=== PATIENT | male | born 1950 ===

== ENCOUNTER 2017-01-05 13:22 | Emergency (ER) | payer MEDICARE ==
[2017-01-05 13:46] VITALS: TEMP 98.6
[2017-01-05] MEDS ORDERED: Naproxen 550 mg Tab PO STA (13:47)
[2017-01-05] MEDS ORDERED: Naproxen 550 mg Tab PO ONE (13:53)
--- NOTE | 2017-01-05 14:06 | C.PDOC ---
History Of Present Illness 66 y/o male presents to ED with non-radiating lower back pain over the past 2-3 days. Patient states he was has a history of sciatica and feels that this is similar. Patient denies injury, fall, nausea, vomiting, numbness, weakness or any other complaints at this time. Time Seen by Provider: 01/05/17 13:48 Chief Complaint (Nursing): Back Pain History Per: Patient History/Exam Limitations: no limitations Onset/Duration Of Symptoms: Hrs Current Symptoms Are (Timing): Still Present Quality Of Discomfort: "Pain" Previous Symptoms: Chronic Pain Associated Symptoms: denies: Incontinence, New Weakness, New Numbness Exacerbating Factor(s): Movement Recent travel outside of the [place]: No Past Medical History Reviewed: Historical Data, Nursing Documentation, Vital Signs Vital Signs: Last Vital Signs Temp 98.6 F 01/05/17 13:45 Pulse 55 L 01/05/17 14:53 Resp 18 01/05/17 14:53 BP 109/63 01/05/17 14:53 Pulse Ox 100 01/05/17 14:53 - Medical History PMH: No Chronic Diseases Surgical History: No Surg Hx Family History: States: No Known Family Hx - Social History Hx Alcohol Use: No Hx Substance Use: No - Immunization History Hx Tetanus Toxoid Vaccination: Yes Hx Influenza Vaccination: Yes Hx Pneumococcal Vaccination: Yes Review Of Systems Except As Marked, All Systems Reviewed And Found Negative. Constitutional: Negative for: Fever, Chills Gastrointestinal: Negative for: Nausea, Vomiting Musculoskeletal: Positive for: Back Pain Skin: Negative for: Rash Neurological: Negative for: Weakness, Numbness Physical Exam - Physical Exam Appears: Non-toxic, No Acute Distress Skin: Normal Color, Warm, Dry, No Rash Head: Atraumatic, Normacephalic Eye(s): bilateral: Normal Inspection, PERRL, EOMI Oral Mucosa: Moist Neck: Normal ROM, No Midline Cervical Tenderness, No Paracervical Tenderness, Supple Chest: Symmetrical, No Tenderness Cardiovascular: Rhythm Regular, No Friction Rub, No Murmur Respiratory: Normal Breath Sounds, No Rales, No Rhonchi, No Wheezing Gastrointestinal/Abdominal: Soft, No Tenderness, No Guarding, No Rebound Back: No CVA Tenderness, No Vertebral Tenderness, No Paraspinal Tenderness Extremity: Normal ROM, No Tenderness, No Swelling Neurological/Psych: Oriented x3, Normal Speech, Normal Motor, Normal Sensation Gait: Steady ED Course And Treatment O2 Sat by Pulse Oximetry: 98 (RA) Pulse Ox Interpretation: Normal Medical Decision Making Medical Decision Making: On re-exam, the patient reports improvement of symptoms. Abdomen remain soft, non-tender and tolerating PO well. Ambulatory in the ED steady gait and without focal deficitis. Disposition - Disposition Referrals: Archie Oneill MD [Non-Staff] - Disposition: HOME/ ROUTINE Disposition Time: 14:45 Condition: GOOD Additional Instructions: Follow up with the medical doctor within 1-2 days without fail, Return if worsened. 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 - Scribe Statement The provider has reviewed the documentation as recorded by the Atifibshira [place] All medical record entries made by the Selwyn were at my direction and personally dictated by me. I have reviewed the chart and agree that the record accurately reflects my personal performance of the history, physical exam, medical decision making, and the department course for this patient. I have also personally directed, reviewed, and agree with the discharge instructions and disposition.
[2017-01-05 14:53] VITALS: BP 109/63; PULSE 55; RESP 18
[2017-01-05 23:22] VITALS: O2SAT 98
== END 2017-01-05 14:57 | disposition home or self-care (01) ==
LOC: C.ER 13:22
DX: S39.012A Strain of muscle, fascia and tendon of lower back, initial encounter (principal); X58.XXXA Exposure to other specified factors, initial encounter

== ENCOUNTER 2018-04-09 11:38 | Emergency (ER) | payer MEDICARE ==
[2018-04-09 12:02] VITALS: TEMP 98.6
[2018-04-09 13:38] LABS: BASO # 0.1 K/uL (0.0-0.2); BASO % 0.8 % (0.0-2.0); EOS % 0.2 % (0.0-4.0); HEMOGLOBIN 13.6 g/dL (12.0-18.0); LYMPH # 1.1 K/uL (1.0-4.3); LYMPH % 10.8 % (20.0-40.0); MEAN CELL VOLUME 95.5 fL (80.0-94.0); MEAN CORPUSCULAR HEMOGLOBIN 32.7 pg (27.0-31.0); MEAN CORPUSCULAR HGB CONC 34.2 g/dL (33.0-37.0); MEAN PLATELET VOLUME 8.9 fL (7.2-11.7); MONO # 1.3 K/uL (0.0-0.8); NEUT # 7.6 K/uL (1.8-7.0); NEUT % 75.2 % (50.0-75.0); RBC 4.15 Mil/uL (4.40-5.90); RED CELL DISTRIBUTION WIDTH 13.6 % (11.5-14.5); WHITE BLOOD COUNT 10.1 K/uL (4.8-10.8)
[2018-04-09 13:50] LABS: ALB/GLOB RATIO 1.3 (1.0-2.1); ALBUMIN 4.1 g/dL (3.5-5.0); ALT/SGPT 32 U/L (21-72); AST/SGOT 33 U/L (17-59); BLOOD UREA NITROGEN 19 mg/dL (9-20); CALCIUM 8.9 mg/dl (8.6-10.4); GFR NON-AFRICAN AMERICAN > 60
[2018-04-09 15:03] LABS: URINE BILIRUBIN NEGATIVE (NEGATIVE); URINE BLOOD NEGATIVE (NEGATIVE); URINE CLARITY Clear (Clear); URINE COLOR Amber (YELLOW); URINE GLUCOSE (UA) NORMAL (Normal); URINE LEUKOCYTE ESTERASE NEG Leu/uL (Negative); URINE PROTEIN 2+ mg/dL (NEGATIVE)
--- NOTE | 2018-04-09 15:27 | C.PDOC ---
History Of Present Illness 68 y/o male with no PMHx presents via ambulance, accompanied by his for evaluation of frequent falls and decreased mental capacity. As per , patient fell in the summer and again yesterday. He has been forgetting how to read and write, and has been dressing himself incorrectly. Patient has also been losing his balance at home. reports he is increasingly antagonistic and yells at her frequently. Yesterday found patient on the floor, sitting in his own urine. Patient himself admits to feeling off balance. He denies any headache, chest pain, SOB, abdominal pain, nausea, vomiting, sweats, or other associated symptoms. - HPI Time Seen by Provider: 04/09/18 14:23 Chief Complaint (Nursing): Dizziness/Lightheaded History Per: Patient History/Exam Limitations: no limitations Onset/Duration Of Symptoms: Intermittent Episodes Injury Occurred (Timing): Days Ago: (1) Additional History Per: Family Past Medical History Reviewed: Historical Data, Nursing Documentation, Vital Signs Vital Signs: Last Vital Signs Temp 98.6 F 04/09/18 11:58 Pulse 78 04/09/18 11:58 Resp 20 04/09/18 11:58 BP 128/73 04/09/18 11:58 Pulse Ox 96 04/09/18 11:58 - Medical History PMH: No Chronic Diseases Family History: States: Unknown Family Hx - Social History Hx Alcohol Use: No Hx Substance Use: No - Immunization History Hx Tetanus Toxoid Vaccination: Yes Hx Influenza Vaccination: Yes Hx Pneumococcal Vaccination: Yes Review Of Systems Except As Marked, All Systems Reviewed And Found Negative. Constitutional: Negative for: Fever, Sweats Eyes: Negative for: Vision Change Cardiovascular: Negative for: Chest Pain, Palpitations Respiratory: Negative for: Shortness of Breath Gastrointestinal: Negative for: Nausea, Vomiting, Diarrhea Neurological: Positive for: Confusion (increased inability to read/write and dress self), Dizziness, Other (Frequent falls). Negative for: Weakness, Numbness, Headache Physical Exam - Physical Exam Appears: Non-toxic, No Acute Distress Skin: Normal Color, Warm, Dry Head: Atraumatic, Normacephalic, No Swelling, No Laceration Eye(s): bilateral: Normal Inspection, PERRL, EOMI Nose: Normal, No Discharge Oral Mucosa: Moist Lips: Normal Appearing Throat: Normal, No Erythema Neck: Normal ROM, No Midline Cervical Tenderness, No Paracervical Tenderness, Supple Chest: Symmetrical Cardiovascular: Rhythm Regular, No Murmur Respiratory: Normal Breath Sounds, No Rales, No Rhonchi, No Wheezing Gastrointestinal/Abdominal: Soft, No Tenderness, No Distention Back: Normal Inspection, No Vertebral Tenderness Extremity: Bilateral: Atraumatic, Normal Color And Temperature, Normal ROM Pulses: Left Dorsalis Pedis: Normal, Right Dorsalis Pedis: Normal Neurological/Psych: Oriented x3, Normal Speech, Normal Cranial Nerves, Other (Patient answering all questions, correctly naming items; Neurologically intact) Gait: With Assistance (Patient is able to ambulate across the ED with assistance) Other Neurological Findings: No Facial Palsy ED Course And Treatment - Laboratory Results Result Diagrams: 04/09/18 13:33 04/09/18 13:33 O2 Sat by Pulse Oximetry: 96 (RA) Pulse Ox Interpretation: Normal - CT Scan/US CT Head Other Rad Studies (CT/US): Read By Radiologist, Radiology Report Reviewed CT/US Interpretation: Accession No. : [id number]. Patient Name / ID : MARISELA GRANT / [id number]. Exam Date : 04/09/2018 15:17:35 ( Approved ). Study Comment : Sex / Age : M / 68Y. Creator : Jade Caceres. Dictator : Patricio Camp MD. House Detective : Item Processor : Patricio Camp MD. Approver2 : Report Date : 04/09/2018 15:27:45. My Comment : . Date of service: 04/09/2018. PROCEDURE: CT HEAD WITHOUT CONTRAST. HISTORY: Off balance, frequent falls. COMPARISON: None available. TECHNIQUE: Axial computed tomography images were obtained through the head/brain without intravenous contrast. Radiation dose: Total exam DLP = 1218.16 mGy-cm. This CT exam was performed using one or more of the following dose reduction techniques: Automated exposure control, adjustment of the mA and/or kV according to patient size, and/or use of iterative reconstruction technique. FINDINGS: HEMORRHAGE: No acute parenchymal subarachnoid nor extra-axial hemorrhage. BRAIN: Mild diffuse and confluent chronic white matter ischemic changes seen extending peripherally into the deep and subcortical white matter both cerebral hemispheres. There are chronic appearing bilateral small basal nuclei infarcts also present. Note that the possibility of a small hyperacute infarct cannot be excluded on this exam. There is disproportionate enlargement of the 3rd and lateral ventricles with relatively normal-appearing 4th ventricle, compared sulci which can be seen in central volume loss. However the possibility of normal pressure hydrocephalus NPH) should be excluded if the clinical triad of dementia, ataxia and incontinence is present. Fourth ventricle exhibits relatively normal size; rule out chronic compensated obstructive type hydrocephalus. Clinical correlation recommended. Mild vascular calcification left vertebral artery. No obvious parenchymal nor extra-axial mass or collection seen on this noncontrast exam. VENTRICLES: Dilatation of the 3rd and lateral ventricles as detailed above. CALVARIUM: Calvarium intact. PARANASAL SINUSES: Unremarkable as visualized. No significant inflammatory changes. MASTOID AIR CELLS: Unremarkable as visualized. No inflammatory changes. OTHER FINDINGS: None. IMPRESSION: Mild chronic white matter ischemic changes with scattered chronic bilateral basal nuclei infarcts. Moderate dilatation of the 3rd and lateral ventricles with relatively normal- appearing 4th ventricle. Findings could be in part related to central volume loss however the possibility of chronic compensated obstructive hydrocephalus not excluded. Consider NPH only if the clinical triad of dementia, ataxia and incontinence present. Medical Decision Making Medical Decision Making: Initial Plan: --CMP --Troponin I --CBC --UA --EKG --CT Head Discussed CT results with Dr. Barnett neuro bond runner. She recommended patient start on Aricept and f/u with NS in case he needs a shunt. Disposition Discussed With : Kamille Barnett Counseled Patient/Family Regarding: Studies Performed, Diagnosis, Need For Followup, Rx Given - Disposition Referrals: Chase Maldonado MD [Staff Provider] - Kamille Barnett MD [Staff Provider] - Mejia Amaro MD [Staff Provider] - Disposition: HOME/ ROUTINE Disposition Time: 16:09 Condition: GUARDED Prescriptions: Donepezil HCl [Aricept] 10 mg PO DAILY #30 tablet Instructions: Hydrocephalus (DC), Dementia (DC) Forms: [facility] (Tajik), General Discharge Instructions - POA Present On Arrival: None - Clinical Impression Clinical Impression: Normal pressure hydrocephalus - Scribe Statement The provider has reviewed the documentation as recorded by the Atifibshira Ruelas Provider Attestation: All medical record entries made by the Atifibe were at my direction and personally dictated by me. I have reviewed the chart and agree that the record accurately reflects my personal performance of the history, physical exam, medical decision making, and the department course for this patient. I have also personally directed, reviewed, and agree with the discharge instructions and disposition.
--- NOTE | 2018-04-09 15:56 | CT ---
Date of service: 04/09/2018 PROCEDURE: CT HEAD WITHOUT CONTRAST. HISTORY: Off balance, frequent falls COMPARISON: None available. TECHNIQUE: Axial computed tomography images were obtained through the head/brain without intravenous contrast. Radiation dose: Total exam DLP = 1218.16 mGy-cm. This CT exam was performed using one or more of the following dose reduction techniques: Automated exposure control, adjustment of the mA and/or kV according to patient size, and/or use of iterative reconstruction technique. FINDINGS: HEMORRHAGE: No acute parenchymal subarachnoid nor extra-axial hemorrhage. BRAIN: Mild diffuse and confluent chronic white matter ischemic changes seen extending peripherally into the deep and subcortical white matter both cerebral hemispheres. There are chronic appearing bilateral small basal nuclei infarcts also present. Note that the possibility of a small hyperacute infarct cannot be excluded on this exam. There is disproportionate enlargement of the 3rd and lateral ventricles with relatively normal-appearing 4th ventricle, compared sulci which can be seen in central volume loss. However the possibility of normal pressure hydrocephalus NPH) should be excluded if the clinical triad of dementia, ataxia and incontinence is present. Fourth ventricle exhibits relatively normal size; rule out chronic compensated obstructive type hydrocephalus. Clinical correlation recommended. Mild vascular calcification left vertebral artery. No obvious parenchymal nor extra-axial mass or collection seen on this noncontrast exam. VENTRICLES: Dilatation of the 3rd and lateral ventricles as detailed above. CALVARIUM: Calvarium intact. PARANASAL SINUSES: Unremarkable as visualized. No significant inflammatory changes. MASTOID AIR CELLS: Unremarkable as visualized. No inflammatory changes. OTHER FINDINGS: None. IMPRESSION: Mild chronic white matter ischemic changes with scattered chronic bilateral basal nuclei infarcts. Moderate dilatation of the 3rd and lateral ventricles with relatively normal-appearing 4th ventricle. Findings could be in part related to central volume loss however the possibility of chronic compensated obstructive hydrocephalus not excluded. Consider NPH only if the clinical triad of dementia, ataxia and incontinence present.
[2018-04-09 16:25] VITALS: BP 134/79; PULSE 79; RESP 16; O2SAT 98
--- NOTE | 2018-04-10 21:47 | CARD ---
APPROVED REPORT Date of service: 04/09/2018 EKG Measurement Heart [id number] <Conclusion> Sinus rhythm with premature supraventricular complexes Left axis deviation Abnormal ECG
== END 2018-04-09 16:25 | disposition home or self-care (01) ==
LOC: C.ER 11:38
DX: G91.2 (Idiopathic) normal pressure hydrocephalus (principal)

== ENCOUNTER 2018-08-10 22:25 | Inpatient (IN) | payer MEDICARE ==
[2018-08-10 22:31] VITALS: BMI 16.0
[2018-08-10] MEDS ORDERED: Iodixanol 320 MG/ML 100 ML BOTTLE IV ONE (22:47)
[2018-08-10 22:51] LABS: BASO # 0.1 K/uL (0.0-0.2); BASO % 1.3 % (0.0-2.0); EOS # 0.1 K/uL (0.0-0.7); EOS % 1.6 % (0.0-4.0); HEMOGLOBIN 14.4 g/dL (12.0-18.0); LYMPH # 2.4 K/uL (1.0-4.3); LYMPH % 28.1 % (20.0-40.0); MEAN CELL VOLUME 93.4 fL (80.0-94.0); MEAN CORPUSCULAR HEMOGLOBIN 32.3 pg (27.0-31.0); MEAN CORPUSCULAR HGB CONC 34.5 g/dL (33.0-37.0); MEAN PLATELET VOLUME 8.2 fL (7.2-11.7); MONO # 0.9 K/uL (0.0-0.8); MONO % 10.3 % (0.0-10.0); NEUT # 4.9 K/uL (1.8-7.0); NEUT % 58.7 % (50.0-75.0); RBC 4.45 Mil/uL (4.40-5.90); RED CELL DISTRIBUTION WIDTH 14.2 % (11.5-14.5); WHITE BLOOD COUNT 8.4 K/uL (4.8-10.8)
[2018-08-10 23:34] LABS: ALB/GLOB RATIO 1.6 (1.0-2.1); ALBUMIN 4.4 g/dL (3.5-5.0); ALT/SGPT 27 U/L (21-72); AST/SGOT 80 U/L (17-59); BLOOD UREA NITROGEN 26 mg/dL (9-20); CALCIUM 10.1 mg/dl (8.6-10.4); GFR NON-AFRICAN AMERICAN 55; HDL CHOLESTEROL 47 mg/dL (30-70); LDL CHOLESTEROL 150 mg/dL (0-129); PROTHROMBIN TIME 11.2 SECONDS (9.7-12.2)
[2018-08-10] MEDS ORDERED: Atropine Sulfate 1 mg/ml Vial (1 ml) IVP ONE (23:44)
[2018-08-10] MEDS ORDERED: diaZEpam 10 mg/2 ml Inj ONE (23:59)
--- NOTE | 2018-08-10 23:59 | C.PDOC ---
History Of Present Illness 68 year old male with PMHx of dementia is brought from home by EMS for evaluation of sudden onset dizziness. Patient lived upstairs from his girlfriend also c.o nausea and vomiting now. Time Seen by Provider: 08/10/18 22:26 Chief Complaint (Nursing): Weakness/Neurological Deficit History Per: Patient, EMS History/Exam Limitations: no limitations Onset/Duration Of Symptoms: Hrs Current Symptoms Are (Timing): Still Present Number Of Syncopal Episodes: 1 Associated Symptoms Preceding Syncopal Episode: Vertigo Seizure Or Post-ictal Symptoms: None Possible Causative Factor(s): Vertigo Fall Associated With With Symptoms: No Severity: None Recent travel outside of the [place]: No Additional History Per: Patient, EMS Past Medical History Reviewed: Historical Data, Nursing Documentation, Vital Signs Vital Signs: Last Vital Signs Temp 98.4 F 08/10/18 22:36 Pulse 43 L 08/10/18 23:40 Resp 9 L 08/10/18 23:40 BP 150/75 08/10/18 23:40 Pulse Ox 100 08/10/18 23:40 - Medical History PMH: Alzheimer's Disease, Dementia Surgical History: No Surg Hx Family History: States: Unknown Family Hx - Social History Hx Alcohol Use: No Hx Substance Use: No - Immunization History Hx Tetanus Toxoid Vaccination: Yes Hx Influenza Vaccination: Yes Hx Pneumococcal Vaccination: Yes Review Of Systems Constitutional: Negative for: Fever, Chills Eyes: Negative for: Vision Change Cardiovascular: Negative for: Chest Pain, Palpitations Respiratory: Negative for: Shortness of Breath Gastrointestinal: Positive for: Nausea, Vomiting. Negative for: Abdominal Pain Neurological: Positive for: Dizziness. Negative for: Weakness, Numbness, Headache Physical Exam - Physical Exam Appears: Non-toxic, No Acute Distress Skin: Normal Color, Warm, Dry Head: Atraumatic, Normacephalic, Other (questionable mid left facial droop, new as per GF at bedside) Eye(s): bilateral: PERRL, EOMI, Other (sticking nystagmus) Oral Mucosa: Moist Neck: Normal ROM, Supple Chest: Symmetrical Cardiovascular: Rhythm Regular Respiratory: Normal Breath Sounds, No Rales, No Rhonchi, No Wheezing Gastrointestinal/Abdominal: Soft, No Tenderness, No Guarding, No Rebound Extremity: Bilateral: Atraumatic, Normal Color And Temperature, Normal ROM Neurological/Psych: Oriented x3, Normal Speech, Normal Cognition, Normal Motor, Normal Sensation Gait: Steady ED Course And Treatment - Laboratory Results Result Diagrams: 08/10/18 22:46 08/10/18 22:46 Lab Results: PT 11.2 SECONDS (9.7-12.2) 08/10/18 22:46 INR 1.0 08/10/18 22:46 APTT 26 SECONDS (21-34) 08/10/18 22:46 Troponin I < 0.0120 ng/mL (0.00-0.120) 08/10/18 22:46 Total Bilirubin 0.3 mg/dL (0.2-1.3) 08/10/18 22:46 AST 80 U/L (17-59) H D 08/10/18 22:46 ALT 27 U/L (21-72) 08/10/18 22:46 Alkaline Phosphatase 86 U/L (38-126) 08/10/18 22:46 Total Protein 7.1 g/dL (6.3-8.3) 08/10/18 22:46 Albumin 4.4 g/dL (3.5-5.0) 08/10/18 22:46 Globulin 2.7 gm/dL (2.2-3.9) 08/10/18 22:46 Albumin/Globulin Ratio 1.6 (1.0-2.1) 08/10/18 22:46 O2 Sat by Pulse Oximetry: 100 (ON RA) Pulse Ox Interpretation: Normal - CT Scan/US CT head Other Rad Studies (CT/US): Read By Radiologist, Radiology Report Reviewed CT/US Interpretation: EXAM: CT Head without Intravenous Contrast. CLINICAL HISTORY: Code stroke. TECHNIQUE: Axial computed tomography images of the head/brain without intravenous contrast. 0.00 mGy-cm. CONTRAST: Without. COMPARISON: None provided. FINDINGS: BRAIN. No acute intraparenchymal hemorrhage. No mass lesion. No abnormal enhancement. No CT evidence for acute territorial infarct. No midline shift or extra-axial collections. There is moderate age-appropriate diffuse cerebral/cerebellar atrophy noted. There are bilateral periventricular and subcortical white matter hypolucencies compatible with mild chronic microvascular disease. VENTRICLES: There is some compensatory ventricular dilatation present. ORBITS: The orbits are unremarkable. SINUSES AND MASTOIDS: The paranasal sinuses and mastoid air cells are clear. BONES: No fracture. IMPRESSION: 1. No acute intracranial abnormality. 2. Moderate age-appropriate diffuse cerebral/cerebellar atrophy. 3. Mild chronic microvascular disease. 4. Mild compensatory ventricular dilatation present. . Electronically signed on Aug 10, 2018 11:07:59 PM EDT by: Chase Bui M.D., GUALBERTO Certified By ABR & CBCCT. Fellowship Trained MRI and CT Specialist CTA head Other Rad Studies (CT/US): Read By Radiologist, Radiology Report Reviewed CT/US Interpretation: EXAM: CTA Head and Neck with Intravenous Contrast. CLINICAL HISTORY: Code stroke. TECHNIQUE: Axial CTA images of the head and neck performed with intravenous contrast. MIP reconstructed images were created and reviewed. 0.00 mGy-cm. CONTRAST: With; 100MLS VISI 320 was injected intravenously without incident. COMPARISON: None provided. FINDINGS: VASCULATURE: NECK: COMMON CAROTID ARTERIES. No significant canal stenosis. No dissection or occlusion. EXTERNAL CAROTID ARTERIES. Patent. NECK: INTERNAL CAROTID ARTERIES. Short segments of high-grade stenosis are identified within the origin of the right internal carotid artery. some atheromatous plaque deposition is seen within the origin of the left internal carotid artery. No stenosis by NASCET criteria seen in the left ICA. No dissection or occlusion seen involving either vessel. VERTEBRAL ARTERIES. No significant canal stenosis. No dissection. A long segment of total occlusion; possibly subsequent to thrombosis, is seen within the left vertebral artery beginning just beyond its level of origin extending cephalad to the level of the upper foramen magnum. Arterial flow within the left vertebral artery is then reconstituted via collaterals and appears normal to the vertebral basilar junction. The right vertebral artery appears normal throughout its course. HEAD: ANTERIOR CEREBRAL ARTERIES. No significant stenosis. No occlusion. No aneurysm. MIDDLE CEREBRAL ARTERIES. No significant stenosis. No occlusion. No aneurysm. POSTERIOR CEREBRAL ARTERIES. No significant stenosis. No occlusion. No aneurysm. BASILAR ARTERY. No significant stenosis. No occlusion. No aneurysm. OTHER: SOFT TISSUES. No acute finding. BONES. No acute osseous abnormality. There is evidence of advanced degenerative disc disease at C4-5, C5-6, C6-7. 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 IMPRESSION: 1. Short segments of high-grade stenosis involving the origin of the right ICA. 2. Questionable thrombotic arterial occlusion of nearly the entire course of the left vertebral artery. Reconstitution of left vertebral arterial flow noted just proximal to the vertebral basilar junction. 3. Atheromatous plaque deposition seen within the origin of the left ICA. 4. Evidence of advanced degenerative disc disease at C4-5, C5-6, C6-7. 5. 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 . Electronically signed on Aug 11, 2018 12:04:02 AM EDT by: Chase Bui M.D., GUALBERTO Certified By ABR & CBCCT. Fellowship Trained MRI and CT Specialist. NIHSS Stroke Scale 2 - Date/Time Evaluation Performed Date Performed: 08/11/18 Medical Decision Making Medical Decision Making: PLan: * Labs * CT head * CTA head * CXR * Aspirin 325 mg PO * Ativan 1 mg IVP * Atropine 1 mg IVP * Valium 5 mg IVP * Zofran 4 mg IVP Code stroke called 22:25 Disposition - Disposition Forms: [facility] (Macedonian) - Scribe Statement The provider has reviewed the documentation as recorded by the Scribe Roni Chandra All medical record entries made by the Scribe were at my direction and personally dictated by me. I have reviewed the chart and agree that the record accurately reflects my personal performance of the history, physical exam, medical decision making, and the department course for this patient. I have also personally directed, reviewed, and agree with the discharge instructions and disposition.
[2018-08-11] MEDS ORDERED: diaZEpam 10 mg/2 ml Inj IVP ONE (00:01)
--- NOTE | 2018-08-11 00:09 | C.PDOC ---
History Of Present Illness 68 year old male with PMHx of dementia is brought from home by EMS for evaluation of sudden onset dizziness. Patient lives upstairs from his girlfriend, patient is also c/o nausea and vomiting now. <Gorge Rdz - Last Filed: 08/11/18 00:28> History Per: Patient, EMS, Family History/Exam Limitations: None Onset/Duration Of Symptoms: Hrs Onset Of Symptoms: Cannot Confirm Onset Current Symptoms Are (Timing): Still Present Usual Baseline: Alert Oriented Exacerbating Factor(s): Unknown Use Of Anticoag/Antiplatelets: No Speech Is: Normal Severity: None Recent travel outside of the [place]: No Additional History Per: Patient <Gorge Rdz - Last Filed: 08/11/18 00:28> <Marcel Lopez - Last Filed: 08/11/18 01:46> Time Seen by Provider: 08/10/18 22:26 Chief Complaint (Nursing): Weakness/Neurological Deficit Past Medical History Reviewed: Historical Data, Nursing Documentation, Vital Signs Vital Signs: Last Vital Signs Temp 98.4 F 08/10/18 22:36 Pulse 43 L 08/10/18 23:40 Resp 9 L 08/10/18 23:40 BP 150/75 08/10/18 23:40 Pulse Ox 100 08/11/18 00:06 - Medical History PMH: Alzheimer's Disease, Dementia Surgical History: No Surg Hx Family History: States: Unknown Family Hx - Social History Hx Alcohol Use: No Hx Substance Use: No - Immunization History Hx Tetanus Toxoid Vaccination: Yes Hx Influenza Vaccination: Yes Hx Pneumococcal Vaccination: Yes <Gorge Rdz - Last Filed: 08/11/18 00:28> Vital Signs: Last Vital Signs Temp 98.4 F 08/10/18 22:36 Pulse 72 08/11/18 00:51 Resp 13 08/11/18 00:51 BP 148/82 08/11/18 00:51 Pulse Ox 98 08/11/18 00:51 <Marcel Lopez - Last Filed: 08/11/18 01:46> Review Of Systems Constitutional: Negative for: Fever, Chills Cardiovascular: Negative for: Chest Pain, Palpitations Respiratory: Negative for: Cough, Shortness of Breath Gastrointestinal: Positive for: Nausea, Vomiting Skin: Negative for: Rash Neurological: Positive for: Dizziness. Negative for: Weakness, Numbness, Headache <Gorge Rdz - Last Filed: 08/11/18 00:28> Physical Exam - Physical Exam Appears: Non-toxic, No Acute Distress Skin: Normal Color, Warm, Dry Head: Atraumatic, Normacephalic, Other (questionable mid left facial droop, new as per GF at bedside) Eye(s): bilateral: PERRL, EOMI, Other (sticking nystagmus) Oral Mucosa: Moist Neck: Normal ROM, No Midline Cervical Tenderness, Supple Chest: Symmetrical Cardiovascular: Rhythm Regular Respiratory: Normal Breath Sounds, No Rales, No Rhonchi, No Wheezing Gastrointestinal/Abdominal: Soft, No Tenderness, No Guarding, No Rebound Extremity: Bilateral: Atraumatic, Normal Color And Temperature, Normal ROM Neurological/Psych: Oriented x3, Normal Speech Gait: Unable To Assess <KendellGorge - Last Filed: 08/11/18 00:28> ED Course And Treatment - Laboratory Results Result Diagrams: 08/10/18 22:46 08/10/18 22:46 Lab Results: PT 11.2 SECONDS (9.7-12.2) 08/10/18 22:46 INR 1.0 08/10/18 22:46 APTT 26 SECONDS (21-34) 08/10/18 22:46 Troponin I < 0.0120 ng/mL (0.00-0.120) 08/10/18 22:46 Total Bilirubin 0.3 mg/dL (0.2-1.3) 08/10/18 22:46 AST 80 U/L (17-59) H D 08/10/18 22:46 ALT 27 U/L (21-72) 08/10/18 22:46 Alkaline Phosphatase 86 U/L (38-126) 08/10/18 22:46 Total Protein 7.1 g/dL (6.3-8.3) 08/10/18 22:46 Albumin 4.4 g/dL (3.5-5.0) 08/10/18 22:46 Globulin 2.7 gm/dL (2.2-3.9) 08/10/18 22:46 Albumin/Globulin Ratio 1.6 (1.0-2.1) 04/12/19 22:46 Lab Interpretation: Normal ECG: Interpreted By Tn ECG Rhythm: Sinus Bradycardia ECG Interpretation: Abnormal Rate From EC O2 Sat by Pulse Oximetry: 100 (ON RA) Pulse Ox Interpretation: Normal - Radiology CXR: Interpreted by Tn CXR Interpretation: Yes: No Acute Disease - CT Scan/US CT head Other Rad Studies (CT/US): Read By Radiologist, Radiology Report Reviewed CT/US Interpretation: EXAM: CT Head without Intravenous Contrast. CLINICAL HISTORY: Code stroke. TECHNIQUE: Axial computed tomography images of the head/brain without intravenous contrast. 0.00 mGy-cm. CONTRAST: Without. COMPARISON: None provided. FINDINGS: BRAIN. No acute intraparenchymal hemorrhage. No mass lesion. No abnormal enhancement. No CT evidence for acute territorial infarct. No midline shift or extra-axial collections. There is moderate age-appropriate diffuse cerebral/cerebellar atrophy noted. There are b ilateral periventricular and subcortical white matter hypolucencies compatible with mild chronic microvascular disease. VENTRICLES: There is some compensatory ventricular dilatation present. ORBITS: The orbits are unremarkable. SINUSES AND MASTOIDS: The paranasal sinuses and mastoid air cells are clear. BONES: No fracture. IMPRESSION: 1. No acute intracranial abnormality. 2. Moderate age-appropriate diffuse cerebral/cerebellar atrophy. 3. Mild chronic microvascular disease. 4. Mild compensatory ventricular dilatation present. . Electronically signed on Aug 10, 2018 11:07:59 PM EDT by: Chase Bui M.D., GUALBERTO Certified By ABR & CBCCT. Fellowship Trained MRI and CT Specialist. CTA head Other Rad Studies (CT/US): Read By Radiologist, Radiology Report Reviewed CT/US Interpretation: EXAM: CTA Head and Neck with Intravenous Contrast. CLINICAL HISTORY: Code stroke. TECHNIQUE: Axial CTA images of the head and ne ck performed with intravenous contrast. MIP reconstructed images were created and reviewed. 0.00 mGy-cm. CONTRAST: With; 100MLS VISI 320 was injected intravenously without incident. COMPARISON: None provided. FINDINGS: VASCULATURE: NECK: COMMON CAROTID ARTERIES. No significant canal stenosis. No dissection or occlusion. EXTERNAL CAROTID ARTERIES. Patent. NECK: INTERNAL CAROTID ARTERIES. Short segments of high-grade stenosis are identified within the origin of the right internal carotid artery. some atheromatous plaque deposition is seen within the origin of the left internal carotid artery. No stenosis by NASCET criteria seen in the left ICA. No dissection or occlusion seen involving either vessel. VERTEBRAL ARTERIES. No significant canal stenosis. No dissection. A long segment of total occlusion; possibly subsequent to thrombosis, is seen within the left vertebral artery beginning just beyond its level of origin extending cephalad to the level of the upper foramen magnum. Arterial flow within the left vertebral artery is then reconstituted via collaterals and appears normal to the vertebral basilar junction. The right vertebral artery appears normal throughout its course. HEAD: ANTERIOR CEREBRAL ARTERIES. No significant stenosis. No occlusion. No aneurysm. MIDDLE CEREBRAL ARTERIES. No significant stenosis. No occlusion. No aneurysm. POSTERIOR CEREBRAL ARTERIES. No significant stenosis. No occlusion. No aneurysm. BASILAR ARTERY. No significant stenosis. No occlusion. No aneurysm. OTHER: SOFT TISSUES. No acute finding. BONES. No acute osseous abnormality. There is evidence of advanced degenerative disc disease at C4-5, C5-6, C6-7. 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 IMPRESSION: 1. Short segments of high-grade stenosis involving the origin of the right ICA. 2. Questionable thrombotic arterial occlusion of nearly the entire course of the left vertebral artery. Reconstitution of left vertebral arterial flow noted just proximal to the vertebral basilar junction. 3. Atheromatous plaque dep osition seen within the origin of the left ICA. 4. Evidence of advanced degenerative disc disease at C4-5, C5-6, C6-7. 5. 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 . Electronically signed on Aug 11, 2018 12:04:02 AM EDT by: Chase Bui M.D., GUALBERTO Certified By ABR & CBCCT. Fellowship Trained MRI and CT Specialist Reevaluation Time: 00:14 Reassessment Condition: Improved - Physician Consult Information Outcome Of Conversation: 0015: dw Dr. Barnett- Neuro Direct Selling Counselor- abnormal CTA results reviewed. though subacute findings, pending d/w interventional Neuro. Pending ICU consult for ? symptomatic bradycardia. 0030: signed over to overnight <Gorge Rdz - Last Filed: 08/11/18 00:28> - Laboratory Results Result Diagrams: 08/10/18 22:46 08/10/18 22:46 Lab Results: PT 11.2 SECONDS (9.7-12.2) 08/10/18 22:46 INR 1.0 08/10/18 22:46 APTT 26 SECONDS (21-34) 08/10/18 22:46 Troponin I < 0.0120 ng/mL (0.00-0.120) 08/10/18 22:46 Total Bilirubin 0.3 mg/dL (0.2-1.3) 08/10/18 22:46 AST 80 U/L (17-59) H D 08/10/18 22:46 ALT 27 U/L (21-72) 08/10/18 22:46 Alkaline Phosphatase 86 U/L (38-126) 08/10/18 22:46 Total Protein 7.1 g/dL (6.3-8.3) 08/10/18 22:46 Albumin 4.4 g/dL (3.5-5.0) 08/10/18 22:46 Globulin 2.7 gm/dL (2.2-3.9) 08/10/18 22:46 Albumin/Globulin Ratio 1.6 (1.0-2.1) 08/10/18 22:46 <Marcel Lopez - Last Filed: 08/11/18 01:46> NIHSS Stroke Scale - Date/Time Evaluation Performed Date Performed: 08/11/18 Time Performed: 22:25 - How Severe is the Stoke Level of Consciousness: 0=Alert LOC to Questions: 0=Both comments correct LOC to commands: 0=Obeys both correctly Best Gaze: 0=Normal Visual: 0=No visual loss Facial: 0=Normal Motor Arm - Left: 0=No drift Motor Arm - Right: 0=No drift Motor Leg - Left: 0=No drift Motor Leg - Right: 0=No drift Limb Ataxia: 0=Absent Sensory: 0=Normal Best Language: 0=No aphasia Dysarthia: 0=Normal articulation Extinction & Inattention (Neglect): 0=Normal, no object Score: 0 <Gorge Rdz - Last Filed: 08/11/18 00:28> rTPA Inclusion/Exclusion - Refusal of Treatment Patient Refused Treatment: No - Inclusion Criteria for Altepase All of the below criteria for inclusion were reviewed: No - Exclusion Criteria for Altepase Current Intracranial Hemorrhage: No Subarachnoid hemorrhage: No Active Internal Bleeding: No Presence of intracranial conditions that may increase bleed: Not Applicable Bleeding Diathesis Including but not limited to: None Current Severe Uncontrolled Hypertension: No - Warning to TPA With Conditions Following Conditions Weighed Against Anticipated Benefit: No <KendellHernandoKunal - Last Filed: 08/11/18 00:28> - Refusal of Treatment Patient Refused Treatment: No - Inclusion Criteria for Altepase All of the below criteria for inclusion were reviewed: No Patient is 18 years or Older: Yes Clinical DX Ischemic Stroke Cause Neurological Deficit: No Time of Onset Established Less Than 270 Mins Before TX Begin: Yes - Exclusion Criteria for Altepase Current Intracranial Hemorrhage: No Subarachnoid hemorrhage: No Active Internal Bleeding: No Presence of intracranial conditions that may increase bleed: Not Applicable Bleeding Diathesis Including but not limited to: None Current Severe Uncontrolled Hypertension: No - Warning to TPA With Conditions Following Conditions Weighed Against Anticipated Benefit: No <JohnMarcel - Last Filed: 08/11/18 01:46> Critical Care Time - Critical Care Note Total Time (in mins): 30 Documented critical care: time excludes all time spent performing seperately billable procedures. <JohnFanny Last Filed: 08/11/18 01:46> Medical Decision Making Medical Decision Making: Peter: Labs CT head CTA head CXR Aspirin 325 mg PO Ativan 1 mg IVP Atropine 1 mg IVP Valium 5 mg IVP Zofran 4 mg IVP Code stroke called 22:25 sudden onset of vertigo w sticking horizontal nystagmus Sinus bradycardia 43, responded well to Atropine IV x [address] <Gorge Rdz E - Last Filed: 08/11/18 00:28> Disposition - Disposition Disposition Time: 00:30 <Gorge Rdz E - Last Filed: 08/11/18 00:28> Discussed With DrDiego: Chase Maldonado Comment: accepted the pt onhis service and took over the care at 1:42AM Doctor Will See Patient In The: ED <JohnMarcel Last Filed: 08/11/18 01:46> - Disposition Disposition: HOSPITALIZED Condition: GUARDED Forms: [facility] (Cameroonian) - Clinical Impression Clinical Impression: Vertebro-basilar artery syndrome, Bradycardia - Scribe Statement The provider has reviewed the documentation as recorded by the Scribe Roni Chandra All medical record entries made by the Scribe were at my direction and personally dictated by me. I have reviewed the chart and agree that the record accurately reflects my personal performance of the history, physical exam, medical decision making, and the department course for this patient. I have also personally directed, reviewed, and agree with the discharge instructions and disposition. <Gorge Rdz - Last Filed: 08/11/18 00:28> Physician Patient Turnover Patient Signed Over To: Marcel Lopez Handoff Comments: pending call- back from Dr. Barnett. then Adm to ICU (OK with Dr. Payan) under Dr. Maldonado (needs to be called) <Gorge Rdz - Last Filed: 08/11/18 00:28> Decision To Admit <Gorge Rdz - Last Filed: 08/11/18 00:28> - Pt Status Changed To: Hospital Disposition Of: Inpatient - Admit Certification Admit to Inpatient:: After my assessment, the patient will require hospitalization for at least two midnights. This is because of the severity of symptoms shown, intensity of services needed, and/or the medical risk in this patient being treated as an outpatient. - InPatient: Physician Admission Certification:: After my assessment, the patient will require hospitalization for at least two midnights. This is because of the severity of symptoms shown, intensity of services needed, and/or the medical risk in this patient being treated as an outpatient. - . Bed Request Type: ICU Admitting Physician: Chase Maldonado <Marcel Lopez - Last Filed: 08/11/18 01:46> - . Patient Diagnosis: Vertebro-basilar artery syndrome, Bradycardia
[2018-08-11 06:24] LABS: BASO # 0.1 K/uL (0.0-0.2); BASO % 0.7 % (0.0-2.0); EOS % 0.3 % (0.0-4.0); HEMOGLOBIN 16.5 g/dL (12.0-18.0); LYMPH # 1.6 K/uL (1.0-4.3); LYMPH % 15.4 % (20.0-40.0); MEAN CELL VOLUME 94.3 fL (80.0-94.0); MEAN CORPUSCULAR HGB CONC 33.9 g/dL (33.0-37.0); MEAN PLATELET VOLUME 8.1 fL (7.2-11.7); MONO # 0.8 K/uL (0.0-0.8); MONO % 7.9 % (0.0-10.0); NEUT # 7.7 K/uL (1.8-7.0); NEUT % 75.7 % (50.0-75.0); RBC 5.16 Mil/uL (4.40-5.90); RED CELL DISTRIBUTION WIDTH 13.9 % (11.5-14.5); WHITE BLOOD COUNT 10.1 K/uL (4.8-10.8)
[2018-08-11 06:38] LABS: ALB/GLOB RATIO 1.6 (1.0-2.1); ALBUMIN 4.8 g/dL (3.5-5.0); ALT/SGPT 28 U/L (21-72); AST/SGOT 94 U/L (17-59); BLOOD UREA NITROGEN 23 mg/dL (9-20); CALCIUM 10.1 mg/dl (8.6-10.4); GFR NON-AFRICAN AMERICAN > 60
--- NOTE | 2018-08-11 08:37 | RAD ---
Chest x-ray single frontal view History: Code stroke. Comparison: 08/25/2016 Findings: Biapical pleural thickening with upper lobe granulomatous changes. Diffuse increased interstitial lung markings. Mild linear atelectasis at the right lung base. Bilateral hilar prominence. Tortuous aorta. Top normal heart size. Degenerative changes in the spine and shoulders. Impression: Biapical pleural thickening with upper lobe granulomatous changes. Diffuse increased interstitial lung markings. Mild linear atelectasis at the right lung base. Bilateral hilar prominence. Tortuous aorta.
--- NOTE | 2018-08-11 10:34 | CT ---
Date of service: 08/10/2018 PROCEDURE: CT HEAD WITHOUT CONTRAST. HISTORY: Code Stroke COMPARISON: 04/09/2018 TECHNIQUE: Axial computed tomography images were obtained through the head/brain without intravenous contrast. Radiation dose: Total exam DLP = 1244.11 mGy-cm. This CT exam was performed using one or more of the following dose reduction techniques: Automated exposure control, adjustment of the mA and/or kV according to patient size, and/or use of iterative reconstruction technique. FINDINGS: HEMORRHAGE: No intracranial hemorrhage. BRAIN: No mass effect or edema. Scattered focal lucencies in the subcortical and periventricular white matter suggestive for chronic microvascular ischemic change. Diffuse generalized parenchymal atrophy. Punctate left basal ganglia lacunar infarct. VENTRICLES: Prominent likely related to diffuse generalized parenchymal atrophy. CALVARIUM: Unremarkable. PARANASAL SINUSES: Unremarkable as visualized. No significant inflammatory changes. MASTOID AIR CELLS: Unremarkable as visualized. No inflammatory changes. OTHER FINDINGS: Diffuse intracranial atherosclerotic calcifications. IMPRESSION: No acute intracranial abnormality. Chronic microvascular ischemic change. Diffuse generalized parenchymal atrophy. If symptoms persists, consider correlation with MRI. A preliminary report was generated at 11:07 p.m. on 08/10/[address] Chase Bui from [facility].
[2018-08-11] MEDS: Enoxaparin 40 mg Syringe SC SCH (11:15)
[2018-08-11] MEDS: Thiamine 100 mg/ml Inj IV SCH ×2 (11:16→17:31)
[2018-08-11] MEDS ORDERED: Gadodiamide 287 MG/ML VIAL (15ML) IV ONE (13:00)
[2018-08-11 13:16] LABS: BARBITURATES, UR NEGATIVE (NEGATIVE); OPIATES, UR NEGATIVE (NEGATIVE); PHENCYCLIDINE, UR NEGATIVE (NEGATIVE)
[2018-08-11 13:39] LABS: BENZODIAZEPINES, UR POSITIVE (NEGATIVE)
--- NOTE | 2018-08-11 13:39 | CP.PCM.PN ---
Subjective - Date & Time of Evaluation Date of Evaluation: 08/11/18 Time of Evaluation: 13:34 - Subjective Subjective: PAtient awake alert in NAD. PAtient not on any pressors. awake, alert, moving all extremitites. long time legal partner at bedside (living with him for 35 yrs) notes patient has been confused, leaves gas/stove on, forgets to close outside door, and at times walks out of house and forgets how to get home). PAtient admits to "forgetting" at times. Patient admitted and brought to ICU at around 3:40AM Objective - Vital Signs/Intake and Output Vital Signs (last 24 hours): Temp Pulse Resp BP Pulse Ox 97.5 F L 54 L 10 L 134/71 100 08/11/18 12:00 08/11/18 11:30 08/11/18 11:30 08/11/18 11:27 08/11/18 11:30 Intake and Output: 08/11/18 08/11/18 06:59 18:59 Intake Total 0 0 Output Total 300 100 Balance -300 -100 - Medications Medications: Current Medications Albuterol/Ipratropium (Duoneb 3 Mg/0.5 Mg (3 Ml) Ud) 3 ml INH RQ6 [facility] Aspirin (Aspirin Chewable) 81 mg PO DAILY [facility] Last Admin: 08/11/18 11:10 Dose: Not Given Donepezil HCl (Aricept) 5 mg PO HS [facility] Enoxaparin Sodium (Lovenox) 40 mg SC DAILY [facility] Last Admin: 08/11/18 11:15 Dose: 40 mg Folic Acid (Folic Acid) 1 mg PO DAILY [facility] Multivitamins/Vitamin C (Multi-Delyn Liquid) 5 ml PO DAILY [facility] Pantoprazole Sodium (Protonix Inj) 40 mg IVP DAILY [facility] Last Admin: 08/11/18 11:15 Dose: 40 mg Rosuvastatin Calcium (Crestor) 10 mg PO HS [facility] Thiamine HCl (Vitamin B1 Inj) 200 mg IV Q8H [facility] Stop: 08/13/18 02:31 Last Admin: 08/11/18 11:16 Dose: 200 mg - Labs Labs: 08/11/18 06:16 08/11/18 06:14 PT 11.2 SECONDS (9.7-12.2) 08/10/18 22:46 INR 1.0 08/10/18 22:46 APTT 26 SECONDS (21-34) 08/10/18 22:46 - Constitutional Appears: Well, Non-toxic, No Acute Distress - Head Exam Head Exam: ATRAUMATIC, NORMAL INSPECTION, NORMOCEPHALIC - Eye Exam Eye Exam: EOMI Pupil Exam: NORMAL ACCOMODATION, PERRL - ENT Exam ENT Exam: Mucous Membranes Moist - Respiratory Exam Respiratory Exam: Clear to Ausculation Bilateral, NORMAL BREATHING PATTERN - Cardiovascular Exam Cardiovascular Exam: REGULAR RHYTHM, +S1, +S2 - GI/Abdominal Exam GI & Abdominal Exam: Soft, Normal Bowel Sounds - Rectal Exam Rectal Exam: NORMAL INSPECTION - Back Exam Back Exam: NORMAL INSPECTION - Neurological Exam Neurological Exam: Alert, Awake, CN II-XII Intact, Oriented x3 - Psychiatric Exam Psychiatric exam: Normal Affect, Normal Mood - Skin Skin Exam: Normal Color, Warm Assessment and Plan - Assessment and Plan (Free Text) Assessment: as per nursing patient admitted to ICU at around 3:40AM Patient has h/o smoking 1/2 pack per day (/partner does not know any other medications and will bring in the list) -?CVA: not visible on CT-obtain MRI brain and neurolgoy eval -PAtient remains hemodyanmically stable -chronic issues include -COPD: patient advsied to stop smoking, duonebs -at risk of CAD: bedside swallow eval passed, start oral asa + statin -continue dvt/pud pppx Patient remains neurologically stable, remain hemodynamically stable.
[2018-08-11] MEDS: Albuterol-Ipratrop 3 mg / 0.5 (3 ml) UD INH SCH ×2 (14:20→19:51)
--- NOTE | 2018-08-11 14:39 | CT ---
Date of service: 08/10/2018 PROCEDURE: CT Angiography of the neck and brain with contrast HISTORY: CODE STROKE COMPARISON: None. TECHNIQUE: Contiguous axial images of the neck and brain were obtained from the level of the vertex of the skull to the superior mediastinum in the arteriographic phase of enhancement. Coronal and sagittal reformats or also generated. IV contrast dose: 100 cc Visipaque 320 Radiation dose: Total exam DLP = 631.88 mGy-cm. This CT exam was performed using one or more of the following dose reduction techniques: Automated exposure control, adjustment of the mA and/or kV according to patient size, and/or use of iterative reconstruction technique. FINDINGS: The aortic arch widely patent with only minimal calcified atherosclerotic plaque. The origins of the great vessels are widely patent. The common carotid arteries and carotid bifurcations are patent throughout without evidence of dissection occlusion or significant stenosis. Mild partially calcified atherosclerotic plaque seen at the proximal left internal carotid artery. Changes result narrowing estimated at approximately 50 %. The internal carotid arteries including the petrous cavernous and supraclinoid segments are also patent left-sided which is larger in caliber/more dominant than the right-side. There is occlusion of the left vertebral artery. Right vertebral artery is patent throughout. Note however that the distal vertebral artery (intradural segment reconstituted-opacified which is likely due to some retrograde filling. The major branches of the [id number] are also patent. The distal branches of the anterior middle and posterior cerebral arteries appear patent and relatively symmetric.. No evidence of large aneurysm nor vascular malformation. OTHER FINDINGS: Multilevel degenerative spondylosis of the cervical spine. Mild chronic pleural thickening and parenchymal scarring both lung apices IMPRESSION: There is an approximately 50 % stenosis of proximal left internal carotid artery. The left vertebral artery is occluded however there is some reconstitution - opacification distally the intradural distal intradural portion of the left vertebral artery likely due to some retrograde filling
--- NOTE | 2018-08-11 15:56 | MRI ---
Date of service: 08/11/2018 PROCEDURE: MRI BRAIN WITH AND WITHOUT CONTRAST HISTORY: AMS COMPARISON: Comparison made with CT scan and CTA of the brain dated 08/10/2018. TECHNIQUE: Multiplanar, multisequence MR images of the brain were obtained with and without intravenous contrast enhancement.. 12 cc of Omniscan contrast material injected this exam. FINDINGS: HEMORRHAGE: No acute parenchymal, subarachnoid or extra-axial hemorrhage. No evidence of hemosiderin deposition is identified on gradient echo weighted sequence. DWI: No evidence of an acute or early subacute infarction seen on diffusion imaging. BRAIN PARENCHYMA: Mild chronic periventricular white matter ischemic changes with multiple smaller lacunar type infarcts scattered about deep and subcortical white matter both cerebral hemispheres. Moderate to fairly significant central volume loss evidenced by disproportionate enlargement of the ventricles as compared sulci. ENHANCEMENT: No enhancing parenchymal nor extra-axial masses or collections. No evidence of unusual meningeal enhancement. VENTRICLES: Unremarkable. No hydrocephalus. CRANIUM: Note that there is slight mottling of the marrow within the clivus however no discrete enhancing lesions seen. ORBITS: Orbits and contents grossly unremarkable. PARANASAL SINUSES/MASTOIDS: Clear VASCULAR SYSTEM: Visualized major vascular flow voids at skull base patent. OTHER FINDINGS: None . IMPRESSION: Limited motion degraded. No evidence of acute intracranial hemorrhage or infarct. No enhancing lesions. Mild chronic periventricular white matter ischemic changes with multiple smaller lacunar type infarcts scattered about deep and subcortical white matter both cerebral hemispheres. Moderate to fairly significant central volume loss evidenced by disproportionate enlargement of the ventricles as compared sulci. The marrow within the clivus is somewhat mottled though no discrete enhancing lesions.
--- NOTE | 2018-08-11 21:12 | CP.PCM.CON ---
History of Present Illness - History of Present Illness History of Present Illness: Neurology consult dictated. IN brief, Mr. Esquivel is a 68 yr old male who was admitted to the hospital and ICU last night with dizziness and who now has Normal MRI with cta head showing 50% stenosis. Dizziness may be vasovagal in nature. PLan; 1. No further neuro recommendation. 2. Aricept DR. corona Neurology Past Patient History - Infectious Disease Hx of Infectious Diseases: None - Past Medical History & Family History Past Medical History?: Yes - Past Social History Smoking Status: Heavy Smoker > 10 Cigarettes Daily - NEUROLOGICAL Hx Alzheimer's Disease: Yes Hx Dementia: Yes - MUSCULOSKELETAL/RHEUMATOLOGICAL Hx Falls: No - PSYCHIATRIC Hx Substance Use: No - SURGICAL HISTORY Hx Surgeries: Yes Other/Comment: Vein stripping - ANESTHESIA Hx Anesthesia: Yes Hx Anesthesia Reactions: No Meds Allergies/Adverse Reactions: Allergies Allergy/AdvReac Type Severity Reaction Status Date / Time No Known Allergies Allergy Verified 04/09/18 12:02 - Medications Medications: Current Medications Albuterol/Ipratropium (Duoneb 3 Mg/0.5 Mg (3 Ml) Ud) 3 ml INH RQ6 [facility] Last Admin: 08/11/18 19:51 Dose: Not Given Aspirin (Aspirin Chewable) 81 mg PO DAILY [facility] Last Admin: 08/11/18 11:10 Dose: Not Given Donepezil HCl (Aricept) 5 mg PO HS [facility] Enoxaparin Sodium (Lovenox) 40 mg SC DAILY [facility] Last Admin: 08/11/18 11:15 Dose: 40 mg Folic Acid (Folic Acid) 1 mg PO DAILY [facility] Last Admin: 08/11/18 13:51 Dose: 1 mg Multivitamins/Vitamin C (Multi-Delyn Liquid) 5 ml PO DAILY [facility] Pantoprazole Sodium (Protonix Inj) 40 mg IVP DAILY [facility] Last Admin: 08/11/18 11:15 Dose: 40 mg Rosuvastatin Calcium (Crestor) 10 mg PO HS [facility] Thiamine HCl (Vitamin B1 Inj) 200 mg IV Q8H [facility] Stop: 08/13/18 02:31 Last Admin: 08/11/18 17:31 Dose: 200 mg Results - Vital Signs Recent Vital Signs: Last Vital Signs Temp 98.9 F 08/11/18 20:00 Pulse 48 L 08/11/18 21:00 Resp 22 08/11/18 21:00 BP 108/56 L 08/11/18 21:00 Pulse Ox 98 08/11/18 20:00 - Labs Result Diagrams: 08/11/18 06:16 08/11/18 06:14 Labs: Laboratory Results - last 24 hr 08/10/18 08/10/18 08/10/18 22:46 22:46 22:46 WBC 8.4 RBC 4.45 Hgb 14.4 Hct 41.6 MCV 93.4 D MCH 32.3 H MCHC 34.5 RDW 14.2 Plt Count 242 MPV 8.2 Neut % (Auto) 58.7 Lymph % (Auto) 28.1 Tate % (Auto) 10.3 H Eos % (Auto) 1.6 Baso % (Auto) 1.3 Neut # (Auto) 4.9 Lymph # (Auto) 2.4 Tate # (Auto) 0.9 H Eos # (Auto) 0.1 Baso # (Auto) 0.1 PT 11.2 INR 1.0 APTT 26 Sodium 139 Potassium 3.8 Chloride 100 Carbon Dioxide 30 Anion Gap 12 BUN 26 H Creatinine 1.3 Est GFR ( Amer) > 60 Est GFR (Non-Af Amer) 55 POC Glucose (mg/dL) Random Glucose 124 H Hemoglobin A1c Calcium 10.1 Phosphorus Magnesium Total Bilirubin 0.3 AST 80 H D ALT 27 Alkaline Phosphatase 86 Troponin I < 0.0120 Total Protein 7.1 Albumin 4.4 Globulin 2.7 Albumin/Globulin Ratio 1.6 Triglycerides 142 Cholesterol 216 H LDL Cholesterol Direct 150 H HDL Cholesterol 47 Urine Opiates Screen Urine Methadone Screen Ur Barbiturates Screen Ur Phencyclidine Scrn Ur Amphetamines Screen U Benzodiazepines Scrn U Oth Cocaine Metabols U Cannabinoids Screen Grp A Beta Strep Ag Blood Type Antibody Screen 08/10/18 08/11/18 08/11/18 22:46 00:54 06:14 WBC RBC Hgb Hct MCV MCH MCHC RDW Plt Count MPV Neut % (Auto) Lymph % (Auto) Tate % (Auto) Eos % (Auto) Baso % (Auto) Neut # (Auto) Lymph # (Auto) Tate # (Auto) Eos # (Auto) Baso # (Auto) PT INR APTT Sodium 137 Potassium 4.3 Chloride 101 Carbon Dioxide 28 Anion Gap 13 BUN 23 H Creatinine 1.0 Est GFR ( Amer) > 60 Est GFR (Non-Af Amer) > 60 POC Glucose (mg/dL) Random Glucose 107 Hemoglobin A1c 5.6 Calcium 10.1 Phosphorus 3.6 Magnesium 2.4 H Total Bilirubin 0.6 AST 94 H ALT 28 Alkaline Phosphatase 102 Troponin I Total Protein 7.9 Albumin 4.8 Globulin 3.1 Albumin/Globulin Ratio 1.6 Triglycerides Cholesterol LDL Cholesterol Direct HDL Cholesterol Urine Opiates Screen Urine Methadone Screen Ur Barbiturates Screen Ur Phencyclidine Scrn Ur Amphetamines Screen U Benzodiazepines Scrn U Oth Cocaine Metabols U Cannabinoids Screen Grp A Beta Strep Ag Blood Type A POSITIVE Antibody Screen Negative 08/11/18 08/11/18 08/11/18 06:16 09:03 11:13 WBC 10.1 RBC 5.16 Hgb 16.5 D Hct 48.6 MCV 94.3 H MCH 32.0 H MCHC 33.9 RDW 13.9 Plt Count 239 MPV 8.1 Neut % (Auto) 75.7 H Lymph % (Auto) 15.4 L Tate % (Auto) 7.9 Eos % (Auto) 0.3 Baso % (Auto) 0.7 Neut # (Auto) 7.7 H Lymph # (Auto) 1.6 Tate # (Auto) 0.8 Eos # (Auto) 0.0 Baso # (Auto) 0.1 PT INR APTT Sodium Potassium Chloride Carbon Dioxide Anion Gap BUN Creatinine Est GFR ( Amer) Est GFR (Non-Af Amer) POC Glucose (mg/dL) 111 H 104 Random Glucose Hemoglobin A1c Calcium Phosphorus Magnesium Total Bilirubin AST ALT Alkaline Phosphatase Troponin I Total Protein Albumin Globulin Albumin/Globulin Ratio Triglycerides Cholesterol LDL Cholesterol Direct HDL Cholesterol Urine Opiates Screen Urine Methadone Screen Ur Barbiturates Screen Ur Phencyclidine Scrn Ur Amphetamines Screen U Benzodiazepines Scrn U Oth Cocaine Metabols U Cannabinoids Screen Grp A Beta Strep Ag Blood Type Antibody Screen 08/11/18 08/11/18 08/11/18 12:11 14:19 16:14 WBC RBC Hgb Hct MCV MCH MCHC RDW Plt Count MPV Neut % (Auto) Lymph % (Auto) Tate % (Auto) Eos % (Auto) Baso % (Auto) Neut # (Auto) Lymph # (Auto) Tate # (Auto) Eos # (Auto) Baso # (Auto) PT INR APTT Sodium Potassium Chloride Carbon Dioxide Anion Gap BUN Creatinine Est GFR ( Amer) Est GFR (Non-Af Amer) POC Glucose (mg/dL) 118 H Random Glucose Hemoglobin A1c Calcium Phosphorus Magnesium Total Bilirubin AST ALT Alkaline Phosphatase Troponin I Total Protein Albumin Globulin Albumin/Globulin Ratio Triglycerides Cholesterol LDL Cholesterol Direct HDL Cholesterol Urine Opiates Screen Negative Urine Methadone Screen Negative Ur Barbiturates Screen Negative Ur Phencyclidine Scrn Negative Ur Amphetamines Screen Negative U Benzodiazepines Scrn Positive U Oth Cocaine Metabols Negative U Cannabinoids Screen Negative Grp A Beta Strep Ag Negative Blood Type Antibody Screen
--- NOTE | 2018-08-11 23:39 | CON ---
DATE: 08/11/2018 Neurology consult called by Dr. Gorge Rdz. HISTORY OF PRESENT ILLNESS: Mr. Chase Esquivel is a 68-year-old male with past medical history of dementia, who suddenly became dizzy last night at around midnight. He also complained of nausea and vomiting. On exam in the ER, the patient had unusual nystagmus. He was admitted to the ICU. Of note, he had an MRI of the brain done which was normal, did not show any stroke. CT of the head and neck done which showed the following and was reported by Dr. Carranza. The patient has 50% stenosis at proximal left ICA, left vertebral artery is occluded, was discussed by Dr. Beltran who felt that the ICA was open and that there was no endovascular input needed at this time. REVIEW OF SYSTEMS: The patient complained of dizziness, but the review of systems is not accurate because of dementia. PAST MEDICAL HISTORY: As above. PAST SURGICAL HISTORY: Not known. FAMILY AND SOCIAL HISTORY: . SOCIAL HISTORY: No tobacco, alcohol or EtOH. ALLERGIES: NO KNOWN DRUG ALLERGIES. PHYSICAL EXAMINATION: GENERAL: On exam, the patient was alert and oriented x1. HEENT: Pupils are equal, round, and reactive to light. NEUROLOGIC: Cranial nerves II to XII were normal. EOMI. He did have some dizziness on bringing his head up. No facial asymmetry. with no aphasia. Motor 5/5. Sensory was inaccurate. Gait was normal. Reflexes are +1 in upper and lower limbs bilaterally. LABORATORY DATA: Are as follows: The CBC was normal except for left shift at 75.7 neutrophils. Chemistry showed that he had a BUN of 23, glucose was 118. AST was 18, ALT was 27, cholesterol 216, LDL 150. Group A beta strep antigen was negative. IMPRESSION: This is a 68-year-old male with dementia and dizziness and some minor stenosis. He apparently has a significant history of dementia. MRI is normal. CT of the head does not show any intervention as indicated. At this point, we will not recommend anything else except for starting Aricept, increasing Aricept to 10 mg. He is already on Aricept and perhaps starting Namenda. Thank you for this interesting consult. Kamille Barnett MD [facility] # [id number]
--- NOTE | 2018-08-11 23:55 | CP.PCM.HP ---
History of Present Illness - History of Present Illness History of Present Illness: Patient is a 68 years old who was brought to the ED at [facility] (formerly [facility]) early this AM because of vomiting and increasing confusion. He is also found to be bradycardic, was given Atropine IV with increasing HR, and was sent to CCU for monitoring. A CT scan of the head reveals multiple small lacunar infarcts in both hemispheres. A CTA of the head reveals an occlusion of the left vertebral artery with reconstruction of the distal left vertebral artery at the kim. It also reveals a severe stenosis of the right internal carotid artery at its origin. Patient is known to have a diffuse atherosclerosis, an emphysema and a senile dementia. He smokes 1/2 ppd of cigarettes. Present on Admission - Present on Admission Any Indicators Present on Admission: No Review of Systems - Review of Systems Systems not reviewed;Unavailable: Dementia - Gastrointestinal Gastrointestinal: Vomiting - Psychiatric Psychiatric: Confusion, Memory Loss Past Patient History - Infectious Disease Hx of Infectious Diseases: None - Tetanus Immunizations Tetanus Immunization: Unknown - Past Medical History & Family History Past Medical History?: Yes - Past Social History Smoking Status: Heavy Smoker > 10 Cigarettes Daily Alcohol: None Drugs: Denies Home Situation {Lives}: With Family Domestic Violence: Negative - PULMONARY Hx Emphysema: Yes - NEUROLOGICAL Hx Alzheimer's Disease: Yes Hx Dementia: Yes Hx Dizziness: Yes - MUSCULOSKELETAL/RHEUMATOLOGICAL Hx Falls: No Hx Unsteady Gait: Yes - PSYCHIATRIC Hx Substance Use: No - SURGICAL HISTORY Hx Surgeries: Yes (insertion of an IVC filter many years ago.) Other/Comment: Vein stripping - ANESTHESIA Hx Anesthesia: Yes Hx Anesthesia Reactions: No Meds Allergies/Adverse Reactions: Allergies Allergy/AdvReac Type Severity Reaction Status Date / Time No Known Allergies Allergy Verified 04/09/18 12:02 Physical Exam - Constitutional Appears: No Acute Distress, Confused, Cachectic, Chronically Ill - Head Exam Head Exam: NORMAL INSPECTION - Eye Exam Eye Exam: Normal appearance Pupil Exam: NORMAL ACCOMODATION - ENT Exam ENT Exam: Normal Exam - Neck Exam Neck exam: Positive for: Normal Inspection - Respiratory Exam Respiratory Exam: Clear to Auscultation Bilateral, NORMAL BREATHING PATTERN - Cardiovascular Exam Cardiovascular Exam: REGULAR RHYTHM - GI/Abdominal Exam GI & Abdominal Exam: Normal Bowel Sounds, Soft - Rectal Exam Rectal Exam: Deferred - Exam Exam: NORMAL INSPECTION - Extremities Exam Extremities exam: Positive for: normal inspection - Back Exam Back exam: NORMAL INSPECTION - Neurological Exam Neurological exam: Abnormal Gait, Alert - Psychiatric Exam Psychiatric exam: Anxious Additional comments: Confused, - Skin Skin Exam: Dry, Normal Color, Warm Results - Vital Signs Recent Vital Signs: Last Vital Signs Temp 98.9 F 08/11/18 20:00 Pulse 48 L 08/11/18 21:00 Resp 22 08/11/18 21:00 BP 108/56 L 08/11/18 21:00 Pulse Ox 98 08/11/18 20:00 - Labs Result Diagrams: 08/11/18 06:16 08/11/18 06:14 Labs: Laboratory Results - last 24 hr 08/11/18 08/11/18 08/11/18 00:54 06:14 06:16 WBC 10.1 RBC 5.16 Hgb 16.5 D Hct 48.6 MCV 94.3 H MCH 32.0 H MCHC 33.9 RDW 13.9 Plt Count 239 MPV 8.1 Neut % (Auto) 75.7 H Lymph % (Auto) 15.4 L [place] % (Auto) 7.9 Eos % (Auto) 0.3 Baso % (Auto) 0.7 Neut # (Auto) 7.7 H Lymph # (Auto) 1.6 [place] # (Auto) 0.8 Eos # (Auto) 0.0 Baso # (Auto) 0.1 Sodium 137 Potassium 4.3 Chloride 101 Carbon Dioxide 28 Anion Gap 13 BUN 23 H Creatinine 1.0 Est GFR ( Amer) > 60 Est GFR (Non-Af Amer) > 60 POC Glucose (mg/dL) Random Glucose 107 Calcium 10.1 Phosphorus 3.6 Magnesium 2.4 H Total Bilirubin 0.6 AST 94 H ALT 28 Alkaline Phosphatase 102 Total Protein 7.9 Albumin 4.8 Globulin 3.1 Albumin/Globulin Ratio 1.6 Urine Opiates Screen Urine Methadone Screen Ur Barbiturates Screen Ur Phencyclidine Scrn Ur Amphetamines Screen U Benzodiazepines Scrn U Oth Cocaine Metabols U Cannabinoids Screen Grp A Beta Strep Ag Blood Type A POSITIVE Antibody Screen Negative 08/11/18 08/11/18 08/11/18 09:03 11:13 12:11 WBC RBC Hgb Hct MCV MCH MCHC RDW Plt Count MPV Neut % (Auto) Lymph % (Auto) [place] % (Auto) Eos % (Auto) Baso % (Auto) Neut # (Auto) Lymph # (Auto) [place] # (Auto) Eos # (Auto) Baso # (Auto) Sodium Potassium Chloride Carbon Dioxide Anion Gap BUN Creatinine Est GFR ( Amer) Est GFR (Non-Af Amer) POC Glucose (mg/dL) 111 H 104 Random Glucose Calcium Phosphorus Magnesium Total Bilirubin AST ALT Alkaline Phosphatase Total Protein Albumin Globulin Albumin/Globulin Ratio Urine Opiates Screen Negative Urine Methadone Screen Negative Ur Barbiturates Screen Negative Ur Phencyclidine Scrn Negative Ur Amphetamines Screen Negative U Benzodiazepines Scrn Positive U Oth Cocaine Metabols Negative U Cannabinoids Screen Negative Grp A Beta Strep Ag Blood Type Antibody Screen 08/11/18 08/11/18 08/11/18 14:19 16:14 21:14 WBC RBC Hgb Hct MCV MCH MCHC RDW Plt Count MPV Neut % (Auto) Lymph % (Auto) [place] % (Auto) Eos % (Auto) Baso % (Auto) Neut # (Auto) Lymph # (Auto) [place] # (Auto) Eos # (Auto) Baso # (Auto) Sodium Potassium Chloride Carbon Dioxide Anion Gap BUN Creatinine Est GFR ( Amer) Est GFR (Non-Af Amer) POC Glucose (mg/dL) 118 H 110 Random Glucose Calcium Phosphorus Magnesium Total Bilirubin AST ALT Alkaline Phosphatase Total Protein Albumin Globulin Albumin/Globulin Ratio Urine Opiates Screen Urine Methadone Screen Ur Barbiturates Screen Ur Phencyclidine Scrn Ur Amphetamines Screen U Benzodiazepines Scrn U Oth Cocaine Metabols U Cannabinoids Screen Grp A Beta Strep Ag Negative Blood Type Antibody Screen Assessment & Plan (1) Bradycardia Assessment and Plan: To check thyroid profile. Status: Chronic (2) Vertebro-basilar artery syndrome Assessment and Plan: Patient complaining of dizziness. Head CTA reveals occlusion of the left vertebral artery and severe occlusion of the proximal right internal carotid artery. To get a neurological and vascular evaluation. Status: Acute (3) Severe dementia Assessment and Plan: To have a psychiatric evaluation and a a social psychologist evaluation for a NH placement. Status: Acute Decision To Admit - Pt Status Changed To: Hospital Disposition Of: Inpatient - Admit Certification Admit to Inpatient:: After my assessment, the patient will require hospitalization for at least two midnights. This is because of the severity of symptoms shown, intensity of services needed, and/or the medical risk in this patient being treated as an outpatient. - InPatient: Physician Admission Certification:: After my assessments, the patient requires hospitalization for at least 2 midnights. - . Bed Request Type: Telemetry Admitting Physician: Chase Maldonado
[2018-08-12] MEDS: Albuterol-Ipratrop 3 mg / 0.5 (3 ml) UD INH SCH ×4 (02:13→19:50)
[2018-08-12] MEDS: Thiamine 100 mg/ml Inj IV SCH ×3 (02:30→17:32)
[2018-08-12 06:43] LABS: FREE T4 1.24 ng/dL (0.78-2.19)
--- NOTE | 2018-08-12 08:58 | CP.PCM.CON ---
<Carola Londono - Last Filed: 08/12/18 08:52> History of Present Illness - History of Present Illness History of Present Illness: Vascular Surgery: [place] Patient is a 68 M with PMH dementia, HTN, HLD, and possible epilepsy who presented to [facility] for dizziness. Patient states he has often been dizzy for the past few months but denies association with standing from a seated position. He otherwise denies BERMUDEZ, CP, SOB abdominal pain, n/v, f/c, stool changes dysuria and weakness/numbness in extremities. 12 point ROS otherwise negative PMH: dementia, HTN, HLD, and possible epilepsy PSH pt unable to recall all: NKDA meds: donepizil, ibuprofen, tramadol Social: denies Review of Systems - Review of Systems All systems: reviewed and no additional remarkable complaints except (as per HPI) Past Patient History - Infectious Disease Hx of Infectious Diseases: None - Tetanus Immunizations Tetanus Immunization: Unknown - Past Medical History & Family History Past Medical History?: Yes - Past Social History Smoking Status: Heavy Smoker > 10 Cigarettes Daily Alcohol: None Drugs: Denies Home Situation {Lives}: With Family Domestic Violence: Negative - PULMONARY Hx Emphysema: Yes - NEUROLOGICAL Hx Alzheimer's Disease: Yes Hx Dementia: Yes Hx Dizziness: Yes - MUSCULOSKELETAL/RHEUMATOLOGICAL Hx Falls: No Hx Unsteady Gait: Yes - PSYCHIATRIC Hx Substance Use: No - SURGICAL HISTORY Hx Surgeries: Yes (insertion of an IVC filter many years ago.) Other/Comment: Vein stripping - ANESTHESIA Hx Anesthesia: Yes Hx Anesthesia Reactions: No Meds Allergies/Adverse Reactions: Allergies Allergy/AdvReac Type Severity Reaction Status Date / Time No Known Allergies Allergy Verified 04/09/18 12:02 - Medications Medications: Current Medications Albuterol/Ipratropium (Duoneb 3 Mg/0.5 Mg (3 Ml) Ud) 3 ml INH RQ6 [facility] Last Admin: 08/12/18 08:14 Dose: 3 ml Aspirin (Aspirin Chewable) 81 mg PO DAILY [facility] Last Admin: 08/11/18 11:10 Dose: Not Given Donepezil HCl (Aricept) 5 mg PO HS [facility] Last Admin: 08/11/18 22:02 Dose: 5 mg Enoxaparin Sodium (Lovenox) 40 mg SC DAILY [facility] Last Admin: 08/11/18 11:15 Dose: 40 mg Folic Acid (Folic Acid) 1 mg PO DAILY [facility] Last Admin: 08/11/18 13:51 Dose: 1 mg Multivitamins/Vitamin C (Multi-Delyn Liquid) 5 ml PO DAILY [facility] Pantoprazole Sodium (Protonix Inj) 40 mg IVP DAILY [facility] Last Admin: 08/11/18 11:15 Dose: 40 mg Rosuvastatin Calcium (Crestor) 10 mg PO HS [facility] Last Admin: 08/11/18 22:00 Dose: 10 mg Thiamine HCl (Vitamin B1 Inj) 200 mg IV Q8H [facility] Stop: 08/13/18 02:31 Last Admin: 08/12/18 02:30 Dose: 200 mg Physical Exam - Constitutional Appears: Well, Non-toxic, No Acute Distress - Head Exam Head Exam: ATRAUMATIC, NORMOCEPHALIC - Eye Exam Eye Exam: EOMI - ENT Exam ENT Exam: Mucous Membranes Moist - Neck Exam Additional comments: no carotid bruit heard bilaterally - Respiratory Exam Respiratory Exam: NORMAL BREATHING PATTERN - Cardiovascular Exam Cardiovascular Exam: REGULAR RHYTHM - GI/Abdominal Exam GI & Abdominal Exam: Soft. absent: Distended, Guarding, Tenderness - Extremities Exam Extremities exam: Negative for: calf tenderness, pedal edema - Neurological Exam Neurological exam: Alert Additional comments: pt oriented to self and place but not time - Psychiatric Exam Psychiatric exam: Normal Affect, Normal Mood - Skin Skin Exam: Dry, Intact, Normal Color, Warm Results - Vital Signs Recent Vital Signs: Last Vital Signs Temp 98.4 F 08/12/18 08:00 Pulse 55 L 08/12/18 08:00 Resp 14 08/12/18 08:00 BP 118/58 L 08/12/18 07:15 Pulse Ox 100 08/12/18 08:00 - Labs Result Diagrams: 08/11/18 06:16 08/11/18 06:14 Labs: Laboratory Results - last 24 hr 08/11/18 08/11/18 08/11/18 09:03 11:13 12:11 POC Glucose (mg/dL) 111 H 104 Free T4 TSH 3rd Generation Urine Opiates Screen Negative Urine Methadone Screen Negative Ur Barbiturates Screen Negative Ur Phencyclidine Scrn Negative Ur Amphetamines Screen Negative U Benzodiazepines Scrn Positive U Oth Cocaine Metabols Negative U Cannabinoids Screen Negative Grp A Beta Strep Ag 08/11/18 08/11/18 08/11/18 14:19 16:14 21:14 POC Glucose (mg/dL) 118 H 110 Free T4 TSH 3rd Generation Urine Opiates Screen Urine Methadone Screen Ur Barbiturates Screen Ur Phencyclidine Scrn Ur Amphetamines Screen U Benzodiazepines Scrn U Oth Cocaine Metabols U Cannabinoids Screen Grp A Beta Strep Ag Negative 08/12/18 06:09 POC Glucose (mg/dL) Free T4 1.24 TSH 3rd Generation 1.68 Urine Opiates Screen Urine Methadone Screen Ur Barbiturates Screen Ur Phencyclidine Scrn Ur Amphetamines Screen U Benzodiazepines Scrn U Oth Cocaine Metabols U Cannabinoids Screen Grp A Beta Strep Ag Assessment & Plan - Assessment and Plan (Free Text) Plan: - can order US for evaluation of flow - d/t dementia and mental sttus will not be able to determine if symptoms 2/2 carotid stenosis or dementia - d/t 50% stenosis patient is not a surgical candidate - further medical management as per primary and ICU - please reconsult as needed - discussed with Dr. Kelton Londono, PGY 1 - Date & Time Date: 08/12/18 Time: 08:00 <Robbi Melara Jr. - Last Filed: 08/12/18 11:34> History of Present Illness - History of Present Illness History of Present Illness: see progress note by me has critical ALAN stenosis advise right carotid endarterectomy if confirmed Meds - Medications Medications: Current Medications Albuterol/Ipratropium (Duoneb 3 Mg/0.5 Mg (3 Ml) Ud) 3 ml INH RQ6 [facility] Last Admin: 08/12/18 08:14 Dose: 3 ml Aspirin (Aspirin Chewable) 81 mg PO DAILY [facility] Last Admin: 08/12/18 09:22 Dose: 81 mg Donepezil HCl (Aricept) 5 mg PO HS [facility] Last Admin: 08/11/18 22:02 Dose: 5 mg Enoxaparin Sodium (Lovenox) 40 mg SC DAILY [facility] Last Admin: 08/12/18 09:22 Dose: 40 mg Folic Acid (Folic Acid) 1 mg PO DAILY [facility] Last Admin: 08/12/18 09:22 Dose: 1 mg Multivitamins/Vitamin C (Multi-Delyn Liquid) 5 ml PO DAILY [facility] Last Admin: 08/12/18 09:24 Dose: 5 ml Pantoprazole Sodium (Protonix Inj) 40 mg IVP DAILY [facility] Last Admin: 08/12/18 09:23 Dose: 40 mg Rosuvastatin Calcium (Crestor) 10 mg PO HS [facility] Last Admin: 08/11/18 22:00 Dose: 10 mg Thiamine HCl (Vitamin B1 Inj) 200 mg IV Q8H [facility] Stop: 08/13/18 02:31 Last Admin: 08/12/18 09:38 Dose: 200 mg Results - Vital Signs Recent Vital Signs: Last Vital Signs Temp 98.4 F 08/12/18 08:00 Pulse 60 08/12/18 10:00 Resp 16 08/12/18 10:00 BP 116/71 08/12/18 09:15 Pulse Ox 100 08/12/18 08:00 - Labs Result Diagrams: 08/11/18 06:16 08/11/18 06:14 Labs: Laboratory Results - last 24 hr 08/11/18 08/11/18 08/11/18 11:13 12:11 14:19 POC Glucose (mg/dL) 104 Free T4 TSH 3rd Generation Urine Opiates Screen Negative Urine Methadone Screen Negative Ur Barbiturates Screen Negative Ur Phencyclidine Scrn Negative Ur Amphetamines Screen Negative U Benzodiazepines Scrn Positive U Oth Cocaine Metabols Negative U Cannabinoids Screen Negative Grp A Beta Strep Ag Negative 08/11/18 08/11/18 08/12/18 16:14 21:14 06:09 POC Glucose (mg/dL) 118 H 110 Free T4 1.24 TSH 3rd Generation 1.68 Urine Opiates Screen Urine Methadone Screen Ur Barbiturates Screen Ur Phencyclidine Scrn Ur Amphetamines Screen U Benzodiazepines Scrn U Oth Cocaine Metabols U Cannabinoids Screen Grp A Beta Strep Ag 08/12/18 08/12/18 07:33 11:19 POC Glucose (mg/dL) 82 135 H Free T4 TSH 3rd Generation Urine Opiates Screen Urine Methadone Screen Ur Barbiturates Screen Ur Phencyclidine Scrn Ur Amphetamines Screen U Benzodiazepines Scrn U Oth Cocaine Metabols U Cannabinoids Screen Grp A Beta Strep Ag
[2018-08-12] MEDS: Enoxaparin 40 mg Syringe SC SCH (09:22)
[2018-08-12] MEDS: Multiple Vitamins Oral Solution PO SCH (09:24)
--- NOTE | 2018-08-12 11:30 | CP.PCM.PN ---
Subjective - Date & Time of Evaluation Date of Evaluation: 08/12/18 Time of Evaluation: 11:25 - Subjective Subjective: studies reviewed and patient examined reviewed with Dr Barnett neurology and Dr Price psych. On CTA has critical ALAN stenosis If cardiac condition satisfactory recommend right carotid endarterectomy Objective - Vital Signs/Intake and Output Vital Signs (last 24 hours): Temp Pulse Resp BP Pulse Ox 98.4 F 60 16 116/71 100 08/12/18 08:00 08/12/18 10:00 08/12/18 10:00 08/12/18 09:15 08/12/18 08:00 Intake and Output: 08/12/18 08/12/18 06:59 18:59 Intake Total 320 300 Output Total 900 250 Balance -580 50 - Medications Medications: Current Medications Albuterol/Ipratropium (Duoneb 3 Mg/0.5 Mg (3 Ml) Ud) 3 ml INH RQ6 [facility] Last Admin: 08/12/18 08:14 Dose: 3 ml Aspirin (Aspirin Chewable) 81 mg PO DAILY [facility] Last Admin: 08/12/18 09:22 Dose: 81 mg Donepezil HCl (Aricept) 5 mg PO HS [facility] Last Admin: 08/11/18 22:02 Dose: 5 mg Enoxaparin Sodium (Lovenox) 40 mg SC DAILY [facility] Last Admin: 08/12/18 09:22 Dose: 40 mg Folic Acid (Folic Acid) 1 mg PO DAILY [facility] Last Admin: 08/12/18 09:22 Dose: 1 mg Multivitamins/Vitamin C (Multi-Delyn Liquid) 5 ml PO DAILY [facility] Last Admin: 08/12/18 09:24 Dose: 5 ml Pantoprazole Sodium (Protonix Inj) 40 mg IVP DAILY [facility] Last Admin: 08/12/18 09:23 Dose: 40 mg Rosuvastatin Calcium (Crestor) 10 mg PO HS [facility] Last Admin: 08/11/18 22:00 Dose: 10 mg Thiamine HCl (Vitamin B1 Inj) 200 mg IV Q8H [facility] Stop: 08/13/18 02:31 Last Admin: 08/12/18 09:38 Dose: 200 mg - Labs Labs: 08/11/18 06:16 08/11/18 06:14 PT 11.2 SECONDS (9.7-12.2) 08/10/18 22:46 INR 1.0 08/10/18 22:46 APTT 26 SECONDS (21-34) 08/10/18 22:46
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
[2018-08-12 13:38] LABS: FOLATE 13.1 ng/mL
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
[2018-08-13] MEDS: Albuterol-Ipratrop 3 mg / 0.5 (3 ml) UD INH SCH ×4 (02:45→19:56)
[2018-08-13] MEDS: Thiamine 100 mg/ml Inj IV SCH (02:51)
[2018-08-13] MEDS: Multiple Vitamins Oral Solution PO SCH (09:37)
[2018-08-13] MEDS: Enoxaparin 40 mg Syringe SC SCH (09:37)
--- NOTE | 2018-08-13 14:12 | CARD ---
APPROVED REPORT Date of service: 08/13/2018 EXAM: Two-dimensional and M-mode echocardiogram with Doppler and color Doppler. Other Information Quality : GoodRhythm : INDICATION CVA/TIA Dizziness and Vertigo Dyspnea bradycardia, smoker, carotid stenosis 2D DIMENSIONS IVSd0.9 (0.7-1.1cm)LVDd4.2 (3.9-5.9cm) PWd0.9 (0.7-1.1cm)LA Bdktts61 (18-58mL) LVDs3.0 (2.5-4.0cm)FS (%) 27.9 % LVEF (%)68.0 (>50%)LVEF (Terrell's)65 % IVC0.00 cm M-Mode DIMENSIONS RVDd2.55 (2.1-3.2cm)Left Atrium (MM)2.75 (2.5-4.0cm) IVSd0.79 (0.7-1.1cm)Aortic Root2.68 (2.2-3.7cm) LVDd4.37 (4.0-5.6cm)Aortic Cusp Exc.2.08 (1.5-2.0cm) PWd0.97 (0.7-1.1cm)FS (%) 46 % LVDs2.37 (2.0-3.8cm)TAPSE16.92 cm LVEF (%)70 (>50%) Mitral Valve MV E Pintwcnw11.8cm/sMV A Oezsbauw01.7cm/sE/A ratio0.7 TDI Lateral E' Peak V10.29cm/sMedial E' Peak V9.13cm/sE/Lateral E'6.9 E/Medial E'7.8 Tricuspid Valve TR Peak Xmepuhcw072ms/sTR Peak Gr.[id number] LEFT VENTRICLE The left ventricle is normal size. There is normal left ventricular wall thickness. The Ejection Fraction is 55-60%. There is normal LV segmental wall motion. Transmitral Doppler flow pattern is Grade I-abnormal relaxation pattern. RIGHT VENTRICLE The right ventricle is normal size. The right ventricular systolic function is normal. ATRIA The left atrium size is normal. The right atrium size is normal. The interatrial septum is intact with no evidence for an atrial septal defect. AORTIC VALVE The aortic valve is mildly sclerotic. The aortic valve is trileaflet. There is trace aortic regurgitation. MITRAL VALVE The mitral valve is normal in structure. Mitral regurgitation is trace. TRICUSPID VALVE The tricuspid valve is normal in structure. There is mild tricuspid regurgitation. Right ventricular systolic pressure is estimated at 22 mmHg. There is no pulmonary hypertension. PULMONIC VALVE The pulmonary valve is normal in structure. GREAT VESSELS The aortic root is normal in size. The IVC is normal in size and collapses >50% with inspiration. PERICARDIAL EFFUSION There is no pericardial effusion. <Conclusion> The left ventricle is normal size. The Ejection Fraction is 55-60%. Transmitral Doppler flow pattern is Grade I-abnormal relaxation pattern. There is mild tricuspid regurgitation. Right ventricular systolic pressure is estimated at 22 mmHg. There is no pulmonary hypertension. The aortic root is normal in size. The IVC is normal in size and collapses >50% with inspiration. There is no pericardial effusion.
--- NOTE | 2018-08-13 17:56 | PN ---
DATE: 08/13/2018 SUBJECTIVE: The patient was seen. The patient went for Carotid Doppler study today, awaiting results. The patient is very forgetful. Today, he was seen with his significant other trying to eat. The patient is not exhibiting behavioral problems, but continues to have very poor memory. REVIEW OF SYSTEMS: GENERAL: The patient is alert, verbal, forgetful, sitting in his room, eating, pleasant in approach. SKIN: No diaphoresis. HEENT: No headache. No dizziness. RESPIRATORY: No dyspnea. CARDIOVASCULAR: No chest pain. GASTROINTESTINAL: No nausea, no vomiting. Appetite is good. EXTREMITIES: Musculoskeletal feels weak. NEUROLOGIC: Alert, but very forgetful. Oriented to place and person. He is not disoriented. PHYSICAL EXAMINATION: VITAL SIGNS: Temperature is 98.1, heart rate 71, blood pressure seems to be low at 95/61, respirations 17, oxygen saturation is 98%. MENTAL STATUS EXAMINATION: An elderly male, who looks stated age, seen with his significant other, oriented x2. Mood is calm. Affect is reactive. Speech is daze. Thought process, forgetful. Thought content, no overt psychosis. No suicidal or homicidal ideation. Attention and memory seem to be limited. Insight and judgment, limited. Impulse control is fair at this time. LABORATORY DATA: On review of labs, the patient's TSH third generation 1.68, free T4 is 1.24, magnesium is 2.2, B12 is 713, and folate is 13.1. IMPRESSION: Senile-onset dementia, vascular type with mood changes as well as history of bradycardia and vertebrobasilar artery syndrome. PLAN: The patient is seen, medications reviewed. In view of his blood pressure, which is low, we will hold off any change of his psych meds for now. May continue Aricept 5 mg at bedtime. The patent has been seen by Dr. Melara. The patient may need surgery after the results of his carotid Doppler. Joe Song MD
--- NOTE | 2018-08-13 23:21 | CP.PCM.PN ---
Subjective - Date & Time of Evaluation Date of Evaluation: 08/13/18 Time of Evaluation: 18:30 - Subjective Subjective: Patient remains confused on and off. 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 Echocardiogram: Normal LV systolic wall motion with a grade I LV diastolic function. Mild MR and TR. Patient needs a right carotid endarterectomy. Will do a Lexiscan MPI to-bailon to assess the patient pre-op cardiac risks. Objective - Vital Signs/Intake and Output Vital Signs (last 24 hours): Temp Pulse Resp BP Pulse Ox 97.4 F L 20 L 68 H 115/71 95 08/13/18 16:00 08/13/18 16:00 08/13/18 16:00 08/13/18 16:00 08/13/18 16:00 Intake and Output: 08/13/18 08/14/18 18:59 06:59 Intake Total 240 Output Total 150 Balance 90 - Medications Medications: Current Medications Albuterol/Ipratropium (Duoneb 3 Mg/0.5 Mg (3 Ml) Ud) 3 ml INH RQ6 [facility] Last Admin: 08/13/18 19:56 Dose: 3 ml Aspirin (Aspirin Chewable) 81 mg PO DAILY [facility] Last Admin: 08/13/18 09:37 Dose: 81 mg Clopidogrel Bisulfate (Plavix) 75 mg PO DAILY [facility] Last Admin: 08/13/18 12:38 Dose: 75 mg Donepezil HCl (Aricept) 5 mg PO HS [facility] Last Admin: 08/13/18 21:08 Dose: Not Given Enoxaparin Sodium (Lovenox) 40 mg SC DAILY [facility] Last Admin: 08/13/18 09:37 Dose: 40 mg Famotidine (Pepcid) 20 mg IVP DAILY [facility] Folic Acid (Folic Acid) 1 mg PO DAILY [facility] Last Admin: 08/13/18 09:37 Dose: 1 mg Lactated Ringer's (Lactated Ringer's) 1,000 mls @ 100 mls/hr IV .Q10H [facility] Lorazepam (Ativan) 1 mg IVP Q4 PRN PRN Reason: Agitation Multivitamins/Vitamin C (Multi-Delyn Liquid) 5 ml PO DAILY [facility] Last Admin: 08/13/18 09:37 Dose: 5 ml Rosuvastatin Calcium (Crestor) 10 mg PO HS [facility] Last Admin: 08/13/18 21:08 Dose: Not Given - Labs Labs: 08/11/18 06:16 08/11/18 06:14 PT 11.2 SECONDS (9.7-12.2) 08/10/18 22:46 INR 1.0 08/10/18 22:46 APTT 26 SECONDS (21-34) 08/10/18 22:46 - Constitutional Appears: No Acute Distress, Confused, Chronically Ill - Head Exam Head Exam: NORMAL INSPECTION, NORMOCEPHALIC - Eye Exam Eye Exam: Normal appearance Pupil Exam: NORMAL ACCOMODATION - ENT Exam ENT Exam: Normal Exam - Neck Exam Neck Exam: Normal Inspection - Respiratory Exam Respiratory Exam: Clear to Ausculation Bilateral, NORMAL BREATHING PATTERN - Cardiovascular Exam Cardiovascular Exam: REGULAR RHYTHM - GI/Abdominal Exam GI & Abdominal Exam: Soft, Normal Bowel Sounds - Rectal Exam Rectal Exam: Deferred - Extremities Exam Extremities Exam: Normal Inspection - Back Exam Back Exam: NORMAL INSPECTION - Neurological Exam Neurological Exam: Abnormal Gait, Alert, Awake Additional comments: occasionally confused. - Psychiatric Exam Additional comments: Confused. - Skin Skin Exam: Dry, Intact, Normal Color, Warm Assessment and Plan (1) Bradycardia Status: Chronic (2) Vertebro-basilar artery syndrome Status: Acute (3) Severe dementia Status: Acute (4) More than 50 percent stenosis of right internal carotid artery Assessment & Plan: Needs right carotis endarterectomy as per DR Contreras. Status: Acute
--- NOTE | 2018-08-14 00:36 | CP.PCM.PN ---
Subjective - Date & Time of Evaluation Date of Evaluation: 08/14/18 Time of Evaluation: 00:28 - Subjective Subjective: Neuro Follow-Up: Mr. Esquivel was evaluated this afternoon at bedside. He still complains of dizziness on and off. He still have periods of confusion on and off. He is pending Misti Scan tomorrow morning as part of cardiac clearance for possible right carotid endarterectomy with Dr. Melara. Pt denies h/a, visual changes, chest pain, palpitations, sob, abd pain, paresthesias, fever/chills. Objective - Vital Signs/Intake and Output Vital Signs (last 24 hours): Temp Pulse Resp BP Pulse Ox 97.6 F 79 20 156/84 H 96 08/13/18 23:37 08/13/18 23:37 08/13/18 23:37 08/13/18 23:37 08/13/18 23:37 Intake and Output: 08/13/18 08/14/18 18:59 06:59 Intake Total 240 350 Output Total 150 Balance 90 350 - Medications Medications: Current Medications Albuterol/Ipratropium (Duoneb 3 Mg/0.5 Mg (3 Ml) Ud) 3 ml INH RQ6 [facility] Last Admin: 08/13/18 19:56 Dose: 3 ml Aspirin (Aspirin Chewable) 81 mg PO DAILY [facility] Last Admin: 08/13/18 09:37 Dose: 81 mg Clopidogrel Bisulfate (Plavix) 75 mg PO DAILY [facility] Last Admin: 08/13/18 12:38 Dose: 75 mg Donepezil HCl (Aricept) 5 mg PO HS [facility] Last Admin: 08/13/18 21:08 Dose: Not Given Enoxaparin Sodium (Lovenox) 40 mg SC DAILY [facility] Last Admin: 08/13/18 09:37 Dose: 40 mg Famotidine (Pepcid) 20 mg IVP DAILY [facility] Folic Acid (Folic Acid) 1 mg PO DAILY [facility] Last Admin: 08/13/18 09:37 Dose: 1 mg Lactated Ringer's (Lactated Ringer's) 1,000 mls @ 100 mls/hr IV .Q10H [facility] Lorazepam (Ativan) 1 mg IVP Q4 PRN PRN Reason: Agitation Multivitamins/Vitamin C (Multi-Delyn Liquid) 5 ml PO DAILY [facility] Last Admin: 08/13/18 09:37 Dose: 5 ml Rosuvastatin Calcium (Crestor) 10 mg PO HS [facility] Last Admin: 08/13/18 21:08 Dose: Not Given - Labs Labs: 08/11/18 06:16 08/11/18 06:14 PT 11.2 SECONDS (9.7-12.2) 08/10/18 22:46 INR 1.0 08/10/18 22:46 APTT 26 SECONDS (21-34) 08/10/18 22:46 - Constitutional Appears: Non-toxic, No Acute Distress, Confused (on and off) - Head Exam Head Exam: ATRAUMATIC, NORMAL INSPECTION, NORMOCEPHALIC - Eye Exam Eye Exam: EOMI, Normal appearance, PERRL Pupil Exam: NORMAL ACCOMODATION, PERRL - ENT Exam ENT Exam: Mucous Membranes Moist - Neck Exam Neck Exam: Full ROM, Normal Inspection - Respiratory Exam Respiratory Exam: NORMAL BREATHING PATTERN - Extremities Exam Extremities Exam: Full ROM - Back Exam Back Exam: Full ROM - Neurological Exam Neurological Exam: Alert, Altered, Awake, CN II-XII Intact, Oriented x3, Reflexes Normal Neuro motor strength exam: Left Upper Extremity: 5, Right Upper Extremity: 5, Left Lower Extremity: 5, Right Lower Extremity: 5 Additional comments: AAOx3 though has periods of confusion and forgetfulness No focal motor or sensory deficits No tremors - Psychiatric Exam Psychiatric exam: Normal Mood Additional comments: periods of confusion and forgetfulness - Skin Skin Exam: Normal Color Assessment and Plan (1) Dizziness Assessment & Plan: Imaging reviewed: -MRI Brain (08/11/18): Limited motion degraded. No evidence of acute i ntracranial hemorrhage or infarct. No enhancing lesions. Mild chronic periventricular white matter ischemic changes with multiple smaller lacunar type infarcts scattered about deep and subcortical white matter both cerebral hemispheres. Moderate to fairly significant central volume loss evidenced by disproportionate enlargement of the ventricles as compared sulci. The marrow within the clivus is somewhat mottled though no discrete enhancing lesions. -CTA Head and Neck (08/10/18): There is an approximately 50 % stenosis of proximal left internal carotid artery. The left vertebral artery is occluded however there is some reconstitution - opacification distally the intradural distal intradural portion of the left vertebral artery likely due to some retrograde filling -CT Head (08/10/18): No acute intracranial abnormality. Chronic microvascular ischemic change. Diffuse generalized parenchymal atrophy. -Cardiac w/u in progress for clearance for Rt. Carotid Endarterectomy with Dr. Melara. -Continue current medications and treatment. -Notify neuro of any acute changes in pt's condition. More Brito DNP, SCIENTIFIC LINGUIST d/w Dr. Parikh Status: Acute
[2018-08-14] MEDS: Albuterol-Ipratrop 3 mg / 0.5 (3 ml) UD INH SCH ×4 (02:16→19:54)
[2018-08-14] MEDS ORDERED: Caffeine Citrated **INJ** 20 MG/ML IV ONE (08:05)
[2018-08-14] MEDS: Multiple Vitamins Oral Solution PO SCH (09:10)
[2018-08-14] MEDS: Enoxaparin 40 mg Syringe SC SCH (09:10)
--- NOTE | 2018-08-14 12:24 | CP.PCM.PN ---
Subjective - Date & Time of Evaluation Date of Evaluation: 08/14/18 Time of Evaluation: 12:18 - Subjective Subjective: Patient remains confused at times, in no acute distress. Lexiscan myocardial perfusion imaging: no myocardial ischemia induced by IV Regadenoson. Gated images reveals a normal LV wall motion and thickening and an LVEF = 60%. Will clear patient for a right carotid endarterectomy in AM. Discussed case with Dr Contreras and the patient's live-in girlfriend. Objective - Vital Signs/Intake and Output Vital Signs (last 24 hours): Temp Pulse Resp BP Pulse Ox 98.2 F 71 20 107/57 L 95 08/14/18 07:00 08/14/18 07:00 08/14/18 07:00 08/14/18 07:00 08/14/18 07:00 Intake and Output: 08/14/18 08/14/18 06:59 18:59 Intake Total 350 Balance 350 - Medications Medications: Current Medications Albuterol/Ipratropium (Duoneb 3 Mg/0.5 Mg (3 Ml) Ud) 3 ml INH RQ6 [facility] Last Admin: 08/14/18 08:20 Dose: Not Given Aspirin (Aspirin Chewable) 81 mg PO DAILY [facility] Last Admin: 08/14/18 09:10 Dose: Not Given Clopidogrel Bisulfate (Plavix) 75 mg PO DAILY [facility] Last Admin: 08/14/18 09:11 Dose: Not Given Donepezil HCl (Aricept) 5 mg PO HS [facility] Last Admin: 08/13/18 21:08 Dose: Not Given Enoxaparin Sodium (Lovenox) 40 mg SC DAILY [facility] Last Admin: 08/14/18 09:10 Dose: Not Given Famotidine (Pepcid) 20 mg IVP DAILY [facility] Last Admin: 08/14/18 09:11 Dose: Not Given Folic Acid (Folic Acid) 1 mg PO DAILY [facility] Last Admin: 08/14/18 09:10 Dose: Not Given Lactated Ringer's (Lactated Ringer's) 1,000 mls @ 100 mls/hr IV .Q10H [facility] Lorazepam (Ativan) 1 mg IVP Q4 PRN PRN Reason: Agitation Multivitamins/Vitamin C (Multi-Delyn Liquid) 5 ml PO DAILY [facility] Last Admin: 08/14/18 09:10 Dose: Not Given Rosuvastatin Calcium (Crestor) 10 mg PO HS [facility] Last Admin: 08/13/18 21:08 Dose: Not Given - Labs Labs: 08/11/18 06:16 08/11/18 06:14 PT 11.2 SECONDS (9.7-12.2) 08/10/18 22:46 INR 1.0 08/10/18 22:46 APTT 26 SECONDS (21-34) 08/10/18 22:46 - Constitutional Appears: Well, No Acute Distress, Chronically Ill - Head Exam Head Exam: NORMAL INSPECTION - Eye Exam Eye Exam: Normal appearance Pupil Exam: NORMAL ACCOMODATION - ENT Exam ENT Exam: Normal Exam - Neck Exam Neck Exam: Normal Inspection - Respiratory Exam Respiratory Exam: Clear to Ausculation Bilateral, NORMAL BREATHING PATTERN - Cardiovascular Exam Cardiovascular Exam: REGULAR RHYTHM - GI/Abdominal Exam GI & Abdominal Exam: Soft, Normal Bowel Sounds - Rectal Exam Rectal Exam: Deferred - Extremities Exam Extremities Exam: Normal Inspection - Back Exam Back Exam: NORMAL INSPECTION - Neurological Exam Neurological Exam: Alert, Awake Additional comments: Confused at times. - Skin Additional comments: Confused, forgetful. Assessment and Plan (1) Bradycardia Status: Chronic (2) Vertebro-basilar artery syndrome Status: Acute (3) Severe dementia Status: Acute (4) More than 50 percent stenosis of right internal carotid artery Status: Acute (5) COPD (chronic obstructive pulmonary disease) Assessment & Plan: On Albuterol by nebulizer. Status: Acute
--- NOTE | 2018-08-14 16:42 | CP.PCM.PN ---
Subjective - Date & Time of Evaluation Date of Evaluation: 08/14/18 Time of Evaluation: 16:42 - Subjective Subjective: Neuro Follow-Up: Mr. Esquivel was evaluated this afternoon at bedside. He offers no complaints today and states that he feels better. He verbalizes being nervous about undergoing surgery tomorrow. Pt is for right carotid endarterectomy with Dr. Melara. Pt denies h/a, dizziness, visual changes, chest pain, palpitations, sob, abd pain, paresthesias, fever/chills. Objective - Vital Signs/Intake and Output Vital Signs (last 24 hours): Temp Pulse Resp BP Pulse Ox 98.1 F 76 20 128/73 95 08/14/18 15:00 08/14/18 15:00 08/14/18 15:00 08/14/18 15:00 08/14/18 15:00 Intake and Output: 08/14/18 08/14/18 06:59 18:59 Intake Total 350 Balance 350 - Medications Medications: Current Medications Albuterol/Ipratropium (Duoneb 3 Mg/0.5 Mg (3 Ml) Ud) 3 ml INH RQ6 [facility] Last Admin: 08/14/18 13:38 Dose: 3 ml Aspirin (Aspirin Chewable) 81 mg PO DAILY [facility] Last Admin: 08/14/18 09:10 Dose: Not Given Clopidogrel Bisulfate (Plavix) 75 mg PO DAILY [facility] Last Admin: 08/14/18 09:11 Dose: Not Given Donepezil HCl (Aricept) 5 mg PO HS [facility] Last Admin: 08/13/18 21:08 Dose: Not Given Enoxaparin Sodium (Lovenox) 40 mg SC DAILY [facility] Last Admin: 08/14/18 09:10 Dose: Not Given Famotidine (Pepcid) 20 mg IVP DAILY [facility] Last Admin: 08/14/18 09:11 Dose: Not Given Folic Acid (Folic Acid) 1 mg PO DAILY [facility] Last Admin: 08/14/18 09:10 Dose: Not Given Lactated Ringer's (Lactated Ringer's) 1,000 mls @ 100 mls/hr IV .Q10H [facility] Lorazepam (Ativan) 1 mg IVP Q4 PRN PRN Reason: Agitation Multivitamins/Vitamin C (Multi-Delyn Liquid) 5 ml PO DAILY [facility] Last Admin: 08/14/18 09:10 Dose: Not Given Rosuvastatin Calcium (Crestor) 10 mg PO HS [facility] Last Admin: 08/13/18 21:08 Dose: Not Given - Labs Labs: 08/11/18 06:16 08/11/18 06:14 PT 11.2 SECONDS (9.7-12.2) 08/10/18 22:46 INR 1.0 08/10/18 22:46 APTT 26 SECONDS (21-34) 08/10/18 22:46 - Constitutional Appears: Well, Non-toxic, No Acute Distress, Confused (on/off) - Head Exam Head Exam: ATRAUMATIC, NORMAL INSPECTION, NORMOCEPHALIC - Eye Exam Eye Exam: EOMI, Normal appearance Pupil Exam: NORMAL ACCOMODATION, PERRL - ENT Exam ENT Exam: Mucous Membranes Moist - Neck Exam Neck Exam: Full ROM, Normal Inspection - Respiratory Exam Respiratory Exam: NORMAL BREATHING PATTERN - Extremities Exam Extremities Exam: Full ROM - Neurological Exam Neurological Exam: Alert, Awake, CN II-XII Intact, Oriented x3, Reflexes Normal Neuro motor strength exam: Left Upper Extremity: 5, Right Upper Extremity: 5, Left Lower Extremity: 5, Right Lower Extremity: 5 Additional comments: AAOx3 though has periods of confusion and forgetfulness No focal motor or sensory deficits No tremors - Psychiatric Exam Psychiatric exam: Normal Affect, Normal Mood Additional comments: periods of confusion and forgetfulness - Skin Skin Exam: Normal Color Assessment and Plan (1) Dizziness Assessment & Plan: Imaging reviewed: -MRI Brain (08/11/18): Limited motion degraded. No evidence of acute intracranial hemorrhage or infarct. No enhancing lesions. Mild chronic periventricular white matter ischemic changes with multiple smaller lacunar type infarcts scattered about deep and subcortical white matter both cerebral hemispheres. Moderate to fairly significant central volume loss evidenced by disproportionate enlargement of the ventricles as compared sulci. The marrow within the clivus is somewhat mottled though no discrete enhancing lesions. -CTA Head and Neck (08/10/18): There is an approximately 50 % stenosis of proximal left internal carotid artery. The left vertebral artery is occluded however there is some reconstitution - opacification distally the intradural distal intradural portion of the left vertebral artery likely due to some retrograde filling -CT Head (08/10/18): No acute intracranial abnormality. Chronic microvascular ischemic change. Diffuse generalized parenchymal atrophy. -For Rt. Carotid Endarterectomy with Dr. Melara tomorrow. -Continue current medications and treatment. -Notify neuro of any acute changes in pt's condition. Will f/u with pt post-op. More Brito DNP, [employer] d/w Dr. Parikh Status: Acute
--- NOTE | 2018-08-14 21:27 | PN ---
DATE: 08/14/2018 SUBJECTIVE: The patient is seen. The patient went today for a myocardial perfusion scan test. The patient is still very forgetful and wants to go home. He was given Ativan p.r.n. earlier as he was restless. PHYSICAL EXAMINATION: VITAL SIGNS: Temperature is 98.1, blood pressure 128/73 with pulse rate 76, respiratory rate 20, and oxygen saturation 95%. GENERAL: He is alert, oriented x2, and states he was in his room calm. SKIN: No diaphoresis. HEENT: No headache. No dizziness. NECK: Supple. RESPIRATORY: No dyspnea. CARDIOVASCULAR: No chest pain. GASTROINTESTINAL: He is eating well. EXTREMITIES: Moving extremities. MUSCULOSKELETAL: Weakness, improving. NEUROLOGIC: Alert, but very forgetful. MENTAL STATUS EXAMINATION: An elderly male, who looks stated age, alert, oriented x2. Speech is spontaneous. Affect is reactive. Mood is calm. Thought process, forgetful. Thought content, no overt psychosis. He just wants to go home. No suicidal or homicidal ideation. Attention and memory seem to be limited. Insight and judgment, limited. Impulse control is fair at this time. IMPRESSION: Senile-onset dementia with mood changes. PLAN AND RECOMMENDATIONS: The patient is seen, meds were reviewed. Continue Ativan p.r.n. as ordered. As per nurse, the patient will be possibly going for vascular surgery in the morning, for possible carotid endarterectomy to be done by Dr. Melara. For now, the patient has agreed to stay in the hospital, but if the patient is discharged to home, he will need 24-hour care with supervision. Joe Song MD
[2018-08-14] MEDS: Lactated Ringer's 1,000 ML IV SCH (22:50)
[2018-08-15] MEDS: Albuterol-Ipratrop 3 mg / 0.5 (3 ml) UD INH SCH ×2 (01:00→19:41)
[2018-08-15] MEDS ORDERED: ceFAZolin 1 gm in NS 1 GM/100 ML BAG IVPB ONE (07:01)
[2018-08-15] MEDS ORDERED: HEPARIN-NS 5,000 UNITS/500 ML 5,000 UNIT/500 ML BAG IV ONE (07:02)
[2018-08-15] MEDS ORDERED: Lidocaine Hydrochloride 0 ML INJ ONE (07:03)
[2018-08-15 07:20] LABS: BASO # 0.1 K/uL (0.0-0.2); BASO % 0.7 % (0.0-2.0); EOS # 0.1 K/uL (0.0-0.7); EOS % 1.2 % (0.0-4.0); HEMOGLOBIN 14.7 g/dL (12.0-18.0); LYMPH # 1.3 K/uL (1.0-4.3); LYMPH % 17.3 % (20.0-40.0); MEAN CELL VOLUME 94.1 fL (80.0-94.0); MEAN CORPUSCULAR HEMOGLOBIN 31.9 pg (27.0-31.0); MEAN CORPUSCULAR HGB CONC 33.9 g/dL (33.0-37.0); MEAN PLATELET VOLUME 8.3 fL (7.2-11.7); MONO # 0.8 K/uL (0.0-0.8); MONO % 10.1 % (0.0-10.0); NEUT # 5.5 K/uL (1.8-7.0); NEUT % 70.7 % (50.0-75.0); RBC 4.61 Mil/uL (4.40-5.90); RED CELL DISTRIBUTION WIDTH 13.7 % (11.5-14.5); WHITE BLOOD COUNT 7.8 K/uL (4.8-10.8)
[2018-08-15 07:29] LABS: PROTHROMBIN TIME 11.2 SECONDS (9.7-12.2)
[2018-08-15 07:50] LABS: ALB/GLOB RATIO 1.4 (1.0-2.1); ALT/SGPT 30 U/L (21-72); AST/SGOT 42 U/L (17-59); BLOOD UREA NITROGEN 19 mg/dL (9-20); CALCIUM 9.4 mg/dl (8.6-10.4); GFR NON-AFRICAN AMERICAN > 60
[2018-08-15] MEDS ORDERED: Nitroglycerin 50mg in D5W 50 MG/250 ML BOTTLE IV ONE (08:17)
[2018-08-15] MEDS ORDERED: Propofol 10 mg/ml Inj (20 ML) ONE (08:20)
[2018-08-15] MEDS ORDERED: Midazolam 2 MG/2 ML VIAL ONE (08:20)
[2018-08-15] MEDS ORDERED: Thrombin Topical 20,000 Intl Units Spray Kit TOP ONE (08:58)
[2018-08-15] MEDS: Enoxaparin 40 mg Syringe SC SCH (09:49)
[2018-08-15] MEDS: Lactated Ringer's 1,000 ML IV SCH ×2 (09:49→19:54)
[2018-08-15] MEDS ORDERED: HYDROmorphone 0.5 mg/0.5 ml ISec IVP PRN (12:04)
[2018-08-15] MEDS ORDERED: Nitroglycerin 0.2 mg/hr Top Patch TD PRN (12:07)
--- NOTE | 2018-08-15 12:17 | PCM.SURG1 ---
Surgeon's Initial Post Op Note - Surgeon's Notes Surgeon: Dr. Melara Lumber Carrier Operator: [id number] Type of Anesthesia: General Endo Pre-Operative Diagnosis: Right Carotid Artery Stenosis Operative Findings: Plaque extending for CCA into ICA. Bovine patch sutured in place. No bleeding noted after fibrin solution placed. for details see op note Post-Operative Diagnosis: Right Carotid Artery Stenosis Operation Performed: Right Carotid Endarterectomy, with bovine patch closure and Nikolas drain placement Specimen/Specimens Removed: Right Carotid Plaque Estimated Blood Loss: EBL {In ML}: 100 Drains Used: Nikolas (Right Neck Nikolas) Post-Op Condition: Good Date of Surgery/Procedure: 08/15/18 Time of Surgery/Procedure: 12:19
[2018-08-15 12:53] LABS: HEMOGLOBIN 12.9 g/dL (12.0-18.0); MEAN CELL VOLUME 93.4 fL (80.0-94.0); MEAN CORPUSCULAR HEMOGLOBIN 31.5 pg (27.0-31.0); MEAN CORPUSCULAR HGB CONC 33.8 g/dL (33.0-37.0); MEAN PLATELET VOLUME 8.1 fL (7.2-11.7); RBC 4.08 Mil/uL (4.40-5.90); RED CELL DISTRIBUTION WIDTH 13.5 % (11.5-14.5); WHITE BLOOD COUNT 8.2 K/uL (4.8-10.8)
--- NOTE | 2018-08-15 13:47 | VASCLAB ---
Date of service: 08/13/2018 PROCEDURE: Carotid Duplex Exam. HISTORY: L ICA stenosis COMPARISON: None available. TECHNIQUE: Grayscale and duplex Doppler evaluation of the cervical carotid and vertebral arteries were performed. The common carotid, carotid bifurcations and cervical Internal Carotid Artery (ICA) and proximal External Carotid Artery (ECA) were evaluated. The vertebral arteries were evaluated for gross patency and flow direction. Report prepared by ABIEL Harden FINDINGS: RIGHT CAROTID ARTERIES: 1. Common Carotid Artery: No significant focal plaque formation of the right common carotid artery. Maximum Peak Systolic velocity: 99 cm/sec: End-diastolic velocity 14 cm/sec. 2. Carotid Bifurcation: Homogeneous plaque formation. Maximum Peak Systolic velocity: 42 cm/sec: End-diastolic velocity 9 cm/sec. 3. Internal Carotid Artery: Plaque description: Homogeneous 3.1. Proximal Segment: Peak systolic velocity 338 cm/sec: End-diastolic velocity 131 cm/sec - % stenosis 70-95% 3.2. Middle Segment: Peak systolic velocity 30 cm/sec: End-diastolic velocity 0 cm/sec 3.3. Distal Segment: Peak systolic velocity 0 cm/sec: End-diastolic velocity 0 cm/sec 4. External Carotid Artery: No significant focal plaque formation. Peak systolic velocity 112 cm/sec 5. ICA/CCA Ratio: 4.8 LEFT CAROTID ARTERIES: 1. Common Carotid Artery: No significant focal plaque formation of the left common carotid artery. Maximum Peak Systolic velocity: 117 cm/sec: End-diastolic velocity 15 cm/sec. 2. Carotid Bifurcation: Calcific plaque formation. Maximum Peak Systolic velocity: 85 cm/sec: End-diastolic velocity 13 cm/sec. 3. Internal Carotid Artery: Plaque description: Calcific 3.1. Proximal Segment: Peak systolic velocity 122 cm/sec: End-diastolic velocity 28 cm/sec - % stenosis 0-15% 3.2. Middle Segment: Peak systolic velocity 76 cm/sec: End-diastolic velocity 18 cm/sec - % stenosis 0-15% 3.3. Distal Segment: Peak systolic velocity 110 cm/sec: End-diastolic velocity 28 cm/sec - % stenosis 0-15% 4. External Carotid Artery: No significant focal plaque formation. Peak systolic velocity 120 cm/sec 5. ICA/CCA Ratio: 1.8 VERTEBRAL ARTERIES: 1. Right Vertebral Artery: The right vertebral artery flow direction is antegrade. 2. Left Vertebral Artery: Monophasic waveform of the left vertebral artery. OTHER FINDINGS: 1. Right Brachial Blood pressure: 120/60 mmHg. 2. Left Brachial Blood pressure: 120/50 mmHg. IMPRESSION: RIGHT: Increased peak systolic velocity at the right proximal internal carotid artery, suggesting 70-95% stenosis. LEFT: Duplex scan does not suggest hemodynamically significant stenosis of the left extracranial carotid arteries. Abnormal waveform of the left vertebral artery suggesting more proximal disease at the arch level. Findings were reported to HILDA Morin at 11:21 a.m.
--- NOTE | 2018-08-15 14:33 | CP.PCM.CON ---
<ChinmayJose - Last Filed: 08/15/18 14:15> History of Present Illness - History of Present Illness History of Present Illness: Pt is a 68 y/o male with hxof dementia brought to hospital for AMS with Code Stroke protocol activated and was found on CT Head & Neck to have high grade stenosis of ALAN s/p Endarterectomy with nikolas drain placement on 08/[address] Melara. Pt is not admitted to ICU for close monitoring. Past Patient History - Infectious Disease Hx of Infectious Diseases: None - Tetanus Immunizations Tetanus Immunization: Unknown - Past Medical History & Family History Past Medical History?: Yes - Past Social History Smoking Status: Heavy Smoker > 10 Cigarettes Daily Alcohol: None Drugs: Denies Home Situation {Lives}: With Family Domestic Violence: Negative - PULMONARY Hx Emphysema: Yes - NEUROLOGICAL Hx Alzheimer's Disease: Yes Hx Dementia: Yes Hx Dizziness: Yes - MUSCULOSKELETAL/RHEUMATOLOGICAL Hx Falls: No Hx Unsteady Gait: Yes - PSYCHIATRIC Hx Substance Use: No - SURGICAL HISTORY Hx Surgeries: Yes (insertion of an IVC filter many years ago.) Other/Comment: Vein stripping - ANESTHESIA Hx Anesthesia: Yes Hx Anesthesia Reactions: No Meds Allergies/Adverse Reactions: Allergies Allergy/AdvReac Type Severity Reaction Status Date / Time No Known Allergies Allergy Verified 04/09/18 12:02 - Medications Medications: Current Medications Albuterol/Ipratropium (Duoneb 3 Mg/0.5 Mg (3 Ml) Ud) 3 ml INH RQ6 [facility] Last Admin: 08/15/18 01:00 Dose: Not Given Aspirin (Aspirin Chewable) 81 mg PO DAILY [facility] Last Admin: 08/15/18 09:49 Dose: Not Given Clopidogrel Bisulfate (Plavix) 75 mg PO DAILY [facility] Last Admin: 08/15/18 09:50 Dose: Not Given Donepezil HCl (Aricept) 5 mg PO HS [facility] Last Admin: 08/14/18 21:42 Dose: 5 mg Enoxaparin Sodium (Lovenox) 40 mg SC DAILY [facility] Last Admin: 08/15/18 09:49 Dose: Not Given Famotidine (Pepcid) 20 mg IVP DAILY [facility] Last Admin: 08/15/18 09:50 Dose: Not Given Folic Acid (Folic Acid) 1 mg PO DAILY [facility] Last Admin: 08/15/18 09:49 Dose: Not Given Lactated Ringer's (Lactated Ringer's) 1,000 mls @ 100 mls/hr IV .Q10H [facility] Last Admin: 08/15/18 09:49 Dose: Not Given Acetaminophen (Ofirmev) 100 mls @ 400 mls/hr IV Q6 [facility] Stop: 08/16/18 18:14 Sodium Nitroprusside 50 mg/ (Dextrose) 252 mls @ 0 mls/hr IV Q8 PRN PRN Reason: Systolic Blood Pressure >180 Lorazepam (Ativan) 1 mg IVP Q4 PRN PRN Reason: Agitation Multivitamins/Vitamin C (Multi-Delyn Liquid) 5 ml PO DAILY [facility] Last Admin: 08/14/18 09:10 Dose: Not Given Nitroglycerin (Nitro-Dur 0.2 Mg/Hr Patch) 1 patch TD DAILY PRN PRN Reason: Systolic Blood Pressure Rosuvastatin Calcium (Crestor) 10 mg PO HS [facility] Last Admin: 08/14/18 21:42 Dose: 10 mg Physical Exam - Constitutional Appears: No Acute Distress - Head Exam Head Exam: ATRAUMATIC - Eye Exam Eye Exam: EOMI, Normal appearance, PERRL - ENT Exam ENT Exam: Mucous Membranes Moist - Neck Exam Neck exam: Positive for: Full Rom Additional comments: Right- gauze dressing in place- clean dry and intact. Nikolas drian noted with serosang fluid - Respiratory Exam Respiratory Exam: Clear to Auscultation Bilateral. absent: Rhonchi, Wheezes - Cardiovascular Exam Cardiovascular Exam: REGULAR RHYTHM, +S1, +S2. absent: Systolic Murmur - GI/Abdominal Exam GI & Abdominal Exam: Normal Bowel Sounds - Extremities Exam Extremities exam: Positive for: normal inspection - Neurological Exam Neurological exam: Alert (Oriented x2 only (forgetful)) - Skin Skin Exam: Normal Color Results - Vital Signs Recent Vital Signs: Last Vital Signs Temp 97.5 F L 08/15/18 07:20 Pulse 62 08/15/18 08:00 Resp 18 08/15/18 07:20 BP 129/65 08/15/18 07:20 Pulse Ox 99 08/15/18 07:20 - Labs Result Diagrams: 08/15/18 12:48 08/15/18 07:06 Labs: Laboratory Results - last 24 hr 08/14/18 08/14/18 08/14/18 11:12 16:19 20:59 WBC RBC Hgb Hct MCV MCH MCHC RDW Plt Count MPV Neut % (Auto) Lymph % (Auto) Wagoner % (Auto) Eos % (Auto) Baso % (Auto) Neut # (Auto) Lymph # (Auto) Wagoner # (Auto) Eos # (Auto) Baso # (Auto) PT INR APTT Sodium Potassium Chloride Carbon Dioxide Anion Gap BUN Creatinine Est GFR ( Amer) Est GFR (Non-Af Amer) POC Glucose (mg/dL) 185 H 266 H 120 H Random Glucose Calcium Phosphorus Magnesium Total Bilirubin AST ALT Alkaline Phosphatase Total Protein Albumin Globulin Albumin/Globulin Ratio Blood Type Antibody Screen 08/15/18 08/15/18 08/15/18 06:22 07:06 07:06 WBC 7.8 RBC 4.61 Hgb 14.7 Hct 43.3 MCV 94.1 H MCH 31.9 H MCHC 33.9 RDW 13.7 Plt Count 234 MPV 8.3 Neut % (Auto) 70.7 Lymph % (Auto) 17.3 L Wagoner % (Auto) 10.1 H Eos % (Auto) 1.2 Baso % (Auto) 0.7 Neut # (Auto) 5.5 Lymph # (Auto) 1.3 Wagoner # (Auto) 0.8 Eos # (Auto) 0.1 Baso # (Auto) 0.1 PT 11.2 INR 1.0 APTT 27 Sodium Potassium Chloride Carbon Dioxide Anion Gap BUN Creatinine Est GFR ( Amer) Est GFR (Non-Af Amer) POC Glucose (mg/dL) 147 H Random Glucose Calcium Phosphorus Magnesium Total Bilirubin AST ALT Alkaline Phosphatase Total Protein Albumin Globulin Albumin/Globulin Ratio Blood Type Antibody Screen 08/15/18 08/15/18 08/15/18 07:06 07:06 12:48 WBC 8.2 RBC 4.08 L Hgb 12.9 Hct 38.1 MCV 93.4 MCH 31.5 H MCHC 33.8 RDW 13.5 Plt Count 205 MPV 8.1 Neut % (Auto) Lymph % (Auto) Wagoner % (Auto) Eos % (Auto) Baso % (Auto) Neut # (Auto) Lymph # (Auto) Wagoner # (Auto) Eos # (Auto) Baso # (Auto) PT INR APTT Sodium 136 Potassium 4.2 Chloride 100 Carbon Dioxide 28 Anion Gap 12 BUN 19 Creatinine 1.0 Est GFR ( Amer) > 60 Est GFR (Non-Af Amer) > 60 POC Glucose (mg/dL) Random Glucose 112 H Calcium 9.4 Phosphorus 2.9 Magnesium 2.1 Total Bilirubin 0.5 AST 42 ALT 30 Alkaline Phosphatase 89 Total Protein 6.9 Albumin 4.0 Globulin 2.9 Albumin/Globulin Ratio 1.4 Blood Type A POSITIVE Antibody Screen Negative Assessment & Plan - Assessment and Plan (Free Text) Assessment: Pt is a 68 y/o male with hx of dementia brought to hospital for AMS with Code St roke protocol activated and was found on CT Head & Neck to have high grade stenosis of ALAN s/p Endarterectomy with nikolas drain placement on 08/[address] Melara. Pt is not admitted to ICU for close monitoring. Neuro - AO x2 - Hx of dementia. C/W Donepezil - Ativan prn for agitation - Pain controlled Cardio - Hemodynamically stable postoperatively - Monitor vitals closely - C/W ASA, Plavix, Statin - Monitor drain output GI - Liquid Diet Renal - BUN/Crea stable Heme -H/H stable - F/u cbc in the am PPX -GI: Pepcid IV - DVT: Lovenox 40sc daily Discussed case with Dr. Maximino Moy PGY2 <Juan Stanton S - Last Filed: 08/15/18 15:48> Meds - Medications Medications: Current Medications Albuterol/Ipratropium (Duoneb 3 Mg/0.5 Mg (3 Ml) Ud) 3 ml INH RQ6 [facility] Last Admin: 08/15/18 01:00 Dose: Not Given Aspirin (Aspirin Chewable) 81 mg PO DAILY [facility] Last Admin: 08/15/18 09:49 Dose: Not Given Clopidogrel Bisulfate (Plavix) 75 mg PO DAILY [facility] Last Admin: 08/15/18 09:50 Dose: Not Given Donepezil HCl (Aricept) 5 mg PO HS [facility] Last Admin: 08/14/18 21:42 Dose: 5 mg Enoxaparin Sodium (Lovenox) 40 mg SC DAILY [facility] Last Admin: 08/15/18 09:49 Dose: Not Given Famotidine (Pepcid) 20 mg IVP DAILY [facility] Last Admin: 08/15/18 09:50 Dose: Not Given Folic Acid (Folic Acid) 1 mg PO DAILY [facility] Last Admin: 08/15/18 09:49 Dose: Not Given Lactated Ringer's (Lactated Ringer's) 1,000 mls @ 100 mls/hr IV .Q10H [facility] Last Admin: 08/15/18 09:49 Dose: Not Given Acetaminophen (Ofirmev) 100 mls @ 400 mls/hr IV Q6 [facility] Stop: 08/16/18 18:14 Sodium Nitroprusside 50 mg/ (Dextrose) 252 mls @ 0 mls/hr IV Q8 PRN PRN Reason: Systolic Blood Pressure >180 Lorazepam (Ativan) 1 mg IVP Q4 PRN PRN Reason: Agitation Multivitamins/Vitamin C (Multi-Delyn Liquid) 5 ml PO DAILY [facility] Last Admin: 08/14/18 09:10 Dose: Not Given Nitroglycerin (Nitro-Dur 0.2 Mg/Hr Patch) 1 patch TD DAILY PRN PRN Reason: Systolic Blood Pressure Rosuvastatin Calcium (Crestor) 10 mg PO HS [facility] Last Admin: 08/14/18 21:42 Dose: 10 mg Results - Vital Signs Recent Vital Signs: Last Vital Signs Temp 98.4 F 08/15/18 13:40 Pulse 70 08/15/18 13:40 Resp 20 08/15/18 13:40 BP 112/57 L 08/15/18 13:40 Pulse Ox 96 08/15/18 13:40 - Labs Result Diagrams: 08/15/18 12:48 08/15/18 07:06 Labs: Laboratory Results - last 24 hr 08/11/18 08/14/18 08/14/18 12:11 11:12 16:19 WBC RBC Hgb Hct MCV MCH MCHC RDW Plt Count MPV Neut % (Auto) Lymph % (Auto) Wagoner % (Auto) Eos % (Auto) Baso % (Auto) Neut # (Auto) Lymph # (Auto) Wagoner # (Auto) Eos # (Auto) Baso # (Auto) PT INR APTT Sodium Potassium Chloride Carbon Dioxide Anion Gap BUN Creatinine Est GFR ( Amer) Est GFR (Non-Af Amer) POC Glucose (mg/dL) 185 H 266 H Random Glucose Calcium Phosphorus Magnesium Total Bilirubin AST ALT Alkaline Phosphatase Total Protein Albumin Globulin Albumin/Globulin Ratio U [id number] Conf Negative Ur Nordiazepam Confirm 146 H Ur Oxazepam Confirm Negative Ur Drug Screen Comment See note Blood Type Antibody Screen 08/14/18 08/15/18 08/15/18 20:59 06:22 07:06 WBC 7.8 RBC 4.61 Hgb 14.7 Hct 43.3 MCV 94.1 H MCH 31.9 H MCHC 33.9 RDW 13.7 Plt Count 234 MPV 8.3 Neut % (Auto) 70.7 Lymph % (Auto) 17.3 L Wagoner % (Auto) 10.1 H Eos % (Auto) 1.2 Baso % (Auto) 0.7 Neut # (Auto) 5.5 Lymph # (Auto) 1.3 Wagoner # (Auto) 0.8 Eos # (Auto) 0.1 Baso # (Auto) 0.1 PT INR APTT Sodium Potassium Chloride Carbon Dioxide Anion Gap BUN Creatinine Est GFR ( Amer) Est GFR (Non-Af Amer) POC Glucose (mg/dL) 120 H 147 H Random Glucose Calcium Phosphorus Magnesium Total Bilirubin AST ALT Alkaline Phosphatase Total Protein Albumin Globulin Albumin/Globulin Ratio U [id number] Conf Ur Nordiazepam Confirm Ur Oxazepam Confirm Ur Drug Screen Comment Blood Type Antibody Screen 08/15/18 08/15/18 08/15/18 07:06 07:06 07:06 WBC RBC Hgb Hct MCV MCH MCHC RDW Plt Count MPV Neut % (Auto) Lymph % (Auto) Wagoner % (Auto) Eos % (Auto) Baso % (Auto) Neut # (Auto) Lymph # (Auto) Wagoner # (Auto) Eos # (Auto) Baso # (Auto) PT 11.2 INR 1.0 APTT 27 Sodium 136 Potassium 4.2 Chloride 100 Carbon Dioxide 28 Anion Gap 12 BUN 19 Creatinine 1.0 Est GFR ( Amer) > 60 Est GFR (Non-Af Amer) > 60 POC Glucose (mg/dL) Random Glucose 112 H Calcium 9.4 Phosphorus 2.9 Magnesium 2.1 Total Bilirubin 0.5 AST 42 ALT 30 Alkaline Phosphatase 89 Total Protein 6.9 Albumin 4.0 Globulin 2.9 Albumin/Globulin Ratio 1.4 U [id number] Conf Ur Nordiazepam Confirm Ur Oxazepam Confirm Ur Drug Screen Comment Blood Type A POSITIVE Antibody Screen Negative 08/15/18 12:48 WBC 8.2 RBC 4.08 L Hgb 12.9 Hct 38.1 MCV 93.4 MCH 31.5 H MCHC 33.8 RDW 13.5 Plt Count 205 MPV 8.1 Neut % (Auto) Lymph % (Auto) Wagoner % (Auto) Eos % (Auto) Baso % (Auto) Neut # (Auto) Lymph # (Auto) Wagoner # (Auto) Eos # (Auto) Baso # (Auto) PT INR APTT Sodium Potassium Chloride Carbon Dioxide Anion Gap BUN Creatinine Est GFR ( Amer) Est GFR (Non-Af Amer) POC Glucose (mg/dL) Random Glucose Calcium Phosphorus Magnesium Total Bilirubin AST ALT Alkaline Phosphatase Total Protein Albumin Globulin Albumin/Globulin Ratio U [id number] Conf Ur Nordiazepam Confirm Ur Oxazepam Confirm Ur Drug Screen Comment Blood Type Antibody Screen Attending/Attestation - Attestation I have personally seen and examined this patient.: Yes I have fully participated in the care of the patient.: Yes I have reviewed all pertinent clinical information: Yes Notes (Text): 08/15/18 15:48 Patient seen and examined in the intensive care unit. Case discussed with housestaff in the morning rounds. Status post right carotid endarterectomy Overnight ICU observation Continue present treatment
--- NOTE | 2018-08-15 14:55 | CP.PCM.PN ---
Subjective - Date & Time of Evaluation Date of Evaluation: 08/15/18 Time of Evaluation: 14:52 - Subjective Subjective: Neuro Follow Up Note: Mr. Esquivel was evaluated this afternoon in the ICU. He is POD 0 of Right Carotid Endarterectomy with Dr. Melara this morning. At this time he feeling well. He denies pain to the surgical site. He denies h/a, dizziness, visual changes, chest pain, paresthesias. Objective - Vital Signs/Intake and Output Vital Signs (last 24 hours): Temp Pulse Resp BP Pulse Ox 98.4 F 70 20 112/57 L 96 08/15/18 13:40 08/15/18 13:40 08/15/18 13:40 08/15/18 13:40 08/15/18 13:40 Intake and Output: 08/15/18 08/15/18 06:59 18:59 Intake Total 800 2300 Output Total 100 Balance 800 2200 - Medications Medications: Current Medications Albuterol/Ipratropium (Duoneb 3 Mg/0.5 Mg (3 Ml) Ud) 3 ml INH RQ6 [facility] Last Admin: 08/15/18 01:00 Dose: Not Given Aspirin (Aspirin Chewable) 81 mg PO DAILY [facility] Last Admin: 08/15/18 09:49 Dose: Not Given Clopidogrel Bisulfate (Plavix) 75 mg PO DAILY [facility] Last Admin: 08/15/18 09:50 Dose: Not Given Donepezil HCl (Aricept) 5 mg PO HS [facility] Last Admin: 08/14/18 21:42 Dose: 5 mg Enoxaparin Sodium (Lovenox) 40 mg SC DAILY [facility] Last Admin: 08/15/18 09:49 Dose: Not Given Famotidine (Pepcid) 20 mg IVP DAILY [facility] Last Admin: 08/15/18 09:50 Dose: Not Given Folic Acid (Folic Acid) 1 mg PO DAILY [facility] Last Admin: 08/15/18 09:49 Dose: Not Given Lactated Ringer's (Lactated Ringer's) 1,000 mls @ 100 mls/hr IV .Q10H [facility] Last Admin: 08/15/18 09:49 Dose: Not Given Acetaminophen (Ofirmev) 100 mls @ 400 mls/hr IV Q6 [facility] Stop: 08/16/18 18:14 Sodium Nitroprusside 50 mg/ (Dextrose) 252 mls @ 0 mls/hr IV Q8 PRN PRN Reason: Systolic Blood Pressure >180 Lorazepam (Ativan) 1 mg IVP Q4 PRN PRN Reason: Agitation Multivitamins/Vitamin C (Multi-Delyn Liquid) 5 ml PO DAILY [facility] Last Admin: 08/14/18 09:10 Dose: Not Given Nitroglycerin (Nitro-Dur 0.2 Mg/Hr Patch) 1 patch TD DAILY PRN PRN Reason: Systolic Blood Pressure Rosuvastatin Calcium (Crestor) 10 mg PO HS [facility] Last Admin: 08/14/18 21:42 Dose: 10 mg - Labs Labs: 08/15/18 12:48 08/15/18 07:06 PT 11.2 SECONDS (9.7-12.2) 08/15/18 07:06 INR 1.0 08/15/18 07:06 APTT 27 SECONDS (21-34) 08/15/18 07:06 - Constitutional Appears: Well, Non-toxic, No Acute Distress, Confused (on and off) - Head Exam Head Exam: ATRAUMATIC, NORMAL INSPECTION, NORMOCEPHALIC - Eye Exam Eye Exam: EOMI, Normal appearance, PERRL Pupil Exam: NORMAL ACCOMODATION, PERRL - ENT Exam ENT Exam: Mucous Membranes Moist - Neck Exam Additional comments: Post op dressing to right side neck. - Respiratory Exam Respiratory Exam: NORMAL BREATHING PATTERN - Cardiovascular Exam Cardiovascular Exam: REGULAR RHYTHM - Extremities Exam Extremities Exam: Full ROM. absent: Calf Tenderness, Pedal Edema - Neurological Exam Neurological Exam: Alert, Awake, CN II-XII Intact, Reflexes Normal. absent: Motor Sensory Deficit Neuro motor strength exam: Left Upper Extremity: 5, Right Upper Extremity: 5, Left Lower Extremity: 5, Right Lower Extremity: 5 - Psychiatric Exam Psychiatric exam: Normal Affect, Normal Mood Additional comments: on and off confusion - Skin Skin Exam: Normal Color Additional comments: post op surgical site right neck Assessment and Plan (1) Dizziness Assessment & Plan: Imaging reviewed: -MRI Brain (08/11/18): Limited motion degraded. No evidence of acute intracranial hemorrhage or infarct. No enhancing lesions. Mild chronic pe riventricular white matter ischemic changes with multiple smaller lacunar type infarcts scattered about deep and subcortical white matter both cerebral hemispheres. Moderate to fairly significant central volume loss evidenced by disproportionate enlargement of the ventricles as compared sulci. The marrow within the clivus is somewhat mottled though no discrete enhancing lesions. -CTA Head and Neck (08/10/18): There is an approximately 50 % stenosis of proximal left internal carotid artery. The left vertebral artery is occluded however there is some reconstitution - opacification distally the intradural distal intradural portion of the left vertebral artery likely due to some retrograde filling -CT Head (08/10/18): No acute intracranial abnormality. Chronic microvascular ischemic change. Diffuse generalized parenchymal atrophy. -POD 0 of Rt. Carotid Endarterectomy with Dr. Melara. -Continue current medications and treatment. -Post-op management per Dr. Melara and ICU. -Notify neuro of any acute changes in pt's condition. More Brito, SUDARSHAN, [employer]PLIANCE OFFICER d/w Dr. Parikh Status: Acute
--- NOTE | 2018-08-15 19:25 | CP.PCM.PN ---
Subjective - Date & Time of Evaluation Date of Evaluation: 08/15/18 Time of Evaluation: 19:18 - Subjective Subjective: Vascular Surgery Progress Note- Dr. Melara Post Op Note s/p R. CEA w/ Nikolas Drain placement. dressing C/D/I w/ minimal strike through. Nikolas drain 15cc serosang fluid. GCS 14 [id number] AAOx2 to person and place, easily reorients to time. Vitals: 98.1 76 118/73 (on R. Radial A-Line w/ good wave form) 98% PE: General: WD NAD Neck: Dressing C/D/I, 15cc serosang fluid Pulm: no acute distress Cardio: S1 S2 RRR Neuro: AAOx2 person and place, easily re-orients to time. Able to annucniate. CN 7, 9, 10, 11, intact A/P Repeat AM Labs Advance diet as tolerated Monitor drain output will continue to monitor closely BP < 160 greater than 90 [facility] PGY2 Objective - Vital Signs/Intake and Output Vital Signs (last 24 hours): Temp Pulse Resp BP Pulse Ox 97.6 F 49 L 18 123/55 L 100 08/15/18 16:00 08/15/18 18:00 08/15/18 18:00 08/15/18 17:15 08/15/18 18:00 Intake and Output: 08/15/18 08/16/18 18:59 06:59 Intake Total 2840 Output Total 150 Balance 2690 - Medications Medications: Current Medications Albuterol/Ipratropium (Duoneb 3 Mg/0.5 Mg (3 Ml) Ud) 3 ml INH RQ6 [facility] Last Admin: 08/15/18 01:00 Dose: Not Given Aspirin (Aspirin Chewable) 81 mg PO DAILY [facility] Last Admin: 08/15/18 09:49 Dose: Not Given Clopidogrel Bisulfate (Plavix) 75 mg PO DAILY [facility] Last Admin: 08/15/18 09:50 Dose: Not Given Donepezil HCl (Aricept) 5 mg PO HS [facility] Last Admin: 08/14/18 21:42 Dose: 5 mg Enoxaparin Sodium (Lovenox) 40 mg SC DAILY [facility] Last Admin: 08/15/18 09:49 Dose: Not Given Famotidine (Pepcid) 20 mg IVP DAILY [facility] Last Admin: 08/15/18 09:50 Dose: Not Given Folic Acid (Folic Acid) 1 mg PO DAILY [facility] Last Admin: 08/15/18 09:49 Dose: Not Given Lactated Ringer's (Lactated Ringer's) 1,000 mls @ 100 mls/hr IV .Q10H [facility] Last Admin: 08/15/18 09:49 Dose: Not Given Acetaminophen (Ofirmev) 100 mls @ 400 mls/hr IV Q6 [facility] Stop: 08/16/18 18:14 Last Admin: 08/15/18 18:13 Dose: Not Given Sodium Nitroprusside 50 mg/ (Dextrose) 252 mls @ 0 mls/hr IV Q8 PRN PRN Reason: Systolic Blood Pressure >180 Lorazepam (Ativan) 1 mg IVP Q4 PRN PRN Reason: Agitation Multivitamins/Vitamin C (Multi-Delyn Liquid) 5 ml PO DAILY [facility] Last Admin: 08/14/18 09:10 Dose: Not Given Nitroglycerin (Nitro-Dur 0.2 Mg/Hr Patch) 1 patch TD DAILY PRN PRN Reason: Systolic Blood Pressure Rosuvastatin Calcium (Crestor) 10 mg PO HS [facility] Last Admin: 08/14/18 21:42 Dose: 10 mg - Labs Labs: 08/15/18 12:48 08/15/18 07:06 PT 11.2 SECONDS (9.7-12.2) 08/15/18 07:06 INR 1.0 08/15/18 07:06 APTT 27 SECONDS (21-34) 08/15/18 07:06
--- NOTE | 2018-08-15 21:40 | CP.PCM.PN ---
Subjective - Date & Time of Evaluation Date of Evaluation: 08/15/18 Time of Evaluation: 16:00 - Subjective Subjective: Patient underwent a right carotid endarterectomy this Am. Now in CCU. Patient has no complaint, but still very forgetful. Objective - Vital Signs/Intake and Output Vital Signs (last 24 hours): Temp Pulse Resp BP Pulse Ox 98.2 F 51 L 12 101/40 L 100 08/15/18 20:00 08/15/18 21:00 08/15/18 21:00 08/15/18 21:00 08/15/18 21:00 Intake and Output: 08/15/18 08/16/18 18:59 06:59 Intake Total 2840 200 Output Total 150 200 Balance 2690 0 - Medications Medications: Current Medications Albuterol/Ipratropium (Duoneb 3 Mg/0.5 Mg (3 Ml) Ud) 3 ml INH RQ6 [facility] Last Admin: 08/15/18 19:41 Dose: Not Given Aspirin (Aspirin Chewable) 81 mg PO DAILY [facility] Last Admin: 08/15/18 09:49 Dose: Not Given Clopidogrel Bisulfate (Plavix) 75 mg PO DAILY [facility] Last Admin: 08/15/18 09:50 Dose: Not Given Donepezil HCl (Aricept) 5 mg PO HS [facility] Last Admin: 08/15/18 21:00 Dose: 5 mg Enoxaparin Sodium (Lovenox) 40 mg SC DAILY [facility] Last Admin: 08/15/18 09:49 Dose: Not Given Famotidine (Pepcid) 20 mg IVP DAILY [facility] Last Admin: 08/15/18 09:50 Dose: Not Given Folic Acid (Folic Acid) 1 mg PO DAILY [facility] Last Admin: 08/15/18 09:49 Dose: Not Given Lactated Ringer's (Lactated Ringer's) 1,000 mls @ 100 mls/hr IV .Q10H [facility] Last Admin: 08/15/18 19:54 Dose: Not Given Acetaminophen (Ofirmev) 100 mls @ 400 mls/hr IV Q6 [facility] Stop: 08/16/18 18:14 Last Admin: 08/15/18 18:13 Dose: Not Given Sodium Nitroprusside 50 mg/ (Dextrose) 252 mls @ 0 mls/hr IV Q8 PRN PRN Reason: Systolic Blood Pressure >180 Lorazepam (Ativan) 1 mg IVP Q4 PRN PRN Reason: Agitation Multivitamins/Vitamin C (Multi-Delyn Liquid) 5 ml PO DAILY [facility] Last Admin: 08/14/18 09:10 Dose: Not Given Nitroglycerin (Nitro-Dur 0.2 Mg/Hr Patch) 1 patch TD DAILY PRN PRN Reason: Systolic Blood Pressure Rosuvastatin Calcium (Crestor) 10 mg PO HS [facility] Last Admin: 08/15/18 21:00 Dose: 10 mg - Labs Labs: 08/15/18 12:48 08/15/18 07:06 PT 11.2 SECONDS (9.7-12.2) 08/15/18 07:06 INR 1.0 08/15/18 07:06 APTT 27 SECONDS (21-34) 08/15/18 07:06 - Constitutional Appears: No Acute Distress, Chronically Ill - Head Exam Head Exam: NORMAL INSPECTION - Eye Exam Eye Exam: Normal appearance Pupil Exam: NORMAL ACCOMODATION - ENT Exam ENT Exam: Normal Exam - Neck Exam Additional comments: Right neck under bandage. - Respiratory Exam Respiratory Exam: Clear to Ausculation Bilateral - Cardiovascular Exam Cardiovascular Exam: REGULAR RHYTHM Additional comments: Telemetry reveals PAC's. - GI/Abdominal Exam GI & Abdominal Exam: Soft, Normal Bowel Sounds - Rectal Exam Rectal Exam: Deferred - Extremities Exam Extremities Exam: Normal Inspection - Back Exam Back Exam: NORMAL INSPECTION - Neurological Exam Neurological Exam: Alert, Awake Additional comments: Confused. - Psychiatric Exam Psychiatric exam: Anxious - Skin Skin Exam: Dry, Normal Color, Warm Assessment and Plan (1) Bradycardia Status: Chronic (2) Vertebro-basilar artery syndrome Status: Acute (3) Severe dementia Status: Acute (4) More than 50 percent stenosis of right internal carotid artery Assessment & Plan: S/p right carotid endarterectomy, POD # 0. Stable. Status: Acute (5) COPD (chronic obstructive pulmonary disease) Status: Acute
--- NOTE | 2018-08-15 23:40 | OP ---
PROCEDURE DATE: 08/15/2018 PREOPERATIVE DIAGNOSES: Critical right carotid stenosis, transient ischemic attack. POSTOPERATIVE DIAGNOSES: Critical right carotid stenosis, transient ischemic attack. PROCEDURE CARRIED OUT: Right carotid endarterectomy. SURGEON: Robbi Melara Jr., MD FINANCE ADMINISTRATOR: Aly Starr DO ANESTHESIOLOGIST: Mr. Goldman. INDICATIONS: The patient is an elderly man admitted to the hospital with syncopal event, subsequently found to have a critical right carotid stenosis. OPERATIVE FINDINGS: 1. The disease extended up the internal carotid artery. 2. We had a clean endpoint. 3. We used LeMaitre bovine pericardial patch. A Scoma shunt was used and we left a small drain in at the end of the procedure, suction drain. DESCRIPTION OF PROCEDURE: The patient was given general anesthesia, intravenous antibiotics. An incision was made exposing the common internal and external carotid arteries. Hypoglossal nerve was identified. Vascular control was obtained. Heparin was given. We then carried out the endarterectomy and placed the Scoma shunt. We then had relatively clean end points. We then placed the Bovine patch and we removed the shunt at the completion of this. There was good inflow and backflow. We then closed the wounds with 5-0 nylon sutures and closed the skin with subcuticular closure. A small drain was left to suction drain. Blood loss of procedure was less than 200 mL. OPERATION CARRIED OUT: Right carotid endarterectomy. At the time of this dictation, the patient had not fully awoken from the operation and the anesthesia. Robbi Melara Jr., MD cc:
[2018-08-16] MEDS: Albuterol-Ipratrop 3 mg / 0.5 (3 ml) UD INH SCH ×3 (02:18→13:19)
[2018-08-16] MEDS: Lactated Ringer's 1,000 ML IV SCH ×4 (02:52→14:50)
[2018-08-16 06:18] LABS: BASO # 0.1 K/uL (0.0-0.2); EOS # 0.1 K/uL (0.0-0.7); LYMPH # 1.1 K/uL (1.0-4.3); MEAN CELL VOLUME 94.5 fL (80.0-94.0); MEAN CORPUSCULAR HGB CONC 33.5 g/dL (33.0-37.0); MONO # 0.8 K/uL (0.0-0.8)
[2018-08-16 06:22] LABS: BASO % 0.9 % (0.0-2.0); EOS % 1.3 % (0.0-4.0); HEMOGLOBIN 12.8 g/dL (12.0-18.0); LYMPH % 13.2 % (20.0-40.0); MEAN CORPUSCULAR HEMOGLOBIN 31.7 pg (27.0-31.0); MEAN PLATELET VOLUME 8.5 fL (7.2-11.7); MONO % 9.4 % (0.0-10.0); NEUT # 6.2 K/uL (1.8-7.0); NEUT % 75.2 % (50.0-75.0); RBC 4.02 Mil/uL (4.40-5.90); RED CELL DISTRIBUTION WIDTH 13.6 % (11.5-14.5); WHITE BLOOD COUNT 8.2 K/uL (4.8-10.8)
[2018-08-16 06:30] LABS: BLOOD UREA NITROGEN 12 mg/dL (9-20); CALCIUM 8.8 mg/dl (8.6-10.4); GFR NON-AFRICAN AMERICAN > 60
[2018-08-16] MEDS: Enoxaparin 40 mg Syringe SC SCH (09:26)
[2018-08-16] MEDS: Multiple Vitamins Oral Solution PO SCH (09:29)
--- NOTE | 2018-08-16 12:32 | CP.PCM.PN ---
Subjective - Date & Time of Evaluation Date of Evaluation: 08/16/18 Time of Evaluation: 12:29 - Subjective Subjective: Surgery: Dr. Melara Patient doing well. No issue over night. Asking for more food. Objective - Vital Signs/Intake and Output Vital Signs (last 24 hours): Temp Pulse Resp BP Pulse Ox 97.8 F 49 L 16 135/76 100 08/16/18 08:00 08/16/18 10:00 08/16/18 10:00 08/16/18 09:55 08/16/18 10:00 Intake and Output: 08/16/18 08/16/18 06:59 18:59 Intake Total 1300 600 Output Total 800 Balance 500 600 - Medications Medications: Current Medications Albuterol/Ipratropium (Duoneb 3 Mg/0.5 Mg (3 Ml) Ud) 3 ml INH RQ6 [facility] 234 BEDS AT [facility] Last Admin: 08/16/18 07:47 Dose: 3 ml Aspirin (Aspirin Chewable) 81 mg PO DAILY [facility]S INCLUDE 234 BEDS AT THE [facility] Last Admin: 08/16/18 09:26 Dose: 81 mg Clopidogrel Bisulfate (Plavix) 75 mg PO DAILY [facility]S INCLUDE 234 BEDS AT THE [facility] Last Admin: 08/16/18 09:25 Dose: 75 mg Donepezil HCl (Aricept) 5 mg PO HS [facility]S INCLUDE 234 BEDS AT THE [facility] Last Admin: 08/15/18 21:00 Dose: 5 mg Enoxaparin Sodium (Lovenox) 40 mg SC DAILY [facility]S INCLUDE 234 BEDS AT THE [facility] Last Admin: 08/16/18 09:26 Dose: 40 mg Famotidine (Pepcid) 20 mg IVP DAILY [facility]S INCLUDE 234 BEDS AT THE [facility] Last Admin: 08/16/18 09:26 Dose: 20 mg Folic Acid (Folic Acid) 1 mg PO DAILY [facility]CLUDE 234 BEDS AT THE [facility] Last Admin: 08/16/18 09:26 Dose: 1 mg Lactated Ringer's (Lactated Ringer's) 1,000 mls @ 100 mls/hr IV .Q10H COUNTS INCLUDE 234 BEDS AT THE [facility] Last Admin: 08/16/18 06:37 Dose: Not Given Acetaminophen (Ofirmev) 100 mls @ 400 mls/hr IV Q6 COUNTS INCLUDE 234 BEDS AT THE [facility] Stop: 08/16/18 18:14 Last Admin: 08/16/18 11:23 Dose: 400 mls/hr Sodium Nitroprusside 50 mg/ (Dextrose) 252 mls @ 0 mls/hr IV Q8 PRN PRN Reason: Systolic Blood Pressure >180 Lorazepam (Ativan) 1 mg IVP Q4 PRN PRN Reason: Agitation Multivitamins/Vitamin C (Multi-Delyn Liquid) 5 ml PO DAILY [facility] Last Admin: 08/16/18 09:29 Dose: 5 ml Nitroglycerin (Nitro-Dur 0.2 Mg/Hr Patch) 1 patch TD DAILY PRN PRN Reason: Systolic Blood Pressure Rosuvastatin Calcium (Crestor) 10 mg PO HS [facility] Last Admin: 08/15/18 21:00 Dose: 10 mg - Labs Labs: 08/16/18 06:06 08/16/18 06:06 PT 11.2 SECONDS (9.7-12.2) 08/15/18 07:06 INR 1.0 08/15/18 07:06 APTT 27 SECONDS (21-34) 08/15/18 07:06 - Constitutional Appears: Non-toxic, No Acute Distress - Head Exam Head Exam: ATRAUMATIC, NORMOCEPHALIC - Eye Exam Eye Exam: EOMI, Normal appearance - ENT Exam ENT Exam: Mucous Membranes Moist - Neck Exam Additional comments: dressing CDI, Fina drain in right neck - removed this am - Respiratory Exam Respiratory Exam: NORMAL BREATHING PATTERN. absent: Respiratory Distress - Cardiovascular Exam Cardiovascular Exam: REGULAR RHYTHM. absent: Tachycardia - GI/Abdominal Exam GI & Abdominal Exam: Soft, Normal Bowel Sounds. absent: Tenderness - Neurological Exam Neurological Exam: Alert, Awake, CN II-XII Intact. absent: Motor Sensory Defic it - Psychiatric Exam Psychiatric exam: Normal Affect, Normal Mood - Skin Skin Exam: Dry, Normal Color, Warm Assessment and Plan - Assessment and Plan (Free Text) Assessment: 68 y/o male s/p R CEA Plan: -fina drain removed -reg diet -ok for antiplatelet therapy -PT -restart home medications -ok for transfer out of ICU -d/w Dr. Kelton Garcia PGY4
--- NOTE | 2018-08-16 12:52 | CP.PCM.PN ---
Subjective - Date & Time of Evaluation Date of Evaluation: 08/16/18 Time of Evaluation: 07:40 - Subjective Subjective: neuro intact no hematoma or deficit drain removes labs stable to floor fu ofice next week Objective - Vital Signs/Intake and Output Vital Signs (last 24 hours): Temp Pulse Resp BP Pulse Ox 97.8 F 49 L 16 135/76 100 08/16/18 08:00 08/16/18 10:00 08/16/18 10:00 08/16/18 09:55 08/16/18 10:00 Intake and Output: 08/16/18 08/16/18 06:59 18:59 Intake Total 1300 600 Output Total 800 Balance 500 600 - Medications Medications: Current Medications Albuterol/Ipratropium (Duoneb 3 Mg/0.5 Mg (3 Ml) Ud) 3 ml INH RQ6 [facility] Last Admin: 08/16/18 07:47 Dose: 3 ml Aspirin (Aspirin Chewable) 81 mg PO DAILY [facility] Last Admin: 08/16/18 09:26 Dose: 81 mg Clopidogrel Bisulfate (Plavix) 75 mg PO DAILY [facility] Last Admin: 08/16/18 09:25 Dose: 75 mg Donepezil HCl (Aricept) 5 mg PO HS [facility] Last Admin: 08/15/18 21:00 Dose: 5 mg Enoxaparin Sodium (Lovenox) 40 mg SC DAILY [facility] Last Admin: 08/16/18 09:26 Dose: 40 mg Famotidine (Pepcid) 20 mg IVP DAILY [facility] Last Admin: 08/16/18 09:26 Dose: 20 mg Folic Acid (Folic Acid) 1 mg PO DAILY [facility] Last Admin: 08/16/18 09:26 Dose: 1 mg Lactated Ringer's (Lactated Ringer's) 1,000 mls @ 100 mls/hr IV .Q10H [facility] Last Admin: 08/16/18 06:37 Dose: Not Given Acetaminophen (Ofirmev) 100 mls @ 400 mls/hr IV Q6 [facility] Stop: 08/16/18 18:14 Last Admin: 08/16/18 11:23 Dose: 400 mls/hr Sodium Nitroprusside 50 mg/ (Dextrose) 252 mls @ 0 mls/hr IV Q8 PRN PRN Reason: Systolic Blood Pressure >180 Lorazepam (Ativan) 1 mg IVP Q4 PRN PRN Reason: Agitation Multivitamins/Vitamin C (Multi-Delyn Liquid) 5 ml PO DAILY [facility] Last Admin: 08/16/18 09:29 Dose: 5 ml Nitroglycerin (Nitro-Dur 0.2 Mg/Hr Patch) 1 patch TD DAILY PRN PRN Reason: Systolic Blood Pressure Rosuvastatin Calcium (Crestor) 10 mg PO HS [facility] Last Admin: 08/15/18 21:00 Dose: 10 mg - Labs Labs: 08/16/18 06:06 08/16/18 06:06 PT 11.2 SECONDS (9.7-12.2) 08/15/18 07:06 INR 1.0 08/15/18 07:06 APTT 27 SECONDS (21-34) 08/15/18 07:06
--- NOTE | 2018-08-16 14:56 | CP.PCM.PN ---
Subjective - Date & Time of Evaluation Date of Evaluation: 08/16/18 Time of Evaluation: 14:52 - Subjective Subjective: Neuro Follow Up Note: Mr. Esquivel was evaluated this afternoon on telemetry flood. He is POD #1 of Right CEA. Pt offers no complaints today. He denies pain to the surgical site. He denies h/a, dizziness, visual changes, chest pain, palpitations, sob, cough, abd pain, n/v/d, paresthesias. Objective - Vital Signs/Intake and Output Vital Signs (last 24 hours): Temp Pulse Resp BP Pulse Ox 97.6 F 50 L 13 122/37 L 100 08/16/18 12:00 08/16/18 14:19 08/16/18 13:00 08/16/18 12:56 08/16/18 12:56 Intake and Output: 08/16/18 08/16/18 06:59 18:59 Intake Total 1300 1150 Output Total 800 Balance 500 1150 - Medications Medications: Current Medications Acetaminophen (Tylenol 325mg Tab) 650 mg PO Q6 PRN PRN Reason: Pain, Mild (1-3) Albuterol/Ipratropium (Duoneb 3 Mg/0.5 Mg (3 Ml) Ud) 3 ml INH RQ6 [facility] Last Admin: 08/16/18 13:19 Dose: 3 ml Aspirin (Aspirin Chewable) 81 mg PO DAILY [facility] Last Admin: 08/16/18 09:26 Dose: 81 mg Clopidogrel Bisulfate (Plavix) 75 mg PO DAILY [facility] Last Admin: 08/16/18 09:25 Dose: 75 mg Donepezil HCl (Aricept) 5 mg PO HS [facility] Last Admin: 08/15/18 21:00 Dose: 5 mg Enoxaparin Sodium (Lovenox) 40 mg SC DAILY [facility] Last Admin: 08/16/18 09:26 Dose: 40 mg Famotidine (Pepcid) 20 mg IVP DAILY [facility] Last Admin: 08/16/18 09:26 Dose: 20 mg Folic Acid (Folic Acid) 1 mg PO DAILY [facility] Last Admin: 08/16/18 09:26 Dose: 1 mg Lactated Ringer's (Lactated Ringer's) 1,000 mls @ 100 mls/hr IV .Q10H [facility] Last Admin: 08/16/18 14:50 Dose: Not Given Sodium Nitroprusside 50 mg/ (Dextrose) 252 mls @ 0 mls/hr IV Q8 PRN PRN Reason: Systolic Blood Pressure >180 Lorazepam (Ativan) 1 mg IVP Q4 PRN PRN Reason: Agitation Multivitamins/Vitamin C (Multi-Delyn Liquid) 5 ml PO DAILY [facility] Last Admin: 08/16/18 09:29 Dose: 5 ml Nitroglycerin (Nitro-Dur 0.2 Mg/Hr Patch) 1 patch TD DAILY PRN PRN Reason: Systolic Blood Pressure Rosuvastatin Calcium (Crestor) 10 mg PO HS [facility] Last Admin: 08/15/18 21:00 Dose: 10 mg - Labs Labs: 08/16/18 06:06 08/16/18 06:06 PT 11.2 SECONDS (9.7-12.2) 08/15/18 07:06 INR 1.0 08/15/18 07:06 APTT 27 SECONDS (21-34) 08/15/18 07:06 - Constitutional Appears: Well, Non-toxic, No Acute Distress, Confused (on and off) - Head Exam Head Exam: ATRAUMATIC, NORMAL INSPECTION, NORMOCEPHALIC - Eye Exam Eye Exam: EOMI, Normal appearance, PERRL Pupil Exam: NORMAL ACCOMODATION, PERRL - ENT Exam ENT Exam: Mucous Membranes Moist - Neck Exam Additional comments: post op surgical site with dressing on right neck - Respiratory Exam Respiratory Exam: NORMAL BREATHING PATTERN - Cardiovascular Exam Cardiovascular Exam: REGULAR RHYTHM - Extremities Exam Extremities Exam: Full ROM. absent: Calf Tenderness, Pedal Edema - Neurological Exam Neurological Exam: Alert, Awake, CN II-XII Intact, Reflexes Normal. absent: Oriented x3 (oriented to person and time, not to place; he does not remember that he is in the hospital) Neuro motor strength exam: Left Upper Extremity: 5, Right Upper Extremity: 5, Left Lower Extremity: 5, Right Lower Extremity: 5 Additional comments: No focal motor or sensory deficits No tremors or abnormal movements - Psychiatric Exam Psychiatric exam: Normal Mood Additional comments: confused on and off; disoriented to place today - Skin Skin Exam: Normal Color Additional comments: post op surgical site with dressing on right neck Assessment and Plan (1) Dizziness Assessment & Plan: Imaging reviewed: -MRI Brain (08/11/18): Limited motion degraded. No evidence of acute intracranial hemorrhage or infarct. No enhancing lesions. Mild chronic periventricular white matter ischemic changes with multiple smaller lacunar type infarcts scattered about deep and subcortical white matter both cerebral hemispheres. Moderate to fairly significant central volume loss evidenced by disproportionate enlargement of the ventricles as compared sulci. The marrow within the clivus is somewhat mottled though no discrete enhancing lesions. -CTA Head and Neck (08/10/18): There is an approximately 50 % stenosis of proximal left internal carotid artery. The left vertebral artery is occluded however there is some reconstitution - opacification distally the intradural distal intradural portion of the left vertebral artery likely due to some retrograde filling -CT Head (08/10/18): No acute intracranial abnormality. Chronic microvascular ischemic change. Diffuse generalized parenchymal atrophy. -POD #1 of Rt. CEA. Post-op management deferred to vascular team. -Continue current medications and treatment, including Plavix , Asa and Statin. -Notify neuro of any acute changes in pt's condition. No further neuro recommendations. Stable to d/c when cleared by vascular for d/c. Reconsult prn. Thank you for this consultation. More Brito, DNP, DENTAL CERAMIST ASSISTANT d/w Dr. Parikh Status: Acute
--- NOTE | 2018-08-16 22:14 | CP.PCM.PN ---
Subjective - Date & Time of Evaluation Date of Evaluation: 08/16/18 Time of Evaluation: 20:00 - Subjective Subjective: Patient confused and agitated today.Receiving Ativan IV. Objective - Vital Signs/Intake and Output Vital Signs (last 24 hours): Temp Pulse Resp BP Pulse Ox 97.6 F 76 18 167/74 H 99 08/16/18 15:00 08/16/18 16:05 08/16/18 15:00 08/16/18 15:00 08/16/18 15:00 Intake and Output: 08/16/18 08/17/18 18:59 06:59 Intake Total 1150 Balance 1150 - Medications Medications: Current Medications Acetaminophen (Tylenol 325mg Tab) 650 mg PO Q6 PRN PRN Reason: Pain, Mild (1-3) Aspirin (Aspirin Chewable) 81 mg PO DAILY [facility] Last Admin: 08/16/18 09:26 Dose: 81 mg Clopidogrel Bisulfate (Plavix) 75 mg PO DAILY [facility] Last Admin: 08/16/18 09:25 Dose: 75 mg Donepezil HCl (Aricept) 5 mg PO [facility] Last Admin: 08/16/18 22:02 Dose: Not Given Enoxaparin Sodium (Lovenox) 40 mg SC DAILY [facility] Last Admin: 08/16/18 09:26 Dose: 40 mg Famotidine (Pepcid) 20 mg IVP DAILY [facility] Last Admin: 08/16/18 09:26 Dose: 20 mg Folic Acid (Folic Acid) 1 mg PO DAILY [facility] Last Admin: 08/16/18 09:26 Dose: 1 mg Sodium Nitroprusside 50 mg/ (Dextrose) 252 mls @ 0 mls/hr IV Q8 PRN PRN Reason: Systolic Blood Pressure >180 Lorazepam (Ativan) 1 mg IVP Q4 PRN PRN Reason: Agitation Last Admin: 08/16/18 20:15 Dose: 1 mg Multivitamins/Vitamin C (Multi-Delyn Liquid) 5 ml PO DAILY [facility] Last Admin: 08/16/18 09:29 Dose: 5 ml Nitroglycerin (Nitro-Dur 0.2 Mg/Hr Patch) 1 patch TD DAILY PRN PRN Reason: Systolic Blood Pressure Rosuvastatin Calcium (Crestor) 10 mg PO [facility] Last Admin: 08/16/18 22:03 Dose: Not Given - Labs Labs: 08/16/18 06:06 04/18/19 06:06 PT 11.2 SECONDS (9.7-12.2) 08/15/18 07:06 INR 1.0 08/15/18 07:06 APTT 27 SECONDS (21-34) 08/15/18 07:06 - Constitutional Appears: No Acute Distress, Chronically Ill - Head Exam Head Exam: NORMAL INSPECTION - Eye Exam Eye Exam: Normal appearance - ENT Exam ENT Exam: Normal Exam - Neck Exam Additional comments: Right neck under bandage. - Respiratory Exam Respiratory Exam: Clear to Ausculation Bilateral, NORMAL BREATHING PATTERN - Cardiovascular Exam Cardiovascular Exam: REGULAR RHYTHM - GI/Abdominal Exam GI & Abdominal Exam: Soft, Normal Bowel Sounds - Rectal Exam Rectal Exam: Deferred - Extremities Exam Extremities Exam: Normal Inspection - Back Exam Back Exam: NORMAL INSPECTION - Neurological Exam Neurological Exam: Abnormal Gait, Alert, Awake Additional comments: Confused. - Psychiatric Exam Psychiatric exam: Agitated - Skin Skin Exam: Dry, Normal Color, Warm Assessment and Plan (1) Bradycardia Status: Chronic (2) Vertebro-basilar artery syndrome Status: Acute (3) Severe dementia Status: Acute (4) More than 50 percent stenosis of right internal carotid artery Assessment & Plan: S/p Right endarterectomy POD# 1, doing well. Status: Acute (5) COPD (chronic obstructive pulmonary disease) Status: Acute
--- NOTE | 2018-08-17 08:12 | CP.PCM.PN ---
Subjective - Date & Time of Evaluation Date of Evaluation: 08/17/18 Time of Evaluation: 07:10 - Subjective Subjective: Vascular Surgery: Kelton Patient seen and examiend this ma at bedside. No acute events overnight per nursing. pt is feeling well tolerating diet and denies weakness, hoarseness voice changes or neck pain. 12 point ROS otherwise negative Objective - Vital Signs/Intake and Output Vital Signs (last 24 hours): Temp Pulse Resp BP Pulse Ox 98.7 F 84 20 144/70 95 08/16/18 23:51 08/17/18 01:00 08/16/18 23:51 08/16/18 23:51 08/16/18 23:51 Intake and Output: 08/17/18 08/17/18 06:59 18:59 Intake Total 300 Balance 300 - Medications Medications: Current Medications Acetaminophen (Tylenol 325mg Tab) 650 mg PO Q6 PRN PRN Reason: Pain, Mild (1-3) Aspirin (Aspirin Chewable) 81 mg PO DAILY [facility] Last Admin: 08/16/18 09:26 Dose: 81 mg Clopidogrel Bisulfate (Plavix) 75 mg PO DAILY [facility] Last Admin: 08/16/18 09:25 Dose: 75 mg Donepezil HCl (Aricept) 5 mg PO HS [facility] Last Admin: 08/16/18 22:02 Dose: Not Given Enoxaparin Sodium (Lovenox) 40 mg SC DAILY [facility] Last Admin: 08/16/18 09:26 Dose: 40 mg Famotidine (Pepcid) 20 mg IVP DAILY [facility] Last Admin: 08/16/18 09:26 Dose: 20 mg Folic Acid (Folic Acid) 1 mg PO DAILY [facility] Last Admin: 08/16/18 09:26 Dose: 1 mg Sodium Nitroprusside 50 mg/ (Dextrose) 252 mls @ 0 mls/hr IV Q8 PRN PRN Reason: Systolic Blood Pressure >180 Lorazepam (Ativan) 1 mg IVP Q4 PRN PRN Reason: Agitation Last Admin: 08/16/18 20:15 Dose: 1 mg Multivitamins/Vitamin C (Multi-Delyn Liquid) 5 ml PO DAILY [facility] Last Admin: 08/16/18 09:29 Dose: 5 ml Nitroglycerin (Nitro-Dur 0.2 Mg/Hr Patch) 1 patch TD DAILY PRN PRN Reason: Systolic Blood Pressure Rosuvastatin Calcium (Crestor) 10 mg PO HS [facility] Last Admin: 08/16/18 22:03 Dose: Not Given - Labs Labs: 08/16/18 06:06 08/16/18 06:06 PT 11.2 SECONDS (9.7-12.2) 08/15/18 07:06 INR 1.0 08/15/18 07:06 APTT 27 SECONDS (21-34) 08/15/18 07:06 - Constitutional Appears: Well, Non-toxic, No Acute Distress - Head Exam Head Exam: ATRAUMATIC, NORMOCEPHALIC - Eye Exam Eye Exam: EOMI - ENT Exam ENT Exam: Mucous Membranes Moist Additional comments: no evidence of tongue deviation - Neck Exam Neck Exam: Full ROM Additional comments: incision cdi, no evidence of hematoma - Respiratory Exam Respiratory Exam: NORMAL BREATHING PATTERN - Cardiovascular Exam Cardiovascular Exam: REGULAR RHYTHM - GI/Abdominal Exam GI & Abdominal Exam: Soft. absent: Guarding, Tenderness - Extremities Exam Extremities Exam: absent: Calf Tenderness, Pedal Edema - Neurological Exam Neurological Exam: Alert, Awake, Oriented x3 Additional comments: no neuromotor deficits - Psychiatric Exam Psychiatric exam: Normal Affect, Normal Mood - Skin Skin Exam: Dry, Intact, Normal Color, Warm Assessment and Plan - Assessment and Plan (Free Text) Assessment: 68 M s/p Right CEA for ALAN critical stenosis, POD2 Plan: - pt to follow up with Dr. Melara in office within 1 week - pt clear for discharge from surgical standpoint - please keep area clean and dry - further recs per Dr. Kelton Londono, PGY 1
[2018-08-17 08:43] LABS: BASO # 0.1 K/uL (0.0-0.2); BASO % 0.8 % (0.0-2.0); EOS # 0.1 K/uL (0.0-0.7); EOS % 1.1 % (0.0-4.0); HEMOGLOBIN 12.3 g/dL (12.0-18.0); LYMPH # 1.2 K/uL (1.0-4.3); LYMPH % 13.8 % (20.0-40.0); MEAN CORPUSCULAR HEMOGLOBIN 31.5 pg (27.0-31.0); MEAN CORPUSCULAR HGB CONC 33.5 g/dL (33.0-37.0); MEAN PLATELET VOLUME 8.7 fL (7.2-11.7); MONO # 0.9 K/uL (0.0-0.8); MONO % 10.7 % (0.0-10.0); NEUT # 6.2 K/uL (1.8-7.0); NEUT % 73.6 % (50.0-75.0); RBC 3.92 Mil/uL (4.40-5.90); RED CELL DISTRIBUTION WIDTH 13.5 % (11.5-14.5); WHITE BLOOD COUNT 8.4 K/uL (4.8-10.8)
[2018-08-17 08:49] LABS: ALB/GLOB RATIO 1.4 (1.0-2.1); ALBUMIN 3.5 g/dL (3.5-5.0); ALT/SGPT 21 U/L (21-72); AST/SGOT 37 U/L (17-59); BLOOD UREA NITROGEN 11 mg/dL (9-20); CALCIUM 8.8 mg/dl (8.6-10.4); GFR NON-AFRICAN AMERICAN > 60
[2018-08-17] MEDS: Multiple Vitamins Oral Solution PO SCH (13:04)
[2018-08-17] MEDS: Enoxaparin 40 mg Syringe SC SCH (13:04)
--- NOTE | 2018-08-17 13:13 | CP.PCM.PN ---
Subjective - Date & Time of Evaluation Date of Evaluation: 08/17/18 Time of Evaluation: 13:10 - Subjective Subjective: Patient cannot swallow today. Denies any sorethroat. Evaluated by the speech therapist who think that may be temporary and secondary to the carotid endarterectomy. Now in NPO and IVF. Will also order a CXR. Objective - Vital Signs/Intake and Output Vital Signs (last 24 hours): Temp Pulse Resp BP Pulse Ox 98.4 F 80 20 147/78 93 L 08/17/18 08:14 08/17/18 10:47 08/17/18 08:14 08/17/18 08:14 08/17/18 08:14 Intake and Output: 08/17/18 08/17/18 06:59 18:59 Intake Total 300 Balance 300 - Medications Medications: Current Medications Acetaminophen (Tylenol 325mg Tab) 650 mg PO Q6 PRN PRN Reason: Pain, Mild (1-3) Aspirin (Aspirin Chewable) 81 mg PO DAILY [facility] Last Admin: 08/17/18 13:04 Dose: Not Given Clopidogrel Bisulfate (Plavix) 75 mg PO DAILY [facility] Last Admin: 08/17/18 13:05 Dose: Not Given Donepezil HCl (Aricept) 5 mg PO HS [facility] Last Admin: 08/16/18 22:02 Dose: Not Given Enoxaparin Sodium (Lovenox) 40 mg SC DAILY [facility] Last Admin: 08/17/18 13:04 Dose: Not Given Famotidine (Pepcid) 20 mg IVP DAILY [facility] Last Admin: 08/17/18 13:04 Dose: Not Given Folic Acid (Folic Acid) 1 mg PO DAILY [facility] Last Admin: 08/17/18 13:04 Dose: Not Given Sodium Nitroprusside 50 mg/ (Dextrose) 252 mls @ 0 mls/hr IV Q8 PRN PRN Reason: Systolic Blood Pressure >180 Dextrose (Dextrose 5% In Water 1000 Ml) 1,000 mls @ 70 mls/hr IV .[id number] [facility] Last Admin: 08/17/18 12:06 Dose: 70 mls/hr Lorazepam (Ativan) 1 mg IVP Q4 PRN PRN Reason: Agitation Last Admin: 08/16/18 20:15 Dose: 1 mg Multivitamins/Vitamin C (Multi-Delyn Liquid) 5 ml PO DAILY [facility] Last Admin: 08/17/18 13:04 Dose: Not Given Nitroglycerin (Nitro-Dur 0.2 Mg/Hr Patch) 1 patch TD DAILY PRN PRN Reason: Systolic Blood Pressure Rosuvastatin Calcium (Crestor) 10 mg PO HS [facility] Last Admin: 08/16/18 22:03 Dose: Not Given - Labs Labs: 08/17/18 08:19 08/17/18 08:19 PT 11.2 SECONDS (9.7-12.2) 08/15/18 07:06 INR 1.0 08/15/18 07:06 APTT 27 SECONDS (21-34) 08/15/18 07:06 - Constitutional Appears: No Acute Distress, Chronically Ill - Head Exam Head Exam: NORMAL INSPECTION - Eye Exam Eye Exam: Normal appearance - ENT Exam ENT Exam: Normal Exam - Neck Exam Additional comments: Dressing over the right neck. - Respiratory Exam Respiratory Exam: Rhonchi - Cardiovascular Exam Cardiovascular Exam: REGULAR RHYTHM - GI/Abdominal Exam GI & Abdominal Exam: Soft, Normal Bowel Sounds - Rectal Exam Rectal Exam: NORMAL INSPECTION - Extremities Exam Extremities Exam: Normal Inspection - Back Exam Back Exam: NORMAL INSPECTION - Neurological Exam Neurological Exam: Abnormal Gait, Alert, Awake Additional comments: Confused. - Psychiatric Exam Additional comments: Confused. - Skin Skin Exam: Normal Color, Warm Assessment and Plan (1) Bradycardia Status: Chronic (2) Vertebro-basilar artery syndrome Status: Acute (3) Severe dementia Status: Chronic (4) More than 50 percent stenosis of right internal carotid artery Assessment & Plan: S/p Right carotid endarterectomy POD # 2. Status: Resolved (5) COPD (chronic obstructive pulmonary disease) Status: Chronic (6) Dysphagia Assessment & Plan: Observe for fadi. Keep on NPO, start IVF and CXR. Status: Acute
--- NOTE | 2018-08-17 14:12 | RAD ---
Date of service: 08/17/2018 HISTORY: Aspiration COMPARISON: 08/10/2018. FINDINGS: LUNGS: No active pulmonary disease. PLEURA: No significant pleural effusion identified, no pneumothorax apparent. CARDIOVASCULAR: No atherosclerotic calcification present Normal. OSSEOUS STRUCTURES: No significant abnormalities. VISUALIZED UPPER ABDOMEN: Normal. OTHER FINDINGS: None. IMPRESSION: No active disease. No significant interval change compared to the prior examination(s).
[2018-08-17] MEDS: MethylPREDNISolone 40 mg Vial IVP SCH ×2 (16:48→22:09)
[2018-08-17 19:40] LABS: ARTERIAL BLOOD GAS HEMOGLOBIN 13.1 g/dL (11.7-17.4); ARTERIAL BLOOD GAS O2 SAT 93.9 % (95-98); ARTERIAL BLOOD GAS PCO2 34 mm/Hg (35-45); ARTERIAL BLOOD GAS PH 7.49 (7.35-7.45); ARTERIAL BLOOD GAS PO2 60 mm/Hg (80-100); ARTERIAL BLOOD GAS TCO2 26.9 mmol/L (22-28)
[2018-08-18] MEDS: MethylPREDNISolone 40 mg Vial IVP SCH ×3 (05:15→22:41)
[2018-08-18 06:46] LABS: BASO % 0.1 % (0.0-2.0); HEMOGLOBIN 13.4 g/dL (12.0-18.0); LYMPH # 0.7 K/uL (1.0-4.3); LYMPH % 7.5 % (20.0-40.0); MEAN CELL VOLUME 92.4 fL (80.0-94.0); MEAN CORPUSCULAR HEMOGLOBIN 32.3 pg (27.0-31.0); MONO # 1.1 K/uL (0.0-0.8); MONO % 12.4 % (0.0-10.0); PLATELET COUNT 227 K/uL (130-400); RBC 4.14 Mil/uL (4.40-5.90); RED CELL DISTRIBUTION WIDTH 13.1 % (11.5-14.5); WHITE BLOOD COUNT 8.8 K/uL (4.8-10.8)
[2018-08-18 07:03] LABS: ALB/GLOB RATIO 1.3 (1.0-2.1); ALBUMIN 3.7 g/dL (3.5-5.0); ALT/SGPT 20 U/L (21-72); AST/SGOT 34 U/L (17-59); BLOOD UREA NITROGEN 17 mg/dL (9-20); CALCIUM 9.2 mg/dl (8.6-10.4); GFR NON-AFRICAN AMERICAN > 60
[2018-08-18] MEDS: Albuterol-Ipratrop 3 mg / 0.5 (3 ml) UD INH SCH ×3 (07:14→19:55)
[2018-08-18 09:23] LABS: ANISOCYTOSIS SLIGHT; BANDS 9 % (0-2); LYMPHOCYTE 7 % (20-40); MONOCYTE 11 % (0-10); NEUTROPHIL 73 % (50-75); PLATELET ESTIMATE NORMAL (NORMAL); TOTAL CELLS COUNTED 100
[2018-08-18 09:24] LABS: LARGE PLATELETS PRESENT; POLYCHROMIC SLIGHT
[2018-08-18] MEDS: Multiple Vitamins Oral Solution PO SCH (09:26)
[2018-08-18] MEDS: Enoxaparin 40 mg Syringe SC SCH (09:33)
[2018-08-18] MEDS ORDERED: Iodixanol 320 MG/ML 100 ML BOTTLE IV ONE (11:20)
--- NOTE | 2018-08-18 11:33 | CT ---
Date of service: 08/18/2018 PROCEDURE: CT Chest with contrast (Pulmonary Angiogram) HISTORY: r/o pe COMPARISON: Plain radiograph from 08/17/2018. TECHNIQUE: Axial computed tomography images were obtained of the chest in the pulmonary arterial phase of enhancement. Coronal and sagittal reformatted images were created and reviewed. Intravenous contrast dose: Radiation dose: Total exam DLP = 606.19 mGy-cm. This CT exam was performed using one or more of the following dose reduction techniques: Automated exposure control, adjustment of the mA and/or kV according to patient size, and/or use of iterative reconstruction technique. FINDINGS: PULMONARY ARTERIES: There are no filling defects in the pulmonary arteries to suggest acute pulmonary embolism. AORTA: No acute findings. No thoracic aortic aneurysm. No aortic atherosclerotic calcification or mural plaque present. LUNGS: The lungs are well inflated. There is confluent airspace disease with air bronchograms in both lower lobes, worse on the left. PLEURAL SPACES: No effusion or pneumothorax. HEART: No cardiomegaly. No significant pericardial effusion. LYMPH NODES: No pathologic mediastinal or hilar lymphadenopathy. BONES, CHEST WALL: Within normal limits for the patient's age. No fracture or destructive lesion there is diffuse bone demineralization. OTHER FINDINGS: There is a small sliding hiatal hernia. IMPRESSION: No CTA evidence for acute pulmonary embolism. Confluent airspace disease with air bronchograms in both lower lobes, worse on the left which likely represents a combination of atelectasis and pneumonia. Aspiration pneumonitis is a consideration. Follow-up is advised.
[2018-08-18] MEDS: Piperacillin/Tazobact 3.375 GM in Sodium Chloride 100 ML IVPB SCH ×2 (14:29→22:41)
--- NOTE | 2018-08-18 19:58 | CP.PCM.CON ---
History of Present Illness - History of Present Illness History of Present Illness: I was asked to evaluate patient for shortness of breath/tachypnea and abnormal CAT scan of chest Pt is a 68 y/o male with hxof dementia, COPD, hypertension, hyperlipidemia brought to hospital for AMS with Code Stroke protocol activated and was found on CT Head & Neck to have high grade stenosis of ALAN s/p Endarterectomy with fina drain placement on 08/[address] Melara. Pt was admitted to ICU for close monitoring and later transferred to floor. Patient very tachypneic with respiratory rate in the mid 30s and heart rate in the upper 90s. Patient on 5 L nasal cannula oxygen saturation 90%. CAT scan of the chest negative for pulmonary embolism but consistent with atelectasis and pneumonia. Patient started on Zosyn and vancomycin. Review of Systems - Review of Systems Systems not reviewed;Unavailable: Dementia (Cough and shortness of breath) All systems: reviewed and no additional remarkable complaints except (Cough and shortness of breath) Past Patient History - Infectious Disease Hx of Infectious Diseases: None - Tetanus Immunizations Tetanus Immunization: Unknown - Past Medical History & Family History Past Medical History?: Yes - Past Social History Smoking Status: Heavy Smoker > 10 Cigarettes Daily Alcohol: None Drugs: Denies Home Situation {Lives}: With Family Domestic Violence: Negative - PULMONARY Hx Emphysema: Yes - NEUROLOGICAL Hx Alzheimer's Disease: Yes Hx Dementia: Yes Hx Dizziness: Yes - MUSCULOSKELETAL/RHEUMATOLOGICAL Hx Falls: No Hx Unsteady Gait: Yes - PSYCHIATRIC Hx Substance Use: No - SURGICAL HISTORY Hx Surgeries: Yes (insertion of an IVC filter many years ago.) Other/Comment: Vein stripping - ANESTHESIA Hx Anesthesia: Yes Hx Anesthesia Reactions: No Meds Allergies/Adverse Reactions: Allergies Allergy/AdvReac Type Severity Reaction Status Date / Time No Known Allergies Allergy Verified 04/09/18 12:02 - Medications Medications: Current Medications Acetaminophen (Tylenol 325mg Tab) 650 mg PO Q6 PRN PRN Reason: Pain, Mild (1-3) Acetaminophen (Tylenol 650 Mg Supp) 650 mg [place] Q4 PRN PRN Reason: temperature>100.4 and pain Last Admin: 08/17/18 17:00 Dose: 650 mg Albuterol/Ipratropium (Duoneb 3 Mg/0.5 Mg (3 Ml) Ud) 3 ml INH RQ6 [facility] Last Admin: 08/18/18 13:14 Dose: Not Given Aspirin (Aspirin Chewable) 81 mg PO DAILY [facility] Last Admin: 08/18/18 09:26 Dose: Not Given Clopidogrel Bisulfate (Plavix) 75 mg PO DAILY [facility] Last Admin: 08/18/18 09:26 Dose: Not Given Donepezil HCl (Aricept) 5 mg PO HS [facility] Last Admin: 08/17/18 21:28 Dose: Not Given Enoxaparin Sodium (Lovenox) 40 mg SC DAILY [facility] Last Admin: 08/18/18 09:33 Dose: 40 mg Famotidine (Pepcid) 20 mg IVP DAILY [facility] Last Admin: 08/18/18 09:33 Dose: 20 mg Folic Acid (Folic Acid) 1 mg PO DAILY [facility] Last Admin: 08/18/18 09:26 Dose: Not Given Sodium Nitroprusside 50 mg/ (Dextrose) 252 mls @ 0 mls/hr IV Q8 PRN PRN Reason: Systolic Blood Pressure >180 Dextrose (Dextrose 5% In Water 1000 Ml) 1,000 mls @ 70 mls/hr IV .[id number] [facility] Last Admin: 08/18/18 15:54 Dose: Not Given Piperacillin Sod/Tazobactam (Sod 3.375 gm/ Sodium Chloride) 100 mls @ 200 mls/hr IVPB Q8H [facility]; Protocol Last Admin: 08/18/18 14:29 Dose: 200 mls/hr Lorazepam (Ativan) 1 mg IVP Q4 PRN PRN Reason: Agitation Last Admin: 08/16/18 20:15 Dose: 1 mg Methylprednisolone (Solu-Medrol) 40 mg IVP Q8 [facility] Last Admin: 08/18/18 13:08 Dose: 40 mg Multivitamins/Vitamin C (Multi-Delyn Liquid) 5 ml PO DAILY [facility] Last Admin: 08/18/18 09:26 Dose: Not Given Nitroglycerin (Nitro-Dur 0.2 Mg/Hr Patch) 1 patch TD DAILY PRN PRN Reason: Systolic Blood Pressure Rosuvastatin Calcium (Crestor) 10 mg PO HS [facility] Last Admin: 08/17/18 21:28 Dose: Not Given Physical Exam - Head Exam Head Exam: ATRAUMATIC, NORMOCEPHALIC - ENT Exam ENT Exam: Mucous Membranes Moist - Respiratory Exam Respiratory Exam: Decreased Breath Sounds, Rales, Rhonchi - Cardiovascular Exam Cardiovascular Exam: Irregular Rhythm - GI/Abdominal Exam GI & Abdominal Exam: Normal Bowel Sounds, Soft - Extremities Exam Extremities exam: Positive for: full ROM Results - Vital Signs Recent Vital Signs: Last Vital Signs Temp 97.9 F 08/18/18 15:00 Pulse 95 H 08/18/18 16:24 Resp 18 08/18/18 15:00 BP 152/73 H 08/18/18 15:00 Pulse Ox 94 L 08/18/18 15:35 - Labs Result Diagrams: 08/18/18 06:38 08/18/18 06:38 Labs: Laboratory Results - last 24 hr 08/18/18 08/18/18 08/18/18 06:33 06:38 06:38 WBC 8.8 RBC 4.14 L Hgb 13.4 Hct 38.2 MCV 92.4 MCH 32.3 H MCHC 35.0 RDW 13.1 Plt Count 227 MPV 8.0 Neut % (Auto) 80.0 H Lymph % (Auto) 7.5 L Granite % (Auto) 12.4 H Eos % (Auto) 0.0 Baso % (Auto) 0.1 Neut # (Auto) 7.0 Lymph # (Auto) 0.7 L Granite # (Auto) 1.1 H Eos # (Auto) 0.0 Baso # (Auto) 0.0 Neutrophils % (Manual) 73 Band Neutrophils % 9 H Lymphocytes % (Manual) 7 L Monocytes % (Manual) 11 H Platelet Estimate Normal Large Platelets Present Polychromasia Slight Anisocytosis (manual) Slight Sodium 133 Potassium 4.3 Chloride 95 L Carbon Dioxide 27 Anion Gap 16 BUN 17 Creatinine 0.8 Est GFR ( Amer) > 60 Est GFR (Non-Af Amer) > 60 POC Glucose (mg/dL) 167 H Random Glucose 149 H D Calcium 9.2 Total Bilirubin 0.7 AST 34 ALT 20 L Alkaline Phosphatase 84 Total Protein 6.5 Albumin 3.7 Globulin 2.8 Albumin/Globulin Ratio 1.3 08/18/18 15:59 WBC RBC Hgb Hct MCV MCH MCHC RDW Plt Count MPV Neut % (Auto) Lymph % (Auto) Granite % (Auto) Eos % (Auto) Baso % (Auto) Neut # (Auto) Lymph # (Auto) Granite # (Auto) Eos # (Auto) Baso # (Auto) Neutrophils % (Manual) Band Neutrophils % Lymphocytes % (Manual) Monocytes % (Manual) Platelet Estimate Large Platelets Polychromasia Anisocytosis (manual) Sodium Potassium Chloride Carbon Dioxide Anion Gap BUN Creatinine Est GFR ( Amer) Est GFR (Non-Af Amer) POC Glucose (mg/dL) 135 H Random Glucose Calcium Total Bilirubin AST ALT Alkaline Phosphatase Total Protein Albumin Globulin Albumin/Globulin Ratio Assessment & Plan (1) Respiratory distress, acute Status: Acute Comment: Patient tachypneic and tachycardic with a saturation 90% on 5 L nasal cannula. CAT scan consistent with pneumonia. High flow oxygen. Zosyn and vancomycin. ICU evaluation if condition worsen. Continue nebulizer treatment and steroids (2) Pneumonia Status: Acute (3) COPD (chronic obstructive pulmonary disease) Status: Chronic
[2018-08-18 21:08] LABS: ABG ALLEN TEST POS; ARTERIAL BLOOD GAS HCO3 27.8 mmol/L (21-28); ARTERIAL BLOOD GAS HEMOGLOBIN 12.5 g/dL (11.7-17.4); ARTERIAL BLOOD GAS O2 SAT 97.9 % (95-98); ARTERIAL BLOOD GAS PCO2 39 mm/Hg (35-45); ARTERIAL BLOOD GAS PH 7.46 (7.35-7.45); ARTERIAL BLOOD GAS PO2 96 mm/Hg (80-100); ARTERIAL BLOOD GAS TCO2 28.9 mmol/L (22-28)
[2018-08-18] MEDS: Vancomycin 1 gm/NS 200 ml 1 GM/200 ML BAG IVPB SCH (21:12)
[2018-08-19] MEDS: Albuterol-Ipratrop 3 mg / 0.5 (3 ml) UD INH SCH ×4 (01:46→19:16)
[2018-08-19] MEDS: Piperacillin/Tazobact 3.375 GM in Sodium Chloride 100 ML IVPB SCH ×3 (05:37→21:47)
[2018-08-19] MEDS: MethylPREDNISolone 40 mg Vial IVP SCH ×3 (05:37→21:46)
[2018-08-19 05:38] LABS: ABG ALLEN TEST POS; ARTERIAL BLOOD GAS HCO3 26.5 mmol/L (21-28); ARTERIAL BLOOD GAS HEMOGLOBIN 15.6 g/dL (11.7-17.4); ARTERIAL BLOOD GAS O2 SAT 96.1 % (95-98); ARTERIAL BLOOD GAS PCO2 51 mm/Hg (35-45); ARTERIAL BLOOD GAS PH 7.36 (7.35-7.45); ARTERIAL BLOOD GAS PO2 76 mm/Hg (80-100); ARTERIAL BLOOD GAS TCO2 30.4 mmol/L (22-28)
[2018-08-19 08:27] LABS: HEMOGLOBIN 13.4 g/dL (12.0-18.0); LYMPH # 0.5 K/uL (1.0-4.3); LYMPH % 6.5 % (20.0-40.0); MEAN CELL VOLUME 93.2 fL (80.0-94.0); MEAN CORPUSCULAR HEMOGLOBIN 32.4 pg (27.0-31.0); MEAN CORPUSCULAR HGB CONC 34.8 g/dL (33.0-37.0); MONO # 0.7 K/uL (0.0-0.8); MONO % 9.6 % (0.0-10.0); NEUT # 6.5 K/uL (1.8-7.0); NEUT % 83.9 % (50.0-75.0); NRBC % 0.1 % (0.0-2.0); PLATELET COUNT 228 K/uL (130-400); RBC 4.15 Mil/uL (4.40-5.90); WHITE BLOOD COUNT 7.8 K/uL (4.8-10.8)
[2018-08-19 08:41] LABS: ALB/GLOB RATIO 1.2 (1.0-2.1); ALBUMIN 3.6 g/dL (3.5-5.0); ALT/SGPT 22 U/L (21-72); AST/SGOT 36 U/L (17-59); BLOOD UREA NITROGEN 18 mg/dL (9-20); GFR NON-AFRICAN AMERICAN > 60
[2018-08-19] MEDS: Vancomycin 1 gm/NS 200 ml 1 GM/200 ML BAG IVPB SCH ×2 (08:50→19:58)
[2018-08-19 09:28] LABS: BANDS 22 % (0-2); LYMPHOCYTE 4 % (20-40); MONOCYTE 5 % (0-10); NEUTROPHIL 69 % (50-75); TOTAL CELLS COUNTED 100
[2018-08-19 09:29] LABS: ANISOCYTOSIS SLIGHT; GIANT PLATELETS PRESENT; LARGE PLATELETS PRESENT; PLATELET ESTIMATE NORMAL (NORMAL)
[2018-08-19] MEDS: Multiple Vitamins Oral Solution PO SCH (10:49)
[2018-08-19] MEDS: Enoxaparin 40 mg Syringe SC SCH (10:51)
--- NOTE | 2018-08-19 14:06 | CP.PCM.PN ---
Subjective - Date & Time of Evaluation Date of Evaluation: 08/19/18 Time of Evaluation: 14:06 - Subjective Subjective: Pulmonary Evaluation The Patient was seen and examined at the bedside, Medical records reviewed, and management issues were discussed and formulated with the house staff. Events reviewed Patient is a 64-year-old female with PMHx of anxiety, COPD, and colon cancer who was admitted for respiratory distress. Patient states that her shortness of breath, cough, started 3 wks ago and progressively got worse. Patient uses 3L /min oxygen at home. She also complains of shortness of breath, and cough with white thick phlegm production. She also admits to being very anxious and states that her anxiety makes her shortness of breath worse. CXR 02/26 - Interval small right pulmonary infiltrates. Follow-up to resolution recommended. PMHx: anxiety, COPD, colon cancer PSHx: colon resection for carcinoma Allergies: NKDA, denies Social Hx: quit smoking 3 years ago, but used to smoke 3-4 PPD for 40 years; denies alcohol or illicit drug use Family Hx: noncontributory Improved respiratory status Saturation 95% on HFNC 40LPM 50% Sitting comfortably in bed, in no apparent distress Denies chest pain, shortness of breath, fever/chills AM Labs revealed Bandemia of 22, most recent Blood C/S x2 08/17 negative Afebrile No clinical or radiographic evidance of pulmonary infection, also patient on IV Vanco and Zosyn Will send UA and urine C/S 08/18/2018: CT Chest with contrast (Pulmonary Angiogram) PULMONARY ARTERIES: There are no filling defects in the pulmonary arteries to suggest acute pulmonary embolism. AORTA: No acute findings. No thoracic aortic aneurysm. No aortic atherosclerotic calcification or mural plaque present. LUNGS: The lungs are well inflated. There is confluent airspace disease with air bronchograms in both lower lobes, worse on the left. PLEURAL SPACES: No effusion or pneumothorax. HEART: No cardiomegaly. No significant pericardial effusion. LYMPH NODES: No pathologic mediastinal or hilar lymphadenopathy. BONES, CHEST WALL: Within normal limits for the patient's age. No fracture or destructive lesion there is diffuse bone demineralization. OTHER FINDINGS: There is a small sliding hiatal hernia. IMPRESSION: No CTA evidence for acute pulmonary embolism. Confluent airspace disease with air bronchograms in both lower lobes, worse on the left which likely represents a combination of atelectasis and pneumonia. Aspiration pneumonitis is a consideration. Follow-up is advised. 08/17/2018: Chest XR IMPRESSION: No active disease. No significant interval change compared to the prior examination(s). Objective - Vital Signs/Intake and Output Vital Signs (last 24 hours): Temp Pulse Resp BP Pulse Ox 97.9 F 92 H 20 148/73 91 L 08/19/18 07:15 08/19/18 13:05 08/19/18 10:35 08/19/18 07:15 08/19/18 07:15 Intake and Output: 08/19/18 08/19/18 06:59 18:59 Intake Total 400 Output Total 0 Balance 400 - Medications Medications: Current Medications Acetaminophen (Tylenol 325mg Tab) 650 mg PO Q6 PRN PRN Reason: Pain, Mild (1-3) Acetaminophen (Tylenol 650 Mg Supp) 650 mg MN Q4 PRN PRN Reason: temperature>100.4 and pain Last Admin: 08/17/18 17:00 Dose: 650 mg Albuterol/Ipratropium (Duoneb 3 Mg/0.5 Mg (3 Ml) Ud) 3 ml INH RQ6 [facility] Last Admin: 08/19/18 13:24 Dose: 3 ml Aspirin (Aspirin Chewable) 81 mg PO DAILY [facility] Last Admin: 08/19/18 10:51 Dose: Not Given Clopidogrel Bisulfate (Plavix) 75 mg PO DAILY [facility] Last Admin: 08/19/18 10:48 Dose: Not Given Donepezil HCl (Aricept) 5 mg PO HS [facility] Last Admin: 08/18/18 21:34 Dose: Not Given Enoxaparin Sodium (Lovenox) 40 mg SC DAILY [facility] Last Admin: 08/19/18 10:51 Dose: 40 mg Famotidine (Pepcid) 20 mg IVP DAILY [facility] Last Admin: 08/19/18 10:50 Dose: 20 mg Folic Acid (Folic Acid) 1 mg PO DAILY [facility] Last Admin: 08/19/18 10:51 Dose: Not Given Sodium Nitroprusside 50 mg/ (Dextrose) 252 mls @ 0 mls/hr IV Q8 PRN PRN Reason: Systolic Blood Pressure >180 Dextrose (Dextrose 5% In Water 1000 Ml) 1,000 mls @ 70 mls/hr IV .[id number] [facility] Last Admin: 08/18/18 20:53 Dose: 70 mls/hr Piperacillin Sod/Tazobactam (Sod 3.375 gm/ Sodium Chloride) 100 mls @ 200 mls/hr IVPB Q8H [facility]; Protocol Last Admin: 08/19/18 05:37 Dose: 200 mls/hr Vancomycin/Sodium Chloride (Vancomycin 1 Gm/Ns 200 Ml) 1 gm in 200 mls @ 133. 333 mls/hr IVPB Q12H [facility]; Protocol Stop: 08/23/18 20:16 Last Admin: 08/19/18 08:50 Dose: 133.333 mls/hr Lorazepam (Ativan) 1 mg IVP Q4 PRN PRN Reason: Agitation Last Admin: 08/16/18 20:15 Dose: 1 mg Methylprednisolone (Solu-Medrol) 40 mg IVP Q8 [facility] Last Admin: 08/19/18 05:37 Dose: 40 mg Multivitamins/Vitamin C (Multi-Delyn Liquid) 5 ml PO DAILY [facility] Last Admin: 08/19/18 10:49 Dose: Not Given Nitroglycerin (Nitro-Dur 0.2 Mg/Hr Patch) 1 patch TD DAILY PRN PRN Reason: Systolic Blood Pressure Rosuvastatin Calcium (Crestor) 10 mg PO HS [facility] Last Admin: 08/18/18 21:34 Dose: Not Given - Labs Labs: 08/19/18 08:16 08/19/18 08:16 PT 11.2 SECONDS (9.7-12.2) 08/15/18 07:06 INR 1.0 08/15/18 07:06 APTT 27 SECONDS (21-34) 08/15/18 07:06 - Constitutional Appears: Toxic, In Acute Distress, Older Than Stated Age - Head Exam Head Exam: ATRAUMATIC, NORMAL INSPECTION, NORMOCEPHALIC - Eye Exam Eye Exam: EOMI, Normal appearance, PERRL Pupil Exam: NORMAL ACCOMODATION - ENT Exam ENT Exam: Mucous Membranes Dry, Normal Exam - Neck Exam Neck Exam: Full ROM, Normal Inspection. absent: Lymphadenopathy, Meningismus, Tenderness, Thyromegaly - Respiratory Exam Respiratory Exam: Chest Wall Tenderness, Decreased Breath Sounds, Prolonged Expiratory Phase, Rhonchi, Wheezes, Respiratory Distress. absent: Accessory Muscle Use, Clear to Ausculation Bilateral, Rales - Cardiovascular Exam Cardiovascular Exam: REGULAR RHYTHM, +S1, +S2. absent: Murmur - GI/Abdominal Exam GI & Abdominal Exam: Soft, Normal Bowel Sounds. absent: Tenderness Assessment and Plan (1) Aspiration pneumonia Status: Acute (2) Respiratory distress, acute Status: Acute (3) COPD (chronic obstructive pulmonary disease) Status: Acute (4) Acute respiratory failure Status: Acute - Assessment and Plan (Free Text) Assessment: Acute respiratory failure Secondary to COPD exacerbation/bibasilar infiltrates with air bronchogram on CAT scan of the chest Continue IV antibiotics Swallowing evaluation IV steroids and nebulizer treatment Case discussed with family at length Follow-up ABG and chest x-ray
[2018-08-19 17:23] LABS: URINE BILIRUBIN NEGATIVE (NEGATIVE); URINE BLOOD 1+ (NEGATIVE); URINE CLARITY Hazy (Clear); URINE COLOR Yellow (YELLOW); URINE GLUCOSE (UA) NORMAL (Normal); URINE LEUKOCYTE ESTERASE NEG Leu/uL (Negative); URINE PROTEIN 1+ mg/dL (NEGATIVE); URINE UROBILINOGEN NORMAL mg/dL (0.2-1.0)
[2018-08-20] MEDS: Albuterol-Ipratrop 3 mg / 0.5 (3 ml) UD INH SCH ×4 (01:41→19:14)
[2018-08-20] MEDS: MethylPREDNISolone 40 mg Vial IVP SCH ×3 (05:04→22:08)
[2018-08-20] MEDS: Piperacillin/Tazobact 3.375 GM in Sodium Chloride 100 ML IVPB SCH ×3 (05:04→22:00)
[2018-08-20] MEDS: Vancomycin 1 gm/NS 200 ml 1 GM/200 ML BAG IVPB SCH ×2 (08:36→20:30)
[2018-08-20] MEDS: Enoxaparin 40 mg Syringe SC SCH (09:30)
[2018-08-20] MEDS: Multiple Vitamins Oral Solution PO SCH (10:07)
--- NOTE | 2018-08-20 18:29 | CP.PCM.PN ---
Subjective - Date & Time of Evaluation Date of Evaluation: 08/20/18 Time of Evaluation: 11:00 - Subjective Subjective: Patient seen and examined Patient remains on high flow oxygen Has difficulty swallowing/eating Afebrile Objective - Vital Signs/Intake and Output Vital Signs (last 24 hours): Temp Pulse Resp BP Pulse Ox 98.2 F 97 H 20 136/66 98 08/20/18 16:53 08/20/18 16:53 08/20/18 16:53 08/20/18 16:53 08/20/18 16:53 Intake and Output: 08/20/18 08/20/18 06:59 18:59 Intake Total 1320 560 Output Total 700 600 Balance 620 -40 - Medications Medications: Current Medications Acetaminophen (Tylenol 325mg Tab) 650 mg PO Q6 PRN PRN Reason: Pain, Mild (1-3) Acetaminophen (Tylenol 650 Mg Supp) 650 mg OR Q4 PRN PRN Reason: temperature>100.4 and pain Last Admin: 08/17/18 17:00 Dose: 650 mg Albuterol/Ipratropium (Duoneb 3 Mg/0.5 Mg (3 Ml) Ud) [address] [facility] Last Admin: 08/20/18 13:01 Dose: 3 ml Aspirin (Aspirin Chewable) [address] [facility] Last Admin: 08/20/18 10:06 Dose: Not Given Clopidogrel Bisulfate (Plavix) [address] [facility] Last Admin: 08/20/18 10:07 Dose: Not Given Donepezil HCl (Aricept) [address] [facility] Last Admin: 08/19/18 21:40 Dose: Not Given Enoxaparin Sodium (Lovenox) [address] [facility] Last Admin: 08/20/18 09:30 Dose: 40 mg Famotidine (Pepcid) [address] [facility] Last Admin: 08/20/18 09:30 Dose: 20 mg Folic Acid (Folic Acid) [address] [facility] Last Admin: 08/20/18 10:07 Dose: Not Given Sodium Nitroprusside 50 mg/ (Dextrose) 252 mls @ 0 mls/hr IV Q8 PRN PRN Reason: Systolic Blood Pressure >180 Piperacillin Sod/Tazobactam (Sod 3.375 gm/ Sodium Chloride) 100 mls @ 200 mls/hr IVPB Q8H [facility]; Protocol Last Admin: 08/20/18 13:46 Dose: 200 mls/hr Vancomycin/Sodium Chloride (Vancomycin 1 Gm/Ns 200 Ml) 1 gm in 200 mls @ 13 3.333 mls/hr IVPB Q12H [facility]; Protocol Stop: 08/23/18 20:16 Last Admin: 08/20/18 08:36 Dose: 133.333 mls/hr Lorazepam (Ativan) 1 mg IVP Q4 PRN PRN Reason: Agitation Last Admin: 08/20/18 16:47 Dose: 1 mg Methylprednisolone (Solu-Medrol) 40 mg IVP Q8 [facility] Last Admin: 08/20/18 13:46 Dose: 40 mg Multivitamins/Vitamin C (Multi-Delyn Liquid) [address] [facility] Last Admin: 08/20/18 10:07 Dose: Not Given Nitroglycerin (Nitro-Dur 0.2 Mg/Hr Patch) 1 patch TD DAILY PRN PRN Reason: Systolic Blood Pressure Rosuvastatin Calcium (Crestor) [address] [facility] Last Admin: 08/19/18 21:40 Dose: Not Given - Labs Labs: 08/19/18 08:16 08/19/18 08:16 PT 11.2 SECONDS (9.7-12.2) 08/15/18 07:06 INR 1.0 08/15/18 07:06 APTT 27 SECONDS (21-34) 08/15/18 07:06 - Head Exam Head Exam: ATRAUMATIC, NORMOCEPHALIC - ENT Exam ENT Exam: Mucous Membranes Moist - Neck Exam Neck Exam: Normal Inspection - Respiratory Exam Respiratory Exam: Decreased Breath Sounds - Cardiovascular Exam Cardiovascular Exam: REGULAR RHYTHM - GI/Abdominal Exam GI & Abdominal Exam: Soft, Normal Bowel Sounds Assessment and Plan (1) Respiratory distress, acute Assessment & Plan: Secondary to COPD exacerbation/bibasilar infiltrates with air bronchogram on CAT scan of the chest Continue IV antibiotics Swallowing evaluation IV steroids and nebulizer treatment Case discussed with family at length Follow-up ABG and chest x-ray Status: Acute (2) Pneumonia Status: Acute (3) COPD (chronic obstructive pulmonary disease) Status: Chronic
--- NOTE | 2018-08-20 22:45 | CP.PCM.PN ---
Subjective - Date & Time of Evaluation Date of Evaluation: 08/20/18 Time of Evaluation: 19:30 - Subjective Subjective: Patient confused, on high flow O2 by nasal canula. Still unable to swallow, and congested. On IV Zosyn and Vancomycin for an aspiration pneumonia Objective - Vital Signs/Intake and Output Vital Signs (last 24 hours): Temp Pulse Resp BP Pulse Ox 98.2 F 84 20 136/66 98 08/20/18 16:53 08/20/18 20:04 08/20/18 16:53 08/20/18 16:53 08/20/18 16:53 Intake and Output: 08/20/18 08/21/18 18:59 06:59 Intake Total 560 Output Total 600 Balance -40 - Medications Medications: Current Medications Acetaminophen (Tylenol 325mg Tab) 650 mg PO Q6 PRN PRN Reason: Pain, Mild (1-3) Acetaminophen (Tylenol 650 Mg Supp) 650 mg HI Q4 PRN PRN Reason: temperature>100.4 and pain Last Admin: 08/17/18 17:00 Dose: 650 mg Albuterol/Ipratropium (Duoneb 3 Mg/0.5 Mg (3 Ml) Ud) 3 ml INH RQ6 [facility] Last Admin: 08/20/18 19:14 Dose: 3 ml Aspirin (Aspirin Chewable) 81 mg PO DAILY [facility] Last Admin: 08/20/18 10:06 Dose: Not Given Clopidogrel Bisulfate (Plavix) 75 mg PO DAILY [facility] Last Admin: 08/20/18 10:07 Dose: Not Given Donepezil HCl (Aricept) 5 mg PO HS [facility] Last Admin: 08/20/18 22:09 Dose: Not Given Enoxaparin Sodium (Lovenox) 40 mg SC DAILY [facility] Last Admin: 08/20/18 09:30 Dose: 40 mg Famotidine (Pepcid) 20 mg IVP DAILY [facility] Last Admin: 08/20/18 09:30 Dose: 20 mg Folic Acid (Folic Acid) 1 mg PO DAILY [facility] Last Admin: 08/20/18 10:07 Dose: Not Given Sodium Nitroprusside 50 mg/ (Dextrose) 252 mls @ 0 mls/hr IV Q8 PRN PRN Reason: Systolic Blood Pressure >180 Piperacillin Sod/Tazobactam (Sod 3.375 gm/ Sodium Chloride) 100 mls @ 200 mls/hr IVPB Q8H [facility]; Protocol Last Admin: 08/20/18 22:00 Dose: 200 mls/hr Vancomycin/Sodium Chloride (Vancomycin 1 Gm/Ns 200 Ml) 1 gm in 200 mls @ 133.333 mls/hr IVPB Q12H [facility]; Protocol Stop: 08/23/18 20:16 Last Admin: 08/20/18 20:30 Dose: 133.333 mls/hr Lorazepam (Ativan) 1 mg IVP Q4 PRN PRN Reason: Agitation Last Admin: 08/20/18 16:47 Dose: 1 mg Methylprednisolone (Solu-Medrol) 40 mg IVP Q8 [facility] Last Admin: 08/20/18 22:08 Dose: 40 mg Multivitamins/Vitamin C (Multi-Delyn Liquid) 5 ml PO DAILY [facility] Last Admin: 08/20/18 10:07 Dose: Not Given Nitroglycerin (Nitro-Dur 0.2 Mg/Hr Patch) 1 patch TD DAILY PRN PRN Reason: Systolic Blood Pressure Rosuvastatin Calcium (Crestor) 10 mg PO HS [facility] Last Admin: 08/20/18 22:10 Dose: Not Given - Labs Labs: 08/19/18 08:16 08/19/18 08:16 PT 11.2 SECONDS (9.7-12.2) 08/15/18 07:06 INR 1.0 08/15/18 07:06 APTT 27 SECONDS (21-34) 08/15/18 07:06 - Constitutional Appears: No Acute Distress, Chronically Ill - Eye Exam Eye Exam: Normal appearance - ENT Exam ENT Exam: Normal Exam - Neck Exam Additional comments: Right carotid endarterectomy surgical wound healing well. - Respiratory Exam Respiratory Exam: Rhonchi Additional comments: Rhonchi bilaterally. - Cardiovascular Exam Cardiovascular Exam: REGULAR RHYTHM - GI/Abdominal Exam GI & Abdominal Exam: Soft, Normal Bowel Sounds - Rectal Exam Rectal Exam: Deferred - Exam Exam: NORMAL INSPECTION - Extremities Exam Extremities Exam: Normal Inspection - Back Exam Back Exam: NORMAL INSPECTION - Neurological Exam Neurological Exam: Altered Additional comments: Confused. - Psychiatric Exam Additional comments: Confused. - Skin Skin Exam: Dry, Intact, Warm Assessment and Plan (1) Bradycardia Status: Chronic (2) Vertebro-basilar artery syndrome Status: Acute (3) Severe dementia Status: Chronic (4) More than 50 percent stenosis of right internal carotid artery Assessment & Plan: S/p right carotid endarterectomy POD # 5 Status: Resolved (5) COPD (chronic obstructive pulmonary disease) Status: Chronic (6) Dysphagia Assessment & Plan: On NPO. Status: Acute (7) Aspiration pneumonia Assessment & Plan: On IV antibiotics ( Vancomycin and Zosyn ). Status: Acute
[2018-08-21] MEDS: Albuterol-Ipratrop 3 mg / 0.5 (3 ml) UD INH SCH ×4 (01:32→19:00)
[2018-08-21] MEDS: Piperacillin/Tazobact 3.375 GM in Sodium Chloride 100 ML IVPB SCH ×3 (06:10→21:58)
[2018-08-21] MEDS: MethylPREDNISolone 40 mg Vial IVP SCH ×3 (06:22→21:58)
[2018-08-21] MEDS: Vancomycin 1 gm/NS 200 ml 1 GM/200 ML BAG IVPB SCH ×2 (09:10→19:22)
[2018-08-21] MEDS: Enoxaparin 40 mg Syringe SC SCH (09:55)
[2018-08-21] MEDS: Multiple Vitamins Oral Solution PO SCH (10:00)
--- NOTE | 2018-08-21 11:32 | RAD ---
Date of service: 08/21/2018 PROCEDURE: CHEST RADIOGRAPH, 1 VIEW HISTORY: NGT placement COMPARISON: 08/17/2018. FINDINGS: The nasogastric tube terminates in the stomach. LUNGS: The lungs are well inflated and clear. PLEURA: No pneumothorax or right pleural effusion. There is a small left pleural effusion CARDIOVASCULAR: The heart is normal in size. No aortic atherosclerotic calcifications present. OSSEOUS STRUCTURES: Within normal limits for the patient's age. VISUALIZED UPPER ABDOMEN: Normal. OTHER FINDINGS: None. IMPRESSION: Nasogastric tube terminates in the stomach. Small left pleural effusion.
--- NOTE | 2018-08-21 15:00 | US ---
Date of service: 08/21/2018 PROCEDURE: Ultrasound of the Kidneys HISTORY: r/o hydronephrosis, urinary retention COMPARISON: None available. TECHNIQUE: Sonogram of the kidneys. FINDINGS: RIGHT KIDNEY: Measures: 10.5 x 4.7 x 4.9 cm. Mild hydronephrosis. No obstructing calculus identified. LEFT KIDNEY: Measures: 10.7 x 5.7 x 5.3 cm. No obstructing calculus or hydronephrosis identified. Trace perinephric fluid. OTHER FINDINGS: Prevoid urinary bladder measures 19.4 x 13.9 x 13.8 cm, calculated volume 1941 mL. Patient unable to void. Bilateral ureteral jets were not identified. IMPRESSION: Mild right-sided hydronephrosis. No obstructing calculus identified. Trace left perinephric fluid. Prevoid urinary bladder volume 1941 mL. Patient unable to void. Bilateral ureteral jets were not identified.
--- NOTE | 2018-08-21 15:27 | PN ---
DATE: 08/21/2018 SUBJECTIVE: The patient is seen in the safety observation room with his common-law . The patient is confused and having problems breathing and also problem swallowing. On review of his meds, the patient was given Ativan last night. The patient has pneumonia. We will stop the Ativan as the patient has respiratory problems. The patient is status post surgery. REVIEW OF SYSTEMS: The patient is alert, but confused, seen in his room with [facility], the four-bedded room, seen with his common-law . PHYSICAL EXAMINATION: VITAL SIGNS: Temperature 97.3, 73 pulse, 129/76 blood pressure, 20 respirations, 95% oxygen saturation. SKIN: No diaphoresis. HEENT: No headache. No dizziness. NECK: Supple. RESPIRATORY: Moderate dyspnea. CARDIOVASCULAR: No chest pain. GASTROINTESTINAL: He has problem swallowing. EXTREMITIES: The patient has hand mittens. MUSCULOSKELETAL: Feels weak. NEUROLOGIC: Alert, but confused. GENITOURINARY: No dysuria. MENTAL STATUS EXAMINATION: Elderly male with dementia, alert and oriented x1. Mood is dysphoric. Affect is restricted. Speech is spontaneous. Thought process, confused. Thought content, no overt psychosis. No suicidal or homicidal ideation. Attention and memory seem to be limited. Insight and judgment, limited. Impulse control is guarded at this time. IMPRESSION: Senile onset dementia with mood changes with superimposed delirium secondary to pneumonia. PLAN AND RECOMMENDATIONS: The patient is seen, meds reviewed. We will discontinue the Ativan p.r.n. as it can compromise his breathing problems. The patient is manageable at this time. Continue antibiotics as ordered. We will keep the patient in the four-bedded safety observation room. Continue treatment plan as outlined. Joe Song MD MTDD
--- NOTE | 2018-08-21 15:31 | CP.PCM.PN ---
Subjective - Date & Time of Evaluation Date of Evaluation: 08/21/18 Time of Evaluation: 11:00 - Subjective Subjective: : Patient was seen and examined at bedside. Patient is nonverbal and unable to follow commands. He failed his swallow study yesterday and a NG tube was placed. He remains on high flow oxygen. He is afebrile. O: General: NAD, chronically ill, thin, frail HEENT: poor dentition, atraumatic, normocephalic, normal neck inspection Cardio: RRR s1 and s2 present Pulm: decreased breath sounds GI: bladder is distended, + bowel sounds in all four quadrants Extremities: has hand mittens to prevent removal of NG tube. CXR on 08/21 shows NG tube in proper position and small pleural effusions. A: 68 year old male with a PMH of COPD, PNA, and dementia. Patient is being treated for Acute respiratory distress likely secondary to COPD exacerbation and bibasilar infiltrates. P: Continue IV antibiotics for total of 10 days. f/u vanco level Swallowing evaluation failed NG tube place; CXR confirmed proper placement IV steroids and nebulizer treatment Order a bladder scan Objective - Vital Signs/Intake and Output Vital Signs (last 24 hours): Temp Pulse Resp BP Pulse Ox 97.3 F L 73 20 129/76 95 08/21/18 08:20 08/21/18 08:20 08/21/18 09:43 08/21/18 08:20 08/21/18 08:20 Intake and Output: 08/21/18 08/21/18 06:59 18:59 Intake Total 560 Output Total 1050 Balance -490 - Medications Medications: Current Medications Acetaminophen (Tylenol 325mg Tab) 650 mg PO Q6 PRN PRN Reason: Pain, Mild (1-3) Acetaminophen (Tylenol 650 Mg Supp) 650 mg [place] Q4 PRN PRN Reason: temperature>100.4 and pain Last Admin: 08/17/18 17:00 Dose: 650 mg Albuterol/Ipratropium (Duoneb 3 Mg/0.5 Mg (3 Ml) Ud) 3 ml INH RQ6 [facility] Last Admin: 08/21/18 09:42 Dose: 3 ml Aspirin (Aspirin Chewable) 81 mg PO DAILY [facility] Last Admin: 08/21/18 10:00 Dose: Not Given Clopidogrel Bisulfate (Plavix) 75 mg PO DAILY [facility] Last Admin: 08/21/18 10:00 Dose: Not Given Donepezil HCl (Aricept) 5 mg PO HS [facility] Last Admin: 08/20/18 22:09 Dose: Not Given Enoxaparin Sodium (Lovenox) 40 mg SC DAILY [facility] Last Admin: 08/21/18 09:55 Dose: 40 mg Famotidine (Pepcid) 20 mg IVP DAILY [facility] Last Admin: 08/21/18 09:55 Dose: 20 mg Folic Acid (Folic Acid) 1 mg PO DAILY [facility] Last Admin: 08/21/18 10:00 Dose: Not Given Sodium Nitroprusside 50 mg/ (Dextrose) 252 mls @ 0 mls/hr IV Q8 PRN PRN Reason: Systolic Blood Pressure >180 Piperacillin Sod/Tazobactam (Sod 3.375 gm/ Sodium Chloride) 100 mls @ 200 mls/hr IVPB Q8H [facility]; Protocol Last Admin: 08/21/18 15:00 Dose: 200 mls/hr Vancomycin/Sodium Chloride (Vancomycin 1 Gm/Ns 200 Ml) 1 gm in 200 mls @ 133.333 mls/hr IVPB Q12H [facility]; Protocol Stop: 08/23/18 20:16 Last Admin: 08/21/18 09:10 Dose: 133.333 mls/hr Methylprednisolone (Solu-Medrol) 40 mg IVP Q8 [facility] Last Admin: 08/21/18 15:00 Dose: 40 mg Multivitamins/Vitamin C (Multi-Delyn Liquid) 5 ml PO DAILY [facility] Last Admin: 08/21/18 10:00 Dose: Not Given Nitroglycerin (Nitro-Dur 0.2 Mg/Hr Patch) 1 patch TD DAILY PRN PRN Reason: Systolic Blood Pressure Rosuvastatin Calcium (Crestor) 10 mg PO HS [facility] Last Admin: 08/20/18 22:10 Dose: Not Given - Labs Labs: 08/19/18 08:16 08/19/18 08:16 PT 11.2 SECONDS (9.7-12.2) 08/15/18 07:06 INR 1.0 08/15/18 07:06 APTT 27 SECONDS (21-34) 08/15/18 07:06 Assessment and Plan (1) Respiratory distress, acute Status: Acute (2) Pneumonia Status: Acute (3) COPD (chronic obstructive pulmonary disease) Status: Chronic
[2018-08-21 17:37] LABS: HEMOGLOBIN 13.3 g/dL (12.0-18.0); LYMPH # 0.8 K/uL (1.0-4.3); LYMPH % 6.7 % (20.0-40.0); MEAN CELL VOLUME 92.8 fL (80.0-94.0); MEAN CORPUSCULAR HEMOGLOBIN 31.1 pg (27.0-31.0); MEAN CORPUSCULAR HGB CONC 33.5 g/dL (33.0-37.0); MEAN PLATELET VOLUME 7.9 fL (7.2-11.7); MONO # 1.3 K/uL (0.0-0.8); MONO % 10.9 % (0.0-10.0); NEUT % 82.4 % (50.0-75.0); PLATELET COUNT 308 K/uL (130-400); RBC 4.27 Mil/uL (4.40-5.90); RED CELL DISTRIBUTION WIDTH 12.9 % (11.5-14.5); WHITE BLOOD COUNT 12.1 K/uL (4.8-10.8)
--- NOTE | 2018-08-21 17:42 | CP.PCM.PN ---
Subjective - Date & Time of Evaluation Date of Evaluation: 08/21/18 Time of Evaluation: 17:40 - Subjective Subjective: Patient confused, but awake, congested, afebrile. Now has an NGT for feeding. On highflow O2. CXR today shows clear lungs. Objective - Vital Signs/Intake and Output Vital Signs (last 24 hours): Temp Pulse Resp BP Pulse Ox 98.4 F 86 20 150/63 95 08/21/18 15:57 08/21/18 16:00 08/21/18 15:57 08/21/18 15:57 08/21/18 15:57 Intake and Output: 08/21/18 08/21/18 06:59 18:59 Intake Total 560 Output Total 1050 Balance -490 - Medications Medications: Current Medications Acetaminophen (Tylenol 325mg Tab) 650 mg PO Q6 PRN PRN Reason: Pain, Mild (1-3) Acetaminophen (Tylenol 650 Mg Supp) 650 mg [place] Q4 PRN PRN Reason: temperature>100.4 and pain Last Admin: 08/17/18 17:00 Dose: 650 mg Albuterol/Ipratropium (Duoneb 3 Mg/0.5 Mg (3 Ml) Ud) 3 ml INH RQ6 [facility] Last Admin: 08/21/18 09:42 Dose: 3 ml Aspirin (Aspirin Chewable) 81 mg PO DAILY [facility] Last Admin: 08/21/18 10:00 Dose: Not Given Clopidogrel Bisulfate (Plavix) 75 mg PO DAILY [facility] Last Admin: 08/21/18 10:00 Dose: Not Given Donepezil HCl (Aricept) 5 mg PO HS [facility] Last Admin: 08/20/18 22:09 Dose: Not Given Enoxaparin Sodium (Lovenox) 40 mg SC DAILY [facility] Last Admin: 08/21/18 09:55 Dose: 40 mg Famotidine (Pepcid) 20 mg IVP DAILY [facility] Last Admin: 08/21/18 09:55 Dose: 20 mg Folic Acid (Folic Acid) 1 mg PO DAILY [facility] Last Admin: 08/21/18 10:00 Dose: Not Given Sodium Nitroprusside 50 mg/ (Dextrose) 252 mls @ 0 mls/hr IV Q8 PRN PRN Reason: Systolic Blood Pressure >180 Piperacillin Sod/Tazobactam (Sod 3.375 gm/ Sodium Chloride) 100 mls @ 200 mls/hr IVPB Q8H [facility]; Protocol Last Admin: 08/21/18 15:00 Dose: 200 mls/hr Vancomycin/Sodium Chloride (Vancomycin 1 Gm/Ns 200 Ml) 1 gm in 200 mls @ 133.333 mls/hr IVPB Q12H [facility]; Protocol Stop: 08/23/18 20:16 Last Admin: 08/21/18 09:10 Dose: 133.333 mls/hr Methylprednisolone (Solu-Medrol) 40 mg IVP Q8 [facility] Last Admin: 08/21/18 15:00 Dose: 40 mg Multivitamins/Vitamin C (Multi-Delyn Liquid) 5 ml PO DAILY [facility] Last Admin: 08/21/18 10:00 Dose: Not Given Nitroglycerin (Nitro-Dur 0.2 Mg/Hr Patch) 1 patch TD DAILY PRN PRN Reason: Systolic Blood Pressure Rosuvastatin Calcium (Crestor) 10 mg PO HS [facility] Last Admin: 08/20/18 22:10 Dose: Not Given - Labs Labs: 08/21/18 17:30 08/19/18 08:16 PT 11.2 SECONDS (9.7-12.2) 08/15/18 07:06 INR 1.0 08/15/18 07:06 APTT 27 SECONDS (21-34) 08/15/18 07:06 - Constitutional Appears: No Acute Distress, Cachectic, Chronically Ill - Head Exam Head Exam: NORMAL INSPECTION - Eye Exam Eye Exam: Normal appearance - ENT Exam ENT Exam: Normal Exam - Neck Exam Neck Exam: Normal Inspection - Respiratory Exam Respiratory Exam: Rhonchi Additional comments: Rhonchi bilaterally. - Cardiovascular Exam Cardiovascular Exam: REGULAR RHYTHM - GI/Abdominal Exam GI & Abdominal Exam: Soft, Normal Bowel Sounds - Rectal Exam Rectal Exam: Deferred - Exam Exam: NORMAL INSPECTION - Extremities Exam Extremities Exam: Normal Inspection - Back Exam Back Exam: NORMAL INSPECTION - Neurological Exam Neurological Exam: Altered, Awake - Psychiatric Exam Psychiatric exam: Anxious - Skin Skin Exam: Dry, Intact Assessment and Plan (1) Bradycardia Status: Chronic (2) Vertebro-basilar artery syndrome Status: Acute (3) Severe dementia Status: Chronic (4) More than 50 percent stenosis of right internal carotid artery Assessment & Plan: S/p right carotid endarterectomy POD # 6 Status: Resolved (5) COPD (chronic obstructive pulmonary disease) Status: Chronic (6) Dysphagia Assessment & Plan: If dysphagia does not improve, will need an ENT consult. Status: Acute (7) Aspiration pneumonia Assessment & Plan: Better with IV Vancomycin and Zosyn. Status: Acute
[2018-08-21 18:01] LABS: BLOOD UREA NITROGEN 22 mg/dL (9-20); CALCIUM 8.9 mg/dl (8.6-10.4); GFR NON-AFRICAN AMERICAN > 60
[2018-08-21 19:56] LABS: BANDS 1 % (0-2); LYMPHOCYTE 7 % (20-40); METAMYELOCYTE 1 % (0-0); MONOCYTE 6 % (0-10); NEUTROPHIL 85 % (50-75); PLATELET ESTIMATE NORMAL (NORMAL); TOTAL CELLS COUNTED 100
[2018-08-22] MEDS: Albuterol-Ipratrop 3 mg / 0.5 (3 ml) UD INH SCH ×3 (02:10→13:39)
[2018-08-22] MEDS: MethylPREDNISolone 40 mg Vial IVP SCH ×3 (05:38→21:30)
[2018-08-22] MEDS: Piperacillin/Tazobact 3.375 GM in Sodium Chloride 100 ML IVPB SCH ×3 (05:38→21:30)
[2018-08-22 08:29] LABS: BASO % 0.1 % (0.0-2.0); LYMPH # 0.8 K/uL (1.0-4.3); LYMPH % 5.3 % (20.0-40.0); MEAN CELL VOLUME 92.6 fL (80.0-94.0); MEAN CORPUSCULAR HEMOGLOBIN 30.6 pg (27.0-31.0); MEAN PLATELET VOLUME 7.8 fL (7.2-11.7); MONO # 1.4 K/uL (0.0-0.8); MONO % 8.6 % (0.0-10.0); NEUT # 13.7 K/uL (1.8-7.0); PLATELET COUNT 295 K/uL (130-400); RBC 4.26 Mil/uL (4.40-5.90); RED CELL DISTRIBUTION WIDTH 12.8 % (11.5-14.5); WHITE BLOOD COUNT 15.9 K/uL (4.8-10.8)
[2018-08-22 08:45] LABS: ALB/GLOB RATIO 1.2 (1.0-2.1); ALBUMIN 3.1 g/dL (3.5-5.0); ALT/SGPT 38 U/L (21-72); AST/SGOT 33 U/L (17-59); BLOOD UREA NITROGEN 23 mg/dL (9-20); CALCIUM 8.6 mg/dl (8.6-10.4); GFR NON-AFRICAN AMERICAN > 60
[2018-08-22] MEDS: Vancomycin 1 gm/NS 200 ml 1 GM/200 ML BAG IVPB SCH (09:10)
[2018-08-22 10:10] LABS: LYMPHOCYTE 8 % (20-40); MONOCYTE 6 % (0-10); MYELOCYTE 2 % (0-0); NEUTROPHIL 84 % (50-75); PLATELET ESTIMATE NORMAL (NORMAL); TOTAL CELLS COUNTED 100
[2018-08-22 10:11] LABS: TOXIC GRANULATION PRESENT
[2018-08-22] MEDS: Multiple Vitamins Oral Solution PO SCH (11:00)
[2018-08-22] MEDS: Multiple Vitamins Oral Solution PEG SCH (11:25)
[2018-08-22] MEDS: Enoxaparin 40 mg Syringe SC SCH (11:27)
--- NOTE | 2018-08-22 15:11 | PN ---
DATE: 08/22/2018 SUBJECTIVE: The patient is seen, still confused, still in the four-bedded room. The patient is unable to swallow, has a NGT tube. The patient is also on Aricept 5 mg at bedtime, was taken off the Ativan as the patient still has pneumonia, has breathing problems. REVIEW OF SYSTEMS: The patient is alert, but feeling weak. Speech is mumbled, seen in the four-bedded room, still with hand mittens. PHYSICAL EXAMINATION: VITAL SIGNS: Temperature is 98.7, pulse 78, blood pressure 138/65, respirations 20, oxygen saturation 91%. GENERAL: The patient is status post carotid endarterectomy. SKIN: No diaphoresis. HEENT: No headache, no dizziness. NECK: Supple. RESPIRATORY: Not in acute respiratory distress. CARDIOVASCULAR: No chest pain. GASTROINTESTINAL: The patient has NGT tube, has problem swallowing. EXTREMITIES: Moving extremities. NEUROLOGIC: Alert, but confused. GENITOURINARY: No dysuria. MENTAL STATUS EXAMINATION: An elderly male with history of dementia. Oriented only x1 to person. Speech is mumbled at times. Affect was restricted. Mood is dysphoric. Thought process, confused. Thought content, no overt psychosis. No suicidal or homicidal ideation. Attention and memory seem to be impaired. Insight and judgment impaired. Impulse control is guarded at this time. IMPRESSION: Senile onset dementia with behavioral problems with superimposed delirium, metabolic encephalopathy secondary to pneumonia. The patient is status post carotid endarterectomy. PLAN AND RECOMMENDATION: The patient is seen, meds reviewed. We will keep the patient off any anxiolytics for now, though the patient has bouts of agitation but manageable. The patient has pneumonia. We will hold off any sedatives for now. We will continue the Aricept 5 mg daily for dementia. Continue antibiotics as ordered. We will keep the patient in four-bedded room for closer monitoring. Joe Song MD MTDKatheryn
--- NOTE | 2018-08-22 15:55 | CP.PCM.PN ---
Subjective - Date & Time of Evaluation Date of Evaluation: 08/22/18 Time of Evaluation: 12:45 - Subjective Subjective: Patient was seen and examined at bedside. Patient is verbal and able to follow commands. He is AAOx3. He remains on high flow oxygen. Patient complains of cough and congestion. Denies fevers, chills, cp, dysurea, constipation. Patie nt wishes to remove mittens. O: General: NAD, chronically ill, thin, frail HEENT: poor dentition, atraumatic, normocephalic, normal neck inspection Cardio: RRR s1 and s2 present Pulm: decreased breath sounds, +crackles GI: bladder is non-distended, + bowel sounds in all four quadrants Extremities: has hand mittens to prevent removal of NG tube. CXR on 08/21 shows NG tube in proper position and small pleural effusions. Bladder scan 08/21: Mild right sided hydronephrosis. No obstruction. Trace left perinephric fluid. A: 68 year old male with a PMH of COPD, PNA, and dementia. Patient is being treated for Acute respiratory distress likely secondary to COPD exacerbation and basilar infiltrates. Bladder distention has resolved. Goal is to d/c hi-flow oxygen. P: consider trial of Nasal cannula Continue IV antibiotics NG tube in place IV steroids and nebulizer treatment Objective - Vital Signs/Intake and Output Vital Signs (last 24 hours): Temp Pulse Resp BP Pulse Ox 98.7 F 78 17 138/65 91 L 08/22/18 07:00 08/22/18 09:06 08/22/18 15:46 08/22/18 07:00 08/22/18 07:00 Intake and Output: 08/22/18 08/22/18 06:59 18:59 Intake Total 1030 Output Total 900 350 Balance 130 -350 - Medications Medications: Current Medications Acetaminophen (Tylenol 325mg Tab) 650 mg PO Q6 PRN PRN Reason: Pain, Mild (1-3) Acetaminophen (Tylenol 650 Mg Supp) 650 mg [place] Q4 PRN PRN Reason: temperature>100.4 and pain Last Admin: 08/17/18 17:00 Dose: 650 mg Albuterol/Ipratropium (Duoneb 3 Mg/0.5 Mg (3 Ml) Ud) 3 ml INH RQ6 [facility] Last Admin: 08/22/18 13:39 Dose: 3 ml Aspirin (Aspirin Chewable) 81 mg PEG DAILY [facility] Last Admin: 08/22/18 11:27 Dose: 81 mg Clopidogrel Bisulfate (Plavix) 75 mg PEG DAILY [facility] Last Admin: 08/22/18 11:26 Dose: 75 mg Donepezil HCl (Aricept) 5 mg PEG HS [facility] Enoxaparin Sodium (Lovenox) 40 mg SC DAILY [facility] Last Admin: 08/22/18 11:27 Dose: 40 mg Famotidine (Pepcid) 20 mg IVP DAILY [facility] Last Admin: 08/22/18 11:10 Dose: 20 mg Folic Acid (Folic Acid) 1 mg PEG DAILY [facility] Last Admin: 08/22/18 11:26 Dose: 1 mg Sodium Nitroprusside 50 mg/ (Dextrose) 252 mls @ 0 mls/hr IV Q8 PRN PRN Reason: Systolic Blood Pressure >180 Piperacillin Sod/Tazobactam (Sod 3.375 gm/ Sodium Chloride) 100 mls @ 200 mls/hr IVPB Q8H [facility]; Protocol Last Admin: 08/22/18 13:43 Dose: 200 mls/hr Vancomycin/Sodium Chloride (Vancomycin 1 Gm/Ns 200 Ml) 1 gm in 200 mls @ 133.333 mls/hr IVPB Q12H [facility]; Protocol Stop: 08/23/18 20:16 Last Admin: 08/22/18 09:10 Dose: 133.333 mls/hr Methylprednisolone (Solu-Medrol) 40 mg IVP Q8 [facility] Last Admin: 08/22/18 13:31 Dose: 40 mg Multivitamins/Vitamin C (Multi-Delyn Liquid) 5 ml PEG DAILY [facility] Last Admin: 08/22/18 11:25 Dose: 5 ml Nitroglycerin (Nitro-Dur 0.2 Mg/Hr Patch) 1 patch TD DAILY PRN PRN Reason: Systolic Blood Pressure Rosuvastatin Calcium (Crestor) 10 mg PEG HS [facility] - Labs Labs: 08/22/18 08:17 08/22/18 08:17 PT 11.2 SECONDS (9.7-12.2) 08/15/18 07:06 INR 1.0 08/15/18 07:06 APTT 27 SECONDS (21-34) 08/15/18 07:06 Assessment and Plan (1) Respiratory distress, acute Status: Acute (2) Pneumonia Status: Acute (3) COPD (chronic obstructive pulmonary disease) Status: Chronic
--- NOTE | 2018-08-22 22:51 | CP.PCM.PN ---
Subjective - Date & Time of Evaluation Date of Evaluation: 08/22/18 Time of Evaluation: 13:00 - Subjective Subjective: Patient awake, but remains confused. Afebrile, slightly congested. On NGT feeding, high flow O2, and IV antibiotics. Will repeat swallowing evaluation. Objective - Vital Signs/Intake and Output Vital Signs (last 24 hours): Temp Pulse Resp BP Pulse Ox 98.1 F 77 17 161/85 H 96 08/22/18 15:10 08/22/18 16:33 08/22/18 15:46 08/22/18 15:10 08/22/18 15:10 Intake and Output: 08/22/18 08/23/18 18:59 06:59 Output Total 350 Balance -350 - Medications Medications: Current Medications Acetaminophen (Tylenol 325mg Tab) 650 mg PO Q6 PRN PRN Reason: Pain, Mild (1-3) Acetaminophen (Tylenol 650 Mg Supp) 650 mg [place] Q4 PRN PRN Reason: temperature>100.4 and pain Last Admin: 08/17/18 17:00 Dose: 650 mg Albuterol/Ipratropium (Duoneb 3 Mg/0.5 Mg (3 Ml) Ud) 3 ml INH RQ6 [facility] Last Admin: 08/22/18 13:39 Dose: 3 ml Aspirin (Aspirin Chewable) 81 mg PEG DAILY [facility] Last Admin: 08/22/18 11:27 Dose: 81 mg Clopidogrel Bisulfate (Plavix) 75 mg PEG DAILY [facility] Last Admin: 08/22/18 11:26 Dose: 75 mg Donepezil HCl (Aricept) 5 mg PEG HS [facility] Enoxaparin Sodium (Lovenox) 40 mg SC DAILY [facility] Last Admin: 08/22/18 11:27 Dose: 40 mg Famotidine (Pepcid) 20 mg IVP DAILY [facility] Last Admin: 08/22/18 11:10 Dose: 20 mg Folic Acid (Folic Acid) 1 mg PEG DAILY [facility] Last Admin: 08/22/18 11:26 Dose: 1 mg Sodium Nitroprusside 50 mg/ (Dextrose) 252 mls @ 0 mls/hr IV Q8 PRN PRN Reason: Systolic Blood Pressure >180 Piperacillin Sod/Tazobactam (Sod 3.375 gm/ Sodium Chloride) 100 mls @ 200 mls/hr IVPB Q8H [facility]; Protocol Last Admin: 08/22/18 21:30 Dose: 200 mls/hr Vancomycin/Sodium Chloride (Vancomycin 1 Gm/Ns 200 Ml) 1 gm in 200 mls @ 133 mls/hr IVPB DAILY [facility]; Protocol Stop: 08/28/18 10:01 Methylprednisolone (Solu-Medrol) 40 mg IVP Q8 [facility] Last Admin: 08/22/18 21:30 Dose: 40 mg Multivitamins/Vitamin C (Multi-Delyn Liquid) 5 ml PEG DAILY [facility] Last Admin: 08/22/18 11:25 Dose: 5 ml Nitroglycerin (Nitro-Dur 0.2 Mg/Hr Patch) 1 patch TD DAILY PRN PRN Reason: Systolic Blood Pressure Rosuvastatin Calcium (Crestor) 10 mg PEG HS [facility] Last Admin: 08/22/18 21:30 Dose: 10 mg - Labs Labs: 08/22/18 08:17 08/22/18 08:17 PT 11.2 SECONDS (9.7-12.2) 08/15/18 07:06 INR 1.0 08/15/18 07:06 APTT 27 SECONDS (21-34) 08/15/18 07:06 - Constitutional Appears: No Acute Distress, Chronically Ill - Head Exam Head Exam: NORMAL INSPECTION - Eye Exam Eye Exam: Normal appearance - ENT Exam ENT Exam: Normal Exam - Neck Exam Neck Exam: Normal Inspection - Respiratory Exam Respiratory Exam: Rhonchi Additional comments: Less rhonchi bilaterally. - Cardiovascular Exam Cardiovascular Exam: REGULAR RHYTHM - GI/Abdominal Exam GI & Abdominal Exam: Soft, Normal Bowel Sounds - Rectal Exam Rectal Exam: Deferred - Exam Exam: NORMAL INSPECTION - Extremities Exam Extremities Exam: Normal Inspection - Back Exam Back Exam: NORMAL INSPECTION - Neurological Exam Neurological Exam: Alert, Awake Additional comments: Confused. - Psychiatric Exam Additional comments: Confused. - Skin Skin Exam: Dry, Intact, Normal Color, Warm Assessment and Plan (1) Bradycardia Status: Chronic (2) Vertebro-basilar artery syndrome Status: Acute (3) Severe dementia Status: Chronic (4) More than 50 percent stenosis of right internal carotid artery Assessment & Plan: S/p right carotid endarterectomy. Status: Resolved (5) COPD (chronic obstructive pulmonary disease) Status: Chronic (6) Dysphagia Assessment & Plan: Will repeat swallowing evaluation. Status: Acute (7) Aspiration pneumonia Assessment & Plan: To continue NGT feeding and IV antibiotics. Status: Acute
[2018-08-23] MEDS: Albuterol-Ipratrop 3 mg / 0.5 (3 ml) UD INH SCH ×4 (01:35→20:19)
[2018-08-23] MEDS: MethylPREDNISolone 40 mg Vial IVP SCH ×3 (05:01→22:53)
[2018-08-23] MEDS: Piperacillin/Tazobact 3.375 GM in Sodium Chloride 100 ML IVPB SCH ×3 (05:01→22:53)
[2018-08-23] MEDS: Vancomycin 1 gm/NS 200 ml 1 GM/200 ML BAG IVPB SCH (09:47)
[2018-08-23] MEDS: Multiple Vitamins Oral Solution PEG SCH (09:48)
[2018-08-23] MEDS: Enoxaparin 40 mg Syringe SC SCH (09:49)
[2018-08-23] MEDS ORDERED: Acetaminophen 650mg/20.3ml solution UD NG PRN (13:00)
--- NOTE | 2018-08-23 14:38 | PCM.PROC ---
Procedures Attestation:: I certify that I have explained the specified Operation(s) or Procedure(s), risks, benefits and reasonable alternatives to the Patient and/or other person responsible. The opportunity was given to ask questions and all questions answered - Feeding Tube Replacement Type of Tube: nasogastric Insertion Site Prior to Procedure: clean Serbian Tube Size (F): 16 Verification of Placement: auscultation Tube Secured by: tape/dressing Patient Tolerated Procedure: well
--- NOTE | 2018-08-23 14:41 | RAD ---
Date of service: 08/23/2018 HISTORY: NG Tube placement COMPARISON: 08/21/2018 FINDINGS: Nasogastric tube terminates in the stomach. LUNGS: The lungs are well inflated and clear. PLEURA: No pleural effusions or pneumothorax. CARDIOVASCULAR: The heart is normal in size. No aortic atherosclerotic calcifications present. OSSEOUS STRUCTURES: Within normal limits for the patient's age. VISUALIZED UPPER ABDOMEN: Normal. OTHER FINDINGS: An IVC filter remains in place.. IMPRESSION: Nasogastric tube terminates in the stomach. No acute findings.
--- NOTE | 2018-08-23 14:46 | PN ---
DATE: 08/23/2018 SUBJECTIVE: The patient is seen. The patient is still confused and trying to pull his lines.. The patient has hand mittens. The patient is off any psych medication, but his behavioral problems are redirectable. REVIEW OF MEDICATIONS: The patient is on Aricept for dementia. Note, however, on the medication list was stated the patient is on PEG tube. The patient does not have PEG tube. The patient has NGT. Still has problem swallowing. REVIEW OF SYSTEMS: The patient is still confused, in observation room with hand mittens. The patient is on NGT. The patient does not have PEG tube. PHYSICAL EXAMINATION: VITAL SIGNS: Temperature 97.8, pulse 86, blood pressure 168/70, respirations 18, oxygen sat 92%. SKIN: No diaphoresis. HEENT: No headache or dizziness. Has NGT. NECK: Supple. RESPIRATORY: No dyspnea. The patient noted to be coughing, sounds congested. CARDIOVASCULAR: No chest pain. GASTROINTESTINAL: The patient has NGT. Has problem swallowing. EXTREMITIES: Has hand mittens. NEUROLOGIC: Alert, but confused. GENITOURINARY: No dysuria. MENTAL STATUS EXAMINATION: An elderly male, looks stated age, confused, history of dementia. Speech is slow. Affect restricted. Mood dysphoric. Thought process, confused. Thought content, no psychosis. No suicidal or homicidal ideation. Attention and memory seem to be impaired. Insight and judgment impaired. Impulse control is guarded at this time. IMPRESSION: Dementia with behavioral problems with delirium secondary to pneumonia. PLAN AND RECOMMENDATION: The patient is seen, meds reviewed. Continue present management. Continue Aricept for dementia, although we will need to change the order to give the medication by NGT, not by PEG. Discussed with nurse. Also continue to keep the patient in a four-bedded room for monitoring. Joe Song MD MTDD
--- NOTE | 2018-08-23 14:59 | CP.PCM.PCO ---
Physician Communication Note - Physician Communication Note Physician Communication Note: NGT placement verified, as per auscultation. Ok to use are per Chest Xray.
[2018-08-24] MEDS: Albuterol-Ipratrop 3 mg / 0.5 (3 ml) UD INH SCH ×3 (01:09→19:29)
[2018-08-24] MEDS: MethylPREDNISolone 40 mg Vial IVP SCH ×2 (05:02→17:12)
[2018-08-24] MEDS: Piperacillin/Tazobact 3.375 GM in Sodium Chloride 100 ML IVPB SCH ×3 (05:02→21:21)
[2018-08-24] MEDS: Enoxaparin 40 mg Syringe SC SCH (10:48)
[2018-08-24] MEDS: Vancomycin 1 gm/NS 200 ml 1 GM/200 ML BAG IVPB SCH (10:48)
[2018-08-24] MEDS: Multiple Vitamins Oral Solution NG SCH (10:50)
[2018-08-24 11:55] LABS: EOS % 0.1 % (0.0-4.0); HEMOGLOBIN 14.6 g/dL (12.0-18.0); LYMPH # 1.3 K/uL (1.0-4.3); LYMPH % 8.3 % (20.0-40.0); MEAN CELL VOLUME 93.9 fL (80.0-94.0); MEAN CORPUSCULAR HEMOGLOBIN 32.1 pg (27.0-31.0); MEAN CORPUSCULAR HGB CONC 34.2 g/dL (33.0-37.0); MEAN PLATELET VOLUME 7.8 fL (7.2-11.7); MONO # 1.2 K/uL (0.0-0.8); MONO % 7.9 % (0.0-10.0); NEUT % 83.7 % (50.0-75.0); NRBC % 0.1 % (0.0-2.0); PLATELET COUNT 351 K/uL (130-400); RBC 4.55 Mil/uL (4.40-5.90); WHITE BLOOD COUNT 15.6 K/uL (4.8-10.8)
[2018-08-24 12:21] LABS: ALB/GLOB RATIO 1.2 (1.0-2.1); ALBUMIN 3.6 g/dL (3.5-5.0); ALT/SGPT 55 U/L (21-72); AST/SGOT 46 U/L (17-59); BLOOD UREA NITROGEN 27 mg/dL (9-20); GFR NON-AFRICAN AMERICAN > 60
[2018-08-24 13:01] LABS: LYMPHOCYTE 10 % (20-40); MONOCYTE 9 % (0-10); NEUTROPHIL 80 % (50-75); PLATELET ESTIMATE NORMAL (NORMAL); REACTIVE LYMPHOCYTES 1 % (0-0); TOTAL CELLS COUNTED 100
[2018-08-24 13:02] LABS: LARGE PLATELETS PRESENT
--- NOTE | 2018-08-24 13:05 | CP.PCM.PN ---
Subjective - Date & Time of Evaluation Date of Evaluation: 08/24/18 Time of Evaluation: 10:00 - Subjective Subjective: Patient seen and examined Patient is less short of breath Remains on high flow oxygen Objective - Vital Signs/Intake and Output Vital Signs (last 24 hours): Temp Pulse Resp BP Pulse Ox 98.1 F 73 20 168/86 H 4 L 08/24/18 08:00 08/24/18 12:00 08/24/18 08:00 08/24/18 08:00 08/24/18 08:00 Intake and Output: 08/24/18 08/24/18 06:59 18:59 Intake Total 900 Output Total 750 600 Balance 150 -600 - Medications Medications: Current Medications Acetaminophen (Tylenol 650 Mg Supp) 650 mg [place] Q4 PRN PRN Reason: temperature>100.4 and pain Last Admin: 08/17/18 17:00 Dose: 650 mg Acetaminophen (Tylenol 650mg/20.3ml Solution Ud) 650 mg NG Q6 PRN PRN Reason: Pain, Mild (1-3) Albuterol/Ipratropium (Duoneb 3 Mg/0.5 Mg (3 Ml) Ud) 3 ml INH RQ6 [facility] Last Admin: 08/24/18 09:16 Dose: 3 ml Aspirin (Aspirin Chewable) 81 mg NG DAILY [facility] Last Admin: 08/24/18 10:49 Dose: Not Given Clopidogrel Bisulfate (Plavix) 75 mg NG DAILY [facility] Last Admin: 08/24/18 10:50 Dose: Not Given Donepezil HCl (Aricept) 5 mg NG HS [facility] Last Admin: 08/23/18 22:53 Dose: 5 mg Enoxaparin Sodium (Lovenox) 40 mg SC DAILY [facility] Last Admin: 08/24/18 10:48 Dose: 40 mg Famotidine (Pepcid) 20 mg IVP DAILY [facility] Last Admin: 08/24/18 10:49 Dose: 20 mg Folic Acid (Folic Acid) 1 mg NG DAILY [facility] Last Admin: 08/24/18 10:49 Dose: Not Given Sodium Nitroprusside 50 mg/ (Dextrose) 252 mls @ 0 mls/hr IV Q8 PRN PRN Reason: Systolic Blood Pressure >180 Piperacillin Sod/Tazobactam (Sod 3.375 gm/ Sodium Chloride) 100 mls @ 200 mls/hr IVPB Q8H [facility]; Protocol Last Admin: 08/24/18 05:02 Dose: 200 mls/hr Vancomycin/Sodium Chloride (Vancomycin 1 Gm/Ns 200 Ml) 1 gm in 200 mls @ 133 mls/hr IVPB DAILY [facility]; Protocol Stop: 08/28/18 10:01 Last Admin: 08/24/18 10:48 Dose: 133 mls/hr Multivitamins/Vitamin C 10 ml/Chromium/Copper/Manganese/Zinc 1 ml/ Amino Acids 1,011 mls @ 42 mls/hr IV .Q24H [facility] Stop: 08/25/18 17:59 Methylprednisolone (Solu-Medrol) 40 mg IVP Q12H [facility] Multivitamins/Vitamin C (Multi-Delyn Liquid) 5 ml NG DAILY [facility] Last Admin: 08/24/18 10:50 Dose: Not Given Nitroglycerin (Nitro-Dur 0.2 Mg/Hr Patch) 1 patch TD DAILY PRN PRN Reason: Systolic Blood Pressure Rosuvastatin Calcium (Crestor) 10 mg NG HS [facility] Last Admin: 08/23/18 22:53 Dose: 10 mg - Labs Labs: 08/24/18 11:41 08/24/18 11:41 PT 11.2 SECONDS (9.7-12.2) 08/15/18 07:06 INR 1.0 08/15/18 07:06 APTT 27 SECONDS (21-34) 08/15/18 07:06 - Head Exam Head Exam: ATRAUMATIC, NORMOCEPHALIC - ENT Exam ENT Exam: Mucous Membranes Moist - Neck Exam Neck Exam: Normal Inspection - Respiratory Exam Respiratory Exam: Decreased Breath Sounds - Cardiovascular Exam Cardiovascular Exam: REGULAR RHYTHM Assessment and Plan (1) Respiratory distress, acute Assessment & Plan: Continue antibiotics Continue nebulizer treatment and steroids Follow-up ABG and chest x-ray Clinical improvement Status: Acute (2) Pneumonia Status: Acute (3) COPD (chronic obstructive pulmonary disease) Status: Chronic
--- NOTE | 2018-08-24 16:03 | PN ---
DATE: 08/24/2018 SUBJECTIVE: The patient is still feeling weak, confused. The patient pulled his NG tube today, still restless at times and sounds very congestive. The patient is still in four-bedded room and needs constant redirection. REVIEW OF SYSTEMS: The patient is seen in his room with hand mittens, still confused, restless at times, speaks with a weak voice. PHYSICAL EXAMINATION: VITAL SIGNS: Temperature 97.8, pulse 71, blood pressure 144/74, respirations 20, oxygen saturation is 95%. SKIN: No diaphoresis. HEENT: No headache or dizziness. RESPIRATORY: The patient is coughing, sounds very congested, but not in acute respiratory distress. CARDIOVASCULAR: No chest pain. GASTROINTESTINAL: He has NG tube and he pulled his NG tube today. EXTREMITIES: He has hand mittens. Restless at times. MUSCULOSKELETAL: Feels weak. NEUROLOGIC: Alert, still confused, oriented x1. MENTAL STATUS EXAMINATION: Elderly male seen in his room, oriented x1. Mood is dysphoric. Affect is reactive. Speech is low, has a weak voice. Thought process, confused. Thought content, the patient states he does not want to go home. He wants to stay in the hospital. No psychosis. No suicidal or homicidal ideation. Attention and memory seem to be impaired. Insight and judgment impaired. Impulse control is guarded at this time. IMPRESSION: Senile onset dementia, mood changes as well as delirium, metabolic encephalopathy secondary to pneumonia. PLAN AND RECOMMENDATIONS: The patient is seen, meds reviewed. Continue present management. We will keep the patient off any sedatives for now. Continue antibiotics as ordered. Joe Song MD MTDD
[2018-08-24] MEDS ORDERED: Iodixanol 320 MG/ML 100 ML BOTTLE IV ONE (17:06)
[2018-08-24] MEDS ORDERED: PPN IV SCH (18:00)
--- NOTE | 2018-08-24 21:54 | OP ---
PROCEDURE DATE: 08/24/2018 PREOPERATIVE DIAGNOSIS: Dysphagia. POSTOPERATIVE DIAGNOSIS: Dysphagia. PROCEDURE: Flexible laryngoscopy. SURGEON: Lorenzo Kenney MD SIGNIFICANT FINDINGS: Pooling of secretions. DESCRIPTION OF PROCEDURE: The patient was brought into the room, was placed in a seated position. The nose was decongested using Afrin. Flexible laryngoscope was inserted into the nasal cavity, passed through the nasopharynx, oropharynx, and hypopharynx. The pharyngeal cortez, base of tongue, vallecula, epiglottis, the AE folds, false cords, true cords, and piriform sinuses were brought into view. There was pooling of secretion of material from sinuses on both sides as well as both cricoid area. Good visualization could not be obtained secondary to this. Therefore, a CAT scan is recommended as well as a modified barium swallow. Lorenzo Kenney MD
--- NOTE | 2018-08-24 23:09 | CP.PCM.PN ---
Subjective - Date & Time of Evaluation Date of Evaluation: 08/24/18 Time of Evaluation: 20:15 - Subjective Subjective: Patient awake, confused, in no respiratory, on NGT feeding. Objective - Vital Signs/Intake and Output Vital Signs (last 24 hours): Temp Pulse Resp BP Pulse Ox 98.4 F 90 20 141/78 90 L 08/24/18 15:33 08/24/18 18:00 08/24/18 15:57 08/24/18 15:33 08/24/18 15:33 Intake and Output: 08/24/18 08/25/18 18:59 06:59 Intake Total 700 300 Output Total 1200 500 Balance -500 -200 - Medications Medications: Current Medications Acetaminophen (Tylenol 650 Mg Supp) 650 mg [place] Q4 PRN PRN Reason: temperature>100.4 and pain Last Admin: 08/17/18 17:00 Dose: 650 mg Acetaminophen (Tylenol 650mg/20.3ml Solution Ud) 650 mg NG Q6 PRN PRN Reason: Pain, Mild (1-3) Albuterol/Ipratropium (Duoneb 3 Mg/0.5 Mg (3 Ml) Ud) 3 ml INH RQ6 [facility] Last Admin: 08/24/18 19:29 Dose: 3 ml Aspirin (Aspirin Chewable) 81 mg NG DAILY [facility] Last Admin: 08/24/18 10:49 Dose: Not Given Clopidogrel Bisulfate (Plavix) 75 mg NG DAILY [facility] Last Admin: 08/24/18 10:50 Dose: Not Given Donepezil HCl (Aricept) 5 mg NG HS [facility] Last Admin: 08/24/18 21:22 Dose: Not Given Enoxaparin Sodium (Lovenox) 40 mg SC DAILY [facility] Last Admin: 08/24/18 10:48 Dose: 40 mg Famotidine (Pepcid) 20 mg IVP DAILY [facility] Last Admin: 08/24/18 10:49 Dose: 20 mg Folic Acid (Folic Acid) 1 mg NG DAILY [facility] Last Admin: 08/24/18 10:49 Dose: Not Given Sodium Nitroprusside 50 mg/ (Dextrose) 252 mls @ 0 mls/hr IV Q8 PRN PRN Reason: Systolic Blood Pressure >180 Piperacillin Sod/Tazobactam (Sod 3.375 gm/ Sodium Chloride) 100 mls @ 200 mls/hr IVPB Q8H [facility]; Protocol Last Admin: 08/24/18 21:21 Dose: 200 mls/hr Vancomycin/Sodium Chloride (Vancomycin 1 Gm/Ns 200 Ml) 1 gm in 200 mls @ 133 mls/hr IVPB DAILY [facility]; Protocol Stop: 08/28/18 10:01 Last Admin: 08/24/18 10:48 Dose: 133 mls/hr Multivitamins/Vitamin C 10 ml/Chromium/Copper/Manganese/Zinc 1 ml/ Amino Acids 1,011 mls @ 42 mls/hr IV .Q24H [facility] Stop: 08/25/18 17:59 Last Admin: 08/24/18 17:01 Dose: 42 mls/hr Methylprednisolone (Solu-Medrol) 40 mg IVP Q12H [facility] Last Admin: 08/24/18 17:12 Dose: 40 mg Multivitamins/Vitamin C (Multi-Delyn Liquid) 5 ml NG DAILY [facility] Last Admin: 08/24/18 10:50 Dose: Not Given Nitroglycerin (Nitro-Dur 0.2 Mg/Hr Patch) 1 patch TD DAILY PRN PRN Reason: Systolic Blood Pressure Rosuvastatin Calcium (Crestor) 10 mg NG HS [facility] Last Admin: 08/24/18 21:22 Dose: Not Given - Labs Labs: 08/24/18 11:41 08/24/18 11:41 PT 11.2 SECONDS (9.7-12.2) 08/15/18 07:06 INR 1.0 08/15/18 07:06 APTT 27 SECONDS (21-34) 08/15/18 07:06 - Constitutional Appears: No Acute Distress, Confused, Cachectic, Chronically Ill - Head Exam Head Exam: NORMAL INSPECTION - Eye Exam Eye Exam: Normal appearance - ENT Exam ENT Exam: Normal Exam - Neck Exam Additional comments: S/p right carotid endarterectomy. - Respiratory Exam Respiratory Exam: Rhonchi Additional comments: Few rhonchi bilaterally. - Cardiovascular Exam Cardiovascular Exam: REGULAR RHYTHM - GI/Abdominal Exam GI & Abdominal Exam: Soft, Normal Bowel Sounds - Rectal Exam Rectal Exam: Deferred - Exam Exam: NORMAL INSPECTION - Extremities Exam Extremities Exam: Normal Inspection - Back Exam Back Exam: NORMAL INSPECTION - Neurological Exam Neurological Exam: Awake Additional comments: Confused. - Psychiatric Exam Psychiatric exam: Agitated - Skin Skin Exam: Dry, Intact, Normal Color, Warm Assessment and Plan (1) Bradycardia Status: Chronic (2) Vertebro-basilar artery syndrome Status: Acute (3) Severe dementia Status: Chronic (4) More than 50 percent stenosis of right internal carotid artery Status: Resolved (5) COPD (chronic obstructive pulmonary disease) Status: Chronic (6) Dysphagia Assessment & Plan: ENT consult. Status: Acute (7) Aspiration pneumonia Assessment & Plan: CXR on 08/23/2018: clear lungs. Status: Acute
[2018-08-25] MEDS: Albuterol-Ipratrop 3 mg / 0.5 (3 ml) UD INH SCH ×4 (01:25→20:02)
[2018-08-25] MEDS: Piperacillin/Tazobact 3.375 GM in Sodium Chloride 100 ML IVPB SCH ×3 (05:01→21:49)
[2018-08-25] MEDS: MethylPREDNISolone 40 mg Vial IVP SCH ×2 (05:02→17:11)
[2018-08-25] MEDS: Enoxaparin 40 mg Syringe SC SCH (09:19)
[2018-08-25] MEDS: Vancomycin 1 gm/NS 200 ml 1 GM/200 ML BAG IVPB SCH (09:34)
[2018-08-25] MEDS: Multiple Vitamins Oral Solution NG SCH (11:26)
--- NOTE | 2018-08-25 14:16 | PN ---
DATE: 08/25/2018 SUBJECTIVE: The patient is seen in four-bedded room, still confused and alert. The patient expressing desire to go home. As per chart, the patient was seen by Dr. Kenney and underwent flexible laryngoscopy because the patient has pooling of secretions and sound very congested. The patient still has difficulty swallowing. The patient is still on antibiotic for pneumonia. REVIEW OF SYSTEMS: The patient is alert, but confused. Oriented x1. Seen in four-bedded room with hand mittens. PHYSICAL EXAMINATION: VITAL SIGNS: Temperature is 98.6, heart rate 105, blood pressure 147/81, respirations is 20, oxygen sat is low 87%. SKIN: No diaphoresis. HEENT: No headache. No dizziness. NECK: Supple. RESPIRATORY: Not in acute respiratory distress. CARDIOVASCULAR: No chest pain. GASTROINTESTINAL: The patient is not complaining of nausea or vomiting. MUSCULOSKELETAL: Feels weak. NEUROLOGIC: Alert, but confused. GENITOURINARY: No dysuria. MENTAL STATUS EXAMINATION: An elderly male with history of dementia, oriented x1. Speech is slow. Affect restricted. Mood dysphoric. Thought process, confused. Thought content, the patient wants to go home. No overt psychosis. No suicidal or homicidal ideation. Attention and memory seem to be limited. Insight and judgment limited. Impulse control is guarded at this time. IMPRESSION: Senile onset dementia with mood changes as well as delirium. PLAN AND RECOMMENDATIONS: The patient is seen, meds reviewed. Continue present management. Continue treatment plan. We will keep the patient in the four-bedded room for close monitoring. The patient at this time still has NG tube for access for his meds. Joe Song MD
--- NOTE | 2018-08-25 15:59 | CP.PCM.PN ---
Subjective - Date & Time of Evaluation Date of Evaluation: 08/25/18 Time of Evaluation: 15:55 - Subjective Subjective: Patient awake, confused, in no respiratory distress, now on PPN. Seen by Dr Kenney. CT scan of the neck and swallowing video ordered. Objective - Vital Signs/Intake and Output Vital Signs (last 24 hours): Temp Pulse Resp BP Pulse Ox 98.6 F 105 H 22 147/81 87 L 08/25/18 07:00 08/25/18 08:31 08/25/18 15:52 08/25/18 07:00 08/25/18 07:00 Intake and Output: 08/25/18 08/25/18 06:59 18:59 Intake Total 636 Output Total 1400 Balance -764 - Medications Medications: Current Medications Acetaminophen (Tylenol 650 Mg Supp) 650 mg [place] Q4 PRN PRN Reason: temperature>100.4 and pain Last Admin: 08/17/18 17:00 Dose: 650 mg Acetaminophen (Tylenol 650mg/20.3ml Solution Ud) 650 mg NG Q6 PRN PRN Reason: Pain, Mild (1-3) Albuterol/Ipratropium (Duoneb 3 Mg/0.5 Mg (3 Ml) Ud) 3 ml INH RQ6 [facility] Last Admin: 08/25/18 13:21 Dose: 3 ml Aspirin (Aspirin Chewable) 81 mg NG DAILY [facility] Last Admin: 08/25/18 11:26 Dose: Not Given Clopidogrel Bisulfate (Plavix) 75 mg NG DAILY [facility] Last Admin: 08/25/18 11:27 Dose: Not Given Donepezil HCl (Aricept) 5 mg NG HS [facility] Last Admin: 08/24/18 21:22 Dose: Not Given Enoxaparin Sodium (Lovenox) 40 mg SC DAILY [facility] Last Admin: 08/25/18 09:19 Dose: 40 mg Famotidine (Pepcid) 20 mg IVP DAILY [facility] Last Admin: 08/25/18 09:19 Dose: 20 mg Folic Acid (Folic Acid) 1 mg NG DAILY [facility] Last Admin: 08/25/18 11:26 Dose: Not Given Sodium Nitroprusside 50 mg/ (Dextrose) 252 mls @ 0 mls/hr IV Q8 PRN PRN Reason: Systolic Blood Pressure >180 Piperacillin Sod/Tazobactam (Sod 3.375 gm/ Sodium Chloride) 100 mls @ 200 mls/hr IVPB Q8H [facility]; Protocol Last Admin: 08/25/18 15:06 Dose: 200 mls/hr Vancomycin/Sodium Chloride (Vancomycin 1 Gm/Ns 200 Ml) 1 gm in 200 mls @ 133 mls/hr IVPB DAILY [facility]; Protocol Stop: 08/28/18 10:01 Last Admin: 08/25/18 09:34 Dose: 133 mls/hr Multivitamins/Vitamin C 10 ml/Chromium/Copper/Manganese/Zinc 1 ml/ Amino Acids 1,011 mls @ 42 mls/hr IV .Q24H [facility] Stop: 08/25/18 17:59 Last Admin: 08/24/18 17:01 Dose: 42 mls/hr Multivitamins/Vitamin C 10 ml/Chromium/Copper/Manganese/Zinc 1 ml/ Amino Acids 1,011 mls @ 42 mls/hr IV .Q24H [facility] Stop: 08/26/18 18:00 Methylprednisolone (Solu-Medrol) 40 mg IVP Q12H [facility] Last Admin: 08/25/18 05:02 Dose: 40 mg Multivitamins/Vitamin C (Multi-Delyn Liquid) 5 ml NG DAILY [facility] Last Admin: 08/25/18 11:26 Dose: Not Given Nitroglycerin (Nitro-Dur 0.2 Mg/Hr Patch) 1 patch TD DAILY PRN PRN Reason: Systolic Blood Pressure Rosuvastatin Calcium (Crestor) 10 mg NG HS [facility] Last Admin: 08/24/18 21:22 Dose: Not Given - Labs Labs: 08/24/18 11:41 08/24/18 11:41 PT 11.2 SECONDS (9.7-12.2) 08/15/18 07:06 INR 1.0 08/15/18 07:06 APTT 27 SECONDS (21-34) 08/15/18 07:06 - Constitutional Appears: No Acute Distress, Cachectic, Chronically Ill - Head Exam Head Exam: NORMAL INSPECTION - Eye Exam Eye Exam: Normal appearance - ENT Exam ENT Exam: Normal Exam - Neck Exam Neck Exam: Normal Inspection - Respiratory Exam Respiratory Exam: Rhonchi - Cardiovascular Exam Cardiovascular Exam: REGULAR RHYTHM - GI/Abdominal Exam GI & Abdominal Exam: Soft, Normal Bowel Sounds - Rectal Exam Rectal Exam: Deferred - Exam Exam: NORMAL INSPECTION - Extremities Exam Extremities Exam: Normal Inspection - Back Exam Back Exam: NORMAL INSPECTION - Neurological Exam Neurological Exam: Alert, Awake Additional comments: Confused. - Psychiatric Exam Psychiatric exam: Agitated - Skin Skin Exam: Dry, Normal Color Additional comments: Sacral decubitus ulcer. Assessment and Plan (1) Bradycardia Status: Chronic (2) Vertebro-basilar artery syndrome Status: Acute (3) Severe dementia Status: Chronic (4) More than 50 percent stenosis of right internal carotid artery Status: Resolved (5) COPD (chronic obstructive pulmonary disease) Status: Chronic (6) Dysphagia Assessment & Plan: On PPN now. May need a PEG. Status: Acute (7) Aspiration pneumonia Assessment & Plan: On high flow O2, and IV antibiotics. Status: Acute
--- NOTE | 2018-08-25 16:57 | CT ---
Date of service: 08/24/2018 PROCEDURE: CT NECK WITH CONTRAST HISTORY: dysphagia COMPARISON: None available. TECHNIQUE: CT of the neck with intravenous contrast. Coronal and sagittal reformats generated. Intravenous contrast dose: 100 mL Visipaque 320 Radiation dose: Total exam DLP = 420.1 mGy-cm. This CT exam was performed using one or more of the following dose reduction techniques: Automated exposure control, adjustment of the mA and/or kV according to patient size, and/or use of iterative reconstruction technique. FINDINGS: Please note that the examination is technically limited due to oblique positioning of the patient for the examination. NASOPHARYNX: Unremarkable. SUPRAHYOID NECK: Unremarkable oropharynx, oral cavity, parapharyngeal space and retropharyngeal space. INFRAHYOID NECK: Unremarkable larynx, hypopharynx, and supraglottic space. Vocal cords intact. MASS: None. GLANDS: Parotid and submandibular glands unremarkable. Normal size thyroid gland, without nodule. LYMPH NODES: Normal. No lymphadenopathy. CERVICAL SPINE: Multilevel degenerative disc disease. No evidence of fracture or listhesis. VASCULAR STRUCTURES: Unremarkable. OTHER FINDINGS: None. IMPRESSION: Unremarkable examination aside from multilevel degenerative disc disease of the cervical spine. Technically limited as above. The preliminary findings for this examination were reported by [facility] at 8:12 p.m. on 08/24/2018. There is concurrence of this report with the preliminary findings.
[2018-08-25] MEDS: PPN IV SCH (18:00)
[2018-08-26] MEDS: Albuterol-Ipratrop 3 mg / 0.5 (3 ml) UD INH SCH ×4 (02:43→19:23)
--- NOTE | 2018-08-26 04:23 | CP.PCM.PCO ---
Addendum Addendum: 08/26/18 04:20 Patient was asked to be seen by nurse Bar for hypoxia on vaportherm. Trials of high flow at max settings was tried however patient continued to saturate at 81-87%. Patient was then switched to BiPap however was still oxygenating at similar numbers. CXR was ordered and ICU attending was asked for a formal input of the situation. BIPAP settings were adjusted and patient oxygenation came up and was between 92-94%. ICU attending and medicine resident were concerned that if patient was intubated that he may unable to be extubated in his situation. Recommend palliative consult to have discussion of goals of care with family.
--- NOTE | 2018-08-26 04:32 | CP.PCM.CON ---
History of Present Illness - History of Present Illness History of Present Illness: Called to evaluate patient with tachypnea and hypoxia on high flow O2 Pt is a 68 y/o male with hx of dementia, COPD, hypertension, hyperlipidemia , high grade stenosis of ALAN s/p Endarterectomy . Patient very tachypneic with respiratory rate in the mid 30s and heart rate in the low 100's.He was desaturation on high flow O2,placed on BIPAP with improvement in saturation.On Zosyn and vancomycin for pneumonia. The patient is awake and agitated on BIPAP with mittens to both hands He is on 1:1 observation. Review of Systems - Review of Systems Review of Systems: patient with dementia,unable to get history Past Patient History - Infectious Disease Hx of Infectious Diseases: None - Tetanus Immunizations Tetanus Immunization: Unknown - Past Medical History & Family History Past Medical History?: Yes - Past Social History Smoking Status: Heavy Smoker > 10 Cigarettes Daily Alcohol: None Drugs: Denies Home Situation {Lives}: With Family Domestic Violence: Negative - PULMONARY Hx Emphysema: Yes - NEUROLOGICAL Hx Alzheimer's Disease: Yes Hx Dementia: Yes Hx Dizziness: Yes - MUSCULOSKELETAL/RHEUMATOLOGICAL Hx Falls: No Hx Unsteady Gait: Yes - PSYCHIATRIC Hx Substance Use: No - SURGICAL HISTORY Hx Surgeries: Yes (insertion of an IVC filter many years ago.) Other/Comment: Vein stripping - ANESTHESIA Hx Anesthesia: Yes Hx Anesthesia Reactions: No Meds Allergies/Adverse Reactions: Allergies Allergy/AdvReac Type Severity Reaction Status Date / Time No Known Allergies Allergy Verified 04/09/18 12:02 - Medications Medications: Current Medications Acetaminophen (Tylenol 650 Mg Supp) 650 mg [place] Q4 PRN PRN Reason: temperature>100.4 and pain Last Admin: 08/17/18 17:00 Dose: 650 mg Acetaminophen (Tylenol 650mg/20.3ml Solution Ud) 650 mg NG Q6 PRN PRN Reason: Pain, Mild (1-3) Albuterol/Ipratropium (Duoneb 3 Mg/0.5 Mg (3 Ml) Ud) 3 ml INH RQ6 [facility] Last Admin: 08/26/18 02:43 Dose: 3 ml Aspirin (Aspirin Chewable) 81 mg NG DAILY [facility] Last Admin: 08/25/18 11:26 Dose: Not Given Clopidogrel Bisulfate (Plavix) 75 mg NG DAILY [facility] Last Admin: 08/25/18 11:27 Dose: Not Given Donepezil HCl (Aricept) 5 mg NG HS [facility] Last Admin: 08/25/18 21:45 Dose: 5 mg Enoxaparin Sodium (Lovenox) 40 mg SC DAILY [facility] Last Admin: 08/25/18 09:19 Dose: 40 mg Famotidine (Pepcid) 20 mg IVP DAILY [facility] Last Admin: 08/25/18 09:19 Dose: 20 mg Folic Acid (Folic Acid) 1 mg NG DAILY [facility] Last Admin: 08/25/18 11:26 Dose: Not Given Sodium Nitroprusside 50 mg/ (Dextrose) 252 mls @ 0 mls/hr IV Q8 PRN PRN Reason: Systolic Blood Pressure >180 Piperacillin Sod/Tazobactam (Sod 3.375 gm/ Sodium Chloride) 100 mls @ 200 mls/hr IVPB Q8H [facility]; Protocol Last Admin: 08/25/18 21:49 Dose: 200 mls/hr Vancomycin/Sodium Chloride (Vancomycin 1 Gm/Ns 200 Ml) 1 gm in 200 mls @ 133 mls/hr IVPB DAILY [facility]; Protocol Stop: 08/28/18 10:01 Last Admin: 08/25/18 09:34 Dose: 133 mls/hr Multivitamins/Vitamin C 10 ml/Chromium/Copper/Manganese/Zinc 1 ml/ Amino Acids 1,011 mls @ 42 mls/hr IV .Q24H [facility] Stop: 08/26/18 18:00 Last Admin: 08/25/18 18:00 Dose: 42 mls/hr Methylprednisolone (Solu-Medrol) 40 mg IVP Q12H [facility] Last Admin: 08/25/18 17:11 Dose: 40 mg Multivitamins/Vitamin C (Multi-Delyn Liquid) 5 ml NG DAILY [facility] Last Admin: 08/25/18 11:26 Dose: Not Given Nitroglycerin (Nitro-Dur 0.2 Mg/Hr Patch) 1 patch TD DAILY PRN PRN Reason: Systolic Blood Pressure Rosuvastatin Calcium (Crestor) 10 mg NG HS [facility] Last Admin: 08/25/18 21:45 Dose: 10 mg Physical Exam - Constitutional Appears: No Acute Distress, Agitated, Confused - Head Exam Head Exam: ATRAUMATIC, NORMAL INSPECTION - Eye Exam Eye Exam: PERRL - ENT Exam ENT Exam: Mucous Membranes Moist - Respiratory Exam Additional comments: decreased airentry in bases - Cardiovascular Exam Cardiovascular Exam: REGULAR RHYTHM - GI/Abdominal Exam GI & Abdominal Exam: Normal Bowel Sounds, Soft - Extremities Exam Extremities exam: Negative for: pedal edema Additional comments: moves all extremities - Neurological Exam Neurological exam: Altered Results - Vital Signs Recent Vital Signs: Last Vital Signs Temp 98.8 F 08/25/18 23:33 Pulse 102 H 08/26/18 00:00 Resp 20 08/26/18 02:45 BP 135/85 08/25/18 23:33 Pulse Ox 89 L 08/25/18 23:33 - Labs Result Diagrams: 08/24/18 11:41 08/24/18 11:41 Labs: Laboratory Results - last 24 hr 08/25/18 08/25/18 08/25/18 06:39 11:27 16:39 POC Glucose (mg/dL) 129 H 134 H 115 H 08/25/18 21:34 POC Glucose (mg/dL) 163 H - Imaging and Cardiology Chest x-ray Status: Image reviewed by me Assessment & Plan - Assessment and Plan (Free Text) Assessment: Pneumonia/COPD on IV antibiotics clinically improved with BIPAP continue current treatment
[2018-08-26] MEDS: MethylPREDNISolone 40 mg Vial IVP SCH ×3 (05:55→21:26)
[2018-08-26] MEDS: Piperacillin/Tazobact 3.375 GM in Sodium Chloride 100 ML IVPB SCH ×3 (05:55→21:27)
[2018-08-26 06:10] LABS: ARTERIAL BLOOD GAS HCO3 28.9 mmol/L (21-28); ARTERIAL BLOOD GAS HEMOGLOBIN 15.6 g/dL (11.7-17.4); ARTERIAL BLOOD GAS O2 SAT 97.2 % (95-98); ARTERIAL BLOOD GAS PCO2 56 mm/Hg (35-45); ARTERIAL BLOOD GAS PH 7.37 (7.35-7.45); ARTERIAL BLOOD GAS PO2 87 mm/Hg (80-100); ARTERIAL BLOOD GAS TCO2 34.1 mmol/L (22-28)
[2018-08-26 09:01] LABS: ARTERIAL BLOOD GAS HCO3 29.3 mmol/L (21-28); ARTERIAL BLOOD GAS O2 SAT 81.2 % (95-98); ARTERIAL BLOOD GAS PCO2 56 mm/Hg (35-45); ARTERIAL BLOOD GAS PH 7.38 (7.35-7.45); ARTERIAL BLOOD GAS PO2 44 mm/Hg (80-100); ARTERIAL BLOOD GAS TCO2 34.8 mmol/L (22-28)
[2018-08-26 09:22] LABS: BASO % 0.1 % (0.0-2.0); HEMOGLOBIN 16.5 g/dL (12.0-18.0); LYMPH # 1.1 K/uL (1.0-4.3); LYMPH % 3.5 % (20.0-40.0); MEAN CELL VOLUME 94.2 fL (80.0-94.0); MEAN CORPUSCULAR HEMOGLOBIN 32.4 pg (27.0-31.0); MEAN CORPUSCULAR HGB CONC 34.4 g/dL (33.0-37.0); MEAN PLATELET VOLUME 7.6 fL (7.2-11.7); MONO # 1.3 K/uL (0.0-0.8); MONO % 3.9 % (0.0-10.0); NEUT # 29.5 K/uL (1.8-7.0); NEUT % 92.5 % (50.0-75.0); PLATELET COUNT 427 K/uL (130-400); RBC 5.11 Mil/uL (4.40-5.90); RED CELL DISTRIBUTION WIDTH 13.4 % (11.5-14.5)
[2018-08-26 09:29] LABS: WHITE BLOOD COUNT 31.9 K/uL (4.8-10.8)
[2018-08-26 09:44] LABS: ALB/GLOB RATIO 1.2 (1.0-2.1); ALT/SGPT 79 U/L (21-72); AST/SGOT 52 U/L (17-59); BLOOD UREA NITROGEN 41 mg/dL (9-20); CALCIUM 9.4 mg/dl (8.6-10.4); GFR NON-AFRICAN AMERICAN > 60
[2018-08-26 09:48] LABS: B-TYPE NATRIURETIC PEPTIDE 119 pg/mL (0-900)
[2018-08-26] MEDS: Multiple Vitamins Oral Solution NG SCH (09:52)
[2018-08-26 10:16] LABS: BANDS 9 % (0-2); LYMPHOCYTE 6 % (20-40); MONOCYTE 6 % (0-10); NEUTROPHIL 79 % (50-75); TOTAL CELLS COUNTED 100
[2018-08-26 10:17] LABS: PLATELET ESTIMATE NORMAL (NORMAL); TOXIC GRANULATION PRESENT
[2018-08-26] MEDS: Enoxaparin 40 mg Syringe SC SCH (10:17)
[2018-08-26] MEDS: Vancomycin 1 gm/NS 200 ml 1 GM/200 ML BAG IVPB SCH (10:17)
--- NOTE | 2018-08-26 11:49 | RAD ---
Date of service: 08/26/2018 HISTORY: eval lungs ?congestion COMPARISON: 08/26/2018 TECHNIQUE: 1 view obtained. FINDINGS: LUNGS: No definite infiltrate. Opacity at left base likely due to pleural effusion but cannot rule out superimposed infiltrate. PLEURA: Left pleural effusion. No right pleural effusion or pneumothorax. CARDIOVASCULAR: No aortic atherosclerotic calcification present. Normal cardiac size. No pulmonary vascular congestion. OSSEOUS STRUCTURES: No significant abnormalities. VISUALIZED UPPER ABDOMEN: Normal. OTHER FINDINGS: None. IMPRESSION: Small left pleural effusion. Cannot rule out superimposed infiltrate at left base.
--- NOTE | 2018-08-26 12:11 | RAD ---
Date of service: 08/26/2018 HISTORY: low oxygen saturation COMPARISON: 08/23/2018 TECHNIQUE: 1 view obtained. FINDINGS: LUNGS: No active pulmonary disease. PLEURA: No significant pleural effusion identified, no pneumothorax apparent. CARDIOVASCULAR: No aortic atherosclerotic calcification present. Normal cardiac size. No pulmonary vascular congestion. OSSEOUS STRUCTURES: No significant abnormalities. VISUALIZED UPPER ABDOMEN: Normal. OTHER FINDINGS: None. IMPRESSION: No active disease.
[2018-08-26] MEDS: Heparin25000 units/250ml 1/2NS 25,000 UNITS/250 ML BAG IV PRN (16:29)
[2018-08-26] MEDS: PPN IV SCH (17:41)
[2018-08-26] MEDS ORDERED: Naloxone 0.4 mg/ml Inj (Adult) ONE (17:48)
[2018-08-26] MEDS ORDERED: Dextrose 50% SYRINGE Inj (50 ml) ONE (17:54)
[2018-08-26] MEDS ORDERED: PPN IV SCH (18:00)
[2018-08-26 18:04] LABS: ABG ALLEN TEST POS; ARTERIAL BLOOD GAS HEMOGLOBIN 14.8 g/dL (11.7-17.4)
[2018-08-26] MEDS ORDERED: Rocuronium 10 mg/ml (5 ml) IV ONE (18:20)
[2018-08-26 18:54] LABS: ARTERIAL BLOOD GAS HCO3 25.4 mmol/L (21-28); ARTERIAL BLOOD GAS O2 SAT 95.9 % (95-98); ARTERIAL BLOOD GAS PCO2 106 mm/Hg (35-45); ARTERIAL BLOOD GAS PH 7.11 (7.35-7.45); ARTERIAL BLOOD GAS PO2 81 mm/Hg (80-100)
--- NOTE | 2018-08-26 19:02 | CP.PCM.PN ---
Subjective - Date & Time of Evaluation Date of Evaluation: 08/26/18 Time of Evaluation: 18:52 - Subjective Subjective: PAtient on bi-pap, not responsive and ABG reveals pCO2 150 Objective - Vital Signs/Intake and Output Vital Signs (last 24 hours): Temp Pulse Resp BP Pulse Ox 98.4 F 100 H 17 145/78 94 L 08/26/18 16:43 08/26/18 17:31 08/26/18 17:31 08/26/18 17:31 08/26/18 17:31 Intake and Output: 08/26/18 08/26/18 06:59 18:59 Intake Total 729.5 Output Total 900 Balance -900 729.5 - Medications Medications: Current Medications Acetaminophen (Tylenol 650 Mg Supp) 650 mg AL Q4 PRN PRN Reason: temperature>100.4 and pain Last Admin: 08/17/18 17:00 Dose: 650 mg Acetaminophen (Tylenol 650mg/20.3ml Solution Ud) 650 mg NG Q6 PRN PRN Reason: Pain, Mild (1-3) Albuterol/Ipratropium (Duoneb 3 Mg/0.5 Mg (3 Ml) Ud) 3 ml INH RQ6 [facility]HENG Last Admin: 08/26/18 13:12 Dose: 3 ml Aspirin (Aspirin Chewable) 81 mg NG DAILY [facility]ENG Last Admin: 08/26/18 09:52 Dose: Not Given Clopidogrel Bisulfate (Plavix) 75 mg NG DAILY ZHENG Last Admin: 08/26/18 09:52 Dose: Not Given Donepezil HCl (Aricept) 5 mg NG HS [facility]ENG Last Admin: 08/25/18 21:45 Dose: 5 mg Famotidine (Pepcid) 20 mg IVP DAILY [facility]ENG Last Admin: 08/26/18 10:17 Dose: 20 mg Folic Acid (Folic Acid) 1 mg NG DAILY [facility]HENG Last Admin: 08/26/18 09:52 Dose: Not Given Piperacillin Sod/Tazobactam (Sod 3.375 gm/ Sodium Chloride) 100 mls @ 200 mls/hr IVPB Q8H [facility]ENG; Protocol Last Admin: 08/26/18 13:27 Dose: 200 mls/hr Vancomycin/Sodium Chloride (Vancomycin 1 Gm/Ns 200 Ml) 1 gm in 200 mls @ 133 mls/hr IVPB DAILY ZHENG; Protocol Stop: 08/28/18 10:01 Last Admin: 08/26/18 10:17 Dose: 133 mls/hr Multivitamins/Vitamin C 10 ml/Chromium/Copper/Manganese/Zinc 1 ml/ Amino Acids 1,011 mls @ 42 mls/hr IV .Q24H [facility] Stop: 08/27/18 17:59 Last Admin: 08/26/18 17:41 Dose: 42 mls/hr Heparin Sodium/Sodium Chloride (Heparin 68383 Units/250ml 1/2 Normal Saline) 25,000 units in 250 mls @ 6.45 mls/hr IV .Q24H PRN; Protocol PRN Reason: ADJUST RATE PER PROTOCOL Last Admin: 08/26/18 16:29 Dose: 12 units/kg/hr, 6.45 mls/hr Methylprednisolone (Solu-Medrol) 40 mg IVP Q8H [facility] Last Admin: 08/26/18 13:28 Dose: 40 mg Multivitamins/Vitamin C (Multi-Delyn Liquid) 5 ml NG DAILY [facility] Last Admin: 08/26/18 09:52 Dose: Not Given Nitroglycerin (Nitro-Dur 0.2 Mg/Hr Patch) 1 patch TD DAILY PRN PRN Reason: Systolic Blood Pressure Rosuvastatin Calcium (Crestor) 10 mg NG HS [facility] Last Admin: 08/25/18 21:45 Dose: 10 mg - Labs Labs: 08/26/18 09:17 08/26/18 09:17 PT 11.2 SECONDS (9.7-12.2) 08/15/18 07:06 INR 1.0 08/15/18 07:06 APTT 30.0 SECONDS (21-34) 08/26/18 15:45 - Constitutional Appears: Non-toxic, No Acute Distress - Head Exam Head Exam: NORMAL INSPECTION - Eye Exam Pupil Exam: Fixed, Unequal - ENT Exam ENT Exam: Mucous Membranes Dry - Respiratory Exam Respiratory Exam: NORMAL BREATHING PATTERN. absent: Rales, Rhonchi, Wheezes, Stridor - Cardiovascular Exam Cardiovascular Exam: REGULAR RHYTHM, +S1, +S2 - GI/Abdominal Exam GI & Abdominal Exam: Normal Bowel Sounds - Extremities Exam Extremities Exam: Normal Inspection, Pedal Edema - Neurological Exam Neurological Exam: Altered Assessment and Plan - Assessment and Plan (Free Text) Assessment: -Hypercapneic respiratory failure: allowed ICU team to intubate patient, patient intubated and placed on ventilation, Vt 450, rr 23, peep 5, repeat ABG -AMS: patient not reposnsive to deep sternal rub, pupils not reactive, obtain STAT CT head (as per nursing patient awake, alert, responsive and coughing -narcan pushed x3, BGM >500, etiology unknown obtani CT head -CAD/PVD/carotid atherosclerosis: Patient has had no oral medications: after intubation, will place NG tube and start asa + statin + plavix -NG tube feeds -bgm q6hrs, ISS aspart -dvt ppx heparin -Severe hypoxia:cannot r/o PE with CT angio, obtain LE dopplers, if (+) will start IV heparin -Prognosis poor as patient had a long history of smoking 2 packs per day and developed ASHD, PVD and at risk of NM/CVA. -family at bedside were informed that patient's lung has had significant functional loss 2nd smoking 2 packs/day for a long time. -Family verbalized understanding. -Risks benefits and alternatives explained. -PMD to clarify pfoxy/health care agent -cc time 45 minutes, excluding any time spent on procedures Procedures Attestation:: I certify that I have explained the specified Operation(s) or Procedure(s), risks, benefits and reasonable alternatives to the Patient and/or other person responsible. The opportunity was given to ask questions and all questions answered - Intubation Sedative: None Paralytic: Rocuronimum Laryngoscope: Kirit ET Tube Size: 7.5 ET Tube Uncuffed: No ET Tube Secured at Depth: 23 ET Tube Secured Locarion: Lips ET Tube Placement Confirmation: Visualized Passing Through Cords, Breath Sounds Equal Bilaterally, No Breath Sounds Over Epigastrum, Confirmation w/Capnometry Patient Tolerated Procedure: Well Procedure Immediate Complications: None
[2018-08-26 21:57] LABS: ABG ALLEN TEST POS; ARTERIAL BLOOD GAS HCO3 29.3 mmol/L (21-28); ARTERIAL BLOOD GAS PCO2 60 mm/Hg (35-45); ARTERIAL BLOOD GAS PH 7.35 (7.35-7.45); ARTERIAL BLOOD GAS PO2 89 mm/Hg (80-100); ARTERIAL BLOOD GAS TCO2 34.9 mmol/L (22-28)
--- NOTE | 2018-08-26 21:58 | CP.PCM.PN ---
Subjective - Date & Time of Evaluation Date of Evaluation: 08/26/18 Time of Evaluation: 19:30 - Subjective Subjective: Patient desaturated early this Am, was transferred to ICU, and finally developed respiratory distress and intubated. Now on respirator, sedated, on 100% O2. CXR reveals RLL infiltrates. On IV Vancomycin, Zosyn, and on PPN. Needs NGT jong cement and NGT feeding. Objective - Vital Signs/Intake and Output Vital Signs (last 24 hours): Temp Pulse Resp BP Pulse Ox 97.6 F 107 H 21 92/60 L 99 08/26/18 20:00 08/26/18 21:00 08/26/18 21:00 08/26/18 20:30 08/26/18 21:00 Intake and Output: 08/26/18 08/27/18 18:59 06:59 Intake Total 729.5 84 Output Total 560 Balance 729.5 -476 - Medications Medications: Current Medications Acetaminophen (Tylenol 650 Mg Supp) 650 mg MD Q4 PRN PRN Reason: temperature>100.4 and pain Last Admin: 08/17/18 17:00 Dose: 650 mg Acetaminophen (Tylenol 650mg/20.3ml Solution Ud) 650 mg NG Q6 PRN PRN Reason: Pain, Mild (1-3) Albuterol/Ipratropium (Duoneb 3 Mg/0.5 Mg (3 Ml) Ud) 3 ml INH RQ6 ZHENG Last Admin: 08/26/18 19:23 Dose: 3 ml Aspirin (Aspirin Chewable) 81 mg NG DAILY [facility]ENG Last Admin: 08/26/18 09:52 Dose: Not Given Clopidogrel Bisulfate (Plavix) 75 mg NG DAILY [facility] Last Admin: 08/26/18 09:52 Dose: Not Given Donepezil HCl (Aricept) 5 mg NG HS [facility] Last Admin: 08/26/18 21:26 Dose: 5 mg Famotidine (Pepcid) 20 mg IVP DAILY [facility] Last Admin: 08/26/18 10:17 Dose: 20 mg Folic Acid (Folic Acid) 1 mg NG DAILY [facility] Last Admin: 08/26/18 09:52 Dose: Not Given Piperacillin Sod/Tazobactam (Sod 3.375 gm/ Sodium Chloride) 100 mls @ 200 mls/hr IVPB Q8H [facility]; Protocol Last Admin: 08/26/18 21:27 Dose: 200 mls/hr Vancomycin/Sodium Chloride (Vancomycin 1 Gm/Ns 200 Ml) 1 gm in 200 mls @ 133 mls/hr IVPB DAILY [facility]; Protocol Stop: 08/28/18 10:01 Last Admin: 08/26/18 10:17 Dose: 133 mls/hr Multivitamins/Vitamin C 10 ml/Chromium/Copper/Manganese/Zinc 1 ml/ Amino Acids 1,011 mls @ 42 mls/hr IV .Q24H [facility] Stop: 08/27/18 17:59 Last Admin: 08/26/18 17:41 Dose: 42 mls/hr Heparin Sodium/Sodium Chloride (Heparin 76064 Units/250ml 1/2 Normal Saline) 25,000 units in 250 mls @ 6.45 mls/hr IV .Q24H PRN; Protocol PRN Reason: ADJUST RATE PER PROTOCOL Last Titration: 08/26/18 18:10 Dose: 0 units/kg/hr, 0 mls/hr Methylprednisolone (Solu-Medrol) 40 mg IVP Q8H [facility] Last Admin: 08/26/18 21:26 Dose: 40 mg Multivitamins/Vitamin C (Multi-Delyn Liquid) 5 ml NG DAILY [facility] Last Admin: 08/26/18 09:52 Dose: Not Given Nitroglycerin (Nitro-Dur 0.2 Mg/Hr Patch) 1 patch TD DAILY PRN PRN Reason: Systolic Blood Pressure Rosuvastatin Calcium (Crestor) 10 mg NG HS [facility]ENG Last Admin: 08/26/18 21:26 Dose: 10 mg - Labs Labs: 08/26/18 09:17 08/26/18 09:17 PT 11.2 SECONDS (9.7-12.2) 08/15/18 07:06 INR 1.0 08/15/18 07:06 APTT 30.0 SECONDS (21-34) 08/26/18 15:45 - Constitutional Appears: Cachectic, Chronically Ill - Head Exam Head Exam: NORMAL INSPECTION - Eye Exam Eye Exam: Normal appearance Pupil Exam: NORMAL ACCOMODATION - ENT Exam ENT Exam: Normal Exam - Neck Exam Neck Exam: Normal Inspection - Respiratory Exam Respiratory Exam: Rhonchi Additional comments: Rhonchi bilaterally. - Cardiovascular Exam Cardiovascular Exam: REGULAR RHYTHM - GI/Abdominal Exam GI & Abdominal Exam: Soft, Normal Bowel Sounds - Rectal Exam Rectal Exam: Deferred - Exam Exam: NORMAL INSPECTION - Extremities Exam Extremities Exam: Normal Inspection - Back Exam Back Exam: NORMAL INSPECTION - Neurological Exam Additional comments: Sedated, on ventilator. - Psychiatric Exam Additional comments: Sedated. - Skin Skin Exam: Dry, Intact, Normal Color, Warm Assessment and Plan (1) Bradycardia Status: Chronic (2) Vertebro-basilar artery syndrome Status: Acute (3) Severe dementia Status: Chronic (4) More than 50 percent stenosis of right internal carotid artery Status: Resolved (5) COPD (chronic obstructive pulmonary disease) Status: Chronic (6) Dysphagia Status: Acute (7) Aspiration pneumonia Assessment & Plan: On IV Zosyn and Vancomycin. Status: Acute (8) Acute respiratory failure Assessment & Plan: On respirator. Status: Acute
[2018-08-27] MEDS: Albuterol-Ipratrop 3 mg / 0.5 (3 ml) UD INH SCH ×4 (02:56→20:38)
[2018-08-27 05:14] LABS: ALB/GLOB RATIO 1.2 (1.0-2.1); ALBUMIN 3.4 g/dL (3.5-5.0); CALCIUM 9.2 mg/dl (8.6-10.4)
[2018-08-27 05:26] LABS: BASO % 0.1 % (0.0-2.0); LYMPH % 3.2 % (20.0-40.0); MEAN CELL VOLUME 94.6 fL (80.0-94.0); MEAN CORPUSCULAR HEMOGLOBIN 32.1 pg (27.0-31.0); MEAN PLATELET VOLUME 8.1 fL (7.2-11.7); MONO # 1.2 K/uL (0.0-0.8); MONO % 3.8 % (0.0-10.0); NEUT # 30.5 K/uL (1.8-7.0); NEUT % 92.9 % (50.0-75.0); PLATELET COUNT 314 K/uL (130-400); RBC 4.44 Mil/uL (4.40-5.90); RED CELL DISTRIBUTION WIDTH 13.3 % (11.5-14.5); WHITE BLOOD COUNT 32.8 K/uL (4.8-10.8)
[2018-08-27 05:35] LABS: HEMOGLOBIN 14.2 g/dL (12.0-18.0)
[2018-08-27] MEDS: Piperacillin/Tazobact 3.375 GM in Sodium Chloride 100 ML IVPB SCH (05:36)
[2018-08-27 05:41] LABS: ARTERIAL BLOOD GAS HCO3 29.7 mmol/L (21-28); ARTERIAL BLOOD GAS O2 SAT 96.9 % (95-98); ARTERIAL BLOOD GAS PCO2 54 mm/Hg (35-45); ARTERIAL BLOOD GAS PH 7.39 (7.35-7.45); ARTERIAL BLOOD GAS PO2 75 mm/Hg (80-100); ARTERIAL BLOOD GAS TCO2 34.4 mmol/L (22-28)
[2018-08-27] MEDS: MethylPREDNISolone 40 mg Vial IVP SCH ×3 (06:35→21:21)
--- NOTE | 2018-08-27 08:24 | VASCLAB ---
Date of service: 08/26/2018 PROCEDURE: Lower Extremity Venous Duplex Exam. HISTORY: Left lower extremity DVT(chronic) PRIORS: None. TECHNIQUE: Bilateral common femoral, femoral, popliteal and posterior tibial, peroneal and great saphenous veins were evaluated. Flow was assessed with color Doppler, compressibility, assessment of phasic flow and augmentation response. Report prepared by Jorge Luis Pereyra, T FINDINGS: RIGHT: 1. Common Femoral Vein: 1.1. Compressibility - Fully compressible: Thrombus - None : Flow - Phasic: Augmentation -Normal: Reflux - . 2. Femoral Vein: 2.1. Compressibility - Fully compressible: Thrombus - None : Flow - Phasic: Augmentation -Normal: Reflux - . 3. Popliteal Vein: 3.1. Compressibility - Fully compressible: Thrombus - None : Flow - Phasic: Augmentation -Normal: Reflux - . 4. Posterior Tibial Vein: 4.1. Compressibility - Fully compressible: Thrombus - None: Flow - Phasic: Augmentation -Normal: Reflux - . 5. Peroneal Vein: 5.1. Compressibility - Fully compressible: Thrombus - None: Flow - Phasic: Augmentation -Normal: Reflux - . 6. Great Saphenous Vein: 6.1. Compressibility - Fully compressible: Thrombus - None: Flow - Phasic: Augmentation - Normal: Reflux - . LEFT: 1. Common Femoral Vein: 1.1. Compressibility - Fully compressible: Thrombus - None: Flow - Phasic: Augmentation -Normal: Reflux - . 2. Femoral Vein: 2.1. Compressibility - Partial: Thrombus - Chronic: Flow - Reduced : Augmentation -Reduced: Reflux - . 3. Popliteal Vein: 3.1. Compressibility - Partial: Thrombus - Chronic : Flow - Reduced : Augmentation -Reduced: Reflux - . 4. Posterior Tibial Vein: 4.1. Compressibility - Incompressible: Thrombus - Chronic: Flow - Absent : Augmentation -: Reflux - . 5. Peroneal Vein: 5.1. Compressibility - Fully compressible: Thrombus - None: Flow - Phasic: Augmentation -Normal: Reflux - . 6. Great Saphenous Vein: 6.1. Compressibility - Fully compressible: Thrombus - None: Flow - Phasic: Augmentation - Normal: Reflux - . OTHER FINDINGS: Right: None significant. Left: None significant. IMPRESSION: Right: No evidence of deep or superficial vein thrombosis of the right lower extremity. . Left: The femoral and popliteal vein were partially occluded with echogenic THROMBUS and revealed decreased venous return, thereafter the posterior tibial veins were totally occluded also with echogenic THROMBUS. There was evidence of chronic deep vein thrombosis of the left lower extremity.
--- NOTE | 2018-08-27 08:38 | CT ---
Date of service: 08/26/2018 PROCEDURE: CT HEAD WITHOUT CONTRAST. HISTORY: not responsive COMPARISON: 08/10/2017 TECHNIQUE: Axial computed tomography images were obtained through the head/brain without intravenous contrast. Radiation dose: Total exam DLP = 1370.73 mGy-cm. This CT exam was performed using one or more of the following dose reduction techniques: Automated exposure control, adjustment of the mA and/or kV according to patient size, and/or use of iterative reconstruction technique. FINDINGS: HEMORRHAGE: No intracranial hemorrhage. BRAIN: Again seen are mild chronic microangiopathic changes. There is no mass, mass effect or abnormal extra-axial fluid collection. There is no territorial infarction. The midline sagittal structures are normal. VENTRICLES: There is mild age-related global parenchymal volume loss and proportionate enlargement of the ventricles and cortical sulci. CALVARIUM: There is no calvarial fracture or extracranial soft tissue swelling. PARANASAL SINUSES: Predominantly clear. MASTOID AIR CELLS: Predominantly clear. OTHER FINDINGS: None. IMPRESSION: No acute intracranial abnormality. Mild microangiopathic changes and mild age-related global parenchymal volume loss. A preliminary report was provided by [facility].
[2018-08-27 08:39] LABS: BANDS 2 % (0-2); LYMPHOCYTE 4 % (20-40); MONOCYTE 1 % (0-10); NEUTROPHIL 93 % (50-75); PLATELET ESTIMATE NORMAL (NORMAL); TOTAL CELLS COUNTED 100
--- NOTE | 2018-08-27 09:07 | RAD ---
Date of service: 08/26/2018 PROCEDURE: CHEST RADIOGRAPH, 1 VIEW HISTORY: post intubation COMPARISON: 08/26/2018. FINDINGS: Endotracheal tube terminates 3.5 cm proximal to the radha. LUNGS: The lungs are well inflated and clear. PLEURA: There is interval improvement in left pleural effusion with residual small pleural effusion. No right pleural effusion. No pneumothorax CARDIOVASCULAR: The heart is normal in size. No aortic atherosclerotic calcifications present. OSSEOUS STRUCTURES: Within normal limits for the patient's age. VISUALIZED UPPER ABDOMEN: Normal. OTHER FINDINGS: None. IMPRESSION: Endotracheal tube terminates 3.5 cm proximal to the radha. Interval significant improvement in left pleural effusion with residual small pleural effusion.
--- NOTE | 2018-08-27 09:11 | RAD ---
Date of service: 08/27/2018 HISTORY: ETT COMPARISON: 08/26/2018 FINDINGS: Endotracheal tube terminates in the mid trachea. Nasogastric tube terminates at the GE junction. LUNGS: The lungs are well inflated and clear. PLEURA: No pleural effusions or pneumothorax. CARDIOVASCULAR: The heart is normal in size. No aortic atherosclerotic calcifications present. OSSEOUS STRUCTURES: Within normal limits for the patient's age. VISUALIZED UPPER ABDOMEN: Normal. OTHER FINDINGS: None. IMPRESSION: Endotracheal tube terminates in the mid trachea. Nasogastric tube terminates at the GE junction. Further advancement is recommended. No acute findings.
[2018-08-27] MEDS ORDERED: Meropenem 1 GM in Sodium Chloride 0.9% 100 ML IVPB SCH (09:30)
[2018-08-27] MEDS: Sodium Chloride 0.9% 1,000 ML IV SCH ×3 (11:13→23:43)
[2018-08-27] MEDS: Meropenem 1 GM in Sodium Chloride 0.9% 100 ML IVPB SCH ×2 (11:17→21:21)
[2018-08-27] MEDS: Multiple Vitamins Oral Solution NG SCH (11:24)
[2018-08-27 11:39] LABS: SQUAMOUS EPITHIAL < 1 /hpf (0-5); URINE BACTERIA RARE (<OCC); URINE BILIRUBIN NEGATIVE (NEGATIVE); URINE BLOOD 2+ (NEGATIVE); URINE CLARITY Hazy (Clear); URINE COLOR Amber (YELLOW); URINE GLUCOSE (UA) NORMAL (Normal); URINE LEUKOCYTE ESTERASE NEG Leu/uL (Negative); URINE PROTEIN 1+ mg/dL (NEGATIVE); URINE UROBILINOGEN NORMAL mg/dL (0.2-1.0)
--- NOTE | 2018-08-27 13:13 | NM ---
Date of service: 08/27/2018 COMPARISON: August 27, 2018. Single-view chest TECHNIQUE: 3.4 MCI technetium 99-m MAA administered intravenously. FINDINGS: VENTILATION COMPONENT: Not performed. PERFUSION COMPONENT: Heterogeneous distribution of radionuclide. No geographic, segmental, lobar abnormalities apparent on the present examination. This is particularly evident in the left mid lung field. IMPRESSION: Low probability perfusion scan for pulmonary embolism.
[2018-08-27] MEDS ORDERED: Piperacillin/Tazobact 2.25 GM in Sodium Chloride 100 ML IVPB SCH (14:00)
--- NOTE | 2018-08-27 15:08 | CP.CCUPN ---
CCU Subjective - Physician Review Subjective (Free Text): 08/27/18 15:11 PGY-[address] Note [address]. Simmons Patient seen and examined at bedside. No acute events overnight. Remains intubated, on vent. CCU Objective - Vital Signs / Intake & Output Vital Signs (Last 4 hours): Vital Signs Temp Pulse Resp BP Pulse Ox 08/27/18 14:08 109 H 24 91/61 L 98 08/27/18 14:00 106 H 24 95 08/27/18 13:08 105 H 24 84/63 L 96 08/27/18 13:00 104 H 24 95 08/27/18 12:08 105 H 24 84/57 L 94 L 08/27/18 12:00 98.7 F 08/27/18 11:08 99 H 24 82/53 L 94 L 08/27/18 11:00 111 H 24 95 Intake and Output (Last 8hrs): Intake & Output 08/26/18 08/27/18 08/27/18 22:59 06:59 14:59 Intake Total 322.0 440.0 723.0 Output Total 570 280 300 Balance -248.0 160.0 423.0 Weight 116 lb 11.2 oz Intake: IV 12 52 Intake, IV Amount 310.0 388.0 578.0 Left Wrist 294 336 526 Left Wrist Y port 16.0 52.0 52.0 Tube Feeding 45 Other 100 Output: Urine 570 280 300 Urethral ([place]) 570 280 300 - Physical Exam Pupils: Positive for: PERRL Extroacular Muscles: Positive for: EOMI Mouth: Positive for: Moist Mucous Membranes Respiratory/Chest: Positive for: Other (intubated, on vent) Cardiovascular: Positive for: Regular Rate and Rhythm, Normal S1, S2 Abdomen: Negative for: Tenderness, Distention Neurological: Positive for: Other (sedated, on vent) - Medications Active Medications: Active Medications Generic Name Dose Route Start Last Admin Trade Name Freq PRN Reason Stop Dose Admin Acetaminophen 650 mg 08/17/18 17:37 08/17/18 17:00 Tylenol 650 Mg Supp NE 650 mg Q4 PRN Administration temperature>100.4 and pain Acetaminophen 650 mg 08/23/18 13:00 Tylenol 650mg/20.3ml Solution Ud NG Q6 PRN Pain, Mild (1-3) Albuterol/Ipratropium 3 ml 08/17/18 16:00 08/27/18 13:53 Duoneb 3 Mg/0.5 Mg (3 Ml) Ud INH 3 ml RQ6 ZHENG Administration Aspirin 81 mg 08/24/18 10:00 08/27/18 11:23 Aspirin Chewable NG 81 mg DAILY ZHENG Administration Clopidogrel Bisulfate 75 mg 08/24/18 10:00 08/27/18 11:23 Plavix NG 75 mg DAILY ZHENG Administration Donepezil HCl 5 mg 08/23/18 22:00 08/26/18 21:26 Aricept NG 5 mg HS ZHENG Administration Famotidine 20 mg 08/14/18 10:00 08/27/18 11:22 Pepcid IVP 20 mg DAILY ZHENG Administration Folic Acid 1 mg 08/24/18 10:00 08/27/18 11:23 Folic Acid NG 1 mg DAILY ZHENG Administration Heparin Sodium/Sodium Chloride 25,000 units in 250 mls @ 6.45 mls/hr 08/26/18 15:34 08/27/18 06:00 Heparin 25219 Units/250ml 1/2 Normal Saline IV 16 units/kg/hr .Q24H PRN 8.6 mls/hr ADJUST RATE PER PROTOCOL Titration Protocol 12 UNITS/KG/HR Sodium Chloride 1,000 mls @ 100 mls/hr 08/27/18 09:30 08/27/18 11:13 Sodium Chloride 0.9% IV 100 mls/hr .Q10H ZHENG Administration Meropenem 1 gm/ Sodium 100 mls @ 100 mls/hr 08/27/18 10:00 08/27/18 11:17 Chloride IVPB 100 mls/hr Q12H ZHENG Administration Protocol Methylprednisolone 40 mg 08/26/18 14:00 08/27/18 13:13 Solu-Medrol IVP 40 mg Q8H ZHENG Administration Multivitamins/Vitamin C 5 ml 08/24/18 10:00 08/27/18 11:24 Multi-Delyn Liquid NG 5 ml DAILY ZHENG Administration Nitroglycerin 1 patch 08/15/18 12:07 Nitro-Dur 0.2 Mg/Hr Patch TD DAILY PRN Systolic Blood Pressure Rosuvastatin Calcium 10 mg 08/23/18 22:00 08/26/18 21:26 Crestor NG 10 mg HS ZHENG Administration - Patient Studies Lab Studies: Microbiology Studies 08/26/18 09:49 MRSA Culture (Admit) - Final Nose MRSA NOT DETECTED Lab Studies 08/27/18 08/27/18 08/27/18 Range/Units 11:50 11:23 05:33 WBC (4.8-10.8) K/uL RBC (4.40-5.90) Mil/uL Hgb (12.0-18.0) g/dL Hct (35.0-51.0) % MCV (80.0-94.0) fL MCH (27.0-31.0) pg MCHC (33.0-37.0) g/dL RDW (11.5-14.5) % Plt Count (130-400) K/uL MPV (7.2-11.7) fL Neut % (Auto) (50.0-75.0) % Lymph % (Auto) (20.0-40.0) % [place] % (Auto) (0.0-10.0) % Eos % (Auto) (0.0-4.0) % Baso % (Auto) (0.0-2.0) % Neut # (Auto) (1.8-7.0) K/uL Lymph # (Auto) (1.0-4.3) K/uL [place] # (Auto) (0.0-0.8) K/uL Eos # (Auto) (0.0-0.7) K/uL Baso # (Auto) (0.0-0.2) K/uL Neutrophils % (Manual) (50-75) % Band Neutrophils % (0-2) % Lymphocytes % (Manual) (20-40) % Monocytes % (Manual) (0-10) % Platelet Estimate (NORMAL) APTT 75.0 H D (21-34) SECONDS Puncture Site Rb pCO2 54 H (35-45) mm/Hg pO2 75 L (80-100) mm/Hg HCO3 29.7 H (21-28) mmol/L ABG pH 7.39 (7.35-7.45) ABG Total CO2 34.4 H (22-28) mmol/L ABG O2 Saturation 96.9 (95-98) % ABG Base Excess 6.2 H (-2.0-3.0) mmol/L ABG Hemoglobin (11.7-17.4) g/dL ABG Carboxyhemoglobin (0.5-1.5) % POC ABG HHb (Measured) (0.0-5.0) % ABG Methemoglobin (0.0-3.0) % Eber Test Na ABG Potassium 4.5 (3.6-5.2) mmol/L A-a O2 Difference 571.0 mm/Hg Respiratory Index 7.6 Hgb O2 Saturation (95.0-98.0) % Sodium 140.0 (132-148) mmol/l Chloride 106.0 (98-107) mmol/L Glucose 152 H (75-110) mg/dl Lactate 1.5 (0.7-2.1) mmol/L Vent Mode Prvc Mechanical Rate 24 FiO2 100.0 % Tidal Volume 500 PEEP 5 Inspiratory BiPAP Expiratory BiPAP Crit Value Called To Crit Value Called By Crit Value Read Back Blood Gas Notified Time Potassium (3.6-5.2) mmol/L Carbon Dioxide (22-30) mmol/L Anion Gap (10-20) BUN (9-20) mg/dL Creatinine (0.8-1.5) mg/dL Est GFR ( Amer) Est GFR (Non-Af Amer) Random Glucose (75-110) mg/dL Calcium (8.6-10.4) mg/dl Phosphorus (2.5-4.5) mg/dL Magnesium (1.6-2.3) mg/dL Total Bilirubin (0.2-1.3) mg/dL AST (17-59) U/L ALT (21-72) U/L Alkaline Phosphatase (38-126) U/L Total Protein (6.3-8.3) g/dL Albumin (3.5-5.0) g/dL Globulin (2.2-3.9) gm/dL Albumin/Globulin Ratio (1.0-2.1) Arterial Blood Potassium 4.5 (3.6-5.2) mmol/L Urine Color [place] (YELLOW) Urine Clarity Hazy (Clear) Urine pH 5.0 (5.0-8.0) Ur Specific [place] 1.029 (1.003-1.030) Urine Protein 1+ H (NEGATIVE) mg/dL Urine Glucose (UA) Normal (Normal) mg/dL Urine Ketones Negative (NEGATIVE) mg/dL Urine Blood 2+ H (NEGATIVE) Urine Nitrate Negative (NEGATIVE) Urine Bilirubin Negative (NEGATIVE) Urine Urobilinogen Normal (0.2-1.0) mg/dL Ur Leukocyte Esterase Neg (Negative) Mariela/uL Urine WBC (Auto) 5 (0-5) /hpf Urine RBC (Auto) 113 H (0-3) /hpf Ur Squamous Epith Cells < 1 (0-5) /hpf Urine Bacteria Rare (<OCC) 08/27/18 08/27/18 08/27/18 Range/Units 04:49 04:49 04:49 WBC 32.8 H (4.8-10.8) K/uL RBC 4.44 (4.40-5.90) Mil/uL Hgb 14.2 D (12.0-18.0) g/dL Hct 41.9 (35.0-51.0) % MCV 94.6 H (80.0-94.0) fL MCH 32.1 H (27.0-31.0) pg MCHC 34.0 (33.0-37.0) g/dL RDW 13.3 (11.5-14.5) % Plt Count 314 D (130-400) K/uL MPV 8.1 (7.2-11.7) fL Neut % (Auto) 92.9 H (50.0-75.0) % Lymph % (Auto) 3.2 L (20.0-40.0) % [place] % (Auto) 3.8 (0.0-10.0) % Eos % (Auto) 0.0 (0.0-4.0) % Baso % (Auto) 0.1 (0.0-2.0) % Neut # (Auto) 30.5 H (1.8-7.0) K/uL Lymph # (Auto) 1.0 (1.0-4.3) K/uL [place] # (Auto) 1.2 H (0.0-0.8) K/uL Eos # (Auto) 0.0 (0.0-0.7) K/uL Baso # (Auto) 0.0 (0.0-0.2) K/uL Neutrophils % (Manual) 93 H (50-75) % Band Neutrophils % 2 (0-2) % Lymphocytes % (Manual) 4 L (20-40) % Monocytes % (Manual) 1 (0-10) % Platelet Estimate Normal (NORMAL) APTT 30.0 (21-34) SECONDS Puncture Site pCO2 (35-45) mm/Hg pO2 (80-100) mm/Hg HCO3 (21-28) mmol/L ABG pH (7.35-7.45) ABG Total CO2 (22-28) mmol/L ABG O2 Saturation (95-98) % ABG Base Excess (-2.0-3.0) mmol/L ABG Hemoglobin (11.7-17.4) g/dL ABG Carboxyhemoglobin (0.5-1.5) % POC ABG HHb (Measured) (0.0-5.0) % ABG Methemoglobin (0.0-3.0) % Eber Test ABG Potassium (3.6-5.2) mmol/L A-a O2 Difference mm/Hg Respiratory Index Hgb O2 Saturation (95.0-98.0) % Sodium 142 (132-148) mmol/l Chloride 104 (98-107) mmol/L Glucose (75-110) mg/dl Lactate (0.7-2.1) mmol/L Vent Mode Mechanical Rate FiO2 % Tidal Volume PEEP Inspiratory BiPAP Expiratory BiPAP Crit Value Called To Crit Value Called By Crit Value Read Back Blood Gas Notified Time Potassium 4.8 (3.6-5.2) mmol/L Carbon Dioxide 30 (22-30) mmol/L Anion Gap 12 (10-20) BUN 73 H (9-20) mg/dL Creatinine 1.8 H (0.8-1.5) mg/dL Est GFR ( Amer) 45 Est GFR (Non-Af Amer) 37 Random Glucose 148 H (75-110) mg/dL Calcium 9.2 (8.6-10.4) mg/dl Phosphorus 3.5 (2.5-4.5) mg/dL Magnesium 2.7 H (1.6-2.3) mg/dL Total Bilirubin 0.7 (0.2-1.3) mg/dL AST 34 (17-59) U/L ALT 75 H (21-72) U/L Alkaline Phosphatase 94 (38-126) U/L Total Protein 6.4 (6.3-8.3) g/dL Albumin 3.4 L (3.5-5.0) g/dL Globulin 3.0 (2.2-3.9) gm/dL Albumin/Globulin Ratio 1.2 (1.0-2.1) Arterial Blood Potassium (3.6-5.2) mmol/L Urine Color (YELLOW) Urine Clarity (Clear) Urine pH (5.0-8.0) Ur Specific [place] (1.003-1.030) Urine Protein (NEGATIVE) mg/dL Urine Glucose (UA) (Normal) mg/dL Urine Ketones (NEGATIVE) mg/dL Urine Blood (NEGATIVE) Urine Nitrate (NEGATIVE) Urine Bilirubin (NEGATIVE) Urine Urobilinogen (0.2-1.0) mg/dL Ur Leukocyte Esterase (Negative) Mariela/uL Urine WBC (Auto) (0-5) /hpf Urine RBC (Auto) (0-3) /hpf Ur Squamous Epith Cells (0-5) /hpf Urine Bacteria (<OCC) 08/26/18 08/26/18 08/26/18 Range/Units 21:50 18:00 15:45 WBC (4.8-10.8) K/uL RBC (4.40-5.90) Mil/uL Hgb (12.0-18.0) g/dL Hct (35.0-51.0) % MCV (80.0-94.0) fL MCH (27.0-31.0) pg MCHC (33.0-37.0) g/dL RDW (11.5-14.5) % Plt Count (130-400) K/uL MPV (7.2-11.7) fL Neut % (Auto) (50.0-75.0) % Lymph % (Auto) (20.0-40.0) % [place] % (Auto) (0.0-10.0) % Eos % (Auto) (0.0-4.0) % Baso % (Auto) (0.0-2.0) % Neut # (Auto) (1.8-7.0) K/uL Lymph # (Auto) (1.0-4.3) K/uL [place] # (Auto) (0.0-0.8) K/uL Eos # (Auto) (0.0-0.7) K/uL Baso # (Auto) (0.0-0.2) K/uL Neutrophils % (Manual) (50-75) % Band Neutrophils % (0-2) % Lymphocytes % (Manual) (20-40) % Monocytes % (Manual) (0-10) % Platelet Estimate (NORMAL) APTT 30.0 (21-34) SECONDS Puncture Site Lba Lra pCO2 60 H 106 H* (35-45) mm/Hg pO2 89 81 (80-100) mm/Hg HCO3 29.3 H 25.4 (21-28) mmol/L ABG pH 7.35 7.11 L* (7.35-7.45) ABG Total CO2 34.9 H 37.0 H (22-28) mmol/L ABG O2 Saturation 98.0 95.9 (95-98) % ABG Base Excess 5.6 H 0.8 (-2.0-3.0) mmol/L ABG Hemoglobin 14.8 (11.7-17.4) g/dL ABG Carboxyhemoglobin 1.3 (0.5-1.5) % POC ABG HHb (Measured) 1.0 (0.0-5.0) % ABG Methemoglobin 0.6 (0.0-3.0) % Eber Test Pos Pos ABG Potassium 4.8 (3.6-5.2) mmol/L A-a O2 Difference 549.0 500.0 mm/Hg Respiratory Index 6.2 6.2 Hgb O2 Saturation 97.1 (95.0-98.0) % Sodium 140.0 (132-148) mmol/l Chloride 104.0 (98-107) mmol/L Glucose 204 H (75-110) mg/dl Lactate 1.7 (0.7-2.1) mmol/L Vent Mode Prvc Prvc Mechanical Rate 24 24 FiO2 100.0 100.0 % Tidal Volume 500 500 PEEP 5 5 Inspiratory BiPAP 15 Expiratory BiPAP 8 Crit Value Called To Dr gonzalez Crit Value Called By [facility] Crit Value Read Back Y Blood Gas Notified Time 1828 Potassium (3.6-5.2) mmol/L Carbon Dioxide (22-30) mmol/L Anion Gap (10-20) BUN (9-20) mg/dL Creatinine (0.8-1.5) mg/dL Est GFR ( Amer) Est GFR (Non-Af Amer) Random Glucose (75-110) mg/dL Calcium (8.6-10.4) mg/dl Phosphorus (2.5-4.5) mg/dL Magnesium (1.6-2.3) mg/dL Total Bilirubin (0.2-1.3) mg/dL AST (17-59) U/L ALT (21-72) U/L Alkaline Phosphatase (38-126) U/L Total Protein (6.3-8.3) g/dL Albumin (3.5-5.0) g/dL Globulin (2.2-3.9) gm/dL Albumin/Globulin Ratio (1.0-2.1) Arterial Blood Potassium 4.8 (3.6-5.2) mmol/L Urine Color (YELLOW) Urine Clarity (Clear) Urine pH (5.0-8.0) Ur Specific [place] (1.003-1.030) Urine Protein (NEGATIVE) mg/dL Urine Glucose (UA) (Normal) mg/dL Urine Ketones (NEGATIVE) mg/dL Urine Blood (NEGATIVE) Urine Nitrate (NEGATIVE) Urine Bilirubin (NEGATIVE) Urine Urobilinogen (0.2-1.0) mg/dL Ur Leukocyte Esterase (Negative) Mariela/uL Urine WBC (Auto) (0-5) /hpf Urine RBC (Auto) (0-3) /hpf Ur Squamous Epith Cells (0-5) /hpf Urine Bacteria (<OCC) Laboratory Results - last 24 hr 08/26/18 08/26/18 08/26/18 15:45 18:00 21:50 WBC RBC Hgb Hct MCV MCH MCHC RDW Plt Count MPV Neut % (Auto) Lymph % (Auto) [place] % (Auto) Eos % (Auto) Baso % (Auto) Neut # (Auto) Lymph # (Auto) [place] # (Auto) Eos # (Auto) Baso # (Auto) Neutrophils % (Manual) Band Neutrophils % Lymphocytes % (Manual) Monocytes % (Manual) Platelet Estimate APTT 30.0 Puncture Site Lra Lba pCO2 106 H* 60 H pO2 81 89 HCO3 25.4 29.3 H ABG pH 7.11 L* 7.35 ABG Total CO2 37.0 H 34.9 H ABG O2 Saturation 95.9 98.0 ABG Base Excess 0.8 5.6 H ABG Hemoglobin 14.8 ABG Carboxyhemoglobin 1.3 POC ABG HHb (Measured) 1.0 ABG Methemoglobin 0.6 Eber Test Pos Pos ABG Potassium 4.8 A-a O2 Difference 500.0 549.0 Respiratory Index 6.2 6.2 Hgb O2 Saturation 97.1 Sodium 140.0 Chloride 104.0 Glucose 204 H Lactate 1.7 Vent Mode Prvc Prvc Mechanical Rate 24 24 FiO2 100.0 100.0 Tidal Volume 500 500 PEEP 5 5 Inspiratory BiPAP 15 Expiratory BiPAP 8 Crit Value Called To Dr gonzalez Crit Value Called By [facility] Crit Value Read Back Y Blood Gas Notified Time 182 Potassium Carbon Dioxide Anion Gap BUN Creatinine Est GFR ( Amer) Est GFR (Non-Af Amer) Random Glucose Calcium Phosphorus Magnesium Total Bilirubin AST ALT Alkaline Phosphatase Total Protein Albumin Globulin Albumin/Globulin Ratio Arterial Blood Potassium 4.8 Urine Color Urine Clarity Urine pH Ur Specific [place] Urine Protein Urine Glucose (UA) Urine Ketones Urine Blood Urine Nitrate Urine Bilirubin Urine Urobilinogen Ur Leukocyte Esterase Urine WBC (Auto) Urine RBC (Auto) Ur Squamous Epith Cells Urine Bacteria 08/27/18 08/27/18 08/27/18 04:49 04:49 04:49 WBC 32.8 H RBC 4.44 Hgb 14.2 D Hct 41.9 MCV 94.6 H MCH 32.1 H MCHC 34.0 RDW 13.3 Plt Count 314 D MPV 8.1 Neut % (Auto) 92.9 H Lymph % (Auto) 3.2 L [place] % (Auto) 3.8 Eos % (Auto) 0.0 Baso % (Auto) 0.1 Neut # (Auto) 30.5 H Lymph # (Auto) 1.0 [place] # (Auto) 1.2 H Eos # (Auto) 0.0 Baso # (Auto) 0.0 Neutrophils % (Manual) 93 H Band Neutrophils % 2 Lymphocytes % (Manual) 4 L Monocytes % (Manual) 1 Platelet Estimate Normal APTT 30.0 Puncture Site pCO2 pO2 HCO3 ABG pH ABG Total CO2 ABG O2 Saturation ABG Base Excess ABG Hemoglobin ABG Carboxyhemoglobin POC ABG HHb (Measured) ABG Methemoglobin Eber Test ABG Potassium A-a O2 Difference Respiratory Index Hgb O2 Saturation Sodium 142 Chloride 104 Glucose Lactate Vent Mode Mechanical Rate FiO2 Tidal Volume PEEP Inspiratory BiPAP Expiratory BiPAP Crit Value Called To Crit Value Called By Crit Value Read Back Blood Gas Notified Time Potassium 4.8 Carbon Dioxide 30 Anion Gap 12 BUN 73 H Creatinine 1.8 H Est GFR ( Amer) 45 Est GFR (Non-Af Amer) 37 Random Glucose 148 H Calcium 9.2 Phosphorus 3.5 Magnesium 2.7 H Total Bilirubin 0.7 AST 34 ALT 75 H Alkaline Phosphatase 94 Total Protein 6.4 Albumin 3.4 L Globulin 3.0 Albumin/Globulin Ratio 1.2 Arterial Blood Potassium Urine Color Urine Clarity Urine pH Ur Specific [place] Urine Protein Urine Glucose (UA) Urine Ketones Urine Blood Urine Nitrate Urine Bilirubin Urine Urobilinogen Ur Leukocyte Esterase Urine WBC (Auto) Urine RBC (Auto) Ur Squamous Epith Cells Urine Bacteria 08/27/18 08/27/18 08/27/18 05:33 11:23 11:50 WBC RBC Hgb Hct MCV MCH MCHC RDW Plt Count MPV Neut % (Auto) Lymph % (Auto) [place] % (Auto) Eos % (Auto) Baso % (Auto) Neut # (Auto) Lymph # (Auto) [place] # (Auto) Eos # (Auto) Baso # (Auto) Neutrophils % (Manual) Band Neutrophils % Lymphocytes % (Manual) Monocytes % (Manual) Platelet Estimate APTT 75.0 H D Puncture Site Rb pCO2 54 H pO2 75 L HCO3 29.7 H ABG pH 7.39 ABG Total CO2 34.4 H ABG O2 Saturation 96.9 ABG Base Excess 6.2 H ABG Hemoglobin ABG Carboxyhemoglobin POC ABG HHb (Measured) ABG Methemoglobin Eber Test Na ABG Potassium 4.5 A-a O2 Difference 571.0 Respiratory Index 7.6 Hgb O2 Saturation Sodium 140.0 Chloride 106.0 Glucose 152 H Lactate 1.5 Vent Mode Prvc Mechanical Rate 24 FiO2 100.0 Tidal Volume 500 PEEP 5 Inspiratory BiPAP Expiratory BiPAP Crit Value Called To Crit Value Called By Crit Value Read Back Blood Gas Notified Time Potassium Carbon Dioxide Anion Gap BUN Creatinine Est GFR ( Amer) Est GFR (Non-Af Amer) Random Glucose Calcium Phosphorus Magnesium Total Bilirubin AST ALT Alkaline Phosphatase Total Protein Albumin Globulin Albumin/Globulin Ratio Arterial Blood Potassium 4.5 Urine Color [place] Urine Clarity Hazy Urine pH 5.0 Ur Specific [place] 1.029 Urine Protein 1+ H Urine Glucose (UA) Normal Urine Ketones Negative Urine Blood 2+ H Urine Nitrate Negative Urine Bilirubin Negative Urine Urobilinogen Normal Ur Leukocyte Esterase Neg Urine WBC (Auto) 5 Urine RBC (Auto) 113 H Ur Squamous Epith Cells < 1 Urine Bacteria Rare Radiology Impressions: Radiology Impressions Duplex Scan Lower Extremity Artery 08/26/18 08:30 IMPRESSION: Right: No evidence of deep or superficial vein thrombosis of the right lower extremity. . Left: The femoral and popliteal vein were partially occluded with echogenic THROMBUS and revealed decreased venous return, thereafter the posterior tibial veins were totally occluded also with echogenic THROMBUS. There was evidence of chronic deep vein thrombosis of the left lower extremity. Head CT 08/26/18 17:55 IMPRESSION: No acute intracranial abnormality. Mild microangiopathic changes and mild age-related global parenchymal volume loss. A preliminary report was provided by [facility]. Chest X-Ray 08/26/18 18:12 IMPRESSION: Endotracheal tube terminates 3.5 cm proximal to the radha. Interval significant improvement in left pleural effusion with residual small pleural effusion. Chest X-Ray 08/27/18 06:00 IMPRESSION: Endotracheal tube terminates in the mid trachea. Nasogastric tube terminates at the GE junction. Further advancement is recommended. No acute findings. Lung Scan Nuclear Medicine 08/27/18 09:23 IMPRESSION: Low probability perfusion scan for pulmonary embolism. Fingerstick Blood Sugar Results: 266 Review of Systems - Review of Systems Systems not reviewed;Unavailable: Intubated Assessment/Plan - Assessment and Plan (Free Text) Assessment: Pt is a 68 y/o male with hx of dementia brought to hospital for AMS with Code Stroke protocol activated and was found on CT Head & Neck to have high grade stenosis of ALAN s/p Endarterectomy with fina drain placement on 08/[address] Melara. Pt had been downgraded to floors, had worsenning respiratory distress and intubated, now on vent. Pulm -Intubated, on vent/PRVC -Maintain spO2>92% Neuro - AO x2 - Hx of dementia. C/W Donepezil - Ativan prn for agitation - Pain controlled Cardio - Hemodynamically stable postoperatively - Monitor vitals closely - C/W ASA, Plavix, Statin - Monitor drain output GI - Continue tube feeds - Glucerna 1.5 w goal 40cc/hr - Pepcid IV for GI ppx Renal - BUN/Crea stable Heme -H/H stable -Monitor CBC PPX -GI: Pepcid IV - DVT: Lovenox 40sc daily Discussed case with Dr. Iris Pantoja, PGY-1
[2018-08-27 16:24] LABS: ABG ALLEN TEST UNABLE; ARTERIAL BLOOD GAS HCO3 28.3 mmol/L (21-28); ARTERIAL BLOOD GAS O2 SAT 98.7 % (95-98); ARTERIAL BLOOD GAS PCO2 35 mm/Hg (35-45); ARTERIAL BLOOD GAS PO2 215 mm/Hg (80-100); ARTERIAL BLOOD GAS TCO2 28.4 mmol/L (22-28)
--- NOTE | 2018-08-27 18:00 | CP.PCM.PN ---
Subjective - Date & Time of Evaluation Date of Evaluation: 08/27/18 Time of Evaluation: 11:45 - Subjective Subjective: 68 y/o male with hx of dementia brought to hospital for AMS with Code Stroke protocol activated and was found on CT Head & Neck to have high grade stenosis of ALAN s/p Endarterectomy with fina drain placement on 08/[address] Vaishnavi smith. Pt had been downgraded to floors, had worsenning respiratory distress and intubated, now on vent. Objective - Vital Signs/Intake and Output Vital Signs (last 24 hours): Temp Pulse Resp BP Pulse Ox 98.6 F 114 H 21 117/71 94 L 08/27/18 16:00 08/27/18 17:09 08/27/18 17:09 08/27/18 17:09 08/27/18 17:09 Intake and Output: 08/27/18 08/27/18 06:59 18:59 Intake Total 584.5 1132.5 Output Total 850 450 Balance -265.5 682.5 - Medications Medications: Current Medications Acetaminophen (Tylenol 650 Mg Supp) 650 mg HI Q4 PRN PRN Reason: temperature>100.4 and pain Last Admin: 08/17/18 17:00 Dose: 650 mg Acetaminophen (Tylenol 650mg/20.3ml Solution Ud) 650 mg NG Q6 PRN PRN Reason: Pain, Mild (1-3) Albuterol/Ipratropium (Duoneb 3 Mg/0.5 Mg (3 Ml) Ud) 3 ml INH RQ6 ZHENG Last Admin: 08/27/18 13:53 Dose: 3 ml Aspirin (Aspirin Chewable) 81 mg NG DAILY ZHENG Last Admin: 08/27/18 11:23 Dose: 81 mg Clopidogrel Bisulfate (Plavix) 75 mg NG DAILY ZHENG Last Admin: 08/27/18 11:23 Dose: 75 mg Donepezil HCl (Aricept) 5 mg NG HS ZHENG Last Admin: 08/26/18 21:26 Dose: 5 mg Famotidine (Pepcid) 20 mg IVP DAILY ZHENG Last Admin: 08/27/18 11:22 Dose: 20 mg Folic Acid (Folic Acid) 1 mg NG DAILY ZHENG Last Admin: 08/27/18 11:23 Dose: 1 mg Heparin Sodium/Sodium Chloride (Heparin 49363 Units/250ml 1/2 Normal Saline) 25,000 units in 250 mls @ 6.45 mls/hr IV .Q24H PRN; Protocol PRN Reason: ADJUST RATE PER PROTOCOL Last Titration: 08/27/18 06:00 Dose: 16 units/kg/hr, 8.6 mls/hr Sodium Chloride (Sodium Chloride 0.9%) 1,000 mls @ 100 mls/hr IV .Q10H ZHENG Last Admin: 08/27/18 11:13 Dose: 100 mls/hr Meropenem 1 gm/ Sodium (Chloride) 100 mls @ 100 mls/hr IVPB Q12H ZHENG; Protocol Last Admin: 08/27/18 11:17 Dose: 100 mls/hr Methylprednisolone (Solu-Medrol) 40 mg IVP Q8H ZHENG Last Admin: 08/27/18 13:13 Dose: 40 mg Multivitamins/Vitamin C (Multi-Delyn Liquid) 5 ml NG DAILY ZHENG Last Admin: 08/27/18 11:24 Dose: 5 ml Nitroglycerin (Nitro-Dur 0.2 Mg/Hr Patch) 1 patch TD DAILY PRN PRN Reason: Systolic Blood Pressure Rosuvastatin Calcium (Crestor) 10 mg NG HS ZHENG Last Admin: 08/26/18 21:26 Dose: 10 mg - Labs Labs: 08/27/18 04:49 08/27/18 04:49 PT 11.2 SECONDS (9.7-12.2) 08/15/18 07:06 INR 1.0 08/15/18 07:06 APTT 43.0 SECONDS (21-34) H D 08/27/18 17:39 - Head Exam Head Exam: ATRAUMATIC, NORMOCEPHALIC - Neck Exam Neck Exam: Normal Inspection - Respiratory Exam Respiratory Exam: Decreased Breath Sounds - Cardiovascular Exam Cardiovascular Exam: REGULAR RHYTHM - GI/Abdominal Exam GI & Abdominal Exam: Soft Assessment and Plan (1) Respiratory distress, acute Assessment & Plan: Intubated on ventilatory support Use FiO2 as tolerated Continue antibiotics Continue IV steroids and nebulizer treatment Status: Acute (2) Pneumonia Status: Acute (3) COPD (chronic obstructive pulmonary disease) Status: Chronic
--- NOTE | 2018-08-27 22:10 | CP.PCM.PN ---
Subjective - Date & Time of Evaluation Date of Evaluation: 08/27/18 Time of Evaluation: 16:00 - Subjective Subjective: Patient remains intubated, on ventilator and Fio2: 100%. CXR today: No infiltrate. Lung V/Q scan: Low probabilty for PE. On Meropenem and IV steroids, and NGT feedings. On IV Heparin for DVT of the left femoral, popliteal veins and the posterior tibial vein. Objective - Vital Signs/Intake and Output Vital Signs (last 24 hours): Temp Pulse Resp BP Pulse Ox 98.6 F 110 H 22 107/63 94 L 08/27/18 16:00 08/27/18 19:08 08/27/18 19:08 08/27/18 19:08 08/27/18 19:08 Intake and Output: 08/27/18 08/28/18 18:59 06:59 Intake Total 1401.0 146.5 Output Total 490 30 Balance 911.0 116.5 - Medications Medications: Current Medications Acetaminophen (Tylenol 650 Mg Supp) 650 mg ID Q4 PRN PRN Reason: temperature>100.4 and pain Last Admin: 08/17/18 17:00 Dose: 650 mg Acetaminophen (Tylenol 650mg/20.3ml Solution Ud) 650 mg NG Q6 PRN PRN Reason: Pain, Mild (1-3) Albuterol/Ipratropium (Duoneb 3 Mg/0.5 Mg (3 Ml) Ud) 3 ml INH RQ6 ZHENG Last Admin: 08/27/18 20:38 Dose: 3 ml Aspirin (Aspirin Chewable) 81 mg NG DAILY ZHENG Last Admin: 08/27/18 11:23 Dose: 81 mg Clopidogrel Bisulfate (Plavix) 75 mg NG DAILY ZHENG Last Admin: 08/27/18 11:23 Dose: 75 mg Donepezil HCl (Aricept) 5 mg NG HS [facility]HENG Last Admin: 08/27/18 21:20 Dose: 5 mg Famotidine (Pepcid) 20 mg IVP DAILY [facility]HENG Last Admin: 08/27/18 11:22 Dose: 20 mg Folic Acid (Folic Acid) 1 mg NG DAILY ZHENG Last Admin: 08/27/18 11:23 Dose: 1 mg Heparin Sodium/Sodium Chloride (Heparin 36303 Units/250ml 1/2 Normal Saline) 25,000 units in 250 mls @ 6.45 mls/hr IV .Q24H PRN; Protocol PRN Reason: ADJUST RATE PER PROTOCOL Last Titration: 08/27/18 18:18 Dose: 18 units/kg/hr, 9.675 mls/hr Sodium Chloride (Sodium Chloride 0.9%) 1,000 mls @ 100 mls/hr IV .Q10H [facility] Last Admin: 08/27/18 19:30 Dose: Not Given Meropenem 1 gm/ Sodium (Chloride) 100 mls @ 100 mls/hr IVPB Q12H [facility]; Protocol Last Admin: 08/27/18 21:21 Dose: 100 mls/hr Methylprednisolone (Solu-Medrol) 40 mg IVP Q8H [facility] Last Admin: 08/27/18 21:21 Dose: 40 mg Multivitamins/Vitamin C (Multi-Delyn Liquid) 5 ml NG DAILY [facility] Last Admin: 08/27/18 11:24 Dose: 5 ml Nitroglycerin (Nitro-Dur 0.2 Mg/Hr Patch) 1 patch TD DAILY PRN PRN Reason: Systolic Blood Pressure Rosuvastatin Calcium (Crestor) 10 mg NG HS [facility] Last Admin: 08/27/18 21:20 Dose: 10 mg - Labs Labs: 08/27/18 04:49 08/27/18 04:49 PT 11.2 SECONDS (9.7-12.2) 08/15/18 07:06 INR 1.0 08/15/18 07:06 APTT 43.0 SECONDS (21-34) H D 08/27/18 17:39 - Constitutional Appears: Cachectic, Chronically Ill - Head Exam Head Exam: NORMAL INSPECTION - Eye Exam Eye Exam: Normal appearance - ENT Exam ENT Exam: Normal Exam - Neck Exam Additional comments: Scar of right carotid endarterectomy. - Respiratory Exam Respiratory Exam: Rhonchi Additional comments: Rhonchi bilaterally. - Cardiovascular Exam Cardiovascular Exam: REGULAR RHYTHM - GI/Abdominal Exam GI & Abdominal Exam: Soft, Normal Bowel Sounds - Rectal Exam Rectal Exam: Deferred - Exam Exam: NORMAL INSPECTION - Extremities Exam Extremities Exam: Normal Inspection - Back Exam Back Exam: NORMAL INSPECTION - Neurological Exam Additional comments: Patient intubated, sedated. - Skin Skin Exam: Dry, Normal Color, Warm Assessment and Plan (1) Bradycardia Status: Chronic (2) Vertebro-basilar artery syndrome Status: Acute (3) Severe dementia Status: Chronic (4) More than 50 percent stenosis of right internal carotid artery Status: Resolved (5) COPD (chronic obstructive pulmonary disease) Status: Chronic (6) Dysphagia Status: Acute (7) Aspiration pneumonia Assessment & Plan: On Merem IV Status: Acute (8) Acute respiratory failure Status: Acute (9) Deep vein thrombosis (DVT) of left lower extremity Assessment & Plan: On IV Heparin. Status: Acute
[2018-08-28] MEDS: Albuterol-Ipratrop 3 mg / 0.5 (3 ml) UD INH SCH ×4 (01:08→19:58)
[2018-08-28] MEDS: Heparin25000 units/250ml 1/2NS 25,000 UNITS/250 ML BAG IV PRN (03:10)
[2018-08-28] MEDS: MethylPREDNISolone 40 mg Vial IVP SCH ×3 (05:25→22:03)
[2018-08-28] MEDS: Sodium Chloride 0.9% 1,000 ML IV SCH ×2 (05:30→15:00)
[2018-08-28 05:53] LABS: ARTERIAL BLOOD GAS HCO3 28.3 mmol/L (21-28); ARTERIAL BLOOD GAS HEMOGLOBIN 12.6 g/dL (11.7-17.4); ARTERIAL BLOOD GAS O2 SAT 98.3 % (95-98); ARTERIAL BLOOD GAS PCO2 44 mm/Hg (35-45); ARTERIAL BLOOD GAS PH 7.43 (7.35-7.45); ARTERIAL BLOOD GAS PO2 97 mm/Hg (80-100); ARTERIAL BLOOD GAS TCO2 30.6 mmol/L (22-28)
[2018-08-28 06:46] LABS: BASO % 0.1 % (0.0-2.0); HEMOGLOBIN 12.6 g/dL (12.0-18.0); LYMPH % 3.8 % (20.0-40.0); MEAN CELL VOLUME 94.4 fL (80.0-94.0); MEAN CORPUSCULAR HEMOGLOBIN 31.9 pg (27.0-31.0); MEAN CORPUSCULAR HGB CONC 33.8 g/dL (33.0-37.0); MEAN PLATELET VOLUME 8.7 fL (7.2-11.7); MONO # 1.2 K/uL (0.0-0.8); MONO % 4.6 % (0.0-10.0); NEUT # 22.9 K/uL (1.8-7.0); NEUT % 91.5 % (50.0-75.0); PLATELET COUNT 267 K/uL (130-400); RBC 3.95 Mil/uL (4.40-5.90); RED CELL DISTRIBUTION WIDTH 13.5 % (11.5-14.5)
[2018-08-28 07:06] LABS: ALB/GLOB RATIO 1.1 (1.0-2.1); ALBUMIN 3.4 g/dL (3.5-5.0); ALT/SGPT 52 U/L (21-72); AST/SGOT 72 U/L (17-59); BLOOD UREA NITROGEN 96 mg/dL (9-20); CALCIUM 8.2 mg/dl (8.6-10.4); GFR NON-AFRICAN AMERICAN 55
[2018-08-28 08:31] LABS: BANDS 1 % (0-2); TOTAL CELLS COUNTED 100
[2018-08-28 08:32] LABS: LYMPHOCYTE 4 % (20-40); MONOCYTE 5 % (0-10); NEUTROPHIL 90 % (50-75); PLATELET ESTIMATE NORMAL (NORMAL)
[2018-08-28] MEDS: Multiple Vitamins Oral Solution NG SCH (09:00)
--- NOTE | 2018-08-28 09:21 | RAD ---
Date of service: 08/28/2018 HISTORY: intubated COMPARISON: 08/27/2018 FINDINGS: Endotracheal tube terminates in the mid trachea. The nasogastric tube terminates in the stomach. LUNGS: The lungs are hyperinflated and there is peribronchial thickening with chronic changes in both lungs. No focal consolidation. PLEURA: No pleural effusions or pneumothorax. CARDIOVASCULAR: The heart is normal in size. There are aortic atherosclerotic calcifications present. OSSEOUS STRUCTURES: Within normal limits for the patient's age. VISUALIZED UPPER ABDOMEN: Normal. OTHER FINDINGS: None. IMPRESSION: No active pulmonary disease. COPD. Stable position of support tubes.
[2018-08-28] MEDS: Meropenem 1 GM in Sodium Chloride 0.9% 100 ML IVPB SCH ×2 (09:29→21:49)
[2018-08-28] MEDS ORDERED: (Novolin R) Insulin Human Regular 100 units/ml vial SC ONE (10:00)
[2018-08-28] MEDS ORDERED: Sodium Chloride 0.9% 1,000 ML IV ONE (10:00)
[2018-08-28] MEDS ORDERED: Dextrose 50% SYRINGE Inj (50 ml) IV ONE (10:15)
[2018-08-28] MEDS: Dexmedetomidine Hydrochloride 200 MCG in Sodium Chloride 0.9% 48 ML IV PRN ×3 (10:59→21:54)
--- NOTE | 2018-08-28 14:44 | RAD ---
Date of service: 08/28/2018 HISTORY: PICC placement COMPARISON: 08/28/2018 FINDINGS: Endotracheal tube terminates in the mid trachea. The nasogastric tube terminates in the stomach. The right PICC line terminates in the SVC. LUNGS: The lungs are well inflated and clear. PLEURA: There is haziness in the left lower lobe and blunting of the left costophrenic angle. No right pleural effusion. No pneumothorax. CARDIOVASCULAR: The heart is normal in size. No aortic atherosclerotic calcifications present. OSSEOUS STRUCTURES: Within normal limits for the patient's age. VISUALIZED UPPER ABDOMEN: Normal. OTHER FINDINGS: None. IMPRESSION: Right PICC line terminates in the SVC. Stable position of support tubes. Question of small left pleural effusion.
--- NOTE | 2018-08-28 14:46 | CP.CCUPN ---
<Ubaldo Pantoja - Last Filed: 08/28/18 14:40> CCU Subjective - Physician Review Subjective (Free Text): 08/27/18 15:11 PGY-[address] Note for Dr. Stanton Patient seen and examined at bedside. No acute events overnight. Remains intubated, on vent. CCU Objective - Vital Signs / Intake & Output Vital Signs (Last 4 hours): Vital Signs Temp Pulse Resp BP Pulse Ox 08/28/18 14:08 74 18 106/54 L 99 08/28/18 14:00 80 20 98 08/28/18 13:00 78 18 98 08/28/18 12:00 98.7 F 77 19 98 08/28/18 11:09 100 H 25 H 137/68 98 08/28/18 11:00 104 H 25 H 97 Intake and Output (Last 8hrs): Intake & Output 08/27/18 08/28/18 08/28/18 22:59 06:59 14:59 Intake Total 1313.6 1261.6 4880.0 Output Total 370 430 300 Balance 943.6 831.6 4580.0 Intake: IV 122 64 50 Intake, IV Amount 861.6 877.6 4510.0 Left Forearm 32.4 Left Wrist 990 869 8700 Left Wrist Y port 61.6 77.6 9.7 Right Forearm 67.9 Tube Feeding 290 320 320 Other 40 Output: Urine 370 430 300 Urethral ([place]) 370 430 300 Other: # Bowel Movements 0 0 0 - Physical Exam Pupils: Positive for: PERRL Extroacular Muscles: Positive for: EOMI Mouth: Positive for: Moist Mucous Membranes Respiratory/Chest: Positive for: Other (intubated, on vent) Cardiovascular: Positive for: Regular Rate and Rhythm, Normal S1, S2 Abdomen: Negative for: Tenderness, Distention Neurological: Positive for: Other (sedated, on vent) - Medications Active Medications: Active Medications Generic Name Dose Route Start Last Admin Trade Name Freq PRN Reason Stop Dose Admin Acetaminophen 650 mg 08/17/18 17:37 08/17/18 17:00 Tylenol 650 Mg Supp CO 650 mg Q4 PRN Administration temperature>100.4 and pain Acetaminophen 650 mg 08/23/18 13:00 Tylenol 650mg/20.3ml Solution Ud NG Q6 PRN Pain, Mild (1-3) Albuterol/Ipratropium 3 ml 08/17/18 16:00 08/28/18 01:08 Duoneb 3 Mg/0.5 Mg (3 Ml) Ud INH 3 ml RQ6 ZHENG Administration Aspirin 81 mg 08/24/18 10:00 08/28/18 09:00 Aspirin Chewable NG 81 mg DAILY ZHENG Administration Clopidogrel Bisulfate 75 mg 08/24/18 10:00 08/28/18 09:00 Plavix NG 75 mg DAILY ZHENG Administration Donepezil HCl 5 mg 08/23/18 22:00 08/27/18 21:20 Aricept NG 5 mg HS ZHENG Administration Famotidine 20 mg 08/14/18 10:00 08/28/18 09:00 Pepcid IVP 20 mg DAILY ZHENG Administration Folic Acid 1 mg 08/24/18 10:00 08/28/18 09:00 Folic Acid NG 1 mg DAILY ZHENG Administration Heparin Sodium/Sodium Chloride 25,000 units in 250 mls @ 6.45 mls/hr 08/26/18 15:34 08/28/18 03:10 Heparin 99028 Units/250ml 1/2 Normal Saline IV 18 units/kg/hr .Q24H PRN 9.675 mls/hr ADJUST RATE PER PROTOCOL Administration Protocol 12 UNITS/KG/HR Sodium Chloride 1,000 mls @ 100 mls/hr 08/27/18 09:30 08/28/18 05:30 Sodium Chloride 0.9% IV Not Given .Q10H ZHENG Meropenem 1 gm/ Sodium 100 mls @ 100 mls/hr 08/27/18 10:00 08/28/18 09:29 Chloride IVPB 100 mls/hr Q12H ZHENG Administration Protocol Dexmedetomidine HCl 200 mcg/ 50 mls @ 2.65 mls/hr 08/28/18 11:00 08/28/18 14:28 Sodium Chloride IV 0.6 mcg/kg/hr TITR PRN 7.94 mls/hr Anxiety Administration Protocol 0.2 MCG/KG/HR Methylprednisolone 40 mg 08/26/18 14:00 08/28/18 14:22 Solu-Medrol IVP 40 mg Q8H ZHENG Administration Multivitamins/Vitamin C 5 ml 08/24/18 10:00 08/28/18 09:00 Multi-Delyn Liquid NG 5 ml DAILY ZHENG Administration Rosuvastatin Calcium 10 mg 08/23/18 22:00 08/27/18 21:20 Crestor NG 10 mg HS ZHENG Administration - Patient Studies Lab Studies: Microbiology Studies 08/27/18 11:50 Blood Culture - Preliminary Blood NO GROWTH AFTER 24 HOURS 08/27/18 09:24 Blood Culture - Preliminary Blood NO GROWTH AFTER 24 HOURS 08/27/18 13:12 Gram Stain - Final Sputum Sputum Culture - Preliminary No growth. 08/27/18 11:23 Urine Culture - Final Urine,Clean Catch No Growth (<1,000 CFU/ML) Lab Studies 08/28/18 08/28/18 08/28/18 Range/Units 06:40 06:40 06:40 WBC 25.0 H (4.8-10.8) K/uL RBC 3.95 L (4.40-5.90) Mil/uL Hgb 12.6 (12.0-18.0) g/dL Hct 37.3 (35.0-51.0) % MCV 94.4 H (80.0-94.0) fL MCH 31.9 H (27.0-31.0) pg MCHC 33.8 (33.0-37.0) g/dL RDW 13.5 (11.5-14.5) % Plt Count 267 (130-400) K/uL MPV 8.7 (7.2-11.7) fL Neut % (Auto) 91.5 H (50.0-75.0) % Lymph % (Auto) 3.8 L (20.0-40.0) % Boyle % (Auto) 4.6 (0.0-10.0) % Eos % (Auto) 0.0 (0.0-4.0) % Baso % (Auto) 0.1 (0.0-2.0) % Neut # (Auto) 22.9 H (1.8-7.0) K/uL Lymph # (Auto) 1.0 (1.0-4.3) K/uL Boyle # (Auto) 1.2 H (0.0-0.8) K/uL Eos # (Auto) 0.0 (0.0-0.7) K/uL Baso # (Auto) 0.0 (0.0-0.2) K/uL Neutrophils % (Manual) 90 H (50-75) % Band Neutrophils % 1 (0-2) % Lymphocytes % (Manual) 4 L (20-40) % Monocytes % (Manual) 5 (0-10) % Platelet Estimate Normal (NORMAL) RBC Morphology Normal APTT 46.0 H D (21-34) SECONDS Puncture Site pCO2 (35-45) mm/Hg pO2 (80-100) mm/Hg HCO3 (21-28) mmol/L ABG pH (7.35-7.45) ABG Total CO2 (22-28) mmol/L ABG O2 Saturation (95-98) % ABG Base Excess (-2.0-3.0) mmol/L ABG Hemoglobin (11.7-17.4) g/dL ABG Carboxyhemoglobin (0.5-1.5) % POC ABG HHb (Measured) (0.0-5.0) % ABG Methemoglobin (0.0-3.0) % Eber Test A-a O2 Difference mm/Hg Respiratory Index Hgb O2 Saturation (95.0-98.0) % Vent Mode Mechanical Rate FiO2 % Tidal Volume PEEP Sodium 142 (132-148) mmol/L Potassium 6.0 H (3.6-5.2) mmol/L Chloride 108 H (98-107) mmol/L Carbon Dioxide 27 (22-30) mmol/L Anion Gap 13 (10-20) BUN 96 H (9-20) mg/dL Creatinine 1.3 (0.8-1.5) mg/dL Est GFR ( Amer) > 60 Est GFR (Non-Af Amer) 55 Random Glucose 113 H D (75-110) mg/dL Calcium 8.2 L (8.6-10.4) mg/dl Phosphorus 2.9 (2.5-4.5) mg/dL Magnesium 3.0 H (1.6-2.3) mg/dL Total Bilirubin 1.6 H (0.2-1.3) mg/dL AST 72 H D (17-59) U/L ALT 52 (21-72) U/L Alkaline Phosphatase 63 (38-126) U/L Total Protein 6.4 (6.3-8.3) g/dL Albumin 3.4 L (3.5-5.0) g/dL Globulin 3.0 (2.2-3.9) gm/dL Albumin/Globulin Ratio 1.1 (1.0-2.1) 08/28/18 08/28/18 08/27/18 Range/Units 05:28 00:38 17:39 WBC (4.8-10.8) K/uL RBC (4.40-5.90) Mil/uL Hgb (12.0-18.0) g/dL Hct (35.0-51.0) % MCV (80.0-94.0) fL MCH (27.0-31.0) pg MCHC (33.0-37.0) g/dL RDW (11.5-14.5) % Plt Count (130-400) K/uL MPV (7.2-11.7) fL Neut % (Auto) (50.0-75.0) % Lymph % (Auto) (20.0-40.0) % Boyle % (Auto) (0.0-10.0) % Eos % (Auto) (0.0-4.0) % Baso % (Auto) (0.0-2.0) % Neut # (Auto) (1.8-7.0) K/uL Lymph # (Auto) (1.0-4.3) K/uL Boyle # (Auto) (0.0-0.8) K/uL Eos # (Auto) (0.0-0.7) K/uL Baso # (Auto) (0.0-0.2) K/uL Neutrophils % (Manual) (50-75) % Band Neutrophils % (0-2) % Lymphocytes % (Manual) (20-40) % Monocytes % (Manual) (0-10) % Platelet Estimate (NORMAL) RBC Morphology APTT 62.0 H D 43.0 H D (21-34) SECONDS Puncture Site Rb pCO2 44 (35-45) mm/Hg pO2 97 (80-100) mm/Hg HCO3 28.3 H (21-28) mmol/L ABG pH 7.43 (7.35-7.45) ABG Total CO2 30.6 H (22-28) mmol/L ABG O2 Saturation 98.3 H (95-98) % ABG Base Excess 4.3 H (-2.0-3.0) mmol/L ABG Hemoglobin 12.6 (11.7-17.4) g/dL ABG Carboxyhemoglobin 1.0 (0.5-1.5) % POC ABG HHb (Measured) 1.7 (0.0-5.0) % ABG Methemoglobin 0.7 (0.0-3.0) % Eber Test Na A-a O2 Difference 347.0 mm/Hg Respiratory Index 3.6 Hgb O2 Saturation 96.6 (95.0-98.0) % Vent Mode Prvc Mechanical Rate 18 FiO2 70.0 % Tidal Volume 500 PEEP 5 Sodium (132-148) mmol/L Potassium (3.6-5.2) mmol/L Chloride (98-107) mmol/L Carbon Dioxide (22-30) mmol/L Anion Gap (10-20) BUN (9-20) mg/dL Creatinine (0.8-1.5) mg/dL Est GFR ( Amer) Est GFR (Non-Af Amer) Random Glucose (75-110) mg/dL Calcium (8.6-10.4) mg/dl Phosphorus (2.5-4.5) mg/dL Magnesium (1.6-2.3) mg/dL Total Bilirubin (0.2-1.3) mg/dL AST (17-59) U/L ALT (21-72) U/L Alkaline Phosphatase (38-126) U/L Total Protein (6.3-8.3) g/dL Albumin (3.5-5.0) g/dL Globulin (2.2-3.9) gm/dL Albumin/Globulin Ratio (1.0-2.1) 08/27/18 Range/Units 16:19 WBC (4.8-10.8) K/uL RBC (4.40-5.90) Mil/uL Hgb (12.0-18.0) g/dL Hct (35.0-51.0) % MCV (80.0-94.0) fL MCH (27.0-31.0) pg MCHC (33.0-37.0) g/dL RDW (11.5-14.5) % Plt Count (130-400) K/uL MPV (7.2-11.7) fL Neut % (Auto) (50.0-75.0) % Lymph % (Auto) (20.0-40.0) % Boyle % (Auto) (0.0-10.0) % Eos % (Auto) (0.0-4.0) % Baso % (Auto) (0.0-2.0) % Neut # (Auto) (1.8-7.0) K/uL Lymph # (Auto) (1.0-4.3) K/uL Boyle # (Auto) (0.0-0.8) K/uL Eos # (Auto) (0.0-0.7) K/uL Baso # (Auto) (0.0-0.2) K/uL Neutrophils % (Manual) (50-75) % Band Neutrophils % (0-2) % Lymphocytes % (Manual) (20-40) % Monocytes % (Manual) (0-10) % Platelet Estimate (NORMAL) RBC Morphology APTT (21-34) SECONDS Puncture Site Rr pCO2 35 (35-45) mm/Hg pO2 215 H (80-100) mm/Hg HCO3 28.3 H (21-28) mmol/L ABG pH 7.50 H (7.35-7.45) ABG Total CO2 28.4 H (22-28) mmol/L ABG O2 Saturation 98.7 H (95-98) % ABG Base Excess 4.2 H (-2.0-3.0) mmol/L ABG Hemoglobin (11.7-17.4) g/dL ABG Carboxyhemoglobin (0.5-1.5) % POC ABG HHb (Measured) (0.0-5.0) % ABG Methemoglobin (0.0-3.0) % Eber Test Unable A-a O2 Difference 454.0 mm/Hg Respiratory Index 2.1 Hgb O2 Saturation (95.0-98.0) % Vent Mode Mechanical Rate 24 FiO2 100.0 % Tidal Volume 500 PEEP 5 Sodium (132-148) mmol/L Potassium (3.6-5.2) mmol/L Chloride (98-107) mmol/L Carbon Dioxide (22-30) mmol/L Anion Gap (10-20) BUN (9-20) mg/dL Creatinine (0.8-1.5) mg/dL Est GFR ( Amer) Est GFR (Non-Af Amer) Random Glucose (75-110) mg/dL Calcium (8.6-10.4) mg/dl Phosphorus (2.5-4.5) mg/dL Magnesium (1.6-2.3) mg/dL Total Bilirubin (0.2-1.3) mg/dL AST (17-59) U/L ALT (21-72) U/L Alkaline Phosphatase (38-126) U/L Total Protein (6.3-8.3) g/dL Albumin (3.5-5.0) g/dL Globulin (2.2-3.9) gm/dL Albumin/Globulin Ratio (1.0-2.1) Laboratory Results - last 24 hr 08/27/18 08/27/18 08/28/18 16:19 17:39 00:38 WBC RBC Hgb Hct MCV MCH MCHC RDW Plt Count MPV Neut % (Auto) Lymph % (Auto) Boyle % (Auto) Eos % (Auto) Baso % (Auto) Neut # (Auto) Lymph # (Auto) Boyle # (Auto) Eos # (Auto) Baso # (Auto) Neutrophils % (Manual) Band Neutrophils % Lymphocytes % (Manual) Monocytes % (Manual) Platelet Estimate RBC Morphology APTT 43.0 H D 62.0 H D Puncture Site Rr pCO2 35 pO2 215 H HCO3 28.3 H ABG pH 7.50 H ABG Total CO2 28.4 H ABG O2 Saturation 98.7 H ABG Base Excess 4.2 H ABG Hemoglobin ABG Carboxyhemoglobin POC ABG HHb (Measured) ABG Methemoglobin Eber Test Unable A-a O2 Difference 454.0 Respiratory Index 2.1 Hgb O2 Saturation Vent Mode Mechanical Rate 24 FiO2 100.0 Tidal Volume 500 PEEP 5 Sodium Potassium Chloride Carbon Dioxide Anion Gap BUN Creatinine Est GFR ( Amer) Est GFR (Non-Af Amer) Random Glucose Calcium Phosphorus Magnesium Total Bilirubin AST ALT Alkaline Phosphatase Total Protein Albumin Globulin Albumin/Globulin Ratio 08/28/18 08/28/18 08/28/18 05:28 06:40 06:40 WBC 25.0 H RBC 3.95 L Hgb 12.6 Hct 37.3 MCV 94.4 H MCH 31.9 H MCHC 33.8 RDW 13.5 Plt Count 267 MPV 8.7 Neut % (Auto) 91.5 H Lymph % (Auto) 3.8 L Boyle % (Auto) 4.6 Eos % (Auto) 0.0 Baso % (Auto) 0.1 Neut # (Auto) 22.9 H Lymph # (Auto) 1.0 Boyle # (Auto) 1.2 H Eos # (Auto) 0.0 Baso # (Auto) 0.0 Neutrophils % (Manual) 90 H Band Neutrophils % 1 Lymphocytes % (Manual) 4 L Monocytes % (Manual) 5 Platelet Estimate Normal RBC Morphology Normal APTT Puncture Site Rb pCO2 44 pO2 97 HCO3 28.3 H ABG pH 7.43 ABG Total CO2 30.6 H ABG O2 Saturation 98.3 H ABG Base Excess 4.3 H ABG Hemoglobin 12.6 ABG Carboxyhemoglobin 1.0 POC ABG HHb (Measured) 1.7 ABG Methemoglobin 0.7 Eber Test Na A-a O2 Difference 347.0 Respiratory Index 3.6 Hgb O2 Saturation 96.6 Vent Mode Prvc Mechanical Rate 18 FiO2 70.0 Tidal Volume 500 PEEP 5 Sodium 142 Potassium 6.0 H Chloride 108 H Carbon Dioxide 27 Anion Gap 13 BUN 96 H Creatinine 1.3 Est GFR ( Amer) > 60 Est GFR (Non-Af Amer) 55 Random Glucose 113 H D Calcium 8.2 L Phosphorus 2.9 Magnesium 3.0 H Total Bilirubin 1.6 H AST 72 H D ALT 52 Alkaline Phosphatase 63 Total Protein 6.4 Albumin 3.4 L Globulin 3.0 Albumin/Globulin Ratio 1.1 08/28/18 06:40 WBC RBC Hgb Hct MCV MCH MCHC RDW Plt Count MPV Neut % (Auto) Lymph % (Auto) Boyle % (Auto) Eos % (Auto) Baso % (Auto) Neut # (Auto) Lymph # (Auto) Boyle # (Auto) Eos # (Auto) Baso # (Auto) Neutrophils % (Manual) Band Neutrophils % Lymphocytes % (Manual) Monocytes % (Manual) Platelet Estimate RBC Morphology APTT 46.0 H D Puncture Site pCO2 pO2 HCO3 ABG pH ABG Total CO2 ABG O2 Saturation ABG Base Excess ABG Hemoglobin ABG Carboxyhemoglobin POC ABG HHb (Measured) ABG Methemoglobin Eber Test A-a O2 Difference Respiratory Index Hgb O2 Saturation Vent Mode Mechanical Rate FiO2 Tidal Volume PEEP Sodium Potassium Chloride Carbon Dioxide Anion Gap BUN Creatinine Est GFR ( Amer) Est GFR (Non-Af Amer) Random Glucose Calcium Phosphorus Magnesium Total Bilirubin AST ALT Alkaline Phosphatase Total Protein Albumin Globulin Albumin/Globulin Ratio Radiology Impressions: Radiology Impressions Chest X-Ray 08/28/18 07:00 IMPRESSION: No active pulmonary disease. COPD. Stable position of support tubes. Fingerstick Blood Sugar Results: 266 Review of Systems - Review of Systems Systems not reviewed;Unavailable: Intubated Assessment/Plan - Assessment and Plan (Free Text) Assessment: Pt is a 68 y/o male with hx of dementia brought to hospital for AMS with Code Stroke protocol activated and was found on CT Head & Neck to have high grade stenosis of ALAN s/p endarterectomy with fina drain placement on 08/[address] Melara. Pt had been downgraded to floors, had worsenning respiratory distress and intubated, on vent. Pulm -Intubated, on vent/PRVC -Maintain spO2>92% Neuro ALAN stenosis s/p endarterectomy - s/p endarterectomy with fina drain placement on 07/30 with vascular surgery, Dr. Melara - AO x2 - Hx of dementia. C/W Donepezil - Precedex drip - Pain controlled Cardio - Hemodynamically stable postoperatively - Monitor vitals closely - C/W ASA, Plavix, Statin - Monitor drain output GI - Continue tube feeds - Glucerna 1.5 w goal 40cc/hr - Pepcid IV for GI ppx Renal - BUN/Crea stable ID -Blood cultures negative -Meropenem IV Q12 for HCAP coverage Heme -H/H stable -Monitor CBC PPX -GI: Pepcid IV - DVT: Lovenox 40sc daily Discussed case with Dr. Maximino Pantoja, PGY-1 <Juan Stanton S - Last Filed: 08/28/18 15:49> CCU Subjective - Physician Review Critical Care Time Spent (in minutes): 45 CCU Objective - Vital Signs / Intake & Output Vital Signs (Last 4 hours): Vital Signs Temp Pulse Resp BP Pulse Ox 08/28/18 14:08 74 18 106/54 L 99 08/28/18 14:00 80 20 98 08/28/18 13:00 78 18 98 08/28/18 12:00 98.7 F 77 19 98 Intake and Output (Last 8hrs): Intake & Output 08/28/18 08/28/18 08/28/18 06:59 14:59 22:59 Intake Total 1261.6 4880.0 Output Total 430 300 Balance 831.6 4580.0 Intake: IV 64 50 Intake, IV Amount 877.6 4510.0 Left Forearm 32.4 Left Wrist 800 4400 Left Wrist Y port 77.6 9.7 Right Forearm 67.9 Tube Feeding 320 320 Output: Urine 430 300 Urethral ([place]) 430 300 Other: # Bowel Movements 0 0 - Medications Active Medications: Active Medications Generic Name Dose Route Start Last Admin Trade Name Freq PRN Reason Stop Dose Admin Acetaminophen 650 mg 08/17/18 17:37 08/17/18 17:00 Tylenol 650 Mg Supp CO 650 mg Q4 PRN Administration temperature>100.4 and pain Acetaminophen 650 mg 08/23/18 13:00 Tylenol 650mg/20.3ml Solution Ud NG Q6 PRN Pain, Mild (1-3) Albuterol/Ipratropium 3 ml 08/17/18 16:00 08/28/18 01:08 Duoneb 3 Mg/0.5 Mg (3 Ml) Ud INH 3 ml RQ6 ZHENG Administration Aspirin 81 mg 08/24/18 10:00 08/28/18 09:00 Aspirin Chewable NG 81 mg DAILY ZHENG Administration Clopidogrel Bisulfate 75 mg 08/24/18 10:00 08/28/18 09:00 Plavix NG 75 mg DAILY ZHENG Administration Donepezil HCl 5 mg 08/23/18 22:00 08/27/18 21:20 Aricept NG 5 mg HS ZHENG Administration Famotidine 20 mg 08/14/18 10:00 08/28/18 09:00 Pepcid IVP 20 mg DAILY ZHENG Administration Folic Acid 1 mg 08/24/18 10:00 08/28/18 09:00 Folic Acid NG 1 mg DAILY ZHENG Administration Heparin Sodium/Sodium Chloride 25,000 units in 250 mls @ 6.45 mls/hr 08/26/18 15:34 08/28/18 03:10 Heparin 85320 Units/250ml 1/2 Normal Saline IV 18 units/kg/hr .Q24H PRN 9.675 mls/hr ADJUST RATE PER PROTOCOL Administration Protocol 12 UNITS/KG/HR Sodium Chloride 1,000 mls @ 100 mls/hr 08/27/18 09:30 08/28/18 05:30 Sodium Chloride 0.9% IV Not Given .Q10H ZHENG Meropenem 1 gm/ Sodium 100 mls @ 100 mls/hr 08/27/18 10:00 08/28/18 09:29 Chloride IVPB 100 mls/hr Q12H ZHENG Administration Protocol Dexmedetomidine HCl 200 mcg/ 50 mls @ 2.65 mls/hr 08/28/18 11:00 08/28/18 14:28 Sodium Chloride IV 0.6 mcg/kg/hr TITR PRN 7.94 mls/hr Anxiety Administration Protocol 0.2 MCG/KG/HR Methylprednisolone 40 mg 08/26/18 14:00 08/28/18 14:22 Solu-Medrol IVP 40 mg Q8H ZHENG Administration Multivitamins/Vitamin C 5 ml 08/24/18 10:00 08/28/18 09:00 Multi-Delyn Liquid NG 5 ml DAILY ZHENG Administration Rosuvastatin Calcium 10 mg 08/23/18 22:00 08/27/18 21:20 Crestor NG 10 mg HS ZHENG Administration - Patient Studies Lab Studies: Microbiology Studies 08/27/18 11:50 Blood Culture - Preliminary Blood NO GROWTH AFTER 24 HOURS 08/27/18 09:24 Blood Culture - Preliminary Blood NO GROWTH AFTER 24 HOURS 08/27/18 13:12 Gram Stain - Final Sputum Sputum Culture - Preliminary No growth. 08/27/18 11:23 Urine Culture - Final Urine,Clean Catch No Growth (<1,000 CFU/ML) Lab Studies 08/28/18 08/28/18 08/28/18 Range/Units 06:40 06:40 06:40 WBC 25.0 H (4.8-10.8) K/uL RBC 3.95 L (4.40-5.90) Mil/uL Hgb 12.6 (12.0-18.0) g/dL Hct 37.3 (35.0-51.0) % MCV 94.4 H (80.0-94.0) fL MCH 31.9 H (27.0-31.0) pg MCHC 33.8 (33.0-37.0) g/dL RDW 13.5 (11.5-14.5) % Plt Count 267 (130-400) K/uL MPV 8.7 (7.2-11.7) fL Neut % (Auto) 91.5 H (50.0-75.0) % Lymph % (Auto) 3.8 L (20.0-40.0) % Boyle % (Auto) 4.6 (0.0-10.0) % Eos % (Auto) 0.0 (0.0-4.0) % Baso % (Auto) 0.1 (0.0-2.0) % Neut # (Auto) 22.9 H (1.8-7.0) K/uL Lymph # (Auto) 1.0 (1.0-4.3) K/uL Boyle # (Auto) 1.2 H (0.0-0.8) K/uL Eos # (Auto) 0.0 (0.0-0.7) K/uL Baso # (Auto) 0.0 (0.0-0.2) K/uL Neutrophils % (Manual) 90 H (50-75) % Band Neutrophils % 1 (0-2) % Lymphocytes % (Manual) 4 L (20-40) % Monocytes % (Manual) 5 (0-10) % Platelet Estimate Normal (NORMAL) RBC Morphology Normal APTT 46.0 H D (21-34) SECONDS Puncture Site pCO2 (35-45) mm/Hg pO2 (80-100) mm/Hg HCO3 (21-28) mmol/L ABG pH (7.35-7.45) ABG Total CO2 (22-28) mmol/L ABG O2 Saturation (95-98) % ABG Base Excess (-2.0-3.0) mmol/L ABG Hemoglobin (11.7-17.4) g/dL ABG Carboxyhemoglobin (0.5-1.5) % POC ABG HHb (Measured) (0.0-5.0) % ABG Methemoglobin (0.0-3.0) % Eber Test A-a O2 Difference mm/Hg Respiratory Index Hgb O2 Saturation (95.0-98.0) % Vent Mode Mechanical Rate FiO2 % Tidal Volume PEEP Sodium 142 (132-148) mmol/L Potassium 6.0 H (3.6-5.2) mmol/L Chloride 108 H (98-107) mmol/L Carbon Dioxide 27 (22-30) mmol/L Anion Gap 13 (10-20) BUN 96 H (9-20) mg/dL Creatinine 1.3 (0.8-1.5) mg/dL Est GFR ( Amer) > 60 Est GFR (Non-Af Amer) 55 Random Glucose 113 H D (75-110) mg/dL Calcium 8.2 L (8.6-10.4) mg/dl Phosphorus 2.9 (2.5-4.5) mg/dL Magnesium 3.0 H (1.6-2.3) mg/dL Total Bilirubin 1.6 H (0.2-1.3) mg/dL AST 72 H D (17-59) U/L ALT 52 (21-72) U/L Alkaline Phosphatase 63 (38-126) U/L Total Protein 6.4 (6.3-8.3) g/dL Albumin 3.4 L (3.5-5.0) g/dL Globulin 3.0 (2.2-3.9) gm/dL Albumin/Globulin Ratio 1.1 (1.0-2.1) 08/28/18 08/28/18 08/27/18 Range/Units 05:28 00:38 17:39 WBC (4.8-10.8) K/uL RBC (4.40-5.90) Mil/uL Hgb (12.0-18.0) g/dL Hct (35.0-51.0) % MCV (80.0-94.0) fL MCH (27.0-31.0) pg MCHC (33.0-37.0) g/dL RDW (11.5-14.5) % Plt Count (130-400) K/uL MPV (7.2-11.7) fL Neut % (Auto) (50.0-75.0) % Lymph % (Auto) (20.0-40.0) % Boyle % (Auto) (0.0-10.0) % Eos % (Auto) (0.0-4.0) % Baso % (Auto) (0.0-2.0) % Neut # (Auto) (1.8-7.0) K/uL Lymph # (Auto) (1.0-4.3) K/uL Boyle # (Auto) (0.0-0.8) K/uL Eos # (Auto) (0.0-0.7) K/uL Baso # (Auto) (0.0-0.2) K/uL Neutrophils % (Manual) (50-75) % Band Neutrophils % (0-2) % Lymphocytes % (Manual) (20-40) % Monocytes % (Manual) (0-10) % Platelet Estimate (NORMAL) RBC Morphology APTT 62.0 H D 43.0 H D (21-34) SECONDS Puncture Site Rb pCO2 44 (35-45) mm/Hg pO2 97 (80-100) mm/Hg HCO3 28.3 H (21-28) mmol/L ABG pH 7.43 (7.35-7.45) ABG Total CO2 30.6 H (22-28) mmol/L ABG O2 Saturation 98.3 H (95-98) % ABG Base Excess 4.3 H (-2.0-3.0) mmol/L ABG Hemoglobin 12.6 (11.7-17.4) g/dL ABG Carboxyhemoglobin 1.0 (0.5-1.5) % POC ABG HHb (Measured) 1.7 (0.0-5.0) % ABG Methemoglobin 0.7 (0.0-3.0) % Eber Test Na A-a O2 Difference 347.0 mm/Hg Respiratory Index 3.6 Hgb O2 Saturation 96.6 (95.0-98.0) % Vent Mode Prvc Mechanical Rate 18 FiO2 70.0 % Tidal Volume 500 PEEP 5 Sodium (132-148) mmol/L Potassium (3.6-5.2) mmol/L Chloride (98-107) mmol/L Carbon Dioxide (22-30) mmol/L Anion Gap (10-20) BUN (9-20) mg/dL Creatinine (0.8-1.5) mg/dL Est GFR ( Amer) Est GFR (Non-Af Amer) Random Glucose (75-110) mg/dL Calcium (8.6-10.4) mg/dl Phosphorus (2.5-4.5) mg/dL Magnesium (1.6-2.3) mg/dL Total Bilirubin (0.2-1.3) mg/dL AST (17-59) U/L ALT (21-72) U/L Alkaline Phosphatase (38-126) U/L Total Protein (6.3-8.3) g/dL Albumin (3.5-5.0) g/dL Globulin (2.2-3.9) gm/dL Albumin/Globulin Ratio (1.0-2.1) 08/27/18 Range/Units 16:19 WBC (4.8-10.8) K/uL RBC (4.40-5.90) Mil/uL Hgb (12.0-18.0) g/dL Hct (35.0-51.0) % MCV (80.0-94.0) fL MCH (27.0-31.0) pg MCHC (33.0-37.0) g/dL RDW (11.5-14.5) % Plt Count (130-400) K/uL MPV (7.2-11.7) fL Neut % (Auto) (50.0-75.0) % Lymph % (Auto) (20.0-40.0) % Boyle % (Auto) (0.0-10.0) % Eos % (Auto) (0.0-4.0) % Baso % (Auto) (0.0-2.0) % Neut # (Auto) (1.8-7.0) K/uL Lymph # (Auto) (1.0-4.3) K/uL Boyle # (Auto) (0.0-0.8) K/uL Eos # (Auto) (0.0-0.7) K/uL Baso # (Auto) (0.0-0.2) K/uL Neutrophils % (Manual) (50-75) % Band Neutrophils % (0-2) % Lymphocytes % (Manual) (20-40) % Monocytes % (Manual) (0-10) % Platelet Estimate (NORMAL) RBC Morphology APTT (21-34) SECONDS Puncture Site Rr pCO2 35 (35-45) mm/Hg pO2 215 H (80-100) mm/Hg HCO3 28.3 H (21-28) mmol/L ABG pH 7.50 H (7.35-7.45) ABG Total CO2 28.4 H (22-28) mmol/L ABG O2 Saturation 98.7 H (95-98) % ABG Base Excess 4.2 H (-2.0-3.0) mmol/L ABG Hemoglobin (11.7-17.4) g/dL ABG Carboxyhemoglobin (0.5-1.5) % POC ABG HHb (Measured) (0.0-5.0) % ABG Methemoglobin (0.0-3.0) % Eber Test Unable A-a O2 Difference 454.0 mm/Hg Respiratory Index 2.1 Hgb O2 Saturation (95.0-98.0) % Vent Mode Mechanical Rate 24 FiO2 100.0 % Tidal Volume 500 PEEP 5 Sodium (132-148) mmol/L Potassium (3.6-5.2) mmol/L Chloride (98-107) mmol/L Carbon Dioxide (22-30) mmol/L Anion Gap (10-20) BUN (9-20) mg/dL Creatinine (0.8-1.5) mg/dL Est GFR ( Amer) Est GFR (Non-Af Amer) Random Glucose (75-110) mg/dL Calcium (8.6-10.4) mg/dl Phosphorus (2.5-4.5) mg/dL Magnesium (1.6-2.3) mg/dL Total Bilirubin (0.2-1.3) mg/dL AST (17-59) U/L ALT (21-72) U/L Alkaline Phosphatase (38-126) U/L Total Protein (6.3-8.3) g/dL Albumin (3.5-5.0) g/dL Globulin (2.2-3.9) gm/dL Albumin/Globulin Ratio (1.0-2.1) Laboratory Results - last 24 hr 08/27/18 08/27/18 08/28/18 16:19 17:39 00:38 WBC RBC Hgb Hct MCV MCH MCHC RDW Plt Count MPV Neut % (Auto) Lymph % (Auto) Boyle % (Auto) Eos % (Auto) Baso % (Auto) Neut # (Auto) Lymph # (Auto) Boyle # (Auto) Eos # (Auto) Baso # (Auto) Neutrophils % (Manual) Band Neutrophils % Lymphocytes % (Manual) Monocytes % (Manual) Platelet Estimate RBC Morphology APTT 43.0 H D 62.0 H D Puncture Site Rr pCO2 35 pO2 215 H HCO3 28.3 H ABG pH 7.50 H ABG Total CO2 28.4 H ABG O2 Saturation 98.7 H ABG Base Excess 4.2 H ABG Hemoglobin ABG Carboxyhemoglobin POC ABG HHb (Measured) ABG Methemoglobin Eber Test Unable A-a O2 Difference 454.0 Respiratory Index 2.1 Hgb O2 Saturation Vent Mode Mechanical Rate 24 FiO2 100.0 Tidal Volume 500 PEEP 5 Sodium Potassium Chloride Carbon Dioxide Anion Gap BUN Creatinine Est GFR ( Amer) Est GFR (Non-Af Amer) Random Glucose Calcium Phosphorus Magnesium Total Bilirubin AST ALT Alkaline Phosphatase Total Protein Albumin Globulin Albumin/Globulin Ratio 08/28/18 08/28/18 08/28/18 05:28 06:40 06:40 WBC 25.0 H RBC 3.95 L Hgb 12.6 Hct 37.3 MCV 94.4 H MCH 31.9 H MCHC 33.8 RDW 13.5 Plt Count 267 MPV 8.7 Neut % (Auto) 91.5 H Lymph % (Auto) 3.8 L Boyle % (Auto) 4.6 Eos % (Auto) 0.0 Baso % (Auto) 0.1 Neut # (Auto) 22.9 H Lymph # (Auto) 1.0 Boyle # (Auto) 1.2 H Eos # (Auto) 0.0 Baso # (Auto) 0.0 Neutrophils % (Manual) 90 H Band Neutrophils % 1 Lymphocytes % (Manual) 4 L Monocytes % (Manual) 5 Platelet Estimate Normal RBC Morphology Normal APTT Puncture Site Rb pCO2 44 pO2 97 HCO3 28.3 H ABG pH 7.43 ABG Total CO2 30.6 H ABG O2 Saturation 98.3 H ABG Base Excess 4.3 H ABG Hemoglobin 12.6 ABG Carboxyhemoglobin 1.0 POC ABG HHb (Measured) 1.7 ABG Methemoglobin 0.7 Eber Test Na A-a O2 Difference 347.0 Respiratory Index 3.6 Hgb O2 Saturation 96.6 Vent Mode Prvc Mechanical Rate 18 FiO2 70.0 Tidal Volume 500 PEEP 5 Sodium 142 Potassium 6.0 H Chloride 108 H Carbon Dioxide 27 Anion Gap 13 BUN 96 H Creatinine 1.3 Est GFR ( Amer) > 60 Est GFR (Non-Af Amer) 55 Random Glucose 113 H D Calcium 8.2 L Phosphorus 2.9 Magnesium 3.0 H Total Bilirubin 1.6 H AST 72 H D ALT 52 Alkaline Phosphatase 63 Total Protein 6.4 Albumin 3.4 L Globulin 3.0 Albumin/Globulin Ratio 1.1 08/28/18 06:40 WBC RBC Hgb Hct MCV MCH MCHC RDW Plt Count MPV Neut % (Auto) Lymph % (Auto) Boyle % (Auto) Eos % (Auto) Baso % (Auto) Neut # (Auto) Lymph # (Auto) Boyle # (Auto) Eos # (Auto) Baso # (Auto) Neutrophils % (Manual) Band Neutrophils % Lymphocytes % (Manual) Monocytes % (Manual) Platelet Estimate RBC Morphology APTT 46.0 H D Puncture Site pCO2 pO2 HCO3 ABG pH ABG Total CO2 ABG O2 Saturation ABG Base Excess ABG Hemoglobin ABG Carboxyhemoglobin POC ABG HHb (Measured) ABG Methemoglobin Eber Test A-a O2 Difference Respiratory Index Hgb O2 Saturation Vent Mode Mechanical Rate FiO2 Tidal Volume PEEP Sodium Potassium Chloride Carbon Dioxide Anion Gap BUN Creatinine Est GFR ( Amer) Est GFR (Non-Af Amer) Random Glucose Calcium Phosphorus Magnesium Total Bilirubin AST ALT Alkaline Phosphatase Total Protein Albumin Globulin Albumin/Globulin Ratio Radiology Impressions: Radiology Impressions Chest X-Ray 08/28/18 07:00 IMPRESSION: No active pulmonary disease. COPD. Stable position of support tubes. Chest X-Ray 08/28/18 13:44 IMPRESSION: Right PICC line terminates in the SVC. Stable position of support tubes. Question of small left pleural effusion. Assessment/Plan (1) Respiratory distress, acute Current Visit: Yes Status: Acute (2) Pneumonia Current Visit: Yes Status: Acute (3) COPD (chronic obstructive pulmonary disease) Current Visit: Yes Status: Chronic Attending/Attestation - Attestation I have personally seen and examined this patient.: Yes I have fully participated in the care of the patient.: Yes I have reviewed all pertinent clinical information: Yes Notes (Text): 08/28/18 15:49 Patient seen and examined in the intensive care unit. Case discussed with housestaff in the morning rounds. Remained intubated on ventilatory support requiring high FiO2 Continue antibiotics Continue steroids and nebulizer treatment NG tube feeding Case discussed with family
[2018-08-28 17:17] LABS: BLOOD UREA NITROGEN 80 mg/dL (9-20); CALCIUM 7.5 mg/dl (8.6-10.4); GFR NON-AFRICAN AMERICAN 60
--- NOTE | 2018-08-28 20:16 | CP.PCM.PN ---
Subjective - Date & Time of Evaluation Date of Evaluation: 08/28/18 Time of Evaluation: 15:30 - Subjective Subjective: Patient remains on ventilator. Fio2: 75%. CXR: clear lungs. On IV Moropenem, IV heparin, NGT feeding. Objective - Vital Signs/Intake and Output Vital Signs (last 24 hours): Temp Pulse Resp BP Pulse Ox 98.9 F 68 18 112/57 L 99 08/28/18 16:00 08/28/18 19:08 08/28/18 19:08 08/28/18 19:08 08/28/18 19:08 Intake and Output: 08/28/18 08/29/18 18:59 06:59 Intake Total 2821.4 155.1 Output Total 600 50 Balance 2221.4 105.1 - Medications Medications: Current Medications Acetaminophen (Tylenol 650 Mg Supp) 650 mg HI Q4 PRN PRN Reason: temperature>100.4 and pain Last Admin: 08/17/18 17:00 Dose: 650 mg Acetaminophen (Tylenol 650mg/20.3ml Solution Ud) 650 mg NG Q6 PRN PRN Reason: Pain, Mild (1-3) Albuterol/Ipratropium (Duoneb 3 Mg/0.5 Mg (3 Ml) Ud) 3 ml INH RQ6 ZHENG Last Admin: 08/28/18 19:58 Dose: 3 ml Aspirin (Aspirin Chewable) 81 mg NG DAILY ZHENG Last Admin: 08/28/18 09:00 Dose: 81 mg Clopidogrel Bisulfate (Plavix) 75 mg NG DAILY ZHENG Last Admin: 08/28/18 09:00 Dose: 75 mg Donepezil HCl (Aricept) 5 mg NG HS ZHENG Last Admin: 08/27/18 21:20 Dose: 5 mg Famotidine (Pepcid) 20 mg IVP DAILY ZHENG Last Admin: 08/28/18 09:00 Dose: 20 mg Folic Acid (Folic Acid) 1 mg NG DAILY ZHENG Last Admin: 08/28/18 09:00 Dose: 1 mg Heparin Sodium/Sodium Chloride (Heparin 36811 Units/250ml 1/2 Normal Saline) 25,000 units in 250 mls @ 6.45 mls/hr IV .Q24H PRN; Protocol PRN Reason: ADJUST RATE PER PROTOCOL Last Admin: 08/28/18 03:10 Dose: 18 units/kg/hr, 9.675 mls/hr Sodium Chloride (Sodium Chloride 0.9%) 1,000 mls @ 100 mls/hr IV .Q10H ZHENG Last Admin: 08/28/18 15:00 Dose: 100 mls/hr Meropenem 1 gm/ Sodium (Chloride) 100 mls @ 100 mls/hr IVPB Q12H ZHENG; Protocol Last Admin: 08/28/18 09:29 Dose: 100 mls/hr Dexmedetomidine HCl 200 mcg/ (Sodium Chloride) 50 mls @ 2.65 mls/hr IV TITR PRN; Protocol PRN Reason: Anxiety Last Titration: 08/28/18 16:14 Dose: 0.4 mcg/kg/hr, 5.29 mls/hr Methylprednisolone (Solu-Medrol) 40 mg IVP Q8H ZHENG Last Admin: 08/28/18 14:22 Dose: 40 mg Multivitamins/Vitamin C (Multi-Delyn Liquid) 5 ml NG DAILY ZHENG Last Admin: 08/28/18 09:00 Dose: 5 ml Rosuvastatin Calcium (Crestor) 10 mg NG HS [facility] Last Admin: 08/27/18 21:20 Dose: 10 mg - Labs Labs: 08/28/18 06:40 08/28/18 16:59 PT 11.2 SECONDS (9.7-12.2) 08/15/18 07:06 INR 1.0 08/15/18 07:06 APTT 46.0 SECONDS (21-34) H D 08/28/18 06:40 - Constitutional Appears: Cachectic, Chronically Ill - Head Exam Head Exam: NORMAL INSPECTION - Eye Exam Eye Exam: Normal appearance - ENT Exam ENT Exam: Normal Exam - Neck Exam Neck Exam: Normal Inspection - Respiratory Exam Respiratory Exam: Rhonchi - Cardiovascular Exam Cardiovascular Exam: REGULAR RHYTHM - GI/Abdominal Exam GI & Abdominal Exam: Soft, Normal Bowel Sounds - Rectal Exam Rectal Exam: Deferred - Exam Exam: NORMAL INSPECTION - Extremities Exam Extremities Exam: Normal Inspection - Back Exam Back Exam: NORMAL INSPECTION - Neurological Exam Additional comments: Intubated and sedated. - Skin Skin Exam: Dry, Intact, Warm Assessment and Plan (1) Bradycardia Status: Chronic (2) Vertebro-basilar artery syndrome Status: Acute (3) Severe dementia Status: Chronic (4) More than 50 percent stenosis of right internal carotid artery Status: Resolved (5) COPD (chronic obstructive pulmonary disease) Status: Chronic (6) Dysphagia Status: Acute (7) Aspiration pneumonia Assessment & Plan: On Meropenem. Status: Acute (8) Acute respiratory failure Assessment & Plan: On ventilator. Status: Acute (9) Deep vein thrombosis (DVT) of left lower extremity Assessment & Plan: On IV Heparin. Status: Acute
[2018-08-29] MEDS: Albuterol-Ipratrop 3 mg / 0.5 (3 ml) UD INH SCH ×4 (01:11→19:41)
[2018-08-29] MEDS: Sodium Chloride 0.9% 1,000 ML IV SCH (01:42)
[2018-08-29] MEDS: Heparin25000 units/250ml 1/2NS 25,000 UNITS/250 ML BAG IV PRN (05:01)
[2018-08-29 05:51] LABS: BASO % 0.1 % (0.0-2.0); LYMPH # 0.5 K/uL (1.0-4.3); LYMPH % 3.4 % (20.0-40.0); MEAN CELL VOLUME 95.5 fL (80.0-94.0); MEAN CORPUSCULAR HEMOGLOBIN 32.2 pg (27.0-31.0); MEAN CORPUSCULAR HGB CONC 33.7 g/dL (33.0-37.0); MEAN PLATELET VOLUME 8.2 fL (7.2-11.7); MONO # 0.9 K/uL (0.0-0.8); MONO % 5.7 % (0.0-10.0); NEUT # 13.9 K/uL (1.8-7.0); NEUT % 90.8 % (50.0-75.0); PLATELET COUNT 211 K/uL (130-400); RBC 3.25 Mil/uL (4.40-5.90); RED CELL DISTRIBUTION WIDTH 13.7 % (11.5-14.5); WHITE BLOOD COUNT 15.3 K/uL (4.8-10.8)
[2018-08-29 05:53] LABS: ABG ALLEN TEST POS; ARTERIAL BLOOD GAS HCO3 25.8 mmol/L (21-28); ARTERIAL BLOOD GAS HEMOGLOBIN 11.5 g/dL (11.7-17.4); ARTERIAL BLOOD GAS O2 SAT 98.8 % (95-98); ARTERIAL BLOOD GAS PCO2 48 mm/Hg (35-45); ARTERIAL BLOOD GAS PH 7.36 (7.35-7.45); ARTERIAL BLOOD GAS PO2 134 mm/Hg (80-100); ARTERIAL BLOOD GAS TCO2 28.6 mmol/L (22-28)
[2018-08-29 06:05] LABS: HEMOGLOBIN 10.4 g/dL (12.0-18.0)
[2018-08-29 06:15] LABS: ALBUMIN 2.2 g/dL (3.5-5.0); ALT/SGPT 112 U/L (21-72); AST/SGOT 77 U/L (17-59); BLOOD UREA NITROGEN 65 mg/dL (9-20); CALCIUM 6.6 mg/dl (8.6-10.4); GFR NON-AFRICAN AMERICAN > 60
[2018-08-29] MEDS: MethylPREDNISolone 40 mg Vial IVP SCH ×3 (06:46→21:37)
[2018-08-29 08:45] LABS: ANISOCYTOSIS SLIGHT; HYPOCHROMIC SLIGHT; LYMPHOCYTE 4 % (20-40); MONOCYTE 4 % (0-10); NEUTROPHIL 92 % (50-75); PLATELET ESTIMATE NORMAL (NORMAL); POIKILOCYTOSIS SLIGHT; TOTAL CELLS COUNTED 100
[2018-08-29 08:46] LABS: TOXIC GRANULATION PRESENT
[2018-08-29] MEDS: Dexmedetomidine Hydrochloride 200 MCG in Sodium Chloride 0.9% 48 ML IV PRN ×4 (09:13→21:20)
[2018-08-29] MEDS: Meropenem 1 GM in Sodium Chloride 0.9% 100 ML IVPB SCH ×2 (09:37→21:43)
[2018-08-29] MEDS: Multiple Vitamins Oral Solution NG SCH (09:37)
[2018-08-29] MEDS: Sodium Chloride 0.45% 1,000 ML IV SCH ×3 (09:38→21:30)
--- NOTE | 2018-08-29 15:08 | CP.CCUPN ---
<Ubaldo Pantoja - Last Filed: 08/29/18 15:15> CCU Subjective - Physician Review Subjective (Free Text): 08/27/18 15:11 PGY-[address] Note for Dr. Stanton Patient seen and examined at bedside. No acute events overnight. Remains intubated, on vent. Continue to wean on vent. CCU Objective - Vital Signs / Intake & Output Vital Signs (Last 4 hours): Vital Signs Temp Pulse Resp BP Pulse Ox 08/29/18 13:08 63 17 118/58 L 98 08/29/18 13:00 68 17 98 08/29/18 12:08 70 22 114/58 L 98 08/29/18 12:00 98.7 F 74 20 98 08/29/18 11:08 54 L 20 109/50 L 98 08/29/18 11:00 65 19 98 Intake and Output (Last 8hrs): Intake & Output 08/28/18 08/29/18 08/29/18 22:59 06:59 14:59 Intake Total 1383.5 1523.0 1285.6 Output Total 515 545 50 Balance 868.5 978.0 1235.6 Weight 118 lb 0.23 oz Intake: IV 50 250 90.5 Intake, IV Amount 923.5 953.0 835.1 Left Forearm 45.9 75.4 26.8 Right Distal Port PICC 40.4 Right Forearm 77.6 77.6 67.9 Right PICC 800 800 700 Tube Feeding 320 320 280 Other 90 80 Output: Urine 515 545 50 Urethral ([place]) 515 545 50 Other: # Bowel Movements 0 0 - Physical Exam Pupils: Positive for: PERRL Extroacular Muscles: Positive for: EOMI Mouth: Positive for: Moist Mucous Membranes Respiratory/Chest: Positive for: Other (intubated, on vent) Cardiovascular: Positive for: Regular Rate and Rhythm, Normal S1, S2 Abdomen: Negative for: Tenderness, Distention Neurological: Positive for: Other (sedated, on vent) - Medications Active Medications: Active Medications Generic Name Dose Route Start Last Admin Trade Name Freq PRN Reason Stop Dose Admin Acetaminophen 650 mg 08/17/18 17:37 08/17/18 17:00 Tylenol 650 Mg Supp RI 650 mg Q4 PRN Administration temperature>100.4 and pain Acetaminophen 650 mg 08/23/18 13:00 Tylenol 650mg/20.3ml Solution Ud NG Q6 PRN Pain, Mild (1-3) Albuterol/Ipratropium 3 ml 08/17/18 16:00 08/29/18 14:21 Duoneb 3 Mg/0.5 Mg (3 Ml) Ud INH 3 ml RQ6 ZHENG Administration Aspirin 81 mg 08/24/18 10:00 08/29/18 09:37 Aspirin Chewable NG 81 mg DAILY ZHENG Administration Clopidogrel Bisulfate 75 mg 08/24/18 10:00 08/29/18 09:37 Plavix NG 75 mg DAILY ZHENG Administration Donepezil HCl 5 mg 08/23/18 22:00 08/28/18 21:47 Aricept NG 5 mg HS ZHENG Administration Famotidine 20 mg 08/14/18 10:00 08/29/18 09:37 Pepcid IVP 20 mg DAILY ZHENG Administration Folic Acid 1 mg 08/24/18 10:00 08/29/18 10:25 Folic Acid NG 1 mg DAILY ZHENG Administration Heparin Sodium/Sodium Chloride 25,000 units in 250 mls @ 6.45 mls/hr 08/26/18 15:34 08/29/18 05:01 Heparin 93464 Units/250ml 1/2 Normal Saline IV 18 units/kg/hr .Q24H PRN 9.675 mls/hr ADJUST RATE PER PROTOCOL Administration Protocol 12 UNITS/KG/HR Meropenem 1 gm/ Sodium 100 mls @ 100 mls/hr 08/27/18 10:00 08/29/18 09:37 Chloride IVPB 100 mls/hr Q12H ZHENG Administration Protocol Dexmedetomidine HCl 200 mcg/ 50 mls @ 2.65 mls/hr 08/28/18 11:00 08/29/18 14:17 Sodium Chloride IV 1 mcg/kg/hr TITR PRN 13.23 mls/hr Anxiety Titration Protocol 0.2 MCG/KG/HR Sodium Chloride 1,000 mls @ 100 mls/hr 08/29/18 09:30 08/29/18 09:38 Sodium Chloride 0.45% IV 100 mls/hr .Q10H ZHENG Administration Methylprednisolone 40 mg 08/26/18 14:00 08/29/18 13:13 Solu-Medrol IVP 40 mg Q8H ZHENG Administration Multivitamins/Vitamin C 5 ml 08/24/18 10:00 08/29/18 09:37 Multi-Delyn Liquid NG 5 ml DAILY ZHENG Administration Rosuvastatin Calcium 10 mg 08/23/18 22:00 08/28/18 21:46 Crestor NG 10 mg HS ZHENG Administration - Patient Studies Lab Studies: Microbiology Studies 08/27/18 11:50 Blood Culture - Preliminary Blood NO GROWTH AFTER 48 HOURS 08/27/18 09:24 Blood Culture - Preliminary Blood NO GROWTH AFTER 48 HOURS 08/27/18 13:12 Gram Stain - Final Sputum Sputum Culture - Preliminary Gram Negative Johnathon Lab Studies 08/29/18 08/29/18 08/29/18 Range/Units 05:47 05:47 05:47 WBC 15.3 H (4.8-10.8) K/uL RBC 3.25 L (4.40-5.90) Mil/uL Hgb 10.4 L D (12.0-18.0) g/dL Hct 31.0 L (35.0-51.0) % MCV 95.5 H (80.0-94.0) fL MCH 32.2 H (27.0-31.0) pg MCHC 33.7 (33.0-37.0) g/dL RDW 13.7 (11.5-14.5) % Plt Count 211 (130-400) K/uL MPV 8.2 (7.2-11.7) fL Neut % (Auto) 90.8 H (50.0-75.0) % Lymph % (Auto) 3.4 L (20.0-40.0) % [place] % (Auto) 5.7 (0.0-10.0) % Eos % (Auto) 0.0 (0.0-4.0) % Baso % (Auto) 0.1 (0.0-2.0) % Neut # (Auto) 13.9 H (1.8-7.0) K/uL Lymph # (Auto) 0.5 L (1.0-4.3) K/uL [place] # (Auto) 0.9 H (0.0-0.8) K/uL Eos # (Auto) 0.0 (0.0-0.7) K/uL Baso # (Auto) 0.0 (0.0-0.2) K/uL Neutrophils % (Manual) 92 H (50-75) % Lymphocytes % (Manual) 4 L (20-40) % Monocytes % (Manual) 4 (0-10) % Toxic Granulation Present Platelet Estimate Normal (NORMAL) Hypochromasia (manual) Slight Poikilocytosis (manual Slight Anisocytosis (manual) Slight APTT 62.0 H D (21-34) SECONDS Puncture Site pCO2 (35-45) mm/Hg pO2 (80-100) mm/Hg HCO3 (21-28) mmol/L ABG pH (7.35-7.45) ABG Total CO2 (22-28) mmol/L ABG O2 Saturation (95-98) % ABG Base Excess (-2.0-3.0) mmol/L ABG Hemoglobin (11.7-17.4) g/dL ABG Carboxyhemoglobin (0.5-1.5) % POC ABG HHb (Measured) (0.0-5.0) % ABG Methemoglobin (0.0-3.0) % Eber Test A-a O2 Difference mm/Hg Respiratory Index Hgb O2 Saturation (95.0-98.0) % Vent Mode Mechanical Rate FiO2 % Tidal Volume PEEP Sodium 150 H (132-148) mmol/L Potassium 3.8 (3.6-5.2) mmol/L Chloride 121 H (98-107) mmol/L Carbon Dioxide 22 (22-30) mmol/L Anion Gap 10 (10-20) BUN 65 H (9-20) mg/dL Creatinine 0.9 (0.8-1.5) mg/dL Est GFR ( Amer) > 60 Est GFR (Non-Af Amer) > 60 POC Glucose (mg/dL) (65-110) mg/dL Random Glucose 115 H (75-110) mg/dL Calcium 6.6 L (8.6-10.4) mg/dl Phosphorus 2.8 (2.5-4.5) mg/dL Magnesium 2.4 H (1.6-2.3) mg/dL Total Bilirubin 0.2 (0.2-1.3) mg/dL AST 77 H (17-59) U/L ALT 112 H D (21-72) U/L Alkaline Phosphatase 64 (38-126) U/L Total Protein 4.4 L (6.3-8.3) g/dL Albumin 2.2 L D (3.5-5.0) g/dL Globulin 2.2 (2.2-3.9) gm/dL Albumin/Globulin Ratio 1.0 (1.0-2.1) 08/29/18 08/28/18 08/27/18 Range/Units 05:00 16:59 11:29 WBC (4.8-10.8) K/uL RBC (4.40-5.90) Mil/uL Hgb (12.0-18.0) g/dL Hct (35.0-51.0) % MCV (80.0-94.0) fL MCH (27.0-31.0) pg MCHC (33.0-37.0) g/dL RDW (11.5-14.5) % Plt Count (130-400) K/uL MPV (7.2-11.7) fL Neut % (Auto) (50.0-75.0) % Lymph % (Auto) (20.0-40.0) % [place] % (Auto) (0.0-10.0) % Eos % (Auto) (0.0-4.0) % Baso % (Auto) (0.0-2.0) % Neut # (Auto) (1.8-7.0) K/uL Lymph # (Auto) (1.0-4.3) K/uL [place] # (Auto) (0.0-0.8) K/uL Eos # (Auto) (0.0-0.7) K/uL Baso # (Auto) (0.0-0.2) K/uL Neutrophils % (Manual) (50-75) % Lymphocytes % (Manual) (20-40) % Monocytes % (Manual) (0-10) % Toxic Granulation Platelet Estimate (NORMAL) Hypochromasia (manual) Poikilocytosis (manual Anisocytosis (manual) APTT (21-34) SECONDS Puncture Site R rad pCO2 48 H (35-45) mm/Hg pO2 134 H (80-100) mm/Hg HCO3 25.8 (21-28) mmol/L ABG pH 7.36 (7.35-7.45) ABG Total CO2 28.6 H (22-28) mmol/L ABG O2 Saturation 98.8 H (95-98) % ABG Base Excess 1.1 (-2.0-3.0) mmol/L ABG Hemoglobin 11.5 L (11.7-17.4) g/dL ABG Carboxyhemoglobin 0.9 (0.5-1.5) % POC ABG HHb (Measured) 1.2 (0.0-5.0) % ABG Methemoglobin 0.8 (0.0-3.0) % Eber Test Pos A-a O2 Difference 305.0 mm/Hg Respiratory Index 2.3 Hgb O2 Saturation 97.1 (95.0-98.0) % Vent Mode Prvc Mechanical Rate 18 FiO2 70.0 % Tidal Volume 500 PEEP 5 Sodium 144 (132-148) mmol/L Potassium 4.3 (3.6-5.2) mmol/L Chloride 112 H (98-107) mmol/L Carbon Dioxide 27 (22-30) mmol/L Anion Gap 9 L (10-20) BUN 80 H (9-20) mg/dL Creatinine 1.2 (0.8-1.5) mg/dL Est GFR ( Amer) > 60 Est GFR (Non-Af Amer) 60 POC Glucose (mg/dL) 155 H (65-110) mg/dL Random Glucose 120 H (75-110) mg/dL Calcium 7.5 L (8.6-10.4) mg/dl Phosphorus (2.5-4.5) mg/dL Magnesium (1.6-2.3) mg/dL Total Bilirubin (0.2-1.3) mg/dL AST (17-59) U/L ALT (21-72) U/L Alkaline Phosphatase (38-126) U/L Total Protein (6.3-8.3) g/dL Albumin (3.5-5.0) g/dL Globulin (2.2-3.9) gm/dL Albumin/Globulin Ratio (1.0-2.1) 08/27/18 08/27/18 08/26/18 Range/Units 05:59 00:11 17:52 WBC (4.8-10.8) K/uL RBC (4.40-5.90) Mil/uL Hgb (12.0-18.0) g/dL Hct (35.0-51.0) % MCV (80.0-94.0) fL MCH (27.0-31.0) pg MCHC (33.0-37.0) g/dL RDW (11.5-14.5) % Plt Count (130-400) K/uL MPV (7.2-11.7) fL Neut % (Auto) (50.0-75.0) % Lymph % (Auto) (20.0-40.0) % [place] % (Auto) (0.0-10.0) % Eos % (Auto) (0.0-4.0) % Baso % (Auto) (0.0-2.0) % Neut # (Auto) (1.8-7.0) K/uL Lymph # (Auto) (1.0-4.3) K/uL [place] # (Auto) (0.0-0.8) K/uL Eos # (Auto) (0.0-0.7) K/uL Baso # (Auto) (0.0-0.2) K/uL Neutrophils % (Manual) (50-75) % Lymphocytes % (Manual) (20-40) % Monocytes % (Manual) (0-10) % Toxic Granulation Platelet Estimate (NORMAL) Hypochromasia (manual) Poikilocytosis (manual Anisocytosis (manual) APTT (21-34) SECONDS Puncture Site pCO2 (35-45) mm/Hg pO2 (80-100) mm/Hg HCO3 (21-28) mmol/L ABG pH (7.35-7.45) ABG Total CO2 (22-28) mmol/L ABG O2 Saturation (95-98) % ABG Base Excess (-2.0-3.0) mmol/L ABG Hemoglobin (11.7-17.4) g/dL ABG Carboxyhemoglobin (0.5-1.5) % POC ABG HHb (Measured) (0.0-5.0) % ABG Methemoglobin (0.0-3.0) % Eber Test A-a O2 Difference mm/Hg Respiratory Index Hgb O2 Saturation (95.0-98.0) % Vent Mode Mechanical Rate FiO2 % Tidal Volume PEEP Sodium (132-148) mmol/L Potassium (3.6-5.2) mmol/L Chloride (98-107) mmol/L Carbon Dioxide (22-30) mmol/L Anion Gap (10-20) BUN (9-20) mg/dL Creatinine (0.8-1.5) mg/dL Est GFR ( Amer) Est GFR (Non-Af Amer) POC Glucose (mg/dL) 136 H 156 H > 500 H* (65-110) mg/dL Random Glucose (75-110) mg/dL Calcium (8.6-10.4) mg/dl Phosphorus (2.5-4.5) mg/dL Magnesium (1.6-2.3) mg/dL Total Bilirubin (0.2-1.3) mg/dL AST (17-59) U/L ALT (21-72) U/L Alkaline Phosphatase (38-126) U/L Total Protein (6.3-8.3) g/dL Albumin (3.5-5.0) g/dL Globulin (2.2-3.9) gm/dL Albumin/Globulin Ratio (1.0-2.1) 08/26/18 08/26/18 Range/Units 17:51 11:40 WBC (4.8-10.8) K/uL RBC (4.40-5.90) Mil/uL Hgb (12.0-18.0) g/dL Hct (35.0-51.0) % MCV (80.0-94.0) fL MCH (27.0-31.0) pg MCHC (33.0-37.0) g/dL RDW (11.5-14.5) % Plt Count (130-400) K/uL MPV (7.2-11.7) fL Neut % (Auto) (50.0-75.0) % Lymph % (Auto) (20.0-40.0) % [place] % (Auto) (0.0-10.0) % Eos % (Auto) (0.0-4.0) % Baso % (Auto) (0.0-2.0) % Neut # (Auto) (1.8-7.0) K/uL Lymph # (Auto) (1.0-4.3) K/uL [place] # (Auto) (0.0-0.8) K/uL Eos # (Auto) (0.0-0.7) K/uL Baso # (Auto) (0.0-0.2) K/uL Neutrophils % (Manual) (50-75) % Lymphocytes % (Manual) (20-40) % Monocytes % (Manual) (0-10) % Toxic Granulation Platelet Estimate (NORMAL) Hypochromasia (manual) Poikilocytosis (manual Anisocytosis (manual) APTT (21-34) SECONDS Puncture Site pCO2 (35-45) mm/Hg pO2 (80-100) mm/Hg HCO3 (21-28) mmol/L ABG pH (7.35-7.45) ABG Total CO2 (22-28) mmol/L ABG O2 Saturation (95-98) % ABG Base Excess (-2.0-3.0) mmol/L ABG Hemoglobin (11.7-17.4) g/dL ABG Carboxyhemoglobin (0.5-1.5) % POC ABG HHb (Measured) (0.0-5.0) % ABG Methemoglobin (0.0-3.0) % Eber Test A-a O2 Difference mm/Hg Respiratory Index Hgb O2 Saturation (95.0-98.0) % Vent Mode Mechanical Rate FiO2 % Tidal Volume PEEP Sodium (132-148) mmol/L Potassium (3.6-5.2) mmol/L Chloride (98-107) mmol/L Carbon Dioxide (22-30) mmol/L Anion Gap (10-20) BUN (9-20) mg/dL Creatinine (0.8-1.5) mg/dL Est GFR ( Amer) Est GFR (Non-Af Amer) POC Glucose (mg/dL) > 500 H* 180 H (65-110) mg/dL Random Glucose (75-110) mg/dL Calcium (8.6-10.4) mg/dl Phosphorus (2.5-4.5) mg/dL Magnesium (1.6-2.3) mg/dL Total Bilirubin (0.2-1.3) mg/dL AST (17-59) U/L ALT (21-72) U/L Alkaline Phosphatase (38-126) U/L Total Protein (6.3-8.3) g/dL Albumin (3.5-5.0) g/dL Globulin (2.2-3.9) gm/dL Albumin/Globulin Ratio (1.0-2.1) Laboratory Results - last 24 hr 08/26/18 08/26/18 08/26/18 11:40 17:51 17:52 WBC RBC Hgb Hct MCV MCH MCHC RDW Plt Count MPV Neut % (Auto) Lymph % (Auto) [place] % (Auto) Eos % (Auto) Baso % (Auto) Neut # (Auto) Lymph # (Auto) [place] # (Auto) Eos # (Auto) Baso # (Auto) Neutrophils % (Manual) Lymphocytes % (Manual) Monocytes % (Manual) Toxic Granulation Platelet Estimate Hypochromasia (manual) Poikilocytosis (manual Anisocytosis (manual) APTT Puncture Site pCO2 pO2 HCO3 ABG pH ABG Total CO2 ABG O2 Saturation ABG Base Excess ABG Hemoglobin ABG Carboxyhemoglobin POC ABG HHb (Measured) ABG Methemoglobin Eber Test A-a O2 Difference Respiratory Index Hgb O2 Saturation Vent Mode Mechanical Rate FiO2 Tidal Volume PEEP Sodium Potassium Chloride Carbon Dioxide Anion Gap BUN Creatinine Est GFR ( Amer) Est GFR (Non-Af Amer) POC Glucose (mg/dL) 180 H > 500 H* > 500 H* Random Glucose Calcium Phosphorus Magnesium Total Bilirubin AST ALT Alkaline Phosphatase Total Protein Albumin Globulin Albumin/Globulin Ratio 08/27/18 08/27/18 08/27/18 00:11 05:59 11:29 WBC RBC Hgb Hct MCV MCH MCHC RDW Plt Count MPV Neut % (Auto) Lymph % (Auto) [place] % (Auto) Eos % (Auto) Baso % (Auto) Neut # (Auto) Lymph # (Auto) [place] # (Auto) Eos # (Auto) Baso # (Auto) Neutrophils % (Manual) Lymphocytes % (Manual) Monocytes % (Manual) Toxic Granulation Platelet Estimate Hypochromasia (manual) Poikilocytosis (manual Anisocytosis (manual) APTT Puncture Site pCO2 pO2 HCO3 ABG pH ABG Total CO2 ABG O2 Saturation ABG Base Excess ABG Hemoglobin ABG Carboxyhemoglobin POC ABG HHb (Measured) ABG Methemoglobin Eber Test A-a O2 Difference Respiratory Index Hgb O2 Saturation Vent Mode Mechanical Rate FiO2 Tidal Volume PEEP Sodium Potassium Chloride Carbon Dioxide Anion Gap BUN Creatinine Est GFR ( Amer) Est GFR (Non-Af Amer) POC Glucose (mg/dL) 156 H 136 H 155 H Random Glucose Calcium Phosphorus Magnesium Total Bilirubin AST ALT Alkaline Phosphatase Total Protein Albumin Globulin Albumin/Globulin Ratio 08/28/18 08/29/18 08/29/18 16:59 05:00 05:47 WBC 15.3 H RBC 3.25 L Hgb 10.4 L D Hct 31.0 L MCV 95.5 H MCH 32.2 H MCHC 33.7 RDW 13.7 Plt Count 211 MPV 8.2 Neut % (Auto) 90.8 H Lymph % (Auto) 3.4 L [place] % (Auto) 5.7 Eos % (Auto) 0.0 Baso % (Auto) 0.1 Neut # (Auto) 13.9 H Lymph # (Auto) 0.5 L [place] # (Auto) 0.9 H Eos # (Auto) 0.0 Baso # (Auto) 0.0 Neutrophils % (Manual) 92 H Lymphocytes % (Manual) 4 L Monocytes % (Manual) 4 Toxic Granulation Present Platelet Estimate Normal Hypochromasia (manual) Slight Poikilocytosis (manual Slight Anisocytosis (manual) Slight APTT Puncture Site R rad pCO2 48 H pO2 134 H HCO3 25.8 ABG pH 7.36 ABG Total CO2 28.6 H ABG O2 Saturation 98.8 H ABG Base Excess 1.1 ABG Hemoglobin 11.5 L ABG Carboxyhemoglobin 0.9 POC ABG HHb (Measured) 1.2 ABG Methemoglobin 0.8 Eber Test Pos A-a O2 Difference 305.0 Respiratory Index 2.3 Hgb O2 Saturation 97.1 Vent Mode Prvc Mechanical Rate 18 FiO2 70.0 Tidal Volume 500 PEEP 5 Sodium 144 Potassium 4.3 Chloride 112 H Carbon Dioxide 27 Anion Gap 9 L BUN 80 H Creatinine 1.2 Est GFR ( Amer) > 60 Est GFR (Non-Af Amer) 60 POC Glucose (mg/dL) Random Glucose 120 H Calcium 7.5 L Phosphorus Magnesium Total Bilirubin AST ALT Alkaline Phosphatase Total Protein Albumin Globulin Albumin/Globulin Ratio 08/29/18 08/29/18 05:47 05:47 WBC RBC Hgb Hct MCV MCH MCHC RDW Plt Count MPV Neut % (Auto) Lymph % (Auto) [place] % (Auto) Eos % (Auto) Baso % (Auto) Neut # (Auto) Lymph # (Auto) [place] # (Auto) Eos # (Auto) Baso # (Auto) Neutrophils % (Manual) Lymphocytes % (Manual) Monocytes % (Manual) Toxic Granulation Platelet Estimate Hypochromasia (manual) Poikilocytosis (manual Anisocytosis (manual) APTT 62.0 H D Puncture Site pCO2 pO2 HCO3 ABG pH ABG Total CO2 ABG O2 Saturation ABG Base Excess ABG Hemoglobin ABG Carboxyhemoglobin POC ABG HHb (Measured) ABG Methemoglobin Eber Test A-a O2 Difference Respiratory Index Hgb O2 Saturation Vent Mode Mechanical Rate FiO2 Tidal Volume PEEP Sodium 150 H Potassium 3.8 Chloride 121 H Carbon Dioxide 22 Anion Gap 10 BUN 65 H Creatinine 0.9 Est GFR ( Amer) > 60 Est GFR (Non-Af Amer) > 60 POC Glucose (mg/dL) Random Glucose 115 H Calcium 6.6 L Phosphorus 2.8 Magnesium 2.4 H Total Bilirubin 0.2 AST 77 H ALT 112 H D Alkaline Phosphatase 64 Total Protein 4.4 L Albumin 2.2 L D Globulin 2.2 Albumin/Globulin Ratio 1.0 Radiology Impressions: Radiology Impressions Chest X-Ray 08/28/18 13:44 IMPRESSION: Right PICC line terminates in the SVC. Stable position of support tubes. Question of small left pleural effusion. Fingerstick Blood Sugar Results: 266 Review of Systems - Review of Systems Systems not reviewed;Unavailable: Intubated Assessment/Plan - Assessment and Plan (Free Text) Assessment: Pt is a 68 y/o male with hx of dementia brought to hospital for AMS with Code Stroke protocol activated and was found on CT Head & Neck to have high grade stenosis of ALAN s/p endarterectomy with fina drain placement on 08/[address] Melara. Pt had been downgraded to floors, had worsening respiratory distress and intubated, on vent. Pulm Respiratory Failure -Intubated, on vent/PRVC -Maintain spO2>92% -+L fem/pop DVT --> VQ low probability PE Neuro ALAN stenosis s/p endarterectomy - s/p endarterectomy with fina drain placement on 07/30 with vascular surgery, Dr. Melara - AO x2 - Hx of dementia. C/W Donepezil - Precedex drip - Pain controlled Cardio - Hemodynamically stable postoperatively - Monitor vitals closely - C/W ASA, Plavix, Statin - Monitor drain output GI - Continue tube feeds - Glucerna 1.5 w goal 40cc/hr - Pepcid IV for GI ppx UTI -Urine growing gram negative rods -Meropenem Renal - BUN/Cr stable ID -Blood cultures negative -Meropenem IV Q12 for HCAP coverage Heme -H/H stable -Monitor CBC PPX -GI: Pepcid IV - DVT: Lovenox 40sc daily Discussed case with Dr. Maximino Pantoja, PGY-1 <Juan Stanton S - Last Filed: 08/29/18 16:12> CCU Subjective - Physician Review Critical Care Time Spent (in minutes): 40 CCU Objective - Vital Signs / Intake & Output Vital Signs (Last 4 hours): Vital Signs Pulse Resp BP Pulse Ox 08/29/18 15:00 81 31 H 98 08/29/18 14:09 67 21 122/59 L 99 08/29/18 14:00 64 21 98 08/29/18 13:08 63 17 118/58 L 98 08/29/18 13:00 68 17 98 Intake and Output (Last 8hrs): Intake & Output 08/29/18 08/29/18 08/29/18 06:59 14:59 22:59 Intake Total 1523.0 1448.7 175.3 Output Total 545 50 Balance 978.0 1398.7 175.3 Weight 118 lb 0.23 oz Intake: IV 250 90.5 9.5 Intake, IV Amount 953.0 958.2 125.8 Left Forearm 75.4 26.8 Right Distal Port PICC 53.8 16.1 Right Forearm 77.6 77.6 9.7 Right PICC 800 800 100 Tube Feeding 320 320 40 Other 80 Output: Urine 545 50 Urethral ([place]) 545 50 Other: # Bowel Movements 0 0 0 - Medications Active Medications: Active Medications Generic Name Dose Route Start Last Admin Trade Name Freq PRN Reason Stop Dose Admin Acetaminophen 650 mg 08/17/18 17:37 08/17/18 17:00 Tylenol 650 Mg Supp RI 650 mg Q4 PRN Administration temperature>100.4 and pain Acetaminophen 650 mg 08/23/18 13:00 Tylenol 650mg/20.3ml Solution Ud NG Q6 PRN Pain, Mild (1-3) Albuterol/Ipratropium 3 ml 08/17/18 16:00 08/29/18 14:21 Duoneb 3 Mg/0.5 Mg (3 Ml) Ud INH 3 ml RQ6 ZHENG Administration Aspirin 81 mg 08/24/18 10:00 08/29/18 09:37 Aspirin Chewable NG 81 mg DAILY ZHENG Administration Clopidogrel Bisulfate 75 mg 08/24/18 10:00 08/29/18 09:37 Plavix NG 75 mg DAILY ZHENG Administration Donepezil HCl 5 mg 08/23/18 22:00 08/28/18 21:47 Aricept NG 5 mg HS ZHENG Administration Famotidine 20 mg 08/14/18 10:00 08/29/18 09:37 Pepcid IVP 20 mg DAILY ZHENG Administration Folic Acid 1 mg 08/24/18 10:00 08/29/18 10:25 Folic Acid NG 1 mg DAILY ZHENG Administration Heparin Sodium/Sodium Chloride 25,000 units in 250 mls @ 6.45 mls/hr 08/26/18 15:34 08/29/18 05:01 Heparin 16242 Units/250ml 1/2 Normal Saline IV 18 units/kg/hr .Q24H PRN 9.675 mls/hr ADJUST RATE PER PROTOCOL Administration Protocol 12 UNITS/KG/HR Meropenem 1 gm/ Sodium 100 mls @ 100 mls/hr 08/27/18 10:00 08/29/18 09:37 Chloride IVPB 100 mls/hr Q12H ZHENG Administration Protocol Dexmedetomidine HCl 200 mcg/ 50 mls @ 2.65 mls/hr 08/28/18 11:00 08/29/18 15:31 Sodium Chloride IV 1.5 mcg/kg/hr TITR PRN 19.85 mls/hr Anxiety Administration Protocol 0.2 MCG/KG/HR Sodium Chloride 1,000 mls @ 100 mls/hr 08/29/18 09:30 08/29/18 09:38 Sodium Chloride 0.45% IV 100 mls/hr .Q10H ZHENG Administration Methylprednisolone 40 mg 08/26/18 14:00 08/29/18 13:13 Solu-Medrol IVP 40 mg Q8H ZHENG Administration Multivitamins/Vitamin C 5 ml 08/24/18 10:00 08/29/18 09:37 Multi-Delyn Liquid NG 5 ml DAILY ZHENG Administration Rosuvastatin Calcium 10 mg 08/23/18 22:00 08/28/18 21:46 Crestor NG 10 mg HS ZHENG Administration - Patient Studies Lab Studies: Microbiology Studies 08/27/18 11:50 Blood Culture - Preliminary Blood NO GROWTH AFTER 48 HOURS 08/27/18 09:24 Blood Culture - Preliminary Blood NO GROWTH AFTER 48 HOURS 08/27/18 13:12 Gram Stain - Final Sputum Sputum Culture - Preliminary Gram Negative [facility] Lab Studies 08/29/18 08/29/18 08/29/18 Range/Units 05:47 05:47 05:47 WBC 15.3 H (4.8-10.8) K/uL RBC 3.25 L (4.40-5.90) Mil/uL Hgb 10.4 L D (12.0-18.0) g/dL Hct 31.0 L (35.0-51.0) % MCV 95.5 H (80.0-94.0) fL MCH 32.2 H (27.0-31.0) pg MCHC 33.7 (33.0-37.0) g/dL RDW 13.7 (11.5-14.5) % Plt Count 211 (130-400) K/uL MPV 8.2 (7.2-11.7) fL Neut % (Auto) 90.8 H (50.0-75.0) % Lymph % (Auto) 3.4 L (20.0-40.0) % [place] % (Auto) 5.7 (0.0-10.0) % Eos % (Auto) 0.0 (0.0-4.0) % Baso % (Auto) 0.1 (0.0-2.0) % Neut # (Auto) 13.9 H (1.8-7.0) K/uL Lymph # (Auto) 0.5 L (1.0-4.3) K/uL [place] # (Auto) 0.9 H (0.0-0.8) K/uL Eos # (Auto) 0.0 (0.0-0.7) K/uL Baso # (Auto) 0.0 (0.0-0.2) K/uL Neutrophils % (Manual) 92 H (50-75) % Lymphocytes % (Manual) 4 L (20-40) % Monocytes % (Manual) 4 (0-10) % Toxic Granulation Present Platelet Estimate Normal (NORMAL) Hypochromasia (manual) Slight Poikilocytosis (manual Slight Anisocytosis (manual) Slight APTT 62.0 H D (21-34) SECONDS Puncture Site pCO2 (35-45) mm/Hg pO2 (80-100) mm/Hg HCO3 (21-28) mmol/L ABG pH (7.35-7.45) ABG Total CO2 (22-28) mmol/L ABG O2 Saturation (95-98) % ABG Base Excess (-2.0-3.0) mmol/L ABG Hemoglobin (11.7-17.4) g/dL ABG Carboxyhemoglobin (0.5-1.5) % POC ABG HHb (Measured) (0.0-5.0) % ABG Methemoglobin (0.0-3.0) % Eber Test A-a O2 Difference mm/Hg Respiratory Index Hgb O2 Saturation (95.0-98.0) % Vent Mode Mechanical Rate FiO2 % Tidal Volume PEEP Sodium 150 H (132-148) mmol/L Potassium 3.8 (3.6-5.2) mmol/L Chloride 121 H (98-107) mmol/L Carbon Dioxide 22 (22-30) mmol/L Anion Gap 10 (10-20) BUN 65 H (9-20) mg/dL Creatinine 0.9 (0.8-1.5) mg/dL Est GFR ( Amer) > 60 Est GFR (Non-Af Amer) > 60 POC Glucose (mg/dL) (65-110) mg/dL Random Glucose 115 H (75-110) mg/dL Calcium 6.6 L (8.6-10.4) mg/dl Phosphorus 2.8 (2.5-4.5) mg/dL Magnesium 2.4 H (1.6-2.3) mg/dL Total Bilirubin 0.2 (0.2-1.3) mg/dL AST 77 H (17-59) U/L ALT 112 H D (21-72) U/L Alkaline Phosphatase 64 (38-126) U/L Total Protein 4.4 L (6.3-8.3) g/dL Albumin 2.2 L D (3.5-5.0) g/dL Globulin 2.2 (2.2-3.9) gm/dL Albumin/Globulin Ratio 1.0 (1.0-2.1) 08/29/18 08/28/18 08/27/18 Range/Units 05:00 16:59 11:29 WBC (4.8-10.8) K/uL RBC (4.40-5.90) Mil/uL Hgb (12.0-18.0) g/dL Hct (35.0-51.0) % MCV (80.0-94.0) fL MCH (27.0-31.0) pg MCHC (33.0-37.0) g/dL RDW (11.5-14.5) % Plt Count (130-400) K/uL MPV (7.2-11.7) fL Neut % (Auto) (50.0-75.0) % Lymph % (Auto) (20.0-40.0) % [place] % (Auto) (0.0-10.0) % Eos % (Auto) (0.0-4.0) % Baso % (Auto) (0.0-2.0) % Neut # (Auto) (1.8-7.0) K/uL Lymph # (Auto) (1.0-4.3) K/uL [place] # (Auto) (0.0-0.8) K/uL Eos # (Auto) (0.0-0.7) K/uL Baso # (Auto) (0.0-0.2) K/uL Neutrophils % (Manual) (50-75) % Lymphocytes % (Manual) (20-40) % Monocytes % (Manual) (0-10) % Toxic Granulation Platelet Estimate (NORMAL) Hypochromasia (manual) Poikilocytosis (manual Anisocytosis (manual) APTT (21-34) SECONDS Puncture Site R rad pCO2 48 H (35-45) mm/Hg pO2 134 H (80-100) mm/Hg HCO3 25.8 (21-28) mmol/L ABG pH 7.36 (7.35-7.45) ABG Total CO2 28.6 H (22-28) mmol/L ABG O2 Saturation 98.8 H (95-98) % ABG Base Excess 1.1 (-2.0-3.0) mmol/L ABG Hemoglobin 11.5 L (11.7-17.4) g/dL ABG Carboxyhemoglobin 0.9 (0.5-1.5) % POC ABG HHb (Measured) 1.2 (0.0-5.0) % ABG Methemoglobin 0.8 (0.0-3.0) % Eber Test Pos A-a O2 Difference 305.0 mm/Hg Respiratory Index 2.3 Hgb O2 Saturation 97.1 (95.0-98.0) % Vent Mode Prvc Mechanical Rate 18 FiO2 70.0 % Tidal Volume 500 PEEP 5 Sodium 144 (132-148) mmol/L Potassium 4.3 (3.6-5.2) mmol/L Chloride 112 H (98-107) mmol/L Carbon Dioxide 27 (22-30) mmol/L Anion Gap 9 L (10-20) BUN 80 H (9-20) mg/dL Creatinine 1.2 (0.8-1.5) mg/dL Est GFR ( Amer) > 60 Est GFR (Non-Af Amer) 60 POC Glucose (mg/dL) 155 H (65-110) mg/dL Random Glucose 120 H (75-110) mg/dL Calcium 7.5 L (8.6-10.4) mg/dl Phosphorus (2.5-4.5) mg/dL Magnesium (1.6-2.3) mg/dL Total Bilirubin (0.2-1.3) mg/dL AST (17-59) U/L ALT (21-72) U/L Alkaline Phosphatase (38-126) U/L Total Protein (6.3-8.3) g/dL Albumin (3.5-5.0) g/dL Globulin (2.2-3.9) gm/dL Albumin/Globulin Ratio (1.0-2.1) 08/27/18 08/27/18 08/26/18 Range/Units 05:59 00:11 17:52 WBC (4.8-10.8) K/uL RBC (4.40-5.90) Mil/uL Hgb (12.0-18.0) g/dL Hct (35.0-51.0) % MCV (80.0-94.0) fL MCH (27.0-31.0) pg MCHC (33.0-37.0) g/dL RDW (11.5-14.5) % Plt Count (130-400) K/uL MPV (7.2-11.7) fL Neut % (Auto) (50.0-75.0) % Lymph % (Auto) (20.0-40.0) % [place] % (Auto) (0.0-10.0) % Eos % (Auto) (0.0-4.0) % Baso % (Auto) (0.0-2.0) % Neut # (Auto) (1.8-7.0) K/uL Lymph # (Auto) (1.0-4.3) K/uL [place] # (Auto) (0.0-0.8) K/uL Eos # (Auto) (0.0-0.7) K/uL Baso # (Auto) (0.0-0.2) K/uL Neutrophils % (Manual) (50-75) % Lymphocytes % (Manual) (20-40) % Monocytes % (Manual) (0-10) % Toxic Granulation Platelet Estimate (NORMAL) Hypochromasia (manual) Poikilocytosis (manual Anisocytosis (manual) APTT (21-34) SECONDS Puncture Site pCO2 (35-45) mm/Hg pO2 (80-100) mm/Hg HCO3 (21-28) mmol/L ABG pH (7.35-7.45) ABG Total CO2 (22-28) mmol/L ABG O2 Saturation (95-98) % ABG Base Excess (-2.0-3.0) mmol/L ABG Hemoglobin (11.7-17.4) g/dL ABG Carboxyhemoglobin (0.5-1.5) % POC ABG HHb (Measured) (0.0-5.0) % ABG Methemoglobin (0.0-3.0) % Eber Test A-a O2 Difference mm/Hg Respiratory Index Hgb O2 Saturation (95.0-98.0) % Vent Mode Mechanical Rate FiO2 % Tidal Volume PEEP Sodium (132-148) mmol/L Potassium (3.6-5.2) mmol/L Chloride (98-107) mmol/L Carbon Dioxide (22-30) mmol/L Anion Gap (10-20) BUN (9-20) mg/dL Creatinine (0.8-1.5) mg/dL Est GFR ( Amer) Est GFR (Non-Af Amer) POC Glucose (mg/dL) 136 H 156 H > 500 H* (65-110) mg/dL Random Glucose (75-110) mg/dL Calcium (8.6-10.4) mg/dl Phosphorus (2.5-4.5) mg/dL Magnesium (1.6-2.3) mg/dL Total Bilirubin (0.2-1.3) mg/dL AST (17-59) U/L ALT (21-72) U/L Alkaline Phosphatase (38-126) U/L Total Protein (6.3-8.3) g/dL Albumin (3.5-5.0) g/dL Globulin (2.2-3.9) gm/dL Albumin/Globulin Ratio (1.0-2.1) 08/26/18 08/26/18 Range/Units 17:51 11:40 WBC (4.8-10.8) K/uL RBC (4.40-5.90) Mil/uL Hgb (12.0-18.0) g/dL Hct (35.0-51.0) % MCV (80.0-94.0) fL MCH (27.0-31.0) pg MCHC (33.0-37.0) g/dL RDW (11.5-14.5) % Plt Count (130-400) K/uL MPV (7.2-11.7) fL Neut % (Auto) (50.0-75.0) % Lymph % (Auto) (20.0-40.0) % [place] % (Auto) (0.0-10.0) % Eos % (Auto) (0.0-4.0) % Baso % (Auto) (0.0-2.0) % Neut # (Auto) (1.8-7.0) K/uL Lymph # (Auto) (1.0-4.3) K/uL [place] # (Auto) (0.0-0.8) K/uL Eos # (Auto) (0.0-0.7) K/uL Baso # (Auto) (0.0-0.2) K/uL Neutrophils % (Manual) (50-75) % Lymphocytes % (Manual) (20-40) % Monocytes % (Manual) (0-10) % Toxic Granulation Platelet Estimate (NORMAL) Hypochromasia (manual) Poikilocytosis (manual Anisocytosis (manual) APTT (21-34) SECONDS Puncture Site pCO2 (35-45) mm/Hg pO2 (80-100) mm/Hg HCO3 (21-28) mmol/L ABG pH (7.35-7.45) ABG Total CO2 (22-28) mmol/L ABG O2 Saturation (95-98) % ABG Base Excess (-2.0-3.0) mmol/L ABG Hemoglobin (11.7-17.4) g/dL ABG Carboxyhemoglobin (0.5-1.5) % POC ABG HHb (Measured) (0.0-5.0) % ABG Methemoglobin (0.0-3.0) % Eber Test A-a O2 Difference mm/Hg Respiratory Index Hgb O2 Saturation (95.0-98.0) % Vent Mode Mechanical Rate FiO2 % Tidal Volume PEEP Sodium (132-148) mmol/L Potassium (3.6-5.2) mmol/L Chloride (98-107) mmol/L Carbon Dioxide (22-30) mmol/L Anion Gap (10-20) BUN (9-20) mg/dL Creatinine (0.8-1.5) mg/dL Est GFR ( Amer) Est GFR (Non-Af Amer) POC Glucose (mg/dL) > 500 H* 180 H (65-110) mg/dL Random Glucose (75-110) mg/dL Calcium (8.6-10.4) mg/dl Phosphorus (2.5-4.5) mg/dL Magnesium (1.6-2.3) mg/dL Total Bilirubin (0.2-1.3) mg/dL AST (17-59) U/L ALT (21-72) U/L Alkaline Phosphatase (38-126) U/L Total Protein (6.3-8.3) g/dL Albumin (3.5-5.0) g/dL Globulin (2.2-3.9) gm/dL Albumin/Globulin Ratio (1.0-2.1) Laboratory Results - last 24 hr 08/26/18 08/26/18 08/26/18 11:40 17:51 17:52 WBC RBC Hgb Hct MCV MCH MCHC RDW Plt Count MPV Neut % (Auto) Lymph % (Auto) [place] % (Auto) Eos % (Auto) Baso % (Auto) Neut # (Auto) Lymph # (Auto) [place] # (Auto) Eos # (Auto) Baso # (Auto) Neutrophils % (Manual) Lymphocytes % (Manual) Monocytes % (Manual) Toxic Granulation Platelet Estimate Hypochromasia (manual) Poikilocytosis (manual Anisocytosis (manual) APTT Puncture Site pCO2 pO2 HCO3 ABG pH ABG Total CO2 ABG O2 Saturation ABG Base Excess ABG Hemoglobin ABG Carboxyhemoglobin POC ABG HHb (Measured) ABG Methemoglobin Eber Test A-a O2 Difference Respiratory Index Hgb O2 Saturation Vent Mode Mechanical Rate FiO2 Tidal Volume PEEP Sodium Potassium Chloride Carbon Dioxide Anion Gap BUN Creatinine Est GFR ( Amer) Est GFR (Non-Af Amer) POC Glucose (mg/dL) 180 H > 500 H* > 500 H* Random Glucose Calcium Phosphorus Magnesium Total Bilirubin AST ALT Alkaline Phosphatase Total Protein Albumin Globulin Albumin/Globulin Ratio 08/27/18 08/27/18 08/27/18 00:11 05:59 11:29 WBC RBC Hgb Hct MCV MCH MCHC RDW Plt Count MPV Neut % (Auto) Lymph % (Auto) [place] % (Auto) Eos % (Auto) Baso % (Auto) Neut # (Auto) Lymph # (Auto) [place] # (Auto) Eos # (Auto) Baso # (Auto) Neutrophils % (Manual) Lymphocytes % (Manual) Monocytes % (Manual) Toxic Granulation Platelet Estimate Hypochromasia (manual) Poikilocytosis (manual Anisocytosis (manual) APTT Puncture Site pCO2 pO2 HCO3 ABG pH ABG Total CO2 ABG O2 Saturation ABG Base Excess ABG Hemoglobin ABG Carboxyhemoglobin POC ABG HHb (Measured) ABG Methemoglobin Eber Test A-a O2 Difference Respiratory Index Hgb O2 Saturation Vent Mode Mechanical Rate FiO2 Tidal Volume PEEP Sodium Potassium Chloride Carbon Dioxide Anion Gap BUN Creatinine Est GFR ( Amer) Est GFR (Non-Af Amer) POC Glucose (mg/dL) 156 H 136 H 155 H Random Glucose Calcium Phosphorus Magnesium Total Bilirubin AST ALT Alkaline Phosphatase Total Protein Albumin Globulin Albumin/Globulin Ratio 08/28/18 08/29/18 08/29/18 16:59 05:00 05:47 WBC 15.3 H RBC 3.25 L Hgb 10.4 L D Hct 31.0 L MCV 95.5 H MCH 32.2 H MCHC 33.7 RDW 13.7 Plt Count 211 MPV 8.2 Neut % (Auto) 90.8 H Lymph % (Auto) 3.4 L [place] % (Auto) 5.7 Eos % (Auto) 0.0 Baso % (Auto) 0.1 Neut # (Auto) 13.9 H Lymph # (Auto) 0.5 L [place] # (Auto) 0.9 H Eos # (Auto) 0.0 Baso # (Auto) 0.0 Neutrophils % (Manual) 92 H Lymphocytes % (Manual) 4 L Monocytes % (Manual) 4 Toxic Granulation Present Platelet Estimate Normal Hypochromasia (manual) Slight Poikilocytosis (manual Slight Anisocytosis (manual) Slight APTT Puncture Site R rad pCO2 48 H pO2 134 H HCO3 25.8 ABG pH 7.36 ABG Total CO2 28.6 H ABG O2 Saturation 98.8 H ABG Base Excess 1.1 ABG Hemoglobin 11.5 L ABG Carboxyhemoglobin 0.9 POC ABG HHb (Measured) 1.2 ABG Methemoglobin 0.8 Eber Test Pos A-a O2 Difference 305.0 Respiratory Index 2.3 Hgb O2 Saturation 97.1 Vent Mode Prvc Mechanical Rate 18 FiO2 70.0 Tidal Volume 500 PEEP 5 Sodium 144 Potassium 4.3 Chloride 112 H Carbon Dioxide 27 Anion Gap 9 L BUN 80 H Creatinine 1.2 Est GFR ( Amer) > 60 Est GFR (Non-Af Amer) 60 POC Glucose (mg/dL) Random Glucose 120 H Calcium 7.5 L Phosphorus Magnesium Total Bilirubin AST ALT Alkaline Phosphatase Total Protein Albumin Globulin Albumin/Globulin Ratio 08/29/18 08/29/18 05:47 05:47 WBC RBC Hgb Hct MCV MCH MCHC RDW Plt Count MPV Neut % (Auto) Lymph % (Auto) [place] % (Auto) Eos % (Auto) Baso % (Auto) Neut # (Auto) Lymph # (Auto) [place] # (Auto) Eos # (Auto) Baso # (Auto) Neutrophils % (Manual) Lymphocytes % (Manual) Monocytes % (Manual) Toxic Granulation Platelet Estimate Hypochromasia (manual) Poikilocytosis (manual Anisocytosis (manual) APTT 62.0 H D Puncture Site pCO2 pO2 HCO3 ABG pH ABG Total CO2 ABG O2 Saturation ABG Base Excess ABG Hemoglobin ABG Carboxyhemoglobin POC ABG HHb (Measured) ABG Methemoglobin Eber Test A-a O2 Difference Respiratory Index Hgb O2 Saturation Vent Mode Mechanical Rate FiO2 Tidal Volume PEEP Sodium 150 H Potassium 3.8 Chloride 121 H Carbon Dioxide 22 Anion Gap 10 BUN 65 H Creatinine 0.9 Est GFR ( Amer) > 60 Est GFR (Non-Af Amer) > 60 POC Glucose (mg/dL) Random Glucose 115 H Calcium 6.6 L Phosphorus 2.8 Magnesium 2.4 H Total Bilirubin 0.2 AST 77 H ALT 112 H D Alkaline Phosphatase 64 Total Protein 4.4 L Albumin 2.2 L D Globulin 2.2 Albumin/Globulin Ratio 1.0 Assessment/Plan (1) Respiratory distress, acute Current Visit: Yes Status: Acute (2) Pneumonia Current Visit: Yes Status: Acute (3) COPD (chronic obstructive pulmonary disease) Current Visit: Yes Status: Chronic Attending/Attestation - Attestation I have personally seen and examined this patient.: Yes I have fully participated in the care of the patient.: Yes I have reviewed all pertinent clinical information: Yes Notes (Text): 08/29/18 16:11 Patient seen and examined in the intensive care unit. Case discussed with housestaff in the morning rounds. Not tolerating weaning Continue ventilatory support and FiO2 reduced to 60% Continue antibiotics, steroids and nebulizer treatment NG tube feeding Spoke with family at length
--- NOTE | 2018-08-29 22:40 | CP.PCM.PN ---
Subjective - Date & Time of Evaluation Date of Evaluation: 08/29/18 Time of Evaluation: 17:00 - Subjective Subjective: Patient remains on respirator with an Fio2 : 60 %. Sedated, on IV Heparin, IV Meropenem, and NGT feeding. Objective - Vital Signs/Intake and Output Vital Signs (last 24 hours): Temp Pulse Resp BP Pulse Ox 98.6 F 74 25 H 126/48 L 98 08/29/18 21:39 08/29/18 22:08 08/29/18 22:08 08/29/18 22:08 08/29/18 22:08 Intake and Output: 08/29/18 08/30/18 18:59 06:59 Intake Total 2200.1 782.0 Output Total 850 Balance 1350.1 782.0 - Medications Medications: Current Medications Acetaminophen (Tylenol 650 Mg Supp) 650 mg ND Q4 PRN PRN Reason: temperature>100.4 and pain Last Admin: 08/29/18 21:39 Dose: 650 mg Acetaminophen (Tylenol 650mg/20.3ml Solution Ud) 650 mg NG Q6 PRN PRN Reason: Pain, Mild (1-3) Albuterol/Ipratropium (Duoneb 3 Mg/0.5 Mg (3 Ml) Ud) 3 ml INH RQ6 [facility] Last Admin: 08/29/18 19:41 Dose: 3 ml Aspirin (Aspirin Chewable) 81 mg NG DAILY [facility] Last Admin: 08/29/18 09:37 Dose: 81 mg Clopidogrel Bisulfate (Plavix) 75 mg NG DAILY [facility] Last Admin: 08/29/18 09:37 Dose: 75 mg Donepezil HCl (Aricept) 5 mg NG HS [facility] Last Admin: 08/29/18 21:37 Dose: 5 mg Famotidine (Pepcid) 20 mg IVP DAILY [facility] Last Admin: 08/29/18 09:37 Dose: 20 mg Folic Acid (Folic Acid) 1 mg NG DAILY [facility] Last Admin: 08/29/18 10:25 Dose: 1 mg Heparin Sodium/Sodium Chloride (Heparin 84766 Units/250ml 1/2 Normal Saline) 25,000 units in 250 mls @ 6.45 mls/hr IV .Q24H PRN; Protocol PRN Reason: ADJUST RATE PER PROTOCOL Last Admin: 08/29/18 05:01 Dose: 18 units/kg/hr, 9.675 mls/hr Meropenem 1 gm/ Sodium (Chloride) 100 mls @ 100 mls/hr IVPB Q12H [facility]; Protocol Last Admin: 08/29/18 21:43 Dose: 100 mls/hr Dexmedetomidine HCl 200 mcg/ (Sodium Chloride) 50 mls @ 2.65 mls/hr IV TITR PRN; Protocol PRN Reason: Anxiety Last Titration: 08/29/18 19:30 Dose: 1.5 mcg/kg/hr, 19.85 mls/hr Sodium Chloride (Sodium Chloride 0.45%) 1,000 mls @ 100 mls/hr IV .Q10H [facility] Last Admin: 08/29/18 21:30 Dose: 100 mls/hr Methylprednisolone (Solu-Medrol) 40 mg IVP Q8H [facility] Last Admin: 08/29/18 21:37 Dose: 40 mg Multivitamins/Vitamin C (Multi-Delyn Liquid) 5 ml NG DAILY [facility] Last Admin: 08/29/18 09:37 Dose: 5 ml Rosuvastatin Calcium (Crestor) 10 mg NG HS [facility] Last Admin: 08/29/18 21:37 Dose: 10 mg - Labs Labs: 08/29/18 05:47 08/29/18 05:47 PT 11.2 SECONDS (9.7-12.2) 08/15/18 07:06 INR 1.0 08/15/18 07:06 APTT 62.0 SECONDS (21-34) H D 08/29/18 05:47 - Constitutional Appears: Agitated, Cachectic, Chronically Ill - Head Exam Head Exam: NORMAL INSPECTION - Eye Exam Eye Exam: Normal appearance - ENT Exam ENT Exam: Normal Exam - Neck Exam Neck Exam: Normal Inspection - Respiratory Exam Respiratory Exam: Rhonchi - Cardiovascular Exam Cardiovascular Exam: REGULAR RHYTHM - GI/Abdominal Exam GI & Abdominal Exam: Soft, Normal Bowel Sounds - Rectal Exam Rectal Exam: Deferred - Exam Exam: NORMAL INSPECTION - Extremities Exam Extremities Exam: Normal Inspection - Back Exam Back Exam: NORMAL INSPECTION - Neurological Exam Additional comments: Sedated. - Skin Skin Exam: Dry, Intact, Normal Color Assessment and Plan (1) Bradycardia Status: Chronic (2) Vertebro-basilar artery syndrome Status: Acute (3) Severe dementia Status: Chronic (4) More than 50 percent stenosis of right internal carotid artery Status: Resolved (5) COPD (chronic obstructive pulmonary disease) Status: Chronic (6) Dysphagia Status: Acute (7) Aspiration pneumonia Status: Acute (8) Acute respiratory failure Status: Acute (9) Deep vein thrombosis (DVT) of left lower extremity Status: Acute
[2018-08-30] MEDS: Dexmedetomidine Hydrochloride 200 MCG in Sodium Chloride 0.9% 48 ML IV PRN ×3 (00:30→08:50)
[2018-08-30] MEDS: Albuterol-Ipratrop 3 mg / 0.5 (3 ml) UD INH SCH ×6 (01:05→23:56)
[2018-08-30] MEDS: MethylPREDNISolone 40 mg Vial IVP SCH ×3 (05:17→22:14)
[2018-08-30] MEDS: Sodium Chloride 0.45% 1,000 ML IV SCH ×2 (05:30→08:52)
[2018-08-30 05:49] LABS: ABG ALLEN TEST POS; ARTERIAL BLOOD GAS HCO3 27.2 mmol/L (21-28); ARTERIAL BLOOD GAS HEMOGLOBIN 11.2 g/dL (11.7-17.4); ARTERIAL BLOOD GAS O2 SAT 98.3 % (95-98); ARTERIAL BLOOD GAS PCO2 39 mm/Hg (35-45); ARTERIAL BLOOD GAS PH 7.45 (7.35-7.45); ARTERIAL BLOOD GAS PO2 101 mm/Hg (80-100); ARTERIAL BLOOD GAS TCO2 28.3 mmol/L (22-28)
[2018-08-30 05:58] LABS: BASO % 0.2 % (0.0-2.0); HEMOGLOBIN 11.6 g/dL (12.0-18.0); LYMPH # 0.5 K/uL (1.0-4.3); LYMPH % 3.8 % (20.0-40.0); MEAN CELL VOLUME 95.1 fL (80.0-94.0); MEAN CORPUSCULAR HEMOGLOBIN 31.8 pg (27.0-31.0); MEAN CORPUSCULAR HGB CONC 33.5 g/dL (33.0-37.0); MEAN PLATELET VOLUME 9.2 fL (7.2-11.7); MONO # 0.6 K/uL (0.0-0.8); MONO % 3.9 % (0.0-10.0); NEUT % 92.1 % (50.0-75.0); NRBC % 0.2 % (0.0-2.0); PLATELET COUNT 202 K/uL (130-400); RBC 3.65 Mil/uL (4.40-5.90); RED CELL DISTRIBUTION WIDTH 13.6 % (11.5-14.5); WHITE BLOOD COUNT 14.1 K/uL (4.8-10.8)
[2018-08-30 06:10] LABS: ALBUMIN 2.6 g/dL (3.5-5.0); ALT/SGPT 234 U/L (21-72); AST/SGOT 133 U/L (17-59); BLOOD UREA NITROGEN 67 mg/dL (9-20); CALCIUM 8.1 mg/dl (8.6-10.4); GFR NON-AFRICAN AMERICAN > 60
[2018-08-30 08:15] LABS: ANISOCYTOSIS SLIGHT; HYPOCHROMIC SLIGHT; LYMPHOCYTE 4 % (20-40); MONOCYTE 3 % (0-10); NEUTROPHIL 93 % (50-75); PLATELET ESTIMATE NORMAL (NORMAL); POIKILOCYTOSIS SLIGHT; TOTAL CELLS COUNTED 100
[2018-08-30] MEDS: Heparin25000 units/250ml 1/2NS 25,000 UNITS/250 ML BAG IV PRN (08:45)
[2018-08-30] MEDS ORDERED: Dexmedetomidine Hydrochloride 400 MCG in Sodium Chloride 0.9% 96 ML IV PRN (09:00)
[2018-08-30] MEDS: Meropenem 1 GM in Sodium Chloride 0.9% 100 ML IVPB SCH ×2 (09:07→22:13)
[2018-08-30] MEDS: Multiple Vitamins Oral Solution NG SCH (09:07)
--- NOTE | 2018-08-30 13:28 | RAD ---
Date of service: 08/30/2018 HISTORY: intubated COMPARISON: 08/28/2018 TECHNIQUE: One view obtained. FINDINGS: LUNGS: No active pulmonary disease. PLEURA: No significant pleural effusion identified, no pneumothorax apparent. CARDIOVASCULAR: No aortic atherosclerotic calcification present. Normal cardiac size. ET tube and NG tube are grossly unchanged. Right PICC catheter grossly unchanged. OSSEOUS STRUCTURES: No significant abnormalities. VISUALIZED UPPER ABDOMEN: Normal. OTHER FINDINGS: None. IMPRESSION: No interval change. No acute infiltrate.
[2018-08-30] MEDS: Docusate-Senna 50 mg-8.6 mg Tab PO SCH ×2 (13:31→17:42)
--- NOTE | 2018-08-30 17:55 | CP.CCUPN ---
<Ubaldo Pantoja - Last Filed: 08/30/18 17:47> CCU Subjective - Physician Review Subjective (Free Text): 08/27/18 15:11 PGY-[address] Note for Dr. Yarbrough Patient seen and examined at bedside. No acute events overnight. Sedation held --> Extubated to BIPAP, tolerating. CCU Objective - Vital Signs / Intake & Output Vital Signs (Last 4 hours): Vital Signs Temp Pulse Resp BP Pulse Ox 08/30/18 17:00 94 H 32 H 92 L 08/30/18 16:08 92 H 23 134/70 92 L 08/30/18 16:00 98.1 F 99 H 33 H 92 L 08/30/18 15:30 94 H 08/30/18 15:09 106 H 41 H 159/77 H 92 L 08/30/18 15:00 101 H 41 H 92 L 08/30/18 14:08 89 25 H 121/61 95 08/30/18 14:00 87 28 H 95 Intake and Output (Last 8hrs): Intake & Output 08/30/18 08/30/18 08/30/18 06:59 14:59 22:59 Intake Total 1831.5 1100.7 69.1 Output Total 850 1350 Balance 981.5 -249.3 69.1 Weight 119 lb 0.125 oz 119 lb 0.125 oz Intake: IV 350 50 Intake, IV Amount 1121.5 620.7 29.1 Left Forearm 87.3 67.9 29.1 Right Distal Port PICC 53.8 Right Forearm 80.4 52.8 0 Right PICC 900 500 0 Oral 210 30 Tube Feeding 360 220 10 Output: Urine 850 1350 Urethral ([place]) 850 1350 Other: # Bowel Movements 0 0 0 - Physical Exam Pupils: Positive for: PERRL Extroacular Muscles: Positive for: EOMI Mouth: Positive for: Moist Mucous Membranes Respiratory/Chest: Positive for: Other (intubated, on vent) Cardiovascular: Positive for: Regular Rate and Rhythm, Normal S1, S2 Abdomen: Negative for: Tenderness, Distention Neurological: Positive for: GCS=15, CN II-XII Intact, Other (off sedation) - Medications Active Medications: Active Medications Generic Name Dose Route Start Last Admin Trade Name Freq PRN Reason Stop Dose Admin Acetaminophen 650 mg 08/17/18 17:37 08/29/18 21:39 Tylenol 650 Mg Supp [place] 650 mg Q4 PRN Administration temperature>100.4 and pain Acetaminophen 650 mg 08/23/18 13:00 Tylenol 650mg/20.3ml Solution Ud NG Q6 PRN Pain, Mild (1-3) Albuterol/Ipratropium 3 ml 08/17/18 16:00 08/30/18 13:28 Duoneb 3 Mg/0.5 Mg (3 Ml) Ud INH 3 ml RQ6 ZHENG Administration Apixaban 5 mg 08/30/18 18:00 08/30/18 17:42 Eliquis PO 5 mg BID ZHENG Administration Aspirin 81 mg 08/24/18 10:00 08/30/18 09:08 Aspirin Chewable NG 81 mg DAILY ZHENG Administration Clopidogrel Bisulfate 75 mg 08/24/18 10:00 08/30/18 09:08 Plavix NG 75 mg DAILY ZHEGN Administration Donepezil HCl 5 mg 08/23/18 22:00 08/29/18 21:37 Aricept NG 5 mg HS ZHENG Administration Famotidine 20 mg 08/14/18 10:00 08/30/18 09:07 Pepcid IVP 20 mg DAILY ZHENG Administration Folic Acid 1 mg 08/24/18 10:00 08/30/18 09:08 Folic Acid NG 1 mg DAILY ZHENG Administration Meropenem 1 gm/ Sodium 100 mls @ 100 mls/hr 08/27/18 10:00 08/30/18 09:07 Chloride IVPB 100 mls/hr Q12H ZHENG Administration Protocol Methylprednisolone 40 mg 08/26/18 14:00 08/30/18 14:26 Solu-Medrol IVP 40 mg Q8H ZHENG Administration Multivitamins/Vitamin C 5 ml 08/24/18 10:00 08/30/18 09:07 Multi-Delyn Liquid NG 5 ml DAILY ZHENG Administration Rosuvastatin Calcium 10 mg 08/23/18 22:00 08/29/18 21:37 Crestor NG 10 mg HS ZHENG Administration Senna/Docusate Sodium 2 tab 08/30/18 10:45 08/30/18 17:42 Senokot S 50 Mg-8.6 Mg PO 2 tab BID ZHENG Administration - Patient Studies Lab Studies: Microbiology Studies 08/27/18 11:50 Blood Culture - Preliminary Blood NO GROWTH AFTER 3 DAYS 08/27/18 09:24 Blood Culture - Preliminary Blood NO GROWTH AFTER 3 DAYS 08/27/18 13:12 Gram Stain - Final Sputum Sputum Culture - Final Escherichia Coli Lab Studies 08/30/18 08/30/18 08/30/18 Range/Units 05:36 05:36 05:36 WBC 14.1 H (4.8-10.8) K/uL RBC 3.65 L (4.40-5.90) Mil/uL Hgb 11.6 L (12.0-18.0) g/dL Hct 34.7 L (35.0-51.0) % MCV 95.1 H (80.0-94.0) fL MCH 31.8 H (27.0-31.0) pg MCHC 33.5 (33.0-37.0) g/dL RDW 13.6 (11.5-14.5) % Plt Count 202 (130-400) K/uL MPV 9.2 (7.2-11.7) fL Neut % (Auto) 92.1 H (50.0-75.0) % Lymph % (Auto) 3.8 L (20.0-40.0) % [place] % (Auto) 3.9 (0.0-10.0) % Eos % (Auto) 0.0 (0.0-4.0) % Baso % (Auto) 0.2 (0.0-2.0) % Neut # (Auto) 13.0 H (1.8-7.0) K/uL Lymph # (Auto) 0.5 L (1.0-4.3) K/uL [place] # (Auto) 0.6 (0.0-0.8) K/uL Eos # (Auto) 0.0 (0.0-0.7) K/uL Baso # (Auto) 0.0 (0.0-0.2) K/uL Neutrophils % (Manual) 93 H (50-75) % Lymphocytes % (Manual) 4 L (20-40) % Monocytes % (Manual) 3 (0-10) % Platelet Estimate Normal (NORMAL) Hypochromasia (manual) Slight Poikilocytosis (manual Slight Anisocytosis (manual) Slight APTT 69.0 H D (21-34) SECONDS Puncture Site pCO2 (35-45) mm/Hg pO2 (80-100) mm/Hg HCO3 (21-28) mmol/L ABG pH (7.35-7.45) ABG Total CO2 (22-28) mmol/L ABG O2 Saturation (95-98) % ABG Base Excess (-2.0-3.0) mmol/L ABG Hemoglobin (11.7-17.4) g/dL ABG Carboxyhemoglobin (0.5-1.5) % POC ABG HHb (Measured) (0.0-5.0) % ABG Methemoglobin (0.0-3.0) % Eber Test A-a O2 Difference mm/Hg Respiratory Index Hgb O2 Saturation (95.0-98.0) % Vent Mode Mechanical Rate FiO2 % Tidal Volume PEEP Sodium 148 (132-148) mmol/L Potassium 5.2 (3.6-5.2) mmol/L Chloride 115 H (98-107) mmol/L Carbon Dioxide 28 (22-30) mmol/L Anion Gap 10 (10-20) BUN 67 H (9-20) mg/dL Creatinine 1.0 (0.8-1.5) mg/dL Est GFR ( Amer) > 60 Est GFR (Non-Af Amer) > 60 Random Glucose 136 H (75-110) mg/dL Calcium 8.1 L (8.6-10.4) mg/dl Phosphorus 2.4 L (2.5-4.5) mg/dL Magnesium 2.6 H (1.6-2.3) mg/dL Total Bilirubin 0.5 (0.2-1.3) mg/dL AST 133 H D (17-59) U/L ALT 234 H D (21-72) U/L Alkaline Phosphatase 71 (38-126) U/L Total Protein 5.1 L (6.3-8.3) g/dL Albumin 2.6 L (3.5-5.0) g/dL Globulin 2.5 (2.2-3.9) gm/dL Albumin/Globulin Ratio 1.0 (1.0-2.1) 08/30/18 Range/Units 05:10 WBC (4.8-10.8) K/uL RBC (4.40-5.90) Mil/uL Hgb (12.0-18.0) g/dL Hct (35.0-51.0) % MCV (80.0-94.0) fL MCH (27.0-31.0) pg MCHC (33.0-37.0) g/dL RDW (11.5-14.5) % Plt Count (130-400) K/uL MPV (7.2-11.7) fL Neut % (Auto) (50.0-75.0) % Lymph % (Auto) (20.0-40.0) % [place] % (Auto) (0.0-10.0) % Eos % (Auto) (0.0-4.0) % Baso % (Auto) (0.0-2.0) % Neut # (Auto) (1.8-7.0) K/uL Lymph # (Auto) (1.0-4.3) K/uL [place] # (Auto) (0.0-0.8) K/uL Eos # (Auto) (0.0-0.7) K/uL Baso # (Auto) (0.0-0.2) K/uL Neutrophils % (Manual) (50-75) % Lymphocytes % (Manual) (20-40) % Monocytes % (Manual) (0-10) % Platelet Estimate (NORMAL) Hypochromasia (manual) Poikilocytosis (manual Anisocytosis (manual) APTT (21-34) SECONDS Puncture Site R rad pCO2 39 (35-45) mm/Hg pO2 101 H (80-100) mm/Hg HCO3 27.2 (21-28) mmol/L ABG pH 7.45 (7.35-7.45) ABG Total CO2 28.3 H (22-28) mmol/L ABG O2 Saturation 98.3 H (95-98) % ABG Base Excess 2.9 (-2.0-3.0) mmol/L ABG Hemoglobin 11.2 L (11.7-17.4) g/dL ABG Carboxyhemoglobin 0.8 (0.5-1.5) % POC ABG HHb (Measured) 1.7 (0.0-5.0) % ABG Methemoglobin 0.7 (0.0-3.0) % Eber Test Pos A-a O2 Difference 278.0 mm/Hg Respiratory Index 2.8 Hgb O2 Saturation 96.8 (95.0-98.0) % Vent Mode Prvc Mechanical Rate 14 FiO2 60.0 % Tidal Volume 500 PEEP 5 Sodium (132-148) mmol/L Potassium (3.6-5.2) mmol/L Chloride (98-107) mmol/L Carbon Dioxide (22-30) mmol/L Anion Gap (10-20) BUN (9-20) mg/dL Creatinine (0.8-1.5) mg/dL Est GFR ( Amer) Est GFR (Non-Af Amer) Random Glucose (75-110) mg/dL Calcium (8.6-10.4) mg/dl Phosphorus (2.5-4.5) mg/dL Magnesium (1.6-2.3) mg/dL Total Bilirubin (0.2-1.3) mg/dL AST (17-59) U/L ALT (21-72) U/L Alkaline Phosphatase (38-126) U/L Total Protein (6.3-8.3) g/dL Albumin (3.5-5.0) g/dL Globulin (2.2-3.9) gm/dL Albumin/Globulin Ratio (1.0-2.1) Laboratory Results - last 24 hr 08/30/18 08/30/18 08/30/18 05:10 05:36 05:36 WBC 14.1 H RBC 3.65 L Hgb 11.6 L Hct 34.7 L MCV 95.1 H MCH 31.8 H MCHC 33.5 RDW 13.6 Plt Count 202 MPV 9.2 Neut % (Auto) 92.1 H Lymph % (Auto) 3.8 L [place] % (Auto) 3.9 Eos % (Auto) 0.0 Baso % (Auto) 0.2 Neut # (Auto) 13.0 H Lymph # (Auto) 0.5 L [place] # (Auto) 0.6 Eos # (Auto) 0.0 Baso # (Auto) 0.0 Neutrophils % (Manual) 93 H Lymphocytes % (Manual) 4 L Monocytes % (Manual) 3 Platelet Estimate Normal Hypochromasia (manual) Slight Poikilocytosis (manual Slight Anisocytosis (manual) Slight APTT 69.0 H D Puncture Site R rad pCO2 39 pO2 101 H HCO3 27.2 ABG pH 7.45 ABG Total CO2 28.3 H ABG O2 Saturation 98.3 H ABG Base Excess 2.9 ABG Hemoglobin 11.2 L ABG Carboxyhemoglobin 0.8 POC ABG HHb (Measured) 1.7 ABG Methemoglobin 0.7 Eber Test Pos A-a O2 Difference 278.0 Respiratory Index 2.8 Hgb O2 Saturation 96.8 Vent Mode Prvc Mechanical Rate 14 FiO2 60.0 Tidal Volume 500 PEEP 5 Sodium Potassium Chloride Carbon Dioxide Anion Gap BUN Creatinine Est GFR ( Amer) Est GFR (Non-Af Amer) Random Glucose Calcium Phosphorus Magnesium Total Bilirubin AST ALT Alkaline Phosphatase Total Protein Albumin Globulin Albumin/Globulin Ratio 08/30/18 05:36 WBC RBC Hgb Hct MCV MCH MCHC RDW Plt Count MPV Neut % (Auto) Lymph % (Auto) [place] % (Auto) Eos % (Auto) Baso % (Auto) Neut # (Auto) Lymph # (Auto) [place] # (Auto) Eos # (Auto) Baso # (Auto) Neutrophils % (Manual) Lymphocytes % (Manual) Monocytes % (Manual) Platelet Estimate Hypochromasia (manual) Poikilocytosis (manual Anisocytosis (manual) APTT Puncture Site pCO2 pO2 HCO3 ABG pH ABG Total CO2 ABG O2 Saturation ABG Base Excess ABG Hemoglobin ABG Carboxyhemoglobin POC ABG HHb (Measured) ABG Methemoglobin Eber Test A-a O2 Difference Respiratory Index Hgb O2 Saturation Vent Mode Mechanical Rate FiO2 Tidal Volume PEEP Sodium 148 Potassium 5.2 Chloride 115 H Carbon Dioxide 28 Anion Gap 10 BUN 67 H Creatinine 1.0 Est GFR ( Amer) > 60 Est GFR (Non-Af Amer) > 60 Random Glucose 136 H Calcium 8.1 L Phosphorus 2.4 L Magnesium 2.6 H Total Bilirubin 0.5 AST 133 H D ALT 234 H D Alkaline Phosphatase 71 Total Protein 5.1 L Albumin 2.6 L Globulin 2.5 Albumin/Globulin Ratio 1.0 Radiology Impressions: Radiology Impressions Chest X-Ray 08/30/18 10:14 IMPRESSION: No interval change. No acute infiltrate. Fingerstick Blood Sugar Results: 266 Review of Systems - Review of Systems All systems: reviewed and no additional remarkable complaints except Assessment/Plan - Assessment and Plan (Free Text) Assessment: Pt is a 68 y/o male with hx of dementia brought to hospital for AMS with Code Stroke protocol activated and was found on CT Head & Neck to have high grade stenosis of ALAN s/p endarterectomy with fina drain placement on 08/[address] Melara. Pt had been downgraded to floors, had worsening respiratory distress and intubated, on vent --> extubated to BIPAP 5/2 Pulm Respiratory Failure -Intubated, on vent/PRVC -Maintain spO2>92% -+L fem/pop DVT --> VQ low probability PE -Extubated to BIPAP 10/5 - tolerating. Neuro ALAN stenosis s/p endarterectomy - s/p endarterectomy with fina drain placement on 07/30 with vascular surgery, Dr. Melara - AO x2 - Hx of dementia. C/W Donepezil - Pain controlled -Sedation held --> extubated to BIPAP. Cardio - Hemodynamically stable postoperatively - Monitor vitals closely - C/W ASA, Plavix, Statin GI - Continue tube feeds - Glucerna 1.5 w goal 40cc/hr - Pepcid IV for GI ppx UTI -Urine growing gram negative rods -Meropenem Renal - BUN/Cr stable ID -Blood cultures negative -Meropenem IV Q12 for HCAP coverage Heme -H/H stable -Monitor CBC PPX -GI: Pepcid IV - DVT: Lovenox 40sc daily Discussed case with Dr. Linnea Pantoja, PGY-1 <José Antonio Yarbrough - Last Filed: 08/30/18 18:40> CCU Objective - Vital Signs / Intake & Output Vital Signs (Last 4 hours): Vital Signs Temp Pulse Resp BP Pulse Ox 08/30/18 18:09 81 26 H 147/69 93 L 08/30/18 18:00 75 35 H 97 08/30/18 17:08 93 H 21 127/64 92 L 08/30/18 17:00 94 H 32 H 92 L 08/30/18 16:08 92 H 23 134/70 92 L 08/30/18 16:00 98.1 F 99 H 33 H 92 L 08/30/18 15:30 94 H 08/30/18 15:09 106 H 41 H 159/77 H 92 L 08/30/18 15:00 101 H 41 H 92 L Intake and Output (Last 8hrs): Intake & Output 08/30/18 08/30/18 08/30/18 06:59 14:59 22:59 Intake Total 1831.5 1100.7 169.1 Output Total 850 1350 400 Balance 981.5 -249.3 -230.9 Weight 119 lb 0.125 oz 119 lb 0.125 oz Intake: IV 350 50 Intake, IV Amount 1121.5 620.7 29.1 Left Forearm 87.3 67.9 29.1 Right Distal Port PICC 53.8 Right Forearm 80.4 52.8 0 Right PICC 900 500 0 Oral 210 130 Tube Feeding 360 220 10 Output: Urine 850 1350 400 Urethral ([place]) 850 1350 400 Other: # Bowel Movements 0 0 0 - Medications Active Medications: Active Medications Generic Name Dose Route Start Last Admin Trade Name Freq PRN Reason Stop Dose Admin Acetaminophen 650 mg 08/17/18 17:37 08/29/18 21:39 Tylenol 650 Mg Supp [place] 650 mg Q4 PRN Administration temperature>100.4 and pain Acetaminophen 650 mg 08/23/18 13:00 Tylenol 650mg/20.3ml Solution Ud NG Q6 PRN Pain, Mild (1-3) Albuterol/Ipratropium 3 ml 08/17/18 16:00 08/30/18 13:28 Duoneb 3 Mg/0.5 Mg (3 Ml) Ud INH 3 ml RQ6 ZHENG Administration Apixaban 5 mg 08/30/18 18:00 08/30/18 17:42 Eliquis PO 5 mg BID ZHENG Administration Aspirin 81 mg 08/24/18 10:00 08/30/18 09:08 Aspirin Chewable NG 81 mg DAILY ZHENG Administration Clopidogrel Bisulfate 75 mg 08/24/18 10:00 08/30/18 09:08 Plavix NG 75 mg DAILY ZHENG Administration Donepezil HCl 5 mg 08/23/18 22:00 08/29/18 21:37 Aricept NG 5 mg HS ZHENG Administration Famotidine 20 mg 08/14/18 10:00 08/30/18 09:07 Pepcid IVP 20 mg DAILY ZHENG Administration Folic Acid 1 mg 08/24/18 10:00 08/30/18 09:08 Folic Acid NG 1 mg DAILY ZHENG Administration Meropenem 1 gm/ Sodium 100 mls @ 100 mls/hr 08/27/18 10:00 08/30/18 09:07 Chloride IVPB 100 mls/hr Q12H ZHENG Administration Protocol Methylprednisolone 40 mg 08/26/18 14:00 08/30/18 14:26 Solu-Medrol IVP 40 mg Q8H ZHENG Administration Multivitamins/Vitamin C 5 ml 08/24/18 10:00 08/30/18 09:07 Multi-Delyn Liquid NG 5 ml DAILY ZHENG Administration Rosuvastatin Calcium 10 mg 08/23/18 22:00 08/29/18 21:37 Crestor NG 10 mg HS ZHENG Administration Senna/Docusate Sodium 2 tab 08/30/18 10:45 08/30/18 17:42 Senokot S 50 Mg-8.6 Mg PO 2 tab BID ZHENG Administration - Patient Studies Lab Studies: Microbiology Studies 08/27/18 11:50 Blood Culture - Preliminary Blood NO GROWTH AFTER 3 DAYS 08/27/18 09:24 Blood Culture - Preliminary Blood NO GROWTH AFTER 3 DAYS 08/27/18 13:12 Gram Stain - Final Sputum Sputum Culture - Final Escherichia Coli Lab Studies 08/30/18 08/30/18 08/30/18 Range/Units 05:36 05:36 05:36 WBC 14.1 H (4.8-10.8) K/uL RBC 3.65 L (4.40-5.90) Mil/uL Hgb 11.6 L (12.0-18.0) g/dL Hct 34.7 L (35.0-51.0) % MCV 95.1 H (80.0-94.0) fL MCH 31.8 H (27.0-31.0) pg MCHC 33.5 (33.0-37.0) g/dL RDW 13.6 (11.5-14.5) % Plt Count 202 (130-400) K/uL MPV 9.2 (7.2-11.7) fL Neut % (Auto) 92.1 H (50.0-75.0) % Lymph % (Auto) 3.8 L (20.0-40.0) % [place] % (Auto) 3.9 (0.0-10.0) % Eos % (Auto) 0.0 (0.0-4.0) % Baso % (Auto) 0.2 (0.0-2.0) % Neut # (Auto) 13.0 H (1.8-7.0) K/uL Lymph # (Auto) 0.5 L (1.0-4.3) K/uL [place] # (Auto) 0.6 (0.0-0.8) K/uL Eos # (Auto) 0.0 (0.0-0.7) K/uL Baso # (Auto) 0.0 (0.0-0.2) K/uL Neutrophils % (Manual) 93 H (50-75) % Lymphocytes % (Manual) 4 L (20-40) % Monocytes % (Manual) 3 (0-10) % Platelet Estimate Normal (NORMAL) Hypochromasia (manual) Slight Poikilocytosis (manual Slight Anisocytosis (manual) Slight APTT 69.0 H D (21-34) SECONDS Puncture Site pCO2 (35-45) mm/Hg pO2 (80-100) mm/Hg HCO3 (21-28) mmol/L ABG pH (7.35-7.45) ABG Total CO2 (22-28) mmol/L ABG O2 Saturation (95-98) % ABG Base Excess (-2.0-3.0) mmol/L ABG Hemoglobin (11.7-17.4) g/dL ABG Carboxyhemoglobin (0.5-1.5) % POC ABG HHb (Measured) (0.0-5.0) % ABG Methemoglobin (0.0-3.0) % Eber Test A-a O2 Difference mm/Hg Respiratory Index Hgb O2 Saturation (95.0-98.0) % Vent Mode Mechanical Rate FiO2 % Tidal Volume PEEP Sodium 148 (132-148) mmol/L Potassium 5.2 (3.6-5.2) mmol/L Chloride 115 H (98-107) mmol/L Carbon Dioxide 28 (22-30) mmol/L Anion Gap 10 (10-20) BUN 67 H (9-20) mg/dL Creatinine 1.0 (0.8-1.5) mg/dL Est GFR ( Amer) > 60 Est GFR (Non-Af Amer) > 60 Random Glucose 136 H (75-110) mg/dL Calcium 8.1 L (8.6-10.4) mg/dl Phosphorus 2.4 L (2.5-4.5) mg/dL Magnesium 2.6 H (1.6-2.3) mg/dL Total Bilirubin 0.5 (0.2-1.3) mg/dL AST 133 H D (17-59) U/L ALT 234 H D (21-72) U/L Alkaline Phosphatase 71 (38-126) U/L Total Protein 5.1 L (6.3-8.3) g/dL Albumin 2.6 L (3.5-5.0) g/dL Globulin 2.5 (2.2-3.9) gm/dL Albumin/Globulin Ratio 1.0 (1.0-2.1) 08/30/18 Range/Units 05:10 WBC (4.8-10.8) K/uL RBC (4.40-5.90) Mil/uL Hgb (12.0-18.0) g/dL Hct (35.0-51.0) % MCV (80.0-94.0) fL MCH (27.0-31.0) pg MCHC (33.0-37.0) g/dL RDW (11.5-14.5) % Plt Count (130-400) K/uL MPV (7.2-11.7) fL Neut % (Auto) (50.0-75.0) % Lymph % (Auto) (20.0-40.0) % [place] % (Auto) (0.0-10.0) % Eos % (Auto) (0.0-4.0) % Baso % (Auto) (0.0-2.0) % Neut # (Auto) (1.8-7.0) K/uL Lymph # (Auto) (1.0-4.3) K/uL [place] # (Auto) (0.0-0.8) K/uL Eos # (Auto) (0.0-0.7) K/uL Baso # (Auto) (0.0-0.2) K/uL Neutrophils % (Manual) (50-75) % Lymphocytes % (Manual) (20-40) % Monocytes % (Manual) (0-10) % Platelet Estimate (NORMAL) Hypochromasia (manual) Poikilocytosis (manual Anisocytosis (manual) APTT (21-34) SECONDS Puncture Site R rad pCO2 39 (35-45) mm/Hg pO2 101 H (80-100) mm/Hg HCO3 27.2 (21-28) mmol/L ABG pH 7.45 (7.35-7.45) ABG Total CO2 28.3 H (22-28) mmol/L ABG O2 Saturation 98.3 H (95-98) % ABG Base Excess 2.9 (-2.0-3.0) mmol/L ABG Hemoglobin 11.2 L (11.7-17.4) g/dL ABG Carboxyhemoglobin 0.8 (0.5-1.5) % POC ABG HHb (Measured) 1.7 (0.0-5.0) % ABG Methemoglobin 0.7 (0.0-3.0) % Eber Test Pos A-a O2 Difference 278.0 mm/Hg Respiratory Index 2.8 Hgb O2 Saturation 96.8 (95.0-98.0) % Vent Mode Prvc Mechanical Rate 14 FiO2 60.0 % Tidal Volume 500 PEEP 5 Sodium (132-148) mmol/L Potassium (3.6-5.2) mmol/L Chloride (98-107) mmol/L Carbon Dioxide (22-30) mmol/L Anion Gap (10-20) BUN (9-20) mg/dL Creatinine (0.8-1.5) mg/dL Est GFR ( Amer) Est GFR (Non-Af Amer) Random Glucose (75-110) mg/dL Calcium (8.6-10.4) mg/dl Phosphorus (2.5-4.5) mg/dL Magnesium (1.6-2.3) mg/dL Total Bilirubin (0.2-1.3) mg/dL AST (17-59) U/L ALT (21-72) U/L Alkaline Phosphatase (38-126) U/L Total Protein (6.3-8.3) g/dL Albumin (3.5-5.0) g/dL Globulin (2.2-3.9) gm/dL Albumin/Globulin Ratio (1.0-2.1) Laboratory Results - last 24 hr 08/30/18 08/30/18 08/30/18 05:10 05:36 05:36 WBC 14.1 H RBC 3.65 L Hgb 11.6 L Hct 34.7 L MCV 95.1 H MCH 31.8 H MCHC 33.5 RDW 13.6 Plt Count 202 MPV 9.2 Neut % (Auto) 92.1 H Lymph % (Auto) 3.8 L [place] % (Auto) 3.9 Eos % (Auto) 0.0 Baso % (Auto) 0.2 Neut # (Auto) 13.0 H Lymph # (Auto) 0.5 L [place] # (Auto) 0.6 Eos # (Auto) 0.0 Baso # (Auto) 0.0 Neutrophils % (Manual) 93 H Lymphocytes % (Manual) 4 L Monocytes % (Manual) 3 Platelet Estimate Normal Hypochromasia (manual) Slight Poikilocytosis (manual Slight Anisocytosis (manual) Slight APTT 69.0 H D Puncture Site R rad pCO2 39 pO2 101 H HCO3 27.2 ABG pH 7.45 ABG Total CO2 28.3 H ABG O2 Saturation 98.3 H ABG Base Excess 2.9 ABG Hemoglobin 11.2 L ABG Carboxyhemoglobin 0.8 POC ABG HHb (Measured) 1.7 ABG Methemoglobin 0.7 Eber Test Pos A-a O2 Difference 278.0 Respiratory Index 2.8 Hgb O2 Saturation 96.8 Vent Mode Prvc Mechanical Rate 14 FiO2 60.0 Tidal Volume 500 PEEP 5 Sodium Potassium Chloride Carbon Dioxide Anion Gap BUN Creatinine Est GFR ( Amer) Est GFR (Non-Af Amer) Random Glucose Calcium Phosphorus Magnesium Total Bilirubin AST ALT Alkaline Phosphatase Total Protein Albumin Globulin Albumin/Globulin Ratio 08/30/18 05:36 WBC RBC Hgb Hct MCV MCH MCHC RDW Plt Count MPV Neut % (Auto) Lymph % (Auto) [place] % (Auto) Eos % (Auto) Baso % (Auto) Neut # (Auto) Lymph # (Auto) [place] # (Auto) Eos # (Auto) Baso # (Auto) Neutrophils % (Manual) Lymphocytes % (Manual) Monocytes % (Manual) Platelet Estimate Hypochromasia (manual) Poikilocytosis (manual Anisocytosis (manual) APTT Puncture Site pCO2 pO2 HCO3 ABG pH ABG Total CO2 ABG O2 Saturation ABG Base Excess ABG Hemoglobin ABG Carboxyhemoglobin POC ABG HHb (Measured) ABG Methemoglobin Eber Test A-a O2 Difference Respiratory Index Hgb O2 Saturation Vent Mode Mechanical Rate FiO2 Tidal Volume PEEP Sodium 148 Potassium 5.2 Chloride 115 H Carbon Dioxide 28 Anion Gap 10 BUN 67 H Creatinine 1.0 Est GFR ( Amer) > 60 Est GFR (Non-Af Amer) > 60 Random Glucose 136 H Calcium 8.1 L Phosphorus 2.4 L Magnesium 2.6 H Total Bilirubin 0.5 AST 133 H D ALT 234 H D Alkaline Phosphatase 71 Total Protein 5.1 L Albumin 2.6 L Globulin 2.5 Albumin/Globulin Ratio 1.0 Radiology Impressions: Radiology Impressions Chest X-Ray 08/30/18 10:14 IMPRESSION: No interval change. No acute infiltrate. Attending/Attestation - Attestation I have personally seen and examined this patient.: Yes I have fully participated in the care of the patient.: Yes I have reviewed all pertinent clinical information: Yes Notes (Text): 08/30/18 18:39 I have seen and examined the patient. Medical records, lab studies, and imaging were reviewed by me and a management plan was formulated on multidisciplinary rounds with resident Dr. Pantoja. I agree with their documented assessment and plan. Patient more alert today, tolerated PS trials with mild sedation on, became tachypneic once fully alert. Extubated to BIPAP. Critical Care Time 35 minutes. Multi-disciplinary rounds were performed with house staff, nursing, speech therapy, respiratory therapy, pharmacy and nutrition with integrated input from the primary team/attending and other consulting services. The documented time is cumulative and includes review of patient data/exams/labs/chart review and examination of the patient on rounds and throughout the day; time is exclusive of any procedures or teaching time.
[2018-08-31] MEDS: Albuterol-Ipratrop 3 mg / 0.5 (3 ml) UD INH SCH ×4 (02:31→19:29)
[2018-08-31 06:33] LABS: BASO % 0.2 % (0.0-2.0); HEMOGLOBIN 12.3 g/dL (12.0-18.0); LYMPH # 0.6 K/uL (1.0-4.3); LYMPH % 5.7 % (20.0-40.0); MEAN CELL VOLUME 94.1 fL (80.0-94.0); MEAN CORPUSCULAR HEMOGLOBIN 32.1 pg (27.0-31.0); MEAN CORPUSCULAR HGB CONC 34.1 g/dL (33.0-37.0); MEAN PLATELET VOLUME 9.4 fL (7.2-11.7); MONO # 0.6 K/uL (0.0-0.8); MONO % 5.7 % (0.0-10.0); NEUT # 9.9 K/uL (1.8-7.0); NEUT % 88.4 % (50.0-75.0); PLATELET COUNT 163 K/uL (130-400); RBC 3.83 Mil/uL (4.40-5.90); RED CELL DISTRIBUTION WIDTH 13.6 % (11.5-14.5); WHITE BLOOD COUNT 11.3 K/uL (4.8-10.8)
[2018-08-31 06:51] LABS: ALB/GLOB RATIO 1.2 (1.0-2.1); ALBUMIN 2.8 g/dL (3.5-5.0); ALT/SGPT 355 U/L (21-72); AST/SGOT 229 U/L (17-59); BLOOD UREA NITROGEN 65 mg/dL (9-20); CALCIUM 8.3 mg/dl (8.6-10.4); GFR NON-AFRICAN AMERICAN > 60
[2018-08-31] MEDS: MethylPREDNISolone 40 mg Vial IVP SCH (06:53)
[2018-08-31 08:09] LABS: LYMPHOCYTE 5 % (20-40); MONOCYTE 6 % (0-10); NEUTROPHIL 89 % (50-75); PLATELET ESTIMATE NORMAL (NORMAL); TOTAL CELLS COUNTED 100
[2018-08-31] MEDS: Meropenem 1 GM in Sodium Chloride 0.9% 100 ML IVPB SCH ×2 (09:30→21:43)
[2018-08-31] MEDS: Docusate-Senna 50 mg-8.6 mg Tab PO SCH ×2 (09:31→17:16)
[2018-08-31] MEDS: Multiple Vitamins Oral Solution NG SCH (09:31)
[2018-08-31 11:29] LABS: ABG ALLEN TEST POS; ARTERIAL BLOOD GAS HEMOGLOBIN 12.3 g/dL (11.7-17.4); ARTERIAL BLOOD GAS O2 SAT 97.3 % (95-98); ARTERIAL BLOOD GAS PCO2 37 mm/Hg (35-45); ARTERIAL BLOOD GAS PH 7.53 (7.35-7.45); ARTERIAL BLOOD GAS PO2 77 mm/Hg (80-100)
--- NOTE | 2018-08-31 12:43 | RAD ---
Date of service: 08/31/2018 HISTORY: s/p extubation COMPARISON: 08/30/2018 FINDINGS: Status post extubation. The nasogastric tube terminates in the stomach. The right PICC line terminates in the SVC. LUNGS: The lungs are well inflated and clear. PLEURA: No pleural effusions or pneumothorax. CARDIOVASCULAR: The heart is normal in size. No aortic atherosclerotic calcifications present. OSSEOUS STRUCTURES: Within normal limits for the patient's age. VISUALIZED UPPER ABDOMEN: Normal. OTHER FINDINGS: None. IMPRESSION: Status post extubation, no acute findings. Stable position of right PICC line and nasogastric tube.
--- NOTE | 2018-08-31 12:59 | CP.PCM.PN ---
Subjective - Date & Time of Evaluation Date of Evaluation: 08/31/18 Time of Evaluation: 12:10 - Subjective Subjective: Patient seen and examined in the intensive care unit. Extubated yesterday with copious amount of secretions and on BiPAP Patient is awake Afebrile Sputum positive for E. coli ESBL Objective - Vital Signs/Intake and Output Vital Signs (last 24 hours): Temp Pulse Resp BP Pulse Ox 98.4 F 80 26 H 142/80 94 L 08/31/18 12:00 08/31/18 12:08 08/31/18 12:08 08/31/18 12:08 08/31/18 12:08 Intake and Output: 08/31/18 08/31/18 06:59 18:59 Intake Total 100 140 Output Total 1350 800 Balance -1250 -660 - Medications Medications: Current Medications Acetaminophen (Tylenol 650 Mg Supp) 650 mg [place] Q4 PRN PRN Reason: temperature>100.4 and pain Last Admin: 08/29/18 21:39 Dose: 650 mg Acetaminophen (Tylenol 650mg/20.3ml Solution Ud) 650 mg NG Q6 PRN PRN Reason: Pain, Mild (1-3) Albuterol/Ipratropium (Duoneb 3 Mg/0.5 Mg (3 Ml) Ud) 3 ml INH RQ6 [facility] Last Admin: 08/31/18 08:16 Dose: 3 ml Apixaban (Eliquis) 5 mg PO BID [facility] Last Admin: 08/31/18 09:31 Dose: Not Given Aspirin (Aspirin Chewable) 81 mg NG DAILY [facility] Last Admin: 08/31/18 09:30 Dose: Not Given Budesonide (Pulmicort Respules) 0.25 mg INH RQ12 [facility] Clopidogrel Bisulfate (Plavix) 75 mg NG DAILY [facility] Last Admin: 08/31/18 09:31 Dose: Not Given Donepezil HCl (Aricept) 5 mg NG HS [facility] Last Admin: 08/30/18 22:14 Dose: 5 mg Folic Acid (Folic Acid) 1 mg NG DAILY [facility] Last Admin: 08/31/18 09:31 Dose: Not Given Meropenem 1 gm/ Sodium (Chloride) 100 mls @ 100 mls/hr IVPB Q12H [facility]; Protocol Last Admin: 08/31/18 09:30 Dose: 100 mls/hr Azithromycin 500 mg/ Sodium (Chloride) 250 mls @ 250 mls/hr IVPB Q24H [facility]; Protocol Multivitamins/Vitamin C (Multi-Delyn Liquid) 5 ml NG DAILY [facility] Last Admin: 08/31/18 09:31 Dose: Not Given Pantoprazole Sodium (Protonix Inj) 40 mg IVP Q12H [facility] Last Admin: 08/31/18 07:49 Dose: 40 mg Rosuvastatin Calcium (Crestor) 10 mg NG HS [facility] Last Admin: 08/30/18 22:13 Dose: 10 mg Senna/Docusate Sodium (Senokot S 50 Mg-8.6 Mg) 2 tab PO BID [facility] Last Admin: 08/31/18 09:31 Dose: Not Given - Labs Labs: 08/31/18 06:24 08/31/18 06:24 PT 11.2 SECONDS (9.7-12.2) 08/15/18 07:06 INR 1.0 08/15/18 07:06 APTT 69.0 SECONDS (21-34) H D 08/30/18 05:36 - Head Exam Head Exam: ATRAUMATIC, NORMOCEPHALIC - ENT Exam ENT Exam: Mucous Membranes Moist - Neck Exam Neck Exam: Normal Inspection - Respiratory Exam Respiratory Exam: Rales, Rhonchi, Wheezes - Cardiovascular Exam Cardiovascular Exam: REGULAR RHYTHM - GI/Abdominal Exam GI & Abdominal Exam: Soft - Extremities Exam Extremities Exam: Full ROM, Normal Inspection - Neurological Exam Neurological Exam: Altered Assessment and Plan (1) Respiratory distress, acute Assessment & Plan: Extubated yesterday Copious secretions On BiPAP Continue antibiotics May need reintubation for copious secretions and poor cough reflex Continue ipratropium Status: Acute (2) Pneumonia Status: Acute (3) COPD (chronic obstructive pulmonary disease) Status: Chronic
[2018-08-31] MEDS: Azithromycin 500 MG in Sodium Chloride 0.9% 250 ML IVPB SCH (13:29)
--- NOTE | 2018-08-31 17:37 | CP.CCUPN ---
<Ubaldo Pantoja - Last Filed: 08/31/18 17:39> CCU Subjective - Physician Review Subjective (Free Text): 08/27/18 15:11 PGY-[address] Yarbrough Patient seen and examined at bedside. No acute events overnight. Sedation held --> Extubated to BIPAP, tolerating. Continues to tolerating BIPAP, weaned off steroids. CCU Objective - Vital Signs / Intake & Output Vital Signs (Last 4 hours): Vital Signs Temp Pulse Resp BP Pulse Ox 08/31/18 16:09 118/64 08/31/18 16:08 93 H 19 86 L 08/31/18 16:00 98.2 F 92 H 20 90 L 08/31/18 15:09 90 15 115/49 L 93 L 08/31/18 15:00 94 H 36 H 95 08/31/18 14:10 90 28 H 143/78 89 L 08/31/18 14:00 84 23 93 L Intake and Output (Last 8hrs): Intake & Output 08/31/18 08/31/18 08/31/18 06:59 14:59 22:59 Intake Total 410 45 Output Total 850 800 Balance -850 -390 45 Intake: Intake, IV Amount 350 0 Right PICC 350 0 Oral 30 20 Tube Feeding 30 25 Output: Gastric Amount 800 Right Nares 800 Urine 850 Urethral ([place]) 850 Other: # Bowel Movements 0 1 - Physical Exam Pupils: Positive for: PERRL Extroacular Muscles: Positive for: EOMI Mouth: Positive for: Moist Mucous Membranes Respiratory/Chest: Positive for: Other (intubated, on vent) Cardiovascular: Positive for: Regular Rate and Rhythm, Normal S1, S2 Abdomen: Negative for: Tenderness, Distention Neurological: Positive for: GCS=15, CN II-XII Intact, Other (off sedation) - Medications Active Medications: Active Medications Generic Name Dose Route Start Last Admin Trade Name Freq PRN Reason Stop Dose Admin Acetaminophen 650 mg 08/17/18 17:37 08/29/18 21:39 Tylenol 650 Mg Supp [place] 650 mg Q4 PRN Administration temperature>100.4 and pain Acetaminophen 650 mg 08/23/18 13:00 Tylenol 650mg/20.3ml Solution Ud NG Q6 PRN Pain, Mild (1-3) Albuterol/Ipratropium 3 ml 08/17/18 16:00 08/31/18 13:43 Duoneb 3 Mg/0.5 Mg (3 Ml) Ud INH 3 ml RQ6 [facility] Administration Apixaban 5 mg 08/30/18 18:00 08/31/18 17:16 Eliquis PO 5 mg BID [facility] Administration Aspirin 81 mg 08/24/18 10:00 08/31/18 09:30 Aspirin Chewable NG Not Given DAILY [facility] Budesonide 0.25 mg 08/31/18 20:00 Pulmicort Respules INH RQ12 [facility] Clopidogrel Bisulfate 75 mg 08/24/18 10:00 08/31/18 09:31 Plavix NG Not Given DAILY [facility] Donepezil HCl 5 mg 08/23/18 22:00 08/30/18 22:14 Aricept NG 5 mg HS [facility] Administration Folic Acid 1 mg 08/24/18 10:00 08/31/18 09:31 Folic Acid NG Not Given DAILY [facility] Meropenem 1 gm/ Sodium 100 mls @ 100 mls/hr 08/27/18 10:00 08/31/18 09:30 Chloride IVPB 100 mls/hr Q12H [facility] Administration Protocol Azithromycin 500 mg/ Sodium 250 mls @ 250 mls/hr 08/31/18 12:30 08/31/18 13:29 Chloride IVPB 250 mls/hr Q24H [facility] Administration Protocol Multivitamins/Vitamin C 5 ml 08/24/18 10:00 08/31/18 09:31 Multi-Delyn Liquid NG Not Given DAILY [facility] Pantoprazole Sodium 40 mg 08/31/18 06:15 08/31/18 17:16 Protonix Inj IVP 40 mg Q12H [facility] Administration Rosuvastatin Calcium 10 mg 08/23/18 22:00 08/30/18 22:13 Crestor NG 10 mg HS [facility] Administration Senna/Docusate Sodium 2 tab 08/30/18 10:45 08/31/18 17:16 Senokot S 50 Mg-8.6 Mg PO 2 tab BID [facility] Administration - Patient Studies Lab Studies: Microbiology Studies 08/27/18 11:50 Blood Culture - Preliminary Blood NO GROWTH AFTER 4 DAYS 08/27/18 09:24 Blood Culture - Preliminary Blood NO GROWTH AFTER 4 DAYS Lab Studies 05/03/19 05/03/19 05/03/19 Range/Units 11:25 06:24 06:24 WBC 11.3 H (4.8-10.8) K/uL RBC 3.83 L (4.40-5.90) Mil/uL Hgb 12.3 (12.0-18.0) g/dL Hct 36.0 (35.0-51.0) % MCV 94.1 H (80.0-94.0) fL MCH 32.1 H (27.0-31.0) pg MCHC 34.1 (33.0-37.0) g/dL RDW 13.6 (11.5-14.5) % Plt Count 163 (130-400) K/uL MPV 9.4 (7.2-11.7) fL Neut % (Auto) 88.4 H (50.0-75.0) % Lymph % (Auto) 5.7 L (20.0-40.0) % [place] % (Auto) 5.7 (0.0-10.0) % Eos % (Auto) 0.0 (0.0-4.0) % Baso % (Auto) 0.2 (0.0-2.0) % Neut # (Auto) 9.9 H (1.8-7.0) K/uL Lymph # (Auto) 0.6 L (1.0-4.3) K/uL [place] # (Auto) 0.6 (0.0-0.8) K/uL Eos # (Auto) 0.0 (0.0-0.7) K/uL Baso # (Auto) 0.0 (0.0-0.2) K/uL Neutrophils % (Manual) 89 H (50-75) % Lymphocytes % (Manual) 5 L (20-40) % Monocytes % (Manual) 6 (0-10) % Platelet Estimate Normal (NORMAL) RBC Morphology Normal Puncture Site Rrad pCO2 37 (35-45) mm/Hg pO2 77 L (80-100) mm/Hg HCO3 31.0 H (21-28) mmol/L ABG pH 7.53 H (7.35-7.45) ABG Total CO2 32.0 H (22-28) mmol/L ABG O2 Saturation 97.3 (95-98) % ABG Base Excess 7.8 H (-2.0-3.0) mmol/L ABG Hemoglobin 12.3 (11.7-17.4) g/dL ABG Carboxyhemoglobin 1.1 (0.5-1.5) % POC ABG HHb (Measured) 2.7 (0.0-5.0) % ABG Methemoglobin 0.6 (0.0-3.0) % Eber Test Pos A-a O2 Difference 162.0 mm/Hg Respiratory Index 2.1 Hgb O2 Saturation 95.6 (95.0-98.0) % Vent Mode Bipap FiO2 40.0 % Inspiratory BiPAP 14 Expiratory BiPAP 5 Sodium 147 (132-148) mmol/L Potassium 4.0 (3.6-5.2) mmol/L Chloride 109 H (98-107) mmol/L Carbon Dioxide 31 H (22-30) mmol/L Anion Gap 11 (10-20) BUN 65 H (9-20) mg/dL Creatinine 1.1 (0.8-1.5) mg/dL Est GFR ( Amer) > 60 Est GFR (Non-Af Amer) > 60 Random Glucose 113 H (75-110) mg/dL Calcium 8.3 L (8.6-10.4) mg/dl Total Bilirubin 0.7 (0.2-1.3) mg/dL AST 229 H D (17-59) U/L ALT 355 H D (21-72) U/L Alkaline Phosphatase 83 (38-126) U/L Total Protein 5.2 L (6.3-8.3) g/dL Albumin 2.8 L (3.5-5.0) g/dL Globulin 2.4 (2.2-3.9) gm/dL Albumin/Globulin Ratio 1.2 (1.0-2.1) Laboratory Results - last 24 hr 08/31/18 08/31/18 08/31/18 06:24 06:24 11:25 WBC 11.3 H RBC 3.83 L Hgb 12.3 Hct 36.0 MCV 94.1 H MCH 32.1 H MCHC 34.1 RDW 13.6 Plt Count 163 MPV 9.4 Neut % (Auto) 88.4 H Lymph % (Auto) 5.7 L [place] % (Auto) 5.7 Eos % (Auto) 0.0 Baso % (Auto) 0.2 Neut # (Auto) 9.9 H Lymph # (Auto) 0.6 L [place] # (Auto) 0.6 Eos # (Auto) 0.0 Baso # (Auto) 0.0 Neutrophils % (Manual) 89 H Lymphocytes % (Manual) 5 L Monocytes % (Manual) 6 Platelet Estimate Normal RBC Morphology Normal Puncture Site Rrad pCO2 37 pO2 77 L HCO3 31.0 H ABG pH 7.53 H ABG Total CO2 32.0 H ABG O2 Saturation 97.3 ABG Base Excess 7.8 H ABG Hemoglobin 12.3 ABG Carboxyhemoglobin 1.1 POC ABG HHb (Measured) 2.7 ABG Methemoglobin 0.6 Eber Test Pos A-a O2 Difference 162.0 Respiratory Index 2.1 Hgb O2 Saturation 95.6 Vent Mode Bipap FiO2 40.0 Inspiratory BiPAP 14 Expiratory BiPAP 5 Sodium 147 Potassium 4.0 Chloride 109 H Carbon Dioxide 31 H Anion Gap 11 BUN 65 H Creatinine 1.1 Est GFR ( Amer) > 60 Est GFR (Non-Af Amer) > 60 Random Glucose 113 H Calcium 8.3 L Total Bilirubin 0.7 AST 229 H D ALT 355 H D Alkaline Phosphatase 83 Total Protein 5.2 L Albumin 2.8 L Globulin 2.4 Albumin/Globulin Ratio 1.2 Radiology Impressions: Radiology Impressions Chest X-Ray 08/31/18 11:09 IMPRESSION: Status post extubation, no acute findings. Stable position of right PICC line and nasogastric tube. Fingerstick Blood Sugar Results: 266 Assessment/Plan - Assessment and Plan (Free Text) Assessment: Pt is a 68 y/o male with hx of dementia brought to hospital for AMS with Code Stroke protocol activated and was found on CT Head & Neck to have high grade stenosis of ALAN s/p endarterectomy with fina drain placement on 08/[address] Melara. Pt had been downgraded to floors, had worsening respiratory distress and intubated, on vent --> extubated to BIPAP 5/2. Patient continues to tolerate BIPAP, weaned of steroids. Pulm Respiratory Failure -Intubated, on vent/PRVC -Maintain spO2>92% -+L fem/pop DVT --> VQ low probability PE -Steroids d/c'd -Pulmicort added Q12 -Extubated to BIPAP 02/02 - tolerating. Neuro ALAN stenosis s/p endarterectomy - s/p endarterectomy with fina drain placement on 07/30 with vascular surgery, Dr. Melara - AO x2 - Hx of dementia. C/W Donepezil - Pain controlled -Sedation held --> extubated to BIPAP. Cardio - Hemodynamically stable postoperatively - Monitor vitals closely - C/W ASA, Plavix, Statin GI - Continue tube feeds - Glucerna 1.5 w goal 40cc/hr - Pepcid IV for GI ppx UTI -Urine growing gram negative rods -Meropenem Renal - BUN/Cr stable ID -Blood cultures negative -Meropenem IV Q12 for HCAP coverage Heme -H/H stable -Monitor CBC PPX -GI: Pepcid IV - DVT: Lovenox 40sc daily Discussed case with Dr. Linnea Pantoja, PGY-1 <José Antonio Yarbrough - Last Filed: 08/31/18 18:19> CCU Objective - Vital Signs / Intake & Output Vital Signs (Last 4 hours): Vital Signs Temp Pulse Resp BP Pulse Ox 08/31/18 18:08 91 H 43 H 143/79 08/31/18 18:00 96 H 22 93 L 08/31/18 17:08 93 H 38 H 148/77 92 L 08/31/18 17:00 91 H 26 H 91 L 08/31/18 16:09 93 H 21 118/64 87 L 08/31/18 16:08 93 H 19 86 L 08/31/18 16:00 98.2 F 92 H 20 90 L 08/31/18 15:09 90 15 115/49 L 93 L 08/31/18 15:00 94 H 36 H 95 Intake and Output (Last 8hrs): Intake & Output 08/31/18 08/31/18 08/31/18 06:59 14:59 22:59 Intake Total 410 80 Output Total 850 800 300 Balance -850 -390 -220 Intake: Intake, IV Amount 350 0 Right PICC 350 0 Oral 30 20 Tube Feeding 30 60 Output: Gastric Amount 800 300 Right Nares 800 300 Urine 850 Urethral ([place]) 850 Other: # Bowel Movements 0 0 - Medications Active Medications: Active Medications Generic Name Dose Route Start Last Admin Trade Name Freq PRN Reason Stop Dose Admin Acetaminophen 650 mg 08/17/18 17:37 08/29/18 21:39 Tylenol 650 Mg Supp UT 650 mg Q4 PRN Administration temperature>100.4 and pain Acetaminophen 650 mg 08/23/18 13:00 Tylenol 650mg/20.3ml Solution Ud NG Q6 PRN Pain, Mild (1-3) Albuterol/Ipratropium 3 ml 08/17/18 16:00 08/31/18 13:43 Duoneb 3 Mg/0.5 Mg (3 Ml) Ud INH 3 ml RQ6 [facility] Administration Apixaban 5 mg 08/30/18 18:00 08/31/18 17:16 Eliquis PO 5 mg BID [facility] Administration Aspirin 81 mg 08/24/18 10:00 08/31/18 09:30 Aspirin Chewable NG Not Given DAILY [facility] Budesonide 0.25 mg 08/31/18 20:00 Pulmicort Respules INH RQ12 [facility] Clopidogrel Bisulfate 75 mg 08/24/18 10:00 08/31/18 09:31 Plavix NG Not Given DAILY [facility] Donepezil HCl 5 mg 08/23/18 22:00 08/30/18 22:14 Aricept NG 5 mg HS [facility] Administration Folic Acid 1 mg 08/24/18 10:00 08/31/18 09:31 Folic Acid NG Not Given DAILY [facility] Meropenem 1 gm/ Sodium 100 mls @ 100 mls/hr 08/27/18 10:00 08/31/18 09:30 Chloride IVPB 100 mls/hr Q12H [facility] Administration Protocol Azithromycin 500 mg/ Sodium 250 mls @ 250 mls/hr 08/31/18 12:30 08/31/18 13:29 Chloride IVPB 250 mls/hr Q24H [facility] Administration Protocol Multivitamins/Vitamin C 5 ml 08/24/18 10:00 08/31/18 09:31 Multi-Delyn Liquid NG Not Given DAILY [facility] Pantoprazole Sodium 40 mg 08/31/18 06:15 08/31/18 17:16 Protonix Inj IVP 40 mg Q12H [facility] Administration Rosuvastatin Calcium 10 mg 08/23/18 22:00 08/30/18 22:13 Crestor NG 10 mg HS [facility] Administration Senna/Docusate Sodium 2 tab 08/30/18 10:45 08/31/18 17:16 Senokot S 50 Mg-8.6 Mg PO 2 tab BID [facility] Administration - Patient Studies Lab Studies: Microbiology Studies 08/27/18 11:50 Blood Culture - Preliminary Blood NO GROWTH AFTER 4 DAYS 08/27/18 09:24 Blood Culture - Preliminary Blood NO GROWTH AFTER 4 DAYS Lab Studies 08/31/18 08/31/18 08/31/18 Range/Units 11:25 06:24 06:24 WBC 11.3 H (4.8-10.8) K/uL RBC 3.83 L (4.40-5.90) Mil/uL Hgb 12.3 (12.0-18.0) g/dL Hct 36.0 (35.0-51.0) % MCV 94.1 H (80.0-94.0) fL MCH 32.1 H (27.0-31.0) pg MCHC 34.1 (33.0-37.0) g/dL RDW 13.6 (11.5-14.5) % Plt Count 163 (130-400) K/uL MPV 9.4 (7.2-11.7) fL Neut % (Auto) 88.4 H (50.0-75.0) % Lymph % (Auto) 5.7 L (20.0-40.0) % [place] % (Auto) 5.7 (0.0-10.0) % Eos % (Auto) 0.0 (0.0-4.0) % Baso % (Auto) 0.2 (0.0-2.0) % Neut # (Auto) 9.9 H (1.8-7.0) K/uL Lymph # (Auto) 0.6 L (1.0-4.3) K/uL [place] # (Auto) 0.6 (0.0-0.8) K/uL Eos # (Auto) 0.0 (0.0-0.7) K/uL Baso # (Auto) 0.0 (0.0-0.2) K/uL Neutrophils % (Manual) 89 H (50-75) % Lymphocytes % (Manual) 5 L (20-40) % Monocytes % (Manual) 6 (0-10) % Platelet Estimate Normal (NORMAL) RBC Morphology Normal Puncture Site Rrad pCO2 37 (35-45) mm/Hg pO2 77 L (80-100) mm/Hg HCO3 31.0 H (21-28) mmol/L ABG pH 7.53 H (7.35-7.45) ABG Total CO2 32.0 H (22-28) mmol/L ABG O2 Saturation 97.3 (95-98) % ABG Base Excess 7.8 H (-2.0-3.0) mmol/L ABG Hemoglobin 12.3 (11.7-17.4) g/dL ABG Carboxyhemoglobin 1.1 (0.5-1.5) % POC ABG HHb (Measured) 2.7 (0.0-5.0) % ABG Methemoglobin 0.6 (0.0-3.0) % Eber Test Pos A-a O2 Difference 162.0 mm/Hg Respiratory Index 2.1 Hgb O2 Saturation 95.6 (95.0-98.0) % Vent Mode Bipap FiO2 40.0 % Inspiratory BiPAP 14 Expiratory BiPAP 5 Sodium 147 (132-148) mmol/L Potassium 4.0 (3.6-5.2) mmol/L Chloride 109 H (98-107) mmol/L Carbon Dioxide 31 H (22-30) mmol/L Anion Gap 11 (10-20) BUN 65 H (9-20) mg/dL Creatinine 1.1 (0.8-1.5) mg/dL Est GFR ( Amer) > 60 Est GFR (Non-Af Amer) > 60 Random Glucose 113 H (75-110) mg/dL Calcium 8.3 L (8.6-10.4) mg/dl Total Bilirubin 0.7 (0.2-1.3) mg/dL AST 229 H D (17-59) U/L ALT 355 H D (21-72) U/L Alkaline Phosphatase 83 (38-126) U/L Total Protein 5.2 L (6.3-8.3) g/dL Albumin 2.8 L (3.5-5.0) g/dL Globulin 2.4 (2.2-3.9) gm/dL Albumin/Globulin Ratio 1.2 (1.0-2.1) Laboratory Results - last 24 hr 08/31/18 08/31/18 08/31/18 06:24 06:24 11:25 WBC 11.3 H RBC 3.83 L Hgb 12.3 Hct 36.0 MCV 94.1 H MCH 32.1 H MCHC 34.1 RDW 13.6 Plt Count 163 MPV 9.4 Neut % (Auto) 88.4 H Lymph % (Auto) 5.7 L [place] % (Auto) 5.7 Eos % (Auto) 0.0 Baso % (Auto) 0.2 Neut # (Auto) 9.9 H Lymph # (Auto) 0.6 L [place] # (Auto) 0.6 Eos # (Auto) 0.0 Baso # (Auto) 0.0 Neutrophils % (Manual) 89 H Lymphocytes % (Manual) 5 L Monocytes % (Manual) 6 Platelet Estimate Normal RBC Morphology Normal Puncture Site Rrad pCO2 37 pO2 77 L HCO3 31.0 H ABG pH 7.53 H ABG Total CO2 32.0 H ABG O2 Saturation 97.3 ABG Base Excess 7.8 H ABG Hemoglobin 12.3 ABG Carboxyhemoglobin 1.1 POC ABG HHb (Measured) 2.7 ABG Methemoglobin 0.6 Eber Test Pos A-a O2 Difference 162.0 Respiratory Index 2.1 Hgb O2 Saturation 95.6 Vent Mode Bipap FiO2 40.0 Inspiratory BiPAP 14 Expiratory BiPAP 5 Sodium 147 Potassium 4.0 Chloride 109 H Carbon Dioxide 31 H Anion Gap 11 BUN 65 H Creatinine 1.1 Est GFR ( Amer) > 60 Est GFR (Non-Af Amer) > 60 Random Glucose 113 H Calcium 8.3 L Total Bilirubin 0.7 AST 229 H D ALT 355 H D Alkaline Phosphatase 83 Total Protein 5.2 L Albumin 2.8 L Globulin 2.4 Albumin/Globulin Ratio 1.2 Radiology Impressions: Radiology Impressions Chest X-Ray 08/31/18 11:09 IMPRESSION: Status post extubation, no acute findings. Stable position of right PICC line and nasogastric tube. Attending/Attestation - Attestation I have personally seen and examined this patient.: Yes I have fully participated in the care of the patient.: Yes I have reviewed all pertinent clinical information: Yes Notes (Text): 08/31/18 18:18 I have seen and examined the patient. Medical records, lab studies, and imaging were reviewed by me and a management plan was formulated on multidisciplinary rounds with resident Dr. Pantoja. I agree with their documented assessment and plan. Patient was extubated yesterday to BIPAP. Now off of BIPAP and on NC oxygen and started on long goods drier COPD meds. Breathing normally, clinically stable. Critical Care Time 35 minutes. Multi-disciplinary rounds were performed with house staff, nursing, speech therapy, respiratory therapy, pharmacy and nutrition with integrated input from the primary team/attending and other consulting services. The documented time is cumulative and includes review of patient data/exams/labs/chart review and examination of the patient on rounds and throughout the day; time is exclusive of any procedures or teaching time.
[2018-08-31] MEDS: Budesonide 0.25 mg/2 ml Inhal Susp UD INH SCH (19:29)
--- NOTE | 2018-08-31 22:06 | CP.PCM.PN ---
Subjective - Date & Time of Evaluation Date of Evaluation: 08/31/18 Time of Evaluation: 17:30 - Subjective Subjective: Patient extubated since yesterday, now on O2 by N/C. Still confused, slightly congested, afebrile. Sputum grew E Coli sensitive to Meropenem, and ESBL positive. Patient is also on Eliquis for DVT, and still on NGT feeding. Objective - Vital Signs/Intake and Output Vital Signs (last 24 hours): Temp Pulse Resp BP Pulse Ox 97.9 F 100 H 16 135/85 96 08/31/18 20:00 08/31/18 20:00 08/31/18 20:00 08/31/18 21:08 08/31/18 20:00 Intake and Output: 08/31/18 09/01/18 18:59 06:59 Intake Total 490 170 Output Total 1100 1000 Balance -610 -830 - Medications Medications: Current Medications Acetaminophen (Tylenol 650 Mg Supp) 650 mg CO Q4 PRN PRN Reason: temperature>100.4 and pain Last Admin: 08/29/18 21:39 Dose: 650 mg Acetaminophen (Tylenol 650mg/20.3ml Solution Ud) 650 mg NG Q6 PRN PRN Reason: Pain, Mild (1-3) Albuterol/Ipratropium (Duoneb 3 Mg/0.5 Mg (3 Ml) Ud) 3 ml INH RQ6 [facility] Last Admin: 08/31/18 19:29 Dose: 3 ml Apixaban (Eliquis) 5 mg PO BID [facility] Last Admin: 08/31/18 17:16 Dose: 5 mg Aspirin (Aspirin Chewable) 81 mg NG DAILY [facility] Last Admin: 08/31/18 09:30 Dose: Not Given Budesonide (Pulmicort Respules) 0.25 mg INH RQ12 [facility] Last Admin: 08/31/18 19:29 Dose: 0.25 mg Clopidogrel Bisulfate (Plavix) 75 mg NG DAILY [facility] Last Admin: 08/31/18 09:31 Dose: Not Given Donepezil HCl (Aricept) 5 mg NG HS [facility] Last Admin: 08/31/18 21:43 Dose: 5 mg Folic Acid (Folic Acid) 1 mg NG DAILY [facility] Last Admin: 08/31/18 09:31 Dose: Not Given Meropenem 1 gm/ Sodium (Chloride) 100 mls @ 100 mls/hr IVPB Q12H [facility]; Protocol Last Admin: 08/31/18 21:43 Dose: 100 mls/hr Azithromycin 500 mg/ Sodium (Chloride) 250 mls @ 250 mls/hr IVPB Q24H [facility]; Pr otocol Last Admin: 08/31/18 13:29 Dose: 250 mls/hr Multivitamins/Vitamin C (Multi-Delyn Liquid) 5 ml NG DAILY [facility] Last Admin: 08/31/18 09:31 Dose: Not Given Pantoprazole Sodium (Protonix Inj) 40 mg IVP Q12H [facility] Last Admin: 08/31/18 17:16 Dose: 40 mg Rosuvastatin Calcium (Crestor) 10 mg NG HS [facility] Last Admin: 08/31/18 21:43 Dose: 10 mg Senna/Docusate Sodium (Senokot S 50 Mg-8.6 Mg) 2 tab PO BID [facility] Last Admin: 08/31/18 17:16 Dose: 2 tab - Labs Labs: 08/31/18 06:24 08/31/18 06:24 PT 11.2 SECONDS (9.7-12.2) 08/15/18 07:06 INR 1.0 08/15/18 07:06 APTT 69.0 SECONDS (21-34) H D 08/30/18 05:36 - Constitutional Appears: No Acute Distress, Confused, Cachectic, Chronically Ill - Head Exam Head Exam: NORMAL INSPECTION - Eye Exam Eye Exam: Normal appearance - ENT Exam ENT Exam: Normal Exam - Neck Exam Neck Exam: Normal Inspection - Respiratory Exam Respiratory Exam: Rhonchi - Cardiovascular Exam Cardiovascular Exam: REGULAR RHYTHM - GI/Abdominal Exam GI & Abdominal Exam: Soft, Normal Bowel Sounds - Rectal Exam Rectal Exam: Deferred - Exam Exam: NORMAL INSPECTION - Extremities Exam Extremities Exam: Normal Inspection - Back Exam Back Exam: NORMAL INSPECTION - Neurological Exam Neurological Exam: Alert, Awake Additional comments: Confused. - Psychiatric Exam Psychiatric exam: Agitated - Skin Skin Exam: Dry, Intact, Normal Color Assessment and Plan (1) Bradycardia Status: Chronic (2) Vertebro-basilar artery syndrome Status: Acute (3) Severe dementia Status: Chronic (4) More than 50 percent stenosis of right internal carotid artery Status: Resolved (5) COPD (chronic obstructive pulmonary disease) Status: Chronic (6) Dysphagia Status: Acute (7) Aspiration pneumonia Assessment & Plan: On Meropenem IV. Status: Acute (8) Acute respiratory failure Status: Resolved (9) Deep vein thrombosis (DVT) of left lower extremity Assessment & Plan: On Eliquis PO Status: Acute
[2018-09-01] MEDS: Albuterol-Ipratrop 3 mg / 0.5 (3 ml) UD INH SCH ×3 (01:26→14:21)
[2018-09-01 05:56] LABS: EOS % 0.4 % (0.0-4.0); HEMOGLOBIN 12.5 g/dL (12.0-18.0); LYMPH % 9.6 % (20.0-40.0); MEAN CELL VOLUME 94.1 fL (80.0-94.0); MEAN CORPUSCULAR HEMOGLOBIN 31.5 pg (27.0-31.0); MEAN CORPUSCULAR HGB CONC 33.5 g/dL (33.0-37.0); MEAN PLATELET VOLUME 10.3 fL (7.2-11.7); MONO # 0.8 K/uL (0.0-0.8); MONO % 7.9 % (0.0-10.0); NEUT # 8.7 K/uL (1.8-7.0); NEUT % 82.1 % (50.0-75.0); PLATELET COUNT 145 K/uL (130-400); RBC 3.97 Mil/uL (4.40-5.90); RED CELL DISTRIBUTION WIDTH 13.4 % (11.5-14.5); WHITE BLOOD COUNT 10.6 K/uL (4.8-10.8)
[2018-09-01 06:21] LABS: ALB/GLOB RATIO 1.1 (1.0-2.1); ALBUMIN 2.6 g/dL (3.5-5.0); ALT/SGPT 238 U/L (21-72); AST/SGOT 71 U/L (17-59); BLOOD UREA NITROGEN 59 mg/dL (9-20); CALCIUM 8.6 mg/dl (8.6-10.4); GFR NON-AFRICAN AMERICAN > 60
[2018-09-01] MEDS: Budesonide 0.25 mg/2 ml Inhal Susp UD INH SCH ×2 (07:39→20:19)
[2018-09-01 08:30] LABS: BANDS 1 % (0-2); EOSINOPHIL 2 % (0-4); LYMPHOCYTE 11 % (20-40); MONOCYTE 7 % (0-10); NEUTROPHIL 79 % (50-75); TOTAL CELLS COUNTED 100
[2018-09-01 08:32] LABS: PLATELET ESTIMATE NORMAL (NORMAL)
[2018-09-01 08:33] LABS: ANISOCYTOSIS SLIGHT; TOXIC GRANULATION PRESENT
[2018-09-01] MEDS: Meropenem 1 GM in Sodium Chloride 0.9% 100 ML IVPB SCH ×2 (09:31→21:50)
[2018-09-01] MEDS: Docusate-Senna 50 mg-8.6 mg Tab PO SCH ×2 (09:32→17:21)
[2018-09-01] MEDS: Multiple Vitamins Oral Solution NG SCH (09:33)
[2018-09-01] MEDS ORDERED: Azithromycin 500 MG in Sodium Chloride 0.9% 250 ML IVPB SCH (10:00)
[2018-09-01] MEDS: Azithromycin 500 MG in Sodium Chloride 0.9% 250 ML IVPB SCH (11:53)
--- NOTE | 2018-09-01 14:53 | CP.PCM.PN ---
Subjective - Date & Time of Evaluation Date of Evaluation: 09/01/18 Time of Evaluation: 14:00 - Subjective Subjective: Patient seen and examined in the intensive care unit Sitting on chair in no distress Copious amount of secretions Afebrile Objective - Vital Signs/Intake and Output Vital Signs (last 24 hours): Temp Pulse Resp BP Pulse Ox 98.6 F 115 H 21 157/75 H 92 L 09/01/18 12:00 09/01/18 14:00 09/01/18 14:00 09/01/18 12:00 09/01/18 14:00 Intake and Output: 09/01/18 09/01/18 06:59 18:59 Intake Total 505 680 Output Total 1800 Balance -1295 680 - Medications Medications: Current Medications Acetaminophen (Tylenol 650 Mg Supp) 650 mg [place] Q4 PRN PRN Reason: temperature>100.4 and pain Last Admin: 08/29/18 21:39 Dose: 650 mg Acetaminophen (Tylenol 650mg/20.3ml Solution Ud) 650 mg NG Q6 PRN PRN Reason: Pain, Mild (1-3) Albuterol/Ipratropium (Duoneb 3 Mg/0.5 Mg (3 Ml) Ud) 3 ml INH RQ6 PRN PRN Reason: Shortness of Breath Apixaban (Eliquis) 5 mg PO BID [facility] Last Admin: 09/01/18 09:32 Dose: 5 mg Arformoterol Tartrate (Brovana) 15 mcg INH RQ12@1000,2200 [facility] Aspirin (Aspirin Chewable) 81 mg NG DAILY [facility] Last Admin: 09/01/18 09:32 Dose: 81 mg Budesonide (Pulmicort Respules) 0.25 mg INH RQ12 [facility] Last Admin: 09/01/18 07:39 Dose: 0.25 mg Clopidogrel Bisulfate (Plavix) 75 mg NG DAILY [facility] Last Admin: 09/01/18 09:32 Dose: 75 mg Donepezil HCl (Aricept) 5 mg NG HS [facility] Last Admin: 08/31/18 21:43 Dose: 5 mg Folic Acid (Folic Acid) 1 mg NG DAILY [facility] Last Admin: 09/01/18 09:32 Dose: 1 mg Meropenem 1 gm/ Sodium (Chloride) 100 mls @ 100 mls/hr IVPB Q12H [facility]; Protocol Last Admin: 09/01/18 09:31 Dose: 100 mls/hr Azithromycin 500 mg/ Sodium (Chloride) 250 mls @ 250 mls/hr IVPB Q24H [facility]; Protocol Last Admin: 09/01/18 11:53 Dose: 250 mls/hr Ipratropium [place] (Atrovent) 0.5 mg IH RQID [facility] Multivitamins/Vitamin C (Multi-Delyn Liquid) 5 ml NG DAILY [facility] Last Admin: 09/01/18 09:33 Dose: 5 ml Rosuvastatin Calcium (Crestor) 10 mg NG HS [facility] Last Admin: 08/31/18 21:43 Dose: 10 mg Senna/Docusate Sodium (Senokot S 50 Mg-8.6 Mg) 2 tab PO BID [facility] Last Admin: 09/01/18 09:32 Dose: 2 tab - Labs Labs: 09/01/18 05:47 09/01/18 05:47 PT 11.2 SECONDS (9.7-12.2) 08/15/18 07:06 INR 1.0 08/15/18 07:06 APTT 69.0 SECONDS (21-34) H D 08/30/18 05:36 - Head Exam Head Exam: ATRAUMATIC, NORMOCEPHALIC - Eye Exam Eye Exam: Normal appearance - ENT Exam ENT Exam: Mucous Membranes Moist - Respiratory Exam Respiratory Exam: Decreased Breath Sounds - GI/Abdominal Exam GI & Abdominal Exam: Soft, Normal Bowel Sounds Assessment and Plan (1) Respiratory distress, acute Assessment & Plan: Continue antibiotics Pulmonary toilet NG tube feeding Nebulizer treatment Scopolamine patch Status: Acute (2) Pneumonia Status: Acute (3) COPD (chronic obstructive pulmonary disease) Status: Chronic
--- NOTE | 2018-09-01 15:26 | CP.PCM.PN ---
Subjective - Date & Time of Evaluation Date of Evaluation: 09/01/18 Time of Evaluation: 15:00 - Subjective Subjective: Patient awake, confused, in no respiratory distress but still with copious secretion. On IV Meropenem and IV Zithromax, PO Apixaban. Objective - Vital Signs/Intake and Output Vital Signs (last 24 hours): Temp Pulse Resp BP Pulse Ox 98.6 F 117 H 35 H 125/68 85 L 09/01/18 12:00 09/01/18 15:00 09/01/18 15:00 09/01/18 14:59 09/01/18 15:00 Intake and Output: 09/01/18 09/01/18 06:59 18:59 Intake Total 505 715 Output Total 1800 Balance -1295 715 - Medications Medications: Current Medications Acetaminophen (Tylenol 650 Mg Supp) 650 mg [place] Q4 PRN PRN Reason: temperature>100.4 and pain Last Admin: 08/29/18 21:39 Dose: 650 mg Acetaminophen (Tylenol 650mg/20.3ml Solution Ud) 650 mg [place] Q6 PRN PRN Reason: Pain, Mild (1-3) Albuterol/Ipratropium (Duoneb 3 Mg/0.5 Mg (3 Ml) Ud) 3 ml INH RQ6 PRN PRN Reason: Shortness of Breath Apixaban (Eliquis) 5 mg PO BID [facility] Last Admin: 09/01/18 09:32 Dose: 5 mg Arformoterol Tartrate (Brovana) 15 mcg INH RQ12@1000,2200 [facility] Aspirin (Aspirin Chewable) 81 mg NG DAILY [facility] Last Admin: 09/01/18 09:32 Dose: 81 mg Budesonide (Pulmicort Respules) 0.25 mg INH RQ12 [facility] Last Admin: 09/01/18 07:39 Dose: 0.25 mg Clopidogrel Bisulfate (Plavix) 75 mg NG DAILY [facility] Last Admin: 09/01/18 09:32 Dose: 75 mg Donepezil HCl (Aricept) 5 mg NG HS [facility] Last Admin: 08/31/18 21:43 Dose: 5 mg Folic Acid (Folic Acid) 1 mg NG DAILY [facility] Last Admin: 09/01/18 09:32 Dose: 1 mg Meropenem 1 gm/ Sodium (Chloride) 100 mls @ 100 mls/hr IVPB Q12H [facility]; Protocol Last Admin: 09/01/18 09:31 Dose: 100 mls/hr Azithromycin 500 mg/ Sodium (Chloride) 250 mls @ 250 mls/hr IVPB Q24H [facility]; Protocol Last Admin: 09/01/18 11:53 Dose: 250 mls/hr Ipratropium [place] (Atrovent) 0.5 mg IH RQID [facility] Multivitamins/Vitamin C (Multi-Delyn Liquid) 5 ml NG DAILY [facility] Last Admin: 09/01/18 09:33 Dose: 5 ml Rosuvastatin Calcium (Crestor) 10 mg NG HS [facility] Last Admin: 08/31/18 21:43 Dose: 10 mg Scopolamine (Transderm-Scop) 1 patch TD Q3D [facility] Senna/Docusate Sodium (Senokot S 50 Mg-8.6 Mg) 2 tab PO BID [facility] Last Admin: 09/01/18 09:32 Dose: 2 tab - Labs Labs: 09/01/18 05:47 09/01/18 05:47 PT 11.2 SECONDS (9.7-12.2) 08/15/18 07:06 INR 1.0 08/15/18 07:06 APTT 69.0 SECONDS (21-34) H D 08/30/18 05:36 - Constitutional Appears: No Acute Distress, Cachectic, Chronically Ill - Head Exam Head Exam: NORMAL INSPECTION - Eye Exam Eye Exam: Normal appearance - ENT Exam ENT Exam: Normal Exam - Neck Exam Neck Exam: Normal Inspection - Respiratory Exam Respiratory Exam: Rhonchi - Cardiovascular Exam Cardiovascular Exam: REGULAR RHYTHM - GI/Abdominal Exam GI & Abdominal Exam: Soft, Normal Bowel Sounds - Exam Exam: NORMAL INSPECTION - Extremities Exam Extremities Exam: Normal Inspection - Back Exam Back Exam: NORMAL INSPECTION - Neurological Exam Neurological Exam: Alert, Awake Additional comments: Confused. - Psychiatric Exam Additional comments: Confused. - Skin Skin Exam: Dry, Intact, Normal Color, Warm Assessment and Plan (1) Bradycardia Status: Chronic (2) Vertebro-basilar artery syndrome Status: Acute (3) Severe dementia Status: Chronic (4) More than 50 percent stenosis of right internal carotid artery Status: Resolved (5) COPD (chronic obstructive pulmonary disease) Status: Chronic (6) Dysphagia Status: Acute (7) Aspiration pneumonia Assessment & Plan: On IV antibiotics. Status: Acute (8) Acute respiratory failure Status: Resolved (9) Deep vein thrombosis (DVT) of left lower extremity Assessment & Plan: On Apixaban. Status: Acute
[2018-09-01] MEDS: Ipratropium 0.02% Inhal Soln (0.5 mg/2.5 ml) UD IH SCH ×2 (16:10→20:18)
[2018-09-01] MEDS ORDERED: Sodium Chloride 0.45% 1,000 ML IV SCH (17:15)
[2018-09-01] MEDS: Arformoterol 15 mcg/2 ml Inh Sol INH SCH (22:50)
[2018-09-02] MEDS: Ipratropium 0.02% Inhal Soln (0.5 mg/2.5 ml) UD IH SCH ×4 (07:47→20:14)
[2018-09-02] MEDS: Budesonide 0.25 mg/2 ml Inhal Susp UD INH SCH ×2 (07:47→20:16)
[2018-09-02] MEDS: Meropenem 1 GM in Sodium Chloride 0.9% 100 ML IVPB SCH ×2 (09:35→21:40)
[2018-09-02] MEDS: Docusate-Senna 50 mg-8.6 mg Tab PO SCH ×2 (09:37→17:25)
[2018-09-02] MEDS: Multiple Vitamins Oral Solution NG SCH (09:37)
[2018-09-02] MEDS: Arformoterol 15 mcg/2 ml Inh Sol INH SCH ×2 (10:16→21:05)
[2018-09-02] MEDS: Azithromycin 500 MG in Sodium Chloride 0.9% 250 ML IVPB SCH (11:41)
--- NOTE | 2018-09-02 17:37 | CP.PCM.PN ---
Subjective - Date & Time of Evaluation Date of Evaluation: 09/02/18 Time of Evaluation: 17:37 - Subjective Subjective: Pulmonary follow up, Covering Dr Stanton The Patient was seen and examined at the bedside, Medical records reviewed, and management issues were discussed and formulated with the house staff. Events reviewed Patient is a 68-year-old Male with PMHx of hypertension, hyperlipidemia, dementia and COPD Who was intially brought to hospital for AMS with Code Stroke protocol activated and was found on CT Head & Neck to have high grade stenosis of ALAN, now s/p Endarterectomy with fina drain placement on 07/30 Pulmonary consulted for shortness of breath/tachypnea and abnormal CAT scan of chest Patient on 5 L nasal cannula oxygen saturation 90%. CAT scan of the chest negative for pulmonary embolism but consistent with atel ectasis and pneumonia. Patient started on Zosyn and vancomycin. Improved respiratory status Saturation 93-95% on 2L nasal cannula Sitting comfortably in bed, in no apparent distress Denies chest pain, shortness of breath, fever/chills Objective - Vital Signs/Intake and Output Vital Signs (last 24 hours): Temp Pulse Resp BP Pulse Ox 97.9 F 99 H 25 H 132/70 95 09/02/18 16:00 09/02/18 16:00 09/02/18 16:00 09/02/18 15:58 09/02/18 16:00 Intake and Output: 09/02/18 09/02/18 06:59 18:59 Intake Total 770 Balance 770 - Medications Medications: Current Medications Acetaminophen (Tylenol 650 Mg Supp) 650 mg [place] Q4 PRN PRN Reason: temperature>100.4 and pain Last Admin: 08/29/18 21:39 Dose: 650 mg Acetaminophen (Tylenol 650mg/20.3ml Solution Ud) 650 mg NG Q6 PRN PRN Reason: Pain, Mild (1-3) Albuterol/Ipratropium (Duoneb 3 Mg/0.5 Mg (3 Ml) Ud) 3 ml INH RQ6 PRN PRN Reason: Shortness of Breath Apixaban (Eliquis) 5 mg PO BID [facility] Last Admin: 09/02/18 17:24 Dose: 5 mg Arformoterol Tartrate (Brovana) 15 mcg INH RQ12@1000,2200 [facility] Last Admin: 09/02/18 10:16 Dose: 15 mcg Aspirin (Aspirin Chewable) 81 mg NG DAILY [facility] Last Admin: 09/02/18 09:37 Dose: 81 mg Budesonide (Pulmicort Respules) 0.25 mg INH RQ12 [facility] Last Admin: 09/02/18 07:47 Dose: 0.25 mg Clopidogrel Bisulfate (Plavix) 75 mg NG DAILY [facility] Last Admin: 09/02/18 09:36 Dose: 75 mg Donepezil HCl (Aricept) 5 mg NG HS [facility] Last Admin: 09/01/18 21:50 Dose: 5 mg Folic Acid (Folic Acid) 1 mg NG DAILY [facility] Last Admin: 09/02/18 09:36 Dose: 1 mg Meropenem 1 gm/ Sodium (Chloride) 100 mls @ 100 mls/hr IVPB Q12H [facility]; Protocol Last Admin: 09/02/18 09:35 Dose: 100 mls/hr Azithromycin 500 mg/ Sodium (Chloride) 250 mls @ 250 mls/hr IVPB Q24H [facility]; Protocol Last Admin: 09/02/18 11:41 Dose: 250 mls/hr Ipratropium [place] (Atrovent) 0.5 mg IH RQID [facility] Last Admin: 09/02/18 11:26 Dose: 0.5 mg Multivitamins/Vitamin C (Multi-Delyn Liquid) 5 ml NG DAILY [facility] Last Admin: 09/02/18 09:37 Dose: 5 ml Rosuvastatin Calcium (Crestor) 10 mg NG HS [facility] Last Admin: 09/01/18 21:50 Dose: 10 mg Scopolamine (Transderm-Scop) 1 patch TD Q3D [facility] Last Admin: 09/01/18 15:30 Dose: 1 patch Senna/Docusate Sodium (Senokot S 50 Mg-8.6 Mg) 2 tab PO BID [facility] Last Admin: 09/02/18 17:25 Dose: 2 tab - Labs Labs: 09/01/18 05:47 09/01/18 05:47 PT 11.2 SECONDS (9.7-12.2) 08/15/18 07:06 INR 1.0 08/15/18 07:06 APTT 69.0 SECONDS (21-34) H D 08/30/18 05:36 Assessment and Plan (1) Acute respiratory failure Assessment & Plan: Continue antibiotics Pulmonary toilet NG tube feeding Nebulizer treatment Scopolamine patch Status: Acute (2) Aspiration pneumonia Status: Acute (3) COPD (chronic obstructive pulmonary disease) Status: Acute (4) Deep vein thrombosis (DVT) of left lower extremity Status: Acute (5) Pneumonia Status: Acute (6) Respiratory distress, acute Status: Acute
[2018-09-03] MEDS: Ipratropium 0.02% Inhal Soln (0.5 mg/2.5 ml) UD IH SCH ×4 (07:31→19:36)
[2018-09-03] MEDS: Budesonide 0.25 mg/2 ml Inhal Susp UD INH SCH ×2 (07:31→19:37)
--- NOTE | 2018-09-03 09:23 | RAD ---
Chest x-ray single frontal view HISTORY: Respiratory distress. COMPARISON: 08/31/2018 FINDINGS: NG tube extending into the stomach. Right central venous catheter with tip extending to the cavoatrial junction. Hyperinflation suggestive for COPD and or emphysematous changes. Patchy increased markings in the left mid to lower lung zone which may represent underlying atelectasis and or infiltrate. Clinical correlation. Upper lobe nodularity which may represent granulomatous changes. Degenerative changes in the spine. Impression: NG tube extending into the stomach. Right central venous catheter with tip extending to the cavoatrial junction. Hyperinflation suggestive for COPD and or emphysematous changes. Patchy increased markings in the left mid to lower lung zone which may represent underlying atelectasis and or infiltrate. Clinical correlation. Upper lobe nodularity which may represent granulomatous changes.
[2018-09-03] MEDS: Arformoterol 15 mcg/2 ml Inh Sol INH SCH ×2 (09:57→21:23)
[2018-09-03] MEDS: Docusate-Senna 50 mg-8.6 mg Tab PO SCH ×2 (09:59→17:51)
[2018-09-03] MEDS: Meropenem 1 GM in Sodium Chloride 0.9% 100 ML IVPB SCH ×2 (09:59→22:00)
[2018-09-03] MEDS: Multiple Vitamins Oral Solution NG SCH (10:00)
[2018-09-03] MEDS: Azithromycin 500 MG in Sodium Chloride 0.9% 250 ML IVPB SCH (11:33)
--- NOTE | 2018-09-03 16:13 | CP.PCM.PN ---
Subjective - Date & Time of Evaluation Date of Evaluation: 09/03/18 Time of Evaluation: 11:00 - Subjective Subjective: patient seen and examined Lying comfortably in no distress Copious secretions Afebrile Objective - Vital Signs/Intake and Output Vital Signs (last 24 hours): Temp Pulse Resp BP Pulse Ox 97.6 F 89 28 H 135/79 98 09/03/18 12:00 09/03/18 12:00 09/03/18 12:00 09/03/18 12:00 09/03/18 12:00 Intake and Output: 09/03/18 09/03/18 06:59 18:59 Intake Total 300 570 Output Total 400 Balance -100 570 - Medications Medications: Current Medications Acetaminophen (Tylenol 650 Mg Supp) 650 mg [place] Q4 PRN PRN Reason: temperature>100.4 and pain Last Admin: 08/29/18 21:39 Dose: 650 mg Acetaminophen (Tylenol 650mg/20.3ml Solution Ud) 650 mg NG Q6 PRN PRN Reason: Pain, Mild (1-3) Last Admin: 09/03/18 03:03 Dose: 650 mg Albuterol/Ipratropium (Duoneb 3 Mg/0.5 Mg (3 Ml) Ud) 3 ml INH RQ6 PRN PRN Reason: Shortness of Breath Apixaban (Eliquis) 5 mg PO BID [facility] Last Admin: 09/03/18 10:00 Dose: 5 mg Arformoterol Tartrate (Brovana) 15 mcg INH RQ12@1000,2200 [facility] Last Admin: 09/03/18 09:57 Dose: 15 mcg Aspirin (Aspirin Chewable) 81 mg NG DAILY [facility] Last Admin: 09/03/18 10:00 Dose: 81 mg Budesonide (Pulmicort Respules) 0.25 mg INH RQ12 [facility] Last Admin: 09/03/18 07:31 Dose: 0.25 mg Clopidogrel Bisulfate (Plavix) 75 mg NG DAILY [facility] Last Admin: 09/03/18 09:59 Dose: 75 mg Donepezil HCl (Aricept) 5 mg NG HS [facility] Last Admin: 09/02/18 21:40 Dose: 5 mg Folic Acid (Folic Acid) 1 mg NG DAILY [facility] Last Admin: 09/03/18 09:59 Dose: 1 mg Meropenem 1 gm/ Sodium (Chloride) 100 mls @ 100 mls/hr IVPB Q12H [facility]; Protocol Last Admin: 09/03/18 09:59 Dose: 100 mls/hr Ipratropium [place] (Atrovent) 0.5 mg IH RQID [facility] Last Admin: 09/03/18 11:44 Dose: 0.5 mg Multivitamins/Vitamin C (Multi-Delyn Liquid) 5 ml NG DAILY [facility] Last Admin: 09/03/18 10:00 Dose: 5 ml Rosuvastatin Calcium (Crestor) 10 mg NG HS [facility] Last Admin: 09/02/18 21:40 Dose: 10 mg Scopolamine (Transderm-Scop) 1 patch TD Q3D [facility] Last Admin: 09/01/18 15:30 Dose: 1 patch Senna/Docusate Sodium (Senokot S 50 Mg-8.6 Mg) 2 tab PO BID [facility] Last Admin: 09/03/18 09:59 Dose: 2 tab - Labs Labs: 09/01/18 05:47 09/01/18 05:47 PT 11.2 SECONDS (9.7-12.2) 08/15/18 07:06 INR 1.0 08/15/18 07:06 APTT 69.0 SECONDS (21-34) H D 08/30/18 05:36 - Head Exam Head Exam: ATRAUMATIC, NORMOCEPHALIC - ENT Exam ENT Exam: Mucous Membranes Moist - Neck Exam Neck Exam: Normal Inspection - Respiratory Exam Respiratory Exam: Rhonchi, Wheezes - Cardiovascular Exam Cardiovascular Exam: REGULAR RHYTHM - GI/Abdominal Exam GI & Abdominal Exam: Soft, Normal Bowel Sounds - Neurological Exam Neurological Exam: Altered Assessment and Plan (1) Respiratory distress, acute Status: Acute (2) Pneumonia Status: Acute (3) COPD (chronic obstructive pulmonary disease) Status: Acute
[2018-09-03] MEDS ORDERED: Meropenem 1 GM in Sodium Chloride 0.9% 100 ML IVPB SCH (18:30)
[2018-09-03] MEDS: Albuterol-Ipratrop 3 mg / 0.5 (3 ml) UD INH PRN (19:35)
--- NOTE | 2018-09-03 23:25 | CP.PCM.PN ---
Subjective - Date & Time of Evaluation Date of Evaluation: 09/03/18 Time of Evaluation: 17:30 - Subjective Subjective: Patient remained extubated, totally confused, in no respiratory distress but with copious secretions, Afebrile but CXR reveals LML and LLL infiltrates. On Meropenem and Zithromax. Objective - Vital Signs/Intake and Output Vital Signs (last 24 hours): Temp Pulse Resp BP Pulse Ox 98.9 F 96 H 22 138/68 97 09/03/18 20:00 09/03/18 20:00 09/03/18 20:00 09/03/18 20:00 09/03/18 20:00 Intake and Output: 09/03/18 09/04/18 18:59 06:59 Intake Total 1060 Output Total 700 Balance 360 - Medications Medications: Current Medications Acetaminophen (Tylenol 650 Mg Supp) 650 mg [place] Q4 PRN PRN Reason: temperature>100.4 and pain Last Admin: 08/29/18 21:39 Dose: 650 mg Acetaminophen (Tylenol 650mg/20.3ml Solution Ud) 650 mg NG Q6 PRN PRN Reason: Pain, Mild (1-3) Last Admin: 09/03/18 03:03 Dose: 650 mg Albuterol/Ipratropium (Duoneb 3 Mg/0.5 Mg (3 Ml) Ud) 3 ml INH RQ6 PRN PRN Reason: Shortness of Breath Last Admin: 09/03/18 19:35 Dose: 3 ml Apixaban (Eliquis) 5 mg PO BID [facility] Last Admin: 09/03/18 17:51 Dose: 5 mg Arformoterol Tartrate (Brovana) 15 mcg INH RQ12@1000,2200 [facility] Last Admin: 09/03/18 21:23 Dose: 15 mcg Aspirin (Aspirin Chewable) 81 mg NG DAILY [facility] Last Admin: 09/03/18 10:00 Dose: 81 mg Budesonide (Pulmicort Respules) 0.25 mg INH RQ12 [facility] Last Admin: 09/03/18 19:37 Dose: 0.25 mg Clopidogrel Bisulfate (Plavix) 75 mg NG DAILY [facility] Last Admin: 09/03/18 09:59 Dose: 75 mg Donepezil HCl (Aricept) 5 mg NG HS [facility] Last Admin: 09/03/18 21:50 Dose: 5 mg Folic Acid (Folic Acid) 1 mg NG DAILY [facility] Last Admin: 09/03/18 09:59 Dose: 1 mg Azithromycin 500 mg/ Sodium (Chloride) 250 mls @ 167 mls/hr IVPB Q24H [facility]; Protocol Meropenem 1 gm/ Sodium (Chloride) 100 mls @ 100 mls/hr IVPB Q12H [facility]; Protocol Last Admin: 09/03/18 22:00 Dose: 100 mls/hr Ipratropium [place] (Atrovent) 0.5 mg IH RQID [facility] Last Admin: 09/03/18 19:36 Dose: 0.5 mg Multivitamins/Vitamin C (Multi-Delyn Liquid) 5 ml NG DAILY [facility] Last Admin: 09/03/18 10:00 Dose: 5 ml Rosuvastatin Calcium (Crestor) 10 mg NG HS [facility] Last Admin: 09/03/18 21:50 Dose: 10 mg Scopolamine (Transderm-Scop) 1 patch TD Q3D [facility] Last Admin: 09/01/18 15:30 Dose: 1 patch Senna/Docusate Sodium (Senokot S 50 Mg-8.6 Mg) 2 tab PO BID [facility] Last Admin: 09/03/18 17:51 Dose: 2 tab - Labs Labs: 09/01/18 05:47 09/01/18 05:47 PT 11.2 SECONDS (9.7-12.2) 08/15/18 07:06 INR 1.0 08/15/18 07:06 APTT 69.0 SECONDS (21-34) H D 08/30/18 05:36 - Constitutional Appears: No Acute Distress, Cachectic, Chronically Ill - Head Exam Head Exam: NORMAL INSPECTION - Eye Exam Eye Exam: Normal appearance - ENT Exam ENT Exam: Normal Exam - Neck Exam Neck Exam: Normal Inspection - Respiratory Exam Respiratory Exam: Rhonchi - Cardiovascular Exam Cardiovascular Exam: REGULAR RHYTHM - GI/Abdominal Exam GI & Abdominal Exam: Soft, Normal Bowel Sounds - Rectal Exam Rectal Exam: Deferred - Exam Exam: NORMAL INSPECTION - Extremities Exam Extremities Exam: Normal Inspection - Back Exam Back Exam: NORMAL INSPECTION - Neurological Exam Neurological Exam: Awake Additional comments: Confused. - Psychiatric Exam Additional comments: Confused. - Skin Skin Exam: Dry, Intact Assessment and Plan (1) Bradycardia Status: Chronic (2) Vertebro-basilar artery syndrome Status: Acute (3) Severe dementia Status: Chronic (4) More than 50 percent stenosis of right internal carotid artery Status: Resolved (5) COPD (chronic obstructive pulmonary disease) Status: Acute (6) Dysphagia Status: Acute (7) Aspiration pneumonia Assessment & Plan: On IV Meropenem and Zithromax. Status: Acute (8) Acute respiratory failure Status: Resolved (9) Deep vein thrombosis (DVT) of left lower extremity Assessment & Plan: On Apixaban Status: Acute
[2018-09-04 06:44] LABS: BASO % 0.2 % (0.0-2.0); EOS # 0.3 K/uL (0.0-0.7); EOS % 2.8 % (0.0-4.0); HEMOGLOBIN 10.6 g/dL (12.0-18.0); LYMPH % 11.1 % (20.0-40.0); MEAN CELL VOLUME 94.7 fL (80.0-94.0); MEAN CORPUSCULAR HEMOGLOBIN 31.8 pg (27.0-31.0); MEAN CORPUSCULAR HGB CONC 33.6 g/dL (33.0-37.0); MEAN PLATELET VOLUME 9.8 fL (7.2-11.7); MONO # 0.4 K/uL (0.0-0.8); MONO % 4.8 % (0.0-10.0); NEUT # 7.4 K/uL (1.8-7.0); NEUT % 81.1 % (50.0-75.0); RBC 3.33 Mil/uL (4.40-5.90); RED CELL DISTRIBUTION WIDTH 12.9 % (11.5-14.5); WHITE BLOOD COUNT 9.1 K/uL (4.8-10.8)
[2018-09-04 06:56] LABS: ALBUMIN 2.5 g/dL (3.5-5.0); ALT/SGPT 98 U/L (21-72); AST/SGOT 39 U/L (17-59); BLOOD UREA NITROGEN 46 mg/dL (9-20); CALCIUM 8.3 mg/dl (8.6-10.4); GFR NON-AFRICAN AMERICAN > 60
[2018-09-04] MEDS: Ipratropium 0.02% Inhal Soln (0.5 mg/2.5 ml) UD IH SCH ×3 (08:07→19:50)
[2018-09-04] MEDS: Budesonide 0.25 mg/2 ml Inhal Susp UD INH SCH ×2 (08:07→19:50)
--- NOTE | 2018-09-04 09:14 | RAD ---
Date of service: 09/04/2018 HISTORY: ff up infiltrate COMPARISON: 09/02/2018 TECHNIQUE: 1 view obtained. FINDINGS: LUNGS: No active pulmonary disease. PLEURA: No significant pleural effusion identified, no pneumothorax apparent. CARDIOVASCULAR: No aortic atherosclerotic calcification present. Normal cardiac size. Right PICC catheter again noted. Nasogastric tube extends to left upper quadrant of abdomen. OSSEOUS STRUCTURES: No significant abnormalities. VISUALIZED UPPER ABDOMEN: Normal. OTHER FINDINGS: None. IMPRESSION: No acute infiltrate.
[2018-09-04] MEDS: Arformoterol 15 mcg/2 ml Inh Sol INH SCH ×2 (09:59→22:15)
[2018-09-04] MEDS: Multiple Vitamins Oral Solution NG SCH (10:02)
[2018-09-04] MEDS: Meropenem 1 GM in Sodium Chloride 0.9% 100 ML IVPB SCH ×2 (10:18→21:40)
[2018-09-04] MEDS: Docusate-Senna 50 mg-8.6 mg Tab PO SCH ×2 (10:26→17:28)
[2018-09-04] MEDS ORDERED: Potassium Chloride 20 mEq/15 ml LIQ UD PO ONE (11:00)
[2018-09-04] MEDS: Azithromycin 500 MG in Sodium Chloride 0.9% 250 ML IVPB SCH (11:40)
--- NOTE | 2018-09-04 18:42 | CP.PCM.PN ---
Subjective - Date & Time of Evaluation Date of Evaluation: 09/04/18 Time of Evaluation: 15:00 - Subjective Subjective: Patient seen and examined Continue to have cough with secretion In no respiratory distress Afebrile Objective - Vital Signs/Intake and Output Vital Signs (last 24 hours): Temp Pulse Resp BP Pulse Ox 99.1 F 99 H 17 92/68 L 95 09/04/18 16:00 09/04/18 16:58 09/04/18 16:00 09/04/18 16:00 09/04/18 16:00 Intake and Output: 09/04/18 09/04/18 06:59 18:59 Intake Total 1300 1620 Output Total 700 550 Balance 600 1070 - Medications Medications: Current Medications Acetaminophen (Tylenol 650 Mg Supp) 650 mg [place] Q4 PRN PRN Reason: temperature>100.4 and pain Last Admin: 08/29/18 21:39 Dose: 650 mg Acetaminophen (Tylenol 650mg/20.3ml Solution Ud) 650 mg NG Q6 PRN PRN Reason: Pain, Mild (1-3) Last Admin: 09/03/18 03:03 Dose: 650 mg Albuterol/Ipratropium (Duoneb 3 Mg/0.5 Mg (3 Ml) Ud) 3 ml INH RQ6 PRN PRN Reason: Shortness of Breath Last Admin: 09/03/18 19:35 Dose: 3 ml Apixaban (Eliquis) 5 mg PO BID [facility] Last Admin: 09/04/18 10:55 Dose: Not Given Arformoterol Tartrate (Brovana) 15 mcg INH RQ12@1000,2200 [facility] Last Admin: 09/04/18 09:59 Dose: 15 mcg Aspirin (Aspirin Chewable) 81 mg NG DAILY [facility] Last Admin: 09/04/18 10:02 Dose: 81 mg Budesonide (Pulmicort Respules) 0.25 mg INH RQ12 [facility] Last Admin: 09/04/18 08:07 Dose: 0.25 mg Clopidogrel Bisulfate (Plavix) 75 mg NG DAILY [facility] Last Admin: 09/04/18 10:03 Dose: 75 mg Donepezil HCl (Aricept) 5 mg NG HS [facility] Last Admin: 09/03/18 21:50 Dose: 5 mg Folic Acid (Folic Acid) 1 mg NG DAILY [facility] Last Admin: 09/04/18 10:03 Dose: 1 mg Azithromycin 500 mg/ Sodium (Chloride) 250 mls @ 167 mls/hr IVPB Q24H [facility]; Protocol Last Admin: 09/04/18 11:40 Dose: 167 mls/hr Meropenem 1 gm/ Sodium (Chloride) 100 mls @ 100 mls/hr IVPB Q12H [facility]; Protocol Last Admin: 09/04/18 10:18 Dose: 100 mls/hr Ipratropium [place] (Atrovent) 0.5 mg IH RQID [facility] Last Admin: 09/04/18 11:42 Dose: 0.5 mg Multivitamins/Vitamin C (Multi-Delyn Liquid) 5 ml NG DAILY [facility] Last Admin: 09/04/18 10:02 Dose: 5 ml Rosuvastatin Calcium (Crestor) 10 mg NG HS [facility] Last Admin: 09/03/18 21:50 Dose: 10 mg Scopolamine (Transderm-Scop) 1 patch TD Q3D [facility] Last Admin: 09/04/18 15:27 Dose: 1 patch Senna/Docusate Sodium (Senokot S 50 Mg-8.6 Mg) 2 tab PO BID [facility] Last Admin: 09/04/18 17:28 Dose: 2 tab - Labs Labs: 09/04/18 06:38 09/04/18 06:38 PT 11.2 SECONDS (9.7-12.2) 08/15/18 07:06 INR 1.0 08/15/18 07:06 APTT 69.0 SECONDS (21-34) H D 08/30/18 05:36 - Head Exam Head Exam: ATRAUMATIC, NORMOCEPHALIC - ENT Exam ENT Exam: Mucous Membranes Moist - Neck Exam Neck Exam: Normal Inspection - Respiratory Exam Respiratory Exam: Rales, Rhonchi - Cardiovascular Exam Cardiovascular Exam: REGULAR RHYTHM - GI/Abdominal Exam GI & Abdominal Exam: Soft, Normal Bowel Sounds Assessment and Plan (1) Respiratory distress, acute Assessment & Plan: Continue antibiotics Pulmonary toilet and chest PT Mucolytics Nebulizer treatment Status: Acute (2) Pneumonia Status: Acute (3) COPD (chronic obstructive pulmonary disease) Status: Acute
--- NOTE | 2018-09-04 23:22 | CP.PCM.PN ---
Subjective - Date & Time of Evaluation Date of Evaluation: 09/04/18 Time of Evaluation: 17:00 - Subjective Subjective: Patient confused, in no respiratory distress, afebrile, still with copious secretion. Apixaban, Plavix and ASA on hold because of hemoptysis Hypokalemia corrected with KCl via NGT. Patient cannot perform swallowing evaluation. Will need a PEG. Will ask Dr Fox to perform the procedure.. Objective - Vital Signs/Intake and Output Vital Signs (last 24 hours): Temp Pulse Resp BP Pulse Ox 98.3 F 98 H 25 H 99/66 L 96 09/04/18 20:00 09/04/18 20:00 09/04/18 20:00 09/04/18 20:00 09/04/18 20:00 Intake and Output: 09/04/18 09/05/18 18:59 06:59 Intake Total 1620 Output Total 550 Balance 1070 - Medications Medications: Current Medications Acetaminophen (Tylenol 650 Mg Supp) 650 mg OR Q4 PRN PRN Reason: temperature>100.4 and pain Last Admin: 08/29/18 21:39 Dose: 650 mg Acetaminophen (Tylenol 650mg/20.3ml Solution Ud) 650 mg NG Q6 PRN PRN Reason: Pain, Mild (1-3) Last Admin: 09/03/18 03:03 Dose: 650 mg Albuterol/Ipratropium (Duoneb 3 Mg/0.5 Mg (3 Ml) Ud) 3 ml INH RQ6 PRN PRN Reason: Shortness of Breath Last Admin: 09/03/18 19:35 Dose: 3 ml Apixaban (Eliquis) 5 mg PO BID [facility] Last Admin: 09/04/18 10:55 Dose: Not Given Arformoterol Tartrate (Brovana) 15 mcg INH RQ12@1000,2200 [facility] Last Admin: 09/04/18 22:15 Dose: 15 mcg Aspirin (Aspirin Chewable) 81 mg NG DAILY [facility] Last Admin: 09/04/18 10:02 Dose: 81 mg Budesonide (Pulmicort Respules) 0.25 mg INH RQ12 [facility] Last Admin: 09/04/18 19:50 Dose: 0.25 mg Clopidogrel Bisulfate (Plavix) 75 mg NG DAILY [facility] Last Admin: 09/04/18 10:03 Dose: 75 mg Donepezil HCl (Aricept) 5 mg NG HS [facility] Last Admin: 09/04/18 21:39 Dose: 5 mg Folic Acid (Folic Acid) 1 mg NG DAILY [facility] Last Admin: 09/04/18 10:03 Dose: 1 mg Azithromycin 500 mg/ Sodium (Chloride) 250 mls @ 167 mls/hr IVPB Q24H [facility]; Protocol Last Admin: 09/04/18 11:40 Dose: 167 mls/hr Meropenem 1 gm/ Sodium (Chloride) 100 mls @ 100 mls/hr IVPB Q12H [facility]; Protocol Last Admin: 09/04/18 21:40 Dose: 100 mls/hr Ipratropium [place] (Atrovent) 0.5 mg IH RQID [facility] Last Admin: 09/04/18 19:50 Dose: 0.5 mg Multivitamins/Vitamin C (Multi-Delyn Liquid) 5 ml NG DAILY [facility] Last Admin: 09/04/18 10:02 Dose: 5 ml Rosuvastatin Calcium (Crestor) 10 mg NG HS [facility] Last Admin: 09/04/18 21:39 Dose: 10 mg Scopolamine (Transderm-Scop) 1 patch TD Q3D [facility] Last Admin: 09/04/18 15:27 Dose: 1 patch Senna/Docusate Sodium (Senokot S 50 Mg-8.6 Mg) 2 tab PO BID [facility] Last Admin: 09/04/18 17:28 Dose: 2 tab - Labs Labs: 09/04/18 06:38 09/04/18 06:38 PT 11.2 SECONDS (9.7-12.2) 08/15/18 07:06 INR 1.0 08/15/18 07:06 APTT 69.0 SECONDS (21-34) H D 08/30/18 05:36 - Constitutional Appears: No Acute Distress, Confused, Cachectic, Chronically Ill - Head Exam Head Exam: NORMAL INSPECTION - Eye Exam Eye Exam: Normal appearance - ENT Exam ENT Exam: Normal Exam - Neck Exam Neck Exam: Normal Inspection - Respiratory Exam Respiratory Exam: Rhonchi Additional comments: Rhonchi heard bilaterally. - Cardiovascular Exam Cardiovascular Exam: REGULAR RHYTHM - GI/Abdominal Exam GI & Abdominal Exam: Soft, Normal Bowel Sounds - Rectal Exam Rectal Exam: Deferred - Extremities Exam Extremities Exam: Normal Inspection - Back Exam Back Exam: NORMAL INSPECTION - Neurological Exam Neurological Exam: Awake Additional comments: Confused. bed bound. - Psychiatric Exam Psychiatric exam: Agitated - Skin Skin Exam: Dry, Intact, Normal Color, Warm Assessment and Plan (1) Bradycardia Status: Chronic (2) Vertebro-basilar artery syndrome Status: Acute (3) Severe dementia Status: Chronic (4) More than 50 percent stenosis of right internal carotid artery Status: Resolved (5) COPD (chronic obstructive pulmonary disease) Status: Acute (6) Dysphagia Status: Acute (7) Aspiration pneumonia Assessment & Plan: Will need a PEG. Status: Acute (8) Acute respiratory failure Status: Resolved (9) Deep vein thrombosis (DVT) of left lower extremity Status: Acute
[2018-09-05 06:46] LABS: BASO % 0.4 % (0.0-2.0); EOS # 0.2 K/uL (0.0-0.7); EOS % 2.5 % (0.0-4.0); HEMOGLOBIN 10.3 g/dL (12.0-18.0); LYMPH # 1.1 K/uL (1.0-4.3); MEAN CELL VOLUME 94.3 fL (80.0-94.0); MEAN CORPUSCULAR HEMOGLOBIN 31.5 pg (27.0-31.0); MEAN CORPUSCULAR HGB CONC 33.4 g/dL (33.0-37.0); MEAN PLATELET VOLUME 9.3 fL (7.2-11.7); MONO # 0.4 K/uL (0.0-0.8); MONO % 4.2 % (0.0-10.0); NEUT % 81.9 % (50.0-75.0); RBC 3.26 Mil/uL (4.40-5.90); RED CELL DISTRIBUTION WIDTH 13.1 % (11.5-14.5); WHITE BLOOD COUNT 9.8 K/uL (4.8-10.8)
[2018-09-05 06:53] LABS: INR 1.2; PROTHROMBIN TIME 13.2 SECONDS (9.7-12.2)
[2018-09-05 07:02] LABS: ALB/GLOB RATIO 0.9 (1.0-2.1); ALBUMIN 2.5 g/dL (3.5-5.0); ALT/SGPT 87 U/L (21-72); AST/SGOT 39 U/L (17-59); BLOOD UREA NITROGEN 39 mg/dL (9-20); CALCIUM 8.3 mg/dl (8.6-10.4); GFR NON-AFRICAN AMERICAN > 60
[2018-09-05] MEDS: Ipratropium 0.02% Inhal Soln (0.5 mg/2.5 ml) UD IH SCH ×4 (07:58→19:59)
[2018-09-05] MEDS: Budesonide 0.25 mg/2 ml Inhal Susp UD INH SCH ×2 (07:58→19:59)
[2018-09-05] MEDS: Albuterol-Ipratrop 3 mg / 0.5 (3 ml) UD INH PRN ×2 (07:58→14:05)
[2018-09-05] MEDS: Arformoterol 15 mcg/2 ml Inh Sol INH SCH ×2 (07:58→20:00)
[2018-09-05] MEDS: Docusate-Senna 50 mg-8.6 mg Tab PO SCH ×2 (09:40→17:22)
[2018-09-05] MEDS: Multiple Vitamins Oral Solution NG SCH (09:40)
[2018-09-05] MEDS: Meropenem 1 GM in Sodium Chloride 0.9% 100 ML IVPB SCH ×2 (09:41→21:27)
--- NOTE | 2018-09-05 11:01 | PN ---
DATE: 09/05/2018 LOCATION: ICU 14A. SUBJECTIVE: This is a 68-year-old male, seen and examined initially for GI consultation on 09/04/2018, reexamined again today without significant clinical changes or reported active bleeding, unable to have oral intake for which I was called initially for potential PEG insertion. The entire chart was reviewed including but not limited to the most recent lab and radiology study results, current and previous medication list, current and previous medical events, and today's lab results showed hemoglobin 10.3, hematocrit 30.7 with white blood cells of 9.8, platelet count 159 with PT of 13.2. Potassium 3.5, BUN 39, creatinine 1, blood glucose level 117, calcium 8.3 with ALT of 87, total protein 5.2, albumin 2.5. Most recently done chest x-ray yesterday, official report is seen. PHYSICAL EXAMINATION: GENERAL: A 68-year-old male. VITAL SIGNS: Afebrile with pulse of 98 and blood pressure of 132/84. HEENT: Showed pale, dry oral mucous membrane. Nonicteric sclerae. LUNGS: Few scattered crepitation. Decreased air entry at bases. HEART: Positive S1 and S2 with increased rate. ABDOMEN: Soft with mild generalized tenderness. No mass or organomegaly. No rebound tenderness or guarding. EXTREMITIES: Lower extremity edematous changes. No clubbing or cyanosis. NEUROLOGIC: No reported new neurological deficits, sensory or motor. The patient appeared to be somewhat confused. It has to be mentioned that episodes of hemoptysis were reported before for which anticoagulation/antiplatelet medication was on hold. IMPRESSION: 1. Malnutrition with hypoalbuminemia and hypoproteinemia. 2. Change of mental status. 3. Vertebrobasilar artery syndrome. 4. Anemia, most likely secondary to chronic disease versus gastrointestinal blood loss. 5. Re-exacerbation of chronic obstructive pulmonary disease with reported aspiration pneumonia. 6. Acute respiratory failure. 7. Reported deep venous thrombosis. 8. Electrolyte imbalance with poorly controlled diabetes mellitus before. 9. Prerenal azotemia with dehydration. SUGGESTIONS: 1. Agree with your plan. 2. The patient for potential PEG insertion at a.m. 3. Awaiting for legal guardian's official consent. 4. Further recommendation to follow. Armani Mendez MD [facility] # [id number]
[2018-09-05] MEDS: Azithromycin 500 MG in Sodium Chloride 0.9% 250 ML IVPB SCH (11:58)
[2018-09-05] MEDS ORDERED: Potassium Chloride 20 mEq/15 ml LIQ UD PO STA (19:27)
--- NOTE | 2018-09-05 19:32 | CP.PCM.PN ---
Subjective - Date & Time of Evaluation Date of Evaluation: 09/05/18 Time of Evaluation: 19:29 - Subjective Subjective: Patient remains confused, afebrile, in no respiratory distress, but with copious secretions. Apixaban, Plavix and ASA on holld because of bloody sputum, and because of PEG insertion in AM. Objective - Vital Signs/Intake and Output Vital Signs (last 24 hours): Temp Pulse Resp BP Pulse Ox 98.1 F 93 H 25 H 117/74 98 09/05/18 16:00 09/05/18 18:00 09/05/18 16:00 09/05/18 16:00 09/05/18 16:00 Intake and Output: 09/05/18 09/06/18 18:59 06:59 Intake Total 494 Output Total 1100 Balance -606 - Medications Medications: Current Medications Acetaminophen (Tylenol 650 Mg Supp) 650 mg [place] Q4 PRN PRN Reason: temperature>100.4 and pain Last Admin: 08/29/18 21:39 Dose: 650 mg Acetaminophen (Tylenol 650mg/20.3ml Solution Ud) 650 mg NG Q6 PRN PRN Reason: Pain, Mild (1-3) Last Admin: 09/03/18 03:03 Dose: 650 mg Albuterol/Ipratropium (Duoneb 3 Mg/0.5 Mg (3 Ml) Ud) 3 ml INH RQ6 PRN PRN Reason: Shortness of Breath Last Admin: 09/05/18 14:05 Dose: 3 ml Apixaban (Eliquis) 5 mg PO BID [facility] Last Admin: 09/04/18 10:55 Dose: Not Given Arformoterol Tartrate (Brovana) 15 mcg INH RQ12@1000,2200 [facility] Last Admin: 09/05/18 07:58 Dose: 15 mcg Aspirin (Aspirin Chewable) 81 mg NG DAILY [facility] Last Admin: 09/04/18 10:02 Dose: 81 mg Budesonide (Pulmicort Respules) 0.25 mg INH RQ12 [facility] Last Admin: 09/05/18 07:58 Dose: 0.25 mg Clopidogrel Bisulfate (Plavix) 75 mg NG DAILY [facility] Last Admin: 09/04/18 10:03 Dose: 75 mg Donepezil HCl (Aricept) 5 mg NG HS [facility] Last Admin: 09/04/18 21:39 Dose: 5 mg Folic Acid (Folic Acid) 1 mg NG DAILY [facility] Last Admin: 09/05/18 09:40 Dose: 1 mg Azithromycin 500 mg/ Sodium (Chloride) 250 mls @ 167 mls/hr IVPB Q24H [facility]; P rotocol Last Admin: 09/05/18 11:58 Dose: 167 mls/hr Meropenem 1 gm/ Sodium (Chloride) 100 mls @ 100 mls/hr IVPB Q12H [facility]; Protocol Last Admin: 09/05/18 09:41 Dose: 100 mls/hr Ipratropium [place] (Atrovent) 0.5 mg IH RQID [facility] Last Admin: 09/05/18 14:06 Dose: Not Given Multivitamins/Vitamin C (Multi-Delyn Liquid) 5 ml NG DAILY [facility] Last Admin: 09/05/18 09:40 Dose: 5 ml Potassium Chloride (Potassium Chloride Oral Soln) 40 meq PO ONCE STA Stop: 09/05/18 19:28 Rosuvastatin Calcium (Crestor) 10 mg NG HS [facility] Last Admin: 09/04/18 21:39 Dose: 10 mg Scopolamine (Transderm-Scop) 1 patch TD Q3D [facility] Last Admin: 09/04/18 15:27 Dose: 1 patch Senna/Docusate Sodium (Senokot S 50 Mg-8.6 Mg) 2 tab PO BID [facility] Last Admin: 09/05/18 17:22 Dose: 2 tab - Labs Labs: 09/05/18 06:42 09/05/18 06:42 PT 13.2 SECONDS (9.7-12.2) H 09/05/18 06:42 INR 1.2 09/05/18 06:42 APTT 28.0 SECONDS (21-34) 09/05/18 06:42 - Constitutional Appears: No Acute Distress, Cachectic, Chronically Ill - Head Exam Head Exam: NORMAL INSPECTION - Eye Exam Eye Exam: Normal appearance - ENT Exam ENT Exam: Normal Exam - Neck Exam Neck Exam: Normal Inspection - Respiratory Exam Respiratory Exam: Rhonchi - Cardiovascular Exam Cardiovascular Exam: REGULAR RHYTHM - GI/Abdominal Exam GI & Abdominal Exam: Soft, Normal Bowel Sounds - Rectal Exam Rectal Exam: Deferred - Extremities Exam Extremities Exam: Normal Inspection - Back Exam Back Exam: NORMAL INSPECTION - Neurological Exam Neurological Exam: Alert Additional comments: Confused. - Psychiatric Exam Psychiatric exam: Anxious - Skin Skin Exam: Dry, Intact, Normal Color, Warm Assessment and Plan (1) Bradycardia Status: Chronic (2) Vertebro-basilar artery syndrome Status: Acute (3) Severe dementia Status: Chronic (4) More than 50 percent stenosis of right internal carotid artery Status: Resolved (5) COPD (chronic obstructive pulmonary disease) Status: Acute (6) Dysphagia Assessment & Plan: For a PEG insertion in AM. Status: Acute (7) Aspiration pneumonia Assessment & Plan: On IV antibiotics. Status: Acute (8) Acute respiratory failure Status: Resolved (9) Deep vein thrombosis (DVT) of left lower extremity Assessment & Plan: Apixaban on hold. Status: Acute
[2018-09-06] MEDS: Ipratropium 0.02% Inhal Soln (0.5 mg/2.5 ml) UD IH SCH ×4 (07:59→19:48)
[2018-09-06] MEDS: Budesonide 0.25 mg/2 ml Inhal Susp UD INH SCH ×2 (07:59→19:48)
[2018-09-06] MEDS: Meropenem 1 GM in Sodium Chloride 0.9% 100 ML IVPB SCH ×2 (08:59→21:47)
[2018-09-06] MEDS: Docusate-Senna 50 mg-8.6 mg Tab PO SCH ×2 (09:03→17:16)
[2018-09-06] MEDS: Multiple Vitamins Oral Solution NG SCH (09:03)
[2018-09-06] MEDS: Arformoterol 15 mcg/2 ml Inh Sol INH SCH ×2 (09:06→22:06)
[2018-09-06] MEDS: Azithromycin 500 MG in Sodium Chloride 0.9% 250 ML IVPB SCH (13:36)
--- NOTE | 2018-09-06 18:33 | CP.PCM.PN ---
Subjective - Date & Time of Evaluation Date of Evaluation: 09/06/18 Time of Evaluation: 11:00 - Subjective Subjective: Patient seen and examined Still copious amount of secretions and unable to cough out Confused and lethargic Afebrile Continue antibiotics Objective - Vital Signs/Intake and Output Vital Signs (last 24 hours): Temp Pulse Resp BP Pulse Ox 97.8 F 84 26 H 152/87 H 99 09/06/18 16:00 09/06/18 18:00 09/06/18 16:00 09/06/18 16:00 09/06/18 16:00 Intake and Output: 09/06/18 09/06/18 06:59 18:59 Intake Total 620 590 Output Total 1250 600 Balance -630 -10 - Medications Medications: Current Medications Acetaminophen (Tylenol 650 Mg Supp) 650 mg [place] Q4 PRN PRN Reason: temperature>100.4 and pain Last Admin: 08/29/18 21:39 Dose: 650 mg Acetaminophen (Tylenol 650mg/20.3ml Solution Ud) 650 mg NG Q6 PRN PRN Reason: Pain, Mild (1-3) Last Admin: 09/03/18 03:03 Dose: 650 mg Apixaban (Eliquis) 5 mg PO BID [facility] Last Admin: 09/04/18 10:55 Dose: Not Given Arformoterol Tartrate (Brovana) 15 mcg INH RQ12@1000,2200 [facility] Last Admin: 09/06/18 09:06 Dose: 15 mcg Aspirin (Aspirin Chewable) 81 mg NG DAILY [facility] Last Admin: 09/04/18 10:02 Dose: 81 mg Budesonide (Pulmicort Respules) 0.25 mg INH RQ12 [facility] Last Admin: 09/06/18 07:59 Dose: 0.25 mg Clopidogrel Bisulfate (Plavix) 75 mg NG DAILY [facility] Last Admin: 09/04/18 10:03 Dose: 75 mg Donepezil HCl (Aricept) 5 mg NG HS [facility] Last Admin: 09/05/18 21:26 Dose: 5 mg Folic Acid (Folic Acid) 1 mg NG DAILY [facility] Last Admin: 09/06/18 09:02 Dose: Not Given Azithromycin 500 mg/ Sodium (Chloride) 250 mls @ 167 mls/hr IVPB Q24H [facility]; Protocol Last Admin: 09/06/18 13:36 Dose: 167 mls/hr Meropenem 1 gm/ Sodium (Chloride) 100 mls @ 100 mls/hr IVPB Q12H [facility]; Protocol Last Admin: 09/06/18 08:59 Dose: 100 mls/hr Ipratropium [place] (Atrovent) 0.5 mg IH RQID [facility] Last Admin: 09/06/18 16:44 Dose: 0.5 mg Multivitamins/Vitamin C (Multi-Delyn Liquid) 5 ml NG DAILY [facility] Last Admin: 09/06/18 09:03 Dose: Not Given Rosuvastatin Calcium (Crestor) 10 mg NG HS [facility] Last Admin: 09/05/18 21:27 Dose: 10 mg Scopolamine (Transderm-Scop) 1 patch TD Q3D [facility] Last Admin: 09/04/18 15:27 Dose: 1 patch Senna/Docusate Sodium (Senokot S 50 Mg-8.6 Mg) 2 tab PO BID [facility] Last Admin: 09/06/18 17:16 Dose: 2 tab - Labs Labs: 09/05/18 06:42 09/05/18 06:42 PT 13.2 SECONDS (9.7-12.2) H 09/05/18 06:42 INR 1.2 09/05/18 06:42 APTT 28.0 SECONDS (21-34) 09/05/18 06:42 Assessment and Plan (1) Respiratory distress, acute Status: Acute (2) Pneumonia Status: Acute (3) COPD (chronic obstructive pulmonary disease) Status: Acute
[2018-09-06 19:26] LABS: ABG ALLEN TEST UNABLE; ARTERIAL BLOOD GAS HCO3 26.6 mmol/L (21-28); ARTERIAL BLOOD GAS O2 SAT 97.4 % (95-98); ARTERIAL BLOOD GAS PCO2 43 mm/Hg (35-45); ARTERIAL BLOOD GAS PH 7.41 (7.35-7.45); ARTERIAL BLOOD GAS PO2 82 mm/Hg (80-100); ARTERIAL BLOOD GAS TCO2 28.6 mmol/L (22-28)
--- NOTE | 2018-09-06 20:03 | PN ---
DATE: 09/06/2018 LOCATION: ICU Room 14, bed A. SUBJECTIVE: This 68-year-old male, seen and examined in rounds, was scheduled initially for PEG insertion. Today, however, due to the patient's clinical presentation post-extubation and due to his shortness of breath and agitation, it was decided to reschedule the PEG insertion when the patient is more stable clinically at a.m. This decision was made between myself as well as the Anesthesia staff to avoid any potential risk of complications and his recent blood workup showed hypochromic microcytic anemia with low potassium but increased BUN, increased blood glucose level with low albumin level, low total protein and low calcium. IMPRESSION: 1. Malnutrition. 2. Hypoalbuminemia and hypoproteinemia. 3. Anemia, most likely secondary to chronic disease. 4. Respiratory insufficiency, improved. 5. Reported deep venous thrombosis, electrolyte imbalance, poorly controlled diabetes mellitus. 6. Prerenal azotemia with dehydration. SUGGESTIONS: 1. Continue current management. 2. Reschedule PEG insertion for a.m. Armani Mendez MD
--- NOTE | 2018-09-06 22:35 | CP.PCM.PN ---
Subjective - Date & Time of Evaluation Date of Evaluation: 09/06/18 Time of Evaluation: 19:20 - Subjective Subjective: PEG insertion rescheduled for to-bailon. Patient still confused, in no respiratory distress, but with copious phlegm. Afebrile. Objective - Vital Signs/Intake and Output Vital Signs (last 24 hours): Temp Pulse Resp BP Pulse Ox 97.6 F 96 H 24 131/72 99 09/06/18 20:00 09/06/18 20:00 09/06/18 20:00 09/06/18 20:00 09/06/18 20:00 Intake and Output: 09/06/18 09/07/18 18:59 06:59 Intake Total 590 Output Total 600 Balance -10 - Medications Medications: Current Medications Acetaminophen (Tylenol 650 Mg Supp) 650 mg [place] Q4 PRN PRN Reason: temperature>100.4 and pain Last Admin: 08/29/18 21:39 Dose: 650 mg Acetaminophen (Tylenol 650mg/20.3ml Solution Ud) 650 mg NG Q6 PRN PRN Reason: Pain, Mild (1-3) Last Admin: 09/03/18 03:03 Dose: 650 mg Apixaban (Eliquis) 5 mg PO BID [facility] Last Admin: 09/04/18 10:55 Dose: Not Given Arformoterol Tartrate (Brovana) 15 mcg INH RQ12@1000,2200 [facility] Last Admin: 09/06/18 22:06 Dose: 15 mcg Aspirin (Aspirin Chewable) 81 mg NG DAILY [facility] Last Admin: 09/04/18 10:02 Dose: 81 mg Budesonide (Pulmicort Respules) 0.25 mg INH RQ12 [facility] Last Admin: 09/06/18 19:48 Dose: 0.25 mg Clopidogrel Bisulfate (Plavix) 75 mg NG DAILY [facility] Last Admin: 09/04/18 10:03 Dose: 75 mg Donepezil HCl (Aricept) 5 mg NG HS [facility] Last Admin: 09/06/18 21:48 Dose: 5 mg Folic Acid (Folic Acid) 1 mg NG DAILY [facility] Last Admin: 09/06/18 09:02 Dose: Not Given Azithromycin 500 mg/ Sodium (Chloride) 250 mls @ 167 mls/hr IVPB Q24H [facility]; Prot ocol Last Admin: 09/06/18 13:36 Dose: 167 mls/hr Meropenem 1 gm/ Sodium (Chloride) 100 mls @ 100 mls/hr IVPB Q12H [facility]; Protocol Last Admin: 09/06/18 21:47 Dose: 100 mls/hr Ipratropium [place] (Atrovent) 0.5 mg IH RQID [facility] Last Admin: 09/06/18 19:48 Dose: 0.5 mg Multivitamins/Vitamin C (Multi-Delyn Liquid) 5 ml NG DAILY [facility] Last Admin: 09/06/18 09:03 Dose: Not Given Rosuvastatin Calcium (Crestor) 10 mg NG HS [facility] Last Admin: 09/06/18 21:48 Dose: 10 mg Scopolamine (Transderm-Scop) 1 patch TD Q3D [facility] Last Admin: 09/04/18 15:27 Dose: 1 patch Senna/Docusate Sodium (Senokot S 50 Mg-8.6 Mg) 2 tab PO BID [facility] Last Admin: 09/06/18 17:16 Dose: 2 tab - Labs Labs: 09/05/18 06:42 09/05/18 06:42 PT 13.2 SECONDS (9.7-12.2) H 09/05/18 06:42 INR 1.2 09/05/18 06:42 APTT 28.0 SECONDS (21-34) 09/05/18 06:42 - Constitutional Appears: No Acute Distress, Cachectic, Chronically Ill - Head Exam Head Exam: NORMAL INSPECTION - Eye Exam Eye Exam: Normal appearance - ENT Exam ENT Exam: Normal Exam - Neck Exam Neck Exam: Normal Inspection - Respiratory Exam Respiratory Exam: Rhonchi Additional comments: Few rhonchi bilaterally. - Cardiovascular Exam Cardiovascular Exam: REGULAR RHYTHM - GI/Abdominal Exam GI & Abdominal Exam: Soft, Normal Bowel Sounds - Extremities Exam Extremities Exam: Normal Inspection - Back Exam Back Exam: NORMAL INSPECTION - Neurological Exam Neurological Exam: Alert, Awake Additional comments: Confused. - Psychiatric Exam Additional comments: Confused. - Skin Skin Exam: Dry, Intact, Normal Color Assessment and Plan (1) Bradycardia Status: Chronic (2) Vertebro-basilar artery syndrome Status: Acute (3) Severe dementia Status: Chronic (4) More than 50 percent stenosis of right internal carotid artery Status: Resolved (5) COPD (chronic obstructive pulmonary disease) Status: Acute (6) Dysphagia Assessment & Plan: Copious secretion from dysphagia. For PEG insertion. Status: Acute (7) Aspiration pneumonia Assessment & Plan: On IV antibiotics. Status: Acute (8) Acute respiratory failure Status: Resolved (9) Deep vein thrombosis (DVT) of left lower extremity Assessment & Plan: Eliquis on hold for PEG insertion. Status: Acute
[2018-09-07 06:19] LABS: BASO # 0.1 K/uL (0.0-0.2); BASO % 0.6 % (0.0-2.0); EOS # 0.2 K/uL (0.0-0.7); EOS % 2.2 % (0.0-4.0); HEMOGLOBIN 10.5 g/dL (12.0-18.0); LYMPH # 1.1 K/uL (1.0-4.3); LYMPH % 12.7 % (20.0-40.0); MEAN CELL VOLUME 93.7 fL (80.0-94.0); MEAN CORPUSCULAR HEMOGLOBIN 31.8 pg (27.0-31.0); MEAN CORPUSCULAR HGB CONC 33.9 g/dL (33.0-37.0); MEAN PLATELET VOLUME 8.6 fL (7.2-11.7); MONO # 0.4 K/uL (0.0-0.8); MONO % 4.8 % (0.0-10.0); NEUT % 79.7 % (50.0-75.0); RBC 3.3 Mil/uL (4.40-5.90); RED CELL DISTRIBUTION WIDTH 12.6 % (11.5-14.5); WHITE BLOOD COUNT 8.8 K/uL (4.8-10.8)
[2018-09-07 06:28] LABS: ALB/GLOB RATIO 0.9 (1.0-2.1); ALBUMIN 2.7 g/dL (3.5-5.0); ALT/SGPT 81 U/L (21-72); AST/SGOT 49 U/L (17-59); BLOOD UREA NITROGEN 31 mg/dL (9-20); CALCIUM 8.2 mg/dl (8.6-10.4); GFR NON-AFRICAN AMERICAN > 60
[2018-09-07] MEDS: Ipratropium 0.02% Inhal Soln (0.5 mg/2.5 ml) UD IH SCH ×3 (07:48→19:15)
[2018-09-07] MEDS: Budesonide 0.25 mg/2 ml Inhal Susp UD INH SCH ×2 (07:48→19:15)
[2018-09-07] MEDS: Multiple Vitamins Oral Solution NG SCH (09:21)
[2018-09-07] MEDS: Docusate-Senna 50 mg-8.6 mg Tab PO SCH ×2 (09:21→18:53)
[2018-09-07] MEDS: Meropenem 1 GM in Sodium Chloride 0.9% 100 ML IVPB SCH ×2 (09:29→21:12)
[2018-09-07] MEDS: Arformoterol 15 mcg/2 ml Inh Sol INH SCH ×2 (09:44→19:15)
[2018-09-07] MEDS ORDERED: Lactated Ringer's 500 ML IV ONE ×2 (10:41)
[2018-09-07] MEDS ORDERED: Etomidate 20 mg/10ml Inj IV ONE (10:42)
[2018-09-07] MEDS ORDERED: Propofol 10 mg/ml Inj (20 ML) ONE (10:42)
[2018-09-07] MEDS: Azithromycin 500 MG in Sodium Chloride 0.9% 250 ML IVPB SCH (13:20)
--- NOTE | 2018-09-07 22:51 | CP.PCM.PN ---
Subjective - Date & Time of Evaluation Date of Evaluation: 08/31/18 Time of Evaluation: 17:30 - Subjective Subjective: Patient had PEG inserted this AM, now transferred to Telemetry floor. Patient is still confused, in no respiratory distress and afebrile, with GT feeding. Objective - Vital Signs/Intake and Output Vital Signs (last 24 hours): Temp Pulse Resp BP Pulse Ox 97.2 F L 85 20 137/78 95 09/07/18 15:00 09/07/18 15:00 09/07/18 15:00 09/07/18 15:00 09/07/18 15:00 Intake and Output: 09/07/18 09/08/18 18:59 06:59 Intake Total 100 240 Output Total 200 Balance -100 240 - Medications Medications: Current Medications Acetaminophen (Tylenol 650 Mg Supp) 650 mg [place] Q4 PRN PRN Reason: temperature>100.4 and pain Last Admin: 08/29/18 21:39 Dose: 650 mg Apixaban (Eliquis) 5 mg PO BID [facility] Last Admin: 09/04/18 10:55 Dose: Not Given Arformoterol Tartrate (Brovana) 15 mcg INH RQ12@1000,2200 [facility] Last Admin: 09/07/18 19:15 Dose: 15 mcg Aspirin (Aspirin Chewable) 81 mg NG DAILY [facility] Last Admin: 09/04/18 10:02 Dose: 81 mg Budesonide (Pulmicort Respules) 0.25 mg INH RQ12 [facility] Last Admin: 09/07/18 19:15 Dose: 0.25 mg Clopidogrel Bisulfate (Plavix) 75 mg NG DAILY [facility] Last Admin: 09/04/18 10:03 Dose: 75 mg Donepezil HCl (Aricept) 5 mg GT HS [facility] Folic Acid (Folic Acid) 1 mg GT DAILY [facility] Azithromycin 500 mg/ Sodium (Chloride) 250 mls @ 167 mls/hr IVPB Q24H [facility]; Protocol Last Admin: 09/07/18 13:20 Dose: 167 mls/hr Meropenem 1 gm/ Sodium (Chloride) 100 mls @ 100 mls/hr IVPB Q12H [facility]; Protocol Last Admin: 09/07/18 21:12 Dose: 100 mls/hr Ipratropium [place] (Atrovent) 0.5 mg IH RQID [facility] Last Admin: 09/07/18 19:15 Dose: 0.5 mg Multivitamins/Vitamin C (Multi-Delyn Liquid) 5 ml GT DAILY [facility] Rosuvastatin Calcium (Crestor) 10 mg NG HS [facility] Scopolamine (Transderm-Scop) 1 patch TD Q3D [facility] Last Admin: 09/07/18 14:36 Dose: 1 patch Senna/Docusate Sodium (Senokot S 50 Mg-8.6 Mg) 2 tab PO BID [facility] Last Admin: 09/07/18 18:53 Dose: Not Given - Labs Labs: 09/07/18 06:02 09/07/18 06:02 PT 13.2 SECONDS (9.7-12.2) H 09/05/18 06:42 INR 1.2 09/05/18 06:42 APTT 28.0 SECONDS (21-34) 09/05/18 06:42 - Constitutional Appears: Cachectic, Chronically Ill - Head Exam Head Exam: NORMAL INSPECTION - Eye Exam Eye Exam: Normal appearance - ENT Exam ENT Exam: Normal Exam - Neck Exam Neck Exam: Normal Inspection - Respiratory Exam Respiratory Exam: Rhonchi - Cardiovascular Exam Cardiovascular Exam: REGULAR RHYTHM - GI/Abdominal Exam GI & Abdominal Exam: Soft, Normal Bowel Sounds - Rectal Exam Rectal Exam: Deferred - Extremities Exam Extremities Exam: Normal Inspection - Back Exam Back Exam: NORMAL INSPECTION - Neurological Exam Neurological Exam: Alert, Awake Additional comments: Confused. - Psychiatric Exam Psychiatric exam: Agitated - Skin Skin Exam: Dry, Intact, Normal Color, Warm Assessment and Plan (1) Bradycardia Status: Chronic (2) Vertebro-basilar artery syndrome Status: Acute (3) Severe dementia Status: Chronic (4) More than 50 percent stenosis of right internal carotid artery Status: Resolved (5) COPD (chronic obstructive pulmonary disease) Status: Acute (6) Dysphagia Status: Acute (7) Aspiration pneumonia Status: Acute (8) Acute respiratory failure Status: Resolved (9) Deep vein thrombosis (DVT) of left lower extremity Assessment & Plan: Will restart Eliquis in AM. Status: Acute
[2018-09-08] MEDS ORDERED: Sodium Bicarbonate (8.4%) 50 mEq Vial ONE ×2 (06:35→06:45)
--- NOTE | 2018-09-08 06:53 | PCM.ANESI ---
Anesthesia Emergent Intubation - Diagnosis Working Diagnosis:: code blue - Consult Reason for Consult:: code blue Level Of Consciousness: Inappropriate, Unable to follow directions - Airway Management Oropharyngeal Area Suctioned: Yes PreOxygenation: 100 (ambu bag) Possible Aspiration: Yes (aspiration) - Method of Intubation ETT Size: 7 Lipline@: 23 Atramatic: Yes - Intubation Devices Liam Blade Size Used: 4 Recommendations: Ventilator, Chest X Ray, ABG
[2018-09-08] MEDS ORDERED: Sodium Chloride 0.9% 1,000 ML IV ONE (07:33)
--- NOTE | 2018-09-08 07:34 | PN ---
DATE: 09/08/2018 LOCATION: 554. SUBJECTIVE: This 68-year-old male, seen and examined early in rounds today post PEG insertion with reported clean sacral wound without evidence of PEG tube dysfunction, no bleeding residual or resistance so far. The patient has period of semiconfusion and agitation on and off. The entire chart is reviewed including but not limited to the most recent lab and radiology study results, current and the previous medication list and today's lab results still pending. However, the patient still have low hemoglobin and hematocrit with normal white blood cells as well as normal platelet count with increased CO2 content indicative of respiratory alkalosis. BUN reported to be 31 with normal creatinine with low calcium, elevated ALT mildly and low total protein. The patient has period of respiratory distress for which I instructed the staff to keep eye on him. PHYSICAL EXAMINATION: GENERAL: A 68-year-old male. VITAL SIGNS: Afebrile with pulse of 104, respiratory rate 20 to 22, blood pressure of 110/62. HEENT: Showed pale, dry oral mucous membrane. Nonicteric sclerae. The patient is not responding well to verbal stimuli. LUNGS: Scattered crepitation with decreased air entry at bases. HEART: Positive S1 and S with increased rate. ABDOMEN: Soft. Bowel sounds are hypoactive. PEG tube is in place. No mass or organomegaly. EXTREMITIES: With evidence of muscle wasting syndrome with weak pulses bilaterally. No clubbing or cyanosis. NEUROLOGIC: No reported new neurological deficits, sensory or motor. IMPRESSION: 1. Status post percutaneous endoscopic gastrostomy insertion. 2. Respiratory insufficiency. 3. Anemia, hypochromic microcytic. 4. Malnutrition with hypoalbuminemia and hypoproteinemia. 5. Failure to thrive. 6. Prerenal azotemia. 7. Reported recent history of deep venous thrombosis, electrolyte imbalance with poorly controlled diabetes mellitus. 8. Respiratory insufficiency. SUGGESTIONS: 1. Agree with your plan. 2. Adjust PEG feeding and increase rate gradually. 3. The patient may transfer to ICU for close observation. 4. Chest x-ray as soon as possible. 5. We will contacted the admitting medical team for close observation. Armani Mendez MD [facility] # [phone]
--- NOTE | 2018-09-08 07:35 | PCM.RRT ---
NET TECHNICAL ARCHITECT Nurses Assessment New IV Insertion Tolerance: Excellent - Ventilator Settings Mode: PRVC Ventilator Respiratory Rate Settin Ventilator Tidal Volume Settin PEEP/CPAP (cm H2O): 5 SAO2 %: 100 FIO2 (% Oxygen): 100 I.Reason for NET TECHNICAL ARCHITECT - A) Acute Change in Patient: Other reason for calling NET TECHNICAL ARCHITECT:: YESSENIA LUCERO - Neurological Status (Select all that apply): absent: Alert, Responsive, Oriented, Verbal, Follows Commands - Respiratory Oxygen Delivery Method: Non Rebreather @%, Intubated - Constitutional Appears: In Acute Distress - Head Head Exam: NORMOCEPHALIC - Respiratory Exam Additional comments: No spontaneous breathing - Neurological Exam Neurological Exam: absent: Alert, Awake Additional exam: Unresponsive - Extremities Exam Extremities Exam: absent: Pedal Edema, Tenderness Plan - Assessment of Findings&Treatment Plan PGY-1 Yessenia Lucero Note for Dr. Trudi lucero called at 06:38 Yessenia lucero called for asystole/PEA on tele monitor with patient found to be pulseless and not breathing spontaneously Compressions were begun immediately and while defibrillator pads were applied. First round of Epi was administered. Rhythm check showed PEA - compressions resumed Epi administered 2 additional times Q1min for a total of 3 doses of Epi. 1 amp of bicarb was administered as well Compressions resumed and anesthesia intubated patient ROSC was achieved at 06:45 Vital signs: 142/79 HR 64 temp 97.7
[2018-09-08] MEDS: Albuterol-Ipratrop 3 mg / 0.5 (3 ml) UD INH SCH ×3 (07:48→19:09)
--- NOTE | 2018-09-08 08:00 | CP.CCUPN ---
CCU Subjective - Physician Review Events Since Last Encounter (Free Text): 09/08/18 08:13 68-year-old female with a history of dementia, hypertension, hyperlipidemia, history of epilepsy admitted initially to the hospital on 08/12/2018 with the dizziness On 08/15/2018 patient underwent a right carotid artery endarterectomy Following that the patient was admitted to the ICU and he was closely monitored in the intensive care unit. Body during the stay in the hospital patient developed postoperative pneumonia, and he was with high flow FiO2 in the beginning. Monitored in the intensive care unit. But on 08/26/2018 patient was intubated because of the worsening respiratory status and sedated he was on 100% oxygen at the time. During that time patient had a bilateral significant infiltrate. Patient was extubated on 08/30/2018. Patient was transferred to floor. But last night it patient developed severe respiratory distress and that he become unresponsive. CODE BLUE was called patient was intubated and brought to the intensive care unit. Patient had a PEG tube insertion on 09/07/2018, but post PEG tube patient had an episode of respiratory distress, and as per Endo needed a close monitoring. Underlying aspiration pneumonia possible. Patient is currently unresponsive. He is on 100% FiO2 Intubated Hypotension. On examination: Vital signs very unstable. Chest bilateral diffuse rhonchi. Less air entry in the left lung Heart sounds are regular Abdomen soft nontender Edema negative the legs. Patient has a scar in the right carotid artery Patient is not moving any extremities at this time he is not responding comatose. Today's labs pending. X-ray showing ET tube in position. Airspace consolidation in the left lung more noted. Sputum culture positive for E. coli in the past. ESBL positive at the time. Patient was placed on meropenem since then Assessment and recommendation: 68-year-old male with history of extensive history of smoking in the past. History of hypertension. Hyperlipidemia. History of dementia. Patient admitted initially with the dizziness, status post a carotid endarterectomy Postoperatively complicated with recurrent pneumonia. Now having cardiac arrest. Unclear. Mostly in a respiratory in origin severe hypoxic respiratory failure. At this moment the patient's overall condition very poor Underlying anoxic encephalopathy possible. We will speak to the patient's family today regarding the advanced directives. Continue the current treatment. We will get his CAT scan of the head and will follow the patient Critical Care Time Spent (in minutes): 45 CCU Objective - Vital Signs / Intake & Output Intake and Output (Last 8hrs): Intake & Output 09/07/18 09/08/18 09/08/18 22:59 06:59 14:59 Intake Total 240 380 Output Total 150 Balance 240 230 Intake: Intake, IV Amount 100 Right Wrist 100 Tube Feeding 240 200 Other 80 Output: Urine 150 Urine, Voided 150 Other: # Bowel Movements 1 - Physical Exam Pupils: Positive for: PERRL Extroacular Muscles: Positive for: EOMI Mouth: Positive for: Moist Mucous Membranes Respiratory/Chest: Positive for: Other (intubated, on vent) Cardiovascular: Positive for: Regular Rate and Rhythm, Normal S1, S2 Abdomen: Negative for: Tenderness, Distention Neurological: Positive for: GCS=15, CN II-XII Intact, Other (off sedation) - Medications Active Medications: Active Medications Generic Name Dose Route Start Last Admin Trade Name Freq PRN Reason Stop Dose Admin Acetaminophen 650 mg 08/17/18 17:37 08/29/18 21:39 Tylenol 650 Mg Supp RI 650 mg Q4 PRN Administration temperature>100.4 and pain Albumin Human 12.5 gm 09/08/18 07:56 Albumin Human 25% (12.5 Gm/50 Ml) IV 09/08/18 07:57 ONCE ONE Albuterol/Ipratropium 3 ml 09/08/18 08:00 09/08/18 07:48 Duoneb 3 Mg/0.5 Mg (3 Ml) Ud INH 3 ml RQ6 ZHENG Administration Aspirin 81 mg 08/24/18 10:00 09/04/18 10:02 Aspirin Chewable NG 81 mg DAILY ZHENG Administration Clopidogrel Bisulfate 75 mg 08/24/18 10:00 09/04/18 10:03 Plavix NG 75 mg DAILY ZHENG Administration Folic Acid 1 mg 09/08/18 10:00 Folic Acid GT DAILY HZENG Meropenem 1 gm/ Sodium 100 mls @ 100 mls/hr 09/03/18 22:00 09/07/18 21:12 Chloride IVPB 100 mls/hr Q12H ZHENG Administration Protocol Sodium Chloride 1,000 mls @ 1,000 mls/hr 09/08/18 07:33 Sodium Chloride 0.9% IV 09/08/18 08:32 .Q1H ONE Norepinephrine Bitartrate 4 mg 254 mls @ 15.24 mls/hr 09/08/18 07:34 / Sodium Chloride IV .[id number] PRN TITRATE PER MD ORDER Protocol 4 MCG/MIN Multivitamins/Vitamin C 5 ml 09/08/18 10:00 Multi-Delyn Liquid GT DAILY [facility] Rosuvastatin Calcium 10 mg 09/08/18 22:00 Crestor NG HS [facility] Senna/Docusate Sodium 2 tab 08/30/18 10:45 09/07/18 18:53 Senokot S 50 Mg-8.6 Mg PO Not Given BID ZHENG - Patient Studies Lab Studies: Microbiology Studies 09/07/18 10:28 MRSA Culture - Final [facility] Lab Studies 09/08/18 Range/Units 06:41 POC Glucose (mg/dL) 121 H (65-110) mg/dL Laboratory Results - last 24 hr 09/08/18 06:41 POC Glucose (mg/dL) 121 H Fingerstick Blood Sugar Results: 88 Critical Care Progress Note - Nutrition Nutrition: Nutrition Category Date Time Status NPO Diet [DIET] Diets 09/06/18 Dinner Active
[2018-09-08 08:28] LABS: BASO % 0.3 % (0.0-2.0); EOS # 0.1 K/uL (0.0-0.7); EOS % 0.8 % (0.0-4.0); HEMOGLOBIN 9.7 g/dL (12.0-18.0); LYMPH # 0.7 K/uL (1.0-4.3); LYMPH % 7.1 % (20.0-40.0); MEAN CELL VOLUME 93.8 fL (80.0-94.0); MEAN CORPUSCULAR HEMOGLOBIN 32.5 pg (27.0-31.0); MEAN CORPUSCULAR HGB CONC 34.7 g/dL (33.0-37.0); MEAN PLATELET VOLUME 8.5 fL (7.2-11.7); MONO # 0.4 K/uL (0.0-0.8); NEUT # 9.1 K/uL (1.8-7.0); NEUT % 87.8 % (50.0-75.0); PLATELET COUNT 191 K/uL (130-400); RBC 2.97 Mil/uL (4.40-5.90); RED CELL DISTRIBUTION WIDTH 12.4 % (11.5-14.5); WHITE BLOOD COUNT 10.3 K/uL (4.8-10.8)
[2018-09-08] MEDS ORDERED: Albumin Human 25% (12.5 gm/50 ml) IV ONE (08:30)
[2018-09-08 08:32] LABS: ARTERIAL BLOOD GAS HCO3 27.1 mmol/L (21-28); ARTERIAL BLOOD GAS O2 SAT 99.3 % (95-98); ARTERIAL BLOOD GAS PCO2 50 mm/Hg (35-45); ARTERIAL BLOOD GAS PH 7.37 (7.35-7.45); ARTERIAL BLOOD GAS PO2 321 mm/Hg (80-100); ARTERIAL BLOOD GAS TCO2 30.4 mmol/L (22-28)
[2018-09-08 08:42] LABS: INR 1.3; PARTIAL THROMBOPLASTIN TIME 30.3 SECONDS (21-34)
[2018-09-08 08:48] LABS: ALB/GLOB RATIO 0.9 (1.0-2.1); ALBUMIN 2.4 g/dL (3.5-5.0); ALT/SGPT 94 U/L (21-72); AST/SGOT 80 U/L (17-59); BLOOD UREA NITROGEN 34 mg/dL (9-20); CALCIUM 7.8 mg/dl (8.6-10.4); GFR NON-AFRICAN AMERICAN 60
[2018-09-08 09:47] LABS: BANDS 3 % (0-2); EOSINOPHIL 2 % (0-4); LYMPHOCYTE 6 % (20-40); MONOCYTE 3 % (0-10); NEUTROPHIL 86 % (50-75); PLATELET ESTIMATE NORMAL (NORMAL); TOTAL CELLS COUNTED 100
[2018-09-08 09:48] LABS: ANISOCYTOSIS SLIGHT; LARGE PLATELETS PRESENT; TOXIC GRANULATION PRESENT
[2018-09-08 10:16] LABS: SQUAMOUS EPITHIAL < 1 /hpf (0-5); URINE BACTERIA RARE (<OCC); URINE BILIRUBIN NEGATIVE (NEGATIVE); URINE BLOOD 1+ (NEGATIVE); URINE CLARITY Hazy (Clear); URINE COLOR Yellow (YELLOW); URINE GLUCOSE (UA) NORMAL (Normal); URINE LEUKOCYTE ESTERASE 1+ Leu/uL (Negative); URINE PROTEIN 1+ mg/dL (NEGATIVE); URINE UROBILINOGEN NORMAL mg/dL (0.2-1.0)
[2018-09-08] MEDS: Meropenem 1 GM in Sodium Chloride 0.9% 100 ML IVPB SCH ×2 (10:30→21:46)
[2018-09-08] MEDS: Multiple Vitamins Oral Solution GT SCH (10:30)
[2018-09-08] MEDS: Sodium Chloride 0.9% 1,000 ML IV SCH (10:33)
[2018-09-08] MEDS: Docusate-Senna 50 mg-8.6 mg Tab PO SCH ×2 (11:12→17:30)
--- NOTE | 2018-09-08 15:01 | RAD ---
Date of service: 09/08/2018 HISTORY: code [email or web address] COMPARISON: Comparison chest dated 09/04/2018. TECHNIQUE: 1 view obtained. FINDINGS: In situ ETT, tip of which lies approximately 5.9 cm above radha. No change right-sided PICC line. Interval removal NGT LUNGS: Left lower lobe opacification consistent likely due to some combination of moderate-sized effusion with left lower lobe atelectasis and or infiltrate. Hazy appearance of the remaining upper lung field could represent layering effusion PLEURA: As above. No pneumothorax apparent. CARDIOVASCULAR: No aortic atherosclerotic calcification present. Heart size difficult to assess due to silhouetting of the left cardiac border.. OSSEOUS STRUCTURES: No significant abnormalities. VISUALIZED UPPER ABDOMEN: Normal. OTHER FINDINGS: None. IMPRESSION: Interval removal NGT and placement of a ETT in good position. No change right-sided PICC line.
--- NOTE | 2018-09-08 16:10 | CT ---
Date of service: 09/08/2018 PROCEDURE: CT HEAD WITHOUT CONTRAST. HISTORY: r/o ICH COMPARISON: Made with CT scan brain 08/26/2018. TECHNIQUE: Axial computed tomography images were obtained through the head/brain without intravenous contrast. Radiation dose: Total exam DLP = 1461.31 mGy-cm. This CT exam was performed using one or more of the following dose reduction techniques: Automated exposure control, adjustment of the mA and/or kV according to patient size, and/or use of iterative reconstruction technique. FINDINGS: Note the examination is slightly limited by motion artifact. HEMORRHAGE: No acute parenchymal, subarachnoid or extra-axial hemorrhage. BRAIN: Suspect minor chronic periventricular white matter ischemic changes extend peripherally into the deep white matter both cerebral hemispheres. There may be a few tiny lacunar type infarcts scattered about both basal nuclei and possibly within the brainstem... Moderate to fairly significant volume loss somewhat more central evidenced by slight disproportionate enlargement of the ventricles more so than sulci. VENTRICLES: Unremarkable. No hydrocephalus. CALVARIUM: Unremarkable. PARANASAL SINUSES: Unremarkable as visualized. No significant inflammatory changes. MASTOID AIR CELLS: Subtotal opacification both mastoid air complexes. OTHER FINDINGS: None. IMPRESSION: Slightly limited motion degraded study. No acute intracranial hemorrhage. Suspect minor chronic periventricular white matter ischemic changes extend peripherally into the deep white matter both cerebral hemispheres. There may be a few tiny lacunar type infarcts scattered about both basal nuclei and possibly within the brainstem... Moderate to fairly significant volume loss somewhat more central evidenced by slight disproportionate enlargement of the ventricles more so than sulci. Subtotal opacification both mastoid air complexes.
--- NOTE | 2018-09-08 17:10 | CP.PCM.PN ---
Subjective - Date & Time of Evaluation Date of Evaluation: 09/08/18 Time of Evaluation: 14:00 - Subjective Subjective: Patient seen and examined Status post cardiac arrest and resuscitation with return of spontaneous circulation Myoclonic jerks noted No response to painful stimuli On ventilator support For CAT scan of head Prognosis poor Objective - Vital Signs/Intake and Output Vital Signs (last 24 hours): Temp Pulse Resp BP Pulse Ox 99.1 F 115 H 18 108/66 100 09/08/18 16:00 09/08/18 16:30 09/08/18 16:30 09/08/18 16:30 09/08/18 16:30 Intake and Output: 09/08/18 09/08/18 06:59 18:59 Intake Total 620 1973.7 Output Total 150 1015 Balance 470 958.7 - Medications Medications: Current Medications Acetaminophen (Tylenol 650 Mg Supp) 650 mg OK Q4 PRN PRN Reason: temperature>100.4 and pain Last Admin: 08/29/18 21:39 Dose: 650 mg Albuterol/Ipratropium (Duoneb 3 Mg/0.5 Mg (3 Ml) Ud) 3 ml INH RQ6 ZHENG Last Admin: 09/08/18 13:33 Dose: 3 ml Aspirin (Aspirin Chewable) 81 mg NG DAILY ZHENG Last Admin: 09/08/18 10:33 Dose: 81 mg Clopidogrel Bisulfate (Plavix) 75 mg NG DAILY ZHENG Last Admin: 09/08/18 10:33 Dose: 75 mg Folic Acid (Folic Acid) 1 mg GT DAILY ZHENG Last Admin: 09/08/18 10:34 Dose: 1 mg Meropenem 1 gm/ Sodium (Chloride) 100 mls @ 100 mls/hr IVPB Q12H ZHENG; Protocol Last Admin: 09/08/18 10:30 Dose: 100 mls/hr Norepinephrine Bitartrate 4 mg (/ Sodium Chloride) 254 mls @ 15.24 mls/hr IV .[id number] PRN; Protocol PRN Reason: TITRATE PER MD ORDER Last Titration: 09/08/18 15:30 Dose: 0 mcg/min, 0 mls/hr Sodium Chloride (Sodium Chloride 0.9%) 1,000 mls @ 100 mls/hr IV .Q10H ZHENG Stop: 09/13/18 10:16 Last Admin: 09/08/18 10:33 Dose: 100 mls/hr Multivitamins/Vitamin C (Multi-Delyn Liquid) 5 ml GT DAILY ZHENG Last Admin: 09/08/18 10:30 Dose: 5 ml Rosuvastatin Calcium (Crestor) 10 mg NG HS [facility] Senna/Docusate Sodium (Senokot S 50 Mg-8.6 Mg) 2 tab PO BID ZHENG Last Admin: 09/08/18 11:12 Dose: 2 tab - Labs Labs: 09/08/18 08:20 09/08/18 08:20 PT 14.0 SECONDS (9.7-12.2) H 09/08/18 08:20 INR 1.3 09/08/18 08:20 APTT 30.3 SECONDS (21-34) 09/08/18 08:20 Assessment and Plan (1) Respiratory distress, acute Status: Acute (2) Pneumonia Status: Acute (3) COPD (chronic obstructive pulmonary disease) Status: Acute
[2018-09-08] MEDS ORDERED: HYDROmorphone 1 mg/ml ISec IVP ONE (22:16)
--- NOTE | 2018-09-08 23:20 | CP.PCM.PN ---
Subjective - Date & Time of Evaluation Date of Evaluation: 09/08/18 Time of Evaluation: 15:15 - Subjective Subjective: Early this AM, the patient developed an acute respiratory distress, became unresponsive, was intubated and transferred to ICU.. Now patient is unresponsive and on respirator. and IV antibiotics. Objective - Vital Signs/Intake and Output Vital Signs (last 24 hours): Temp Pulse Resp BP Pulse Ox 99.1 F 101 H 20 116/56 L 100 09/08/18 20:00 09/08/18 22:01 09/08/18 22:01 09/08/18 22:01 09/08/18 22:01 Intake and Output: 09/08/18 09/09/18 18:59 06:59 Intake Total 2293.7 460 Output Total 900 305 Balance 1393.7 155 - Medications Medications: Current Medications Acetaminophen (Tylenol 650 Mg Supp) 650 mg CO Q4 PRN PRN Reason: temperature>100.4 and pain Last Admin: 08/29/18 21:39 Dose: 650 mg Albuterol/Ipratropium (Duoneb 3 Mg/0.5 Mg (3 Ml) Ud) 3 ml INH RQ6 ZHENG Last Admin: 09/08/18 19:09 Dose: 3 ml Aspirin (Aspirin Chewable) 81 mg NG DAILY ZHENG Last Admin: 09/08/18 10:33 Dose: 81 mg Clopidogrel Bisulfate (Plavix) 75 mg NG DAILY [facility]HENG Last Admin: 09/08/18 10:33 Dose: 75 mg Folic Acid (Folic Acid) 1 mg GT DAILY [facility] Last Admin: 09/08/18 10:34 Dose: 1 mg Meropenem 1 gm/ Sodium (Chloride) 100 mls @ 100 mls/hr IVPB Q12H ZHENG; Protocol Last Admin: 09/08/18 21:46 Dose: 100 mls/hr Norepinephrine Bitartrate 4 mg (/ Sodium Chloride) 254 mls @ 15.24 mls/hr IV .[id number] PRN; Protocol PRN Reason: TITRATE PER MD ORDER Last Titration: 09/08/18 15:30 Dose: 0 mcg/min, 0 mls/hr Sodium Chloride (Sodium Chloride 0.9%) 1,000 mls @ 100 mls/hr IV .Q10H ZHENG Stop: 09/13/18 10:16 Last Admin: 09/08/18 10:33 Dose: 100 mls/hr Levetiracetam 1,000 mg/ Sodium (Chloride) 260 mls @ 420 mls/hr IVPB ONCE ONE Stop: 09/08/18 23:34 Levetiracetam 500 mg/ Sodium (Chloride) 105 mls @ 420 mls/hr IVPB Q12H [facility] Multivitamins/Vitamin C (Multi-Delyn Liquid) 5 ml GT DAILY [facility] Last Admin: 09/08/18 10:30 Dose: 5 ml Rosuvastatin Calcium (Crestor) 10 mg NG HS [facility] Last Admin: 09/08/18 21:46 Dose: 10 mg Senna/Docusate Sodium (Senokot S 50 Mg-8.6 Mg) 2 tab PO BID [facility] Last Admin: 09/08/18 17:30 Dose: 2 tab - Labs Labs: 09/08/18 08:20 09/08/18 08:20 PT 14.0 SECONDS (9.7-12.2) H 09/08/18 08:20 INR 1.3 09/08/18 08:20 APTT 30.3 SECONDS (21-34) 09/08/18 08:20 - Constitutional Appears: Cachectic, Chronically Ill - Head Exam Head Exam: NORMAL INSPECTION - Eye Exam Eye Exam: PERRL - ENT Exam ENT Exam: Normal Exam - Neck Exam Neck Exam: Normal Inspection - Respiratory Exam Respiratory Exam: Rhonchi - Cardiovascular Exam Cardiovascular Exam: Tachycardia, REGULAR RHYTHM - GI/Abdominal Exam GI & Abdominal Exam: Soft, Normal Bowel Sounds - Rectal Exam Rectal Exam: Deferred - Exam Exam: NORMAL INSPECTION - Extremities Exam Extremities Exam: Normal Inspection - Back Exam Back Exam: NORMAL INSPECTION - Neurological Exam Additional comments: Unnresponsive. - Psychiatric Exam Additional comments: Unresponsive. - Skin Skin Exam: Dry, Intact, Normal Color, Warm Assessment and Plan (1) Bradycardia Status: Chronic (2) Vertebro-basilar artery syndrome Status: Acute (3) Severe dementia Status: Chronic (4) More than 50 percent stenosis of right internal carotid artery Status: Resolved (5) COPD (chronic obstructive pulmonary disease) Status: Acute (6) Dysphagia Status: Acute (7) Aspiration pneumonia Status: Acute (8) Acute respiratory failure Status: Acute (9) Deep vein thrombosis (DVT) of left lower extremity Status: Acute
[2018-09-09] MEDS: Sodium Chloride 0.9% 1,000 ML IV SCH ×2 (01:50→07:11)
[2018-09-09] MEDS ORDERED: HYDROmorphone 1 mg/ml ISec IVP STA ×2 (02:05→19:52)
[2018-09-09] MEDS: Albuterol-Ipratrop 3 mg / 0.5 (3 ml) UD INH SCH ×4 (02:21→19:38)
[2018-09-09 05:42] LABS: BASO % 0.6 % (0.0-2.0); EOS # 0.1 K/uL (0.0-0.7); EOS % 1.3 % (0.0-4.0); HEMOGLOBIN 8.3 g/dL (12.0-18.0); LYMPH # 0.9 K/uL (1.0-4.3); LYMPH % 13.4 % (20.0-40.0); MEAN CELL VOLUME 93.6 fL (80.0-94.0); MEAN CORPUSCULAR HEMOGLOBIN 31.5 pg (27.0-31.0); MEAN CORPUSCULAR HGB CONC 33.7 g/dL (33.0-37.0); MEAN PLATELET VOLUME 8.5 fL (7.2-11.7); MONO # 0.4 K/uL (0.0-0.8); MONO % 6.2 % (0.0-10.0); NEUT # 5.1 K/uL (1.8-7.0); NEUT % 78.5 % (50.0-75.0); RBC 2.64 Mil/uL (4.40-5.90); RED CELL DISTRIBUTION WIDTH 12.8 % (11.5-14.5); WHITE BLOOD COUNT 6.5 K/uL (4.8-10.8)
[2018-09-09 06:03] LABS: ABG ALLEN TEST POS; ARTERIAL BLOOD GAS HCO3 26.7 mmol/L (21-28); ARTERIAL BLOOD GAS HEMOGLOBIN 8.3 g/dL (11.7-17.4); ARTERIAL BLOOD GAS O2 SAT 98.7 % (95-98); ARTERIAL BLOOD GAS PCO2 44 mm/Hg (35-45); ARTERIAL BLOOD GAS PO2 132 mm/Hg (80-100); ARTERIAL BLOOD GAS TCO2 28.7 mmol/L (22-28)
[2018-09-09 06:15] LABS: ALB/GLOB RATIO 0.9 (1.0-2.1); ALBUMIN 2.3 g/dL (3.5-5.0); ALT/SGPT 70 U/L (21-72); AST/SGOT 57 U/L (17-59); BLOOD UREA NITROGEN 37 mg/dL (9-20); CALCIUM 7.1 mg/dl (8.6-10.4); GFR NON-AFRICAN AMERICAN 60
--- NOTE | 2018-09-09 08:06 | PN ---
DATE: 09/09/2018 LOCATION: ICU 2. SUBJECTIVE: This is a 68-year-old female, who was status post Code Blue, who was transferred to the intensive care unit post oral intubation, had been on Levophed drip, remained responsive. Head CAT scan was performed yesterday indicative of no acute intracranial hemorrhage. Rest of the report is seen. The entire chart is reviewed including but not limited to the most recent lab and radiology study results, current and the previous medication list and the patient has subsequent drop of hemoglobin to 8.3, hematocrit 24.7 with normal white blood cells and normal platelet count with reported low calcium, increased blood glucose level, abnormal ABGs with BUN of 34 but normal creatinine with elevated AST and ALT as per yesterday results. PHYSICAL EXAMINATION: GENERAL: A 68-year-old male, intubated. No response to verbal stimuli. VITAL SIGNS: Afebrile with pulse of 92, blood pressure 110/64. HEENT: Showed pale, dry oral mucous membrane. Nonicteric sclerae. LUNGS: Scattered crepitation with decreased air entry at bases. HEART: Positive S1 and S2. ABDOMEN: Soft. Bowel sounds are present but hypoactive. The recently inserted PEG tube is in place without reported active GI bleeding residual or resistance. EXTREMITIES: With slight lower extremity edematous changes. No clubbing or cyanosis. NEUROLOGIC: No reported new neurological deficits, sensory or motor. IMPRESSION: 1. Respiratory failure, sudden onset with possible aspiration pneumonia before, intubated to vent. 2. Hypoalbuminemia, hypoproteinemia, failure to thrive malnutrition. 3. Status post percutaneous endoscopic gastrostomy insertion due to the patient dysphagia. 4. Re-exacerbation of chronic obstructive pulmonary disease. 5. Severe dementia, by history. 6. Deep venous thrombosis, by history. 7. Prerenal azotemia with dehydration, gradually improving. 8. Anemia, most likely secondary to chronic disease. SUGGESTIONS: 1. Continue current management. 2. Adjust PEG feeding. 3. Peripheral hyperalimentation. 4. Further recommendation to follow. Armani Mendez MD
--- NOTE | 2018-09-09 08:37 | CP.CCUPN ---
CCU Subjective - Physician Review Events Since Last Encounter (Free Text): 09/09/18 08:34 68-year-old female with a history of dementia, hypertension, hyperlipidemia, history of epilepsy admitted initially to the hospital on 08/12/2018 with the dizziness On 08/15/2018 patient underwent a right carotid artery endarterectomy Following that the patient was admitted to the ICU and he was closely monitored in the intensive care unit. Body during the stay in the hospital patient developed postoperative pneumonia, and he was with high flow FiO2 in the beginning. Monitored in the intensive care unit. But on 08/26/2018 patient was intubated because of the worsening respiratory status and sedated he was on 100% oxygen at the time. During that time patient had a bilateral significant infiltrate. Patient was extubated on 08/30/2018. Patient was transferred to floor. But last night it patient developed severe respiratory distress and that he become unresponsive. CODE BLUE was called patient was intubated and brought to the intensive care unit. Patient had a PEG tube insertion on 09/07/2018, but post PEG tube patient had an episode of respiratory distress, and as per Endo needed a close monitoring. Underlying aspiration pneumonia possible. Patient last night had episodes of shaking and tremor, placed on Keppra. Patient had a CAT scan of the head yesterday nonspecific findings. FiO2 decreased now. Patient is still comatose to, not responding. Poor neurological findings noted. On examination: Vital signs very unstable. Chest bilateral diffuse rhonchi. Less air entry in the left lung Heart sounds are regular Abdomen soft nontender Edema negative the legs. Patient has a scar in the right carotid artery Patient is not responding to verbal commands Even with the deep stimuli patient is having very minimal response. Labs reviewed Nonspecific findings. Hemoglobin is on the low side Chest x-ray reviewed Left lower lung atelectasis, and pleural effusion possible. Assessment and recommendation: 68-year-old male with history of extensive history of smoking in the past. History of hypertension. Hyperlipidemia. History of dementia. Patient admitted initially with the dizziness, status post a carotid endarterectomy Postoperatively complicated with recurrent pneumonia. Status post cardiac arrest. Patient is now on ventilator support. Full support ventilation. Unable to wean. Overall neurological prognosis very poor We will speak to the patient's sister, and recommended palliative care and comfort care. We will discuss with the family regarding the DNR. Meanwhile we will continue to support ventilatory support. We will start the feeding. We will follow the patient CCU Objective - Vital Signs / Intake & Output Vital Signs (Last 4 hours): Vital Signs Temp Pulse Resp BP Pulse Ox 09/09/18 08:29 96 H 20 94/58 L 100 09/09/18 08:00 98.2 F 94 H 20 100 09/09/18 07:59 103/68 09/09/18 07:29 95 H 20 104/70 100 09/09/18 07:00 93 H 20 100/61 100 09/09/18 06:29 92 H 20 115/72 100 09/09/18 06:00 93 H 20 120/67 93 L 09/09/18 05:30 90 19 120/74 100 09/09/18 05:00 92 H 20 100 09/09/18 04:59 95 H 20 113/73 100 Intake and Output (Last 8hrs): Intake & Output 09/08/18 09/09/18 09/09/18 22:59 06:59 14:59 Intake Total 991.8 1090 110 Output Total 540 445 0 Balance 451.8 645 110 Weight 118 lb 12.8 oz Intake: IV 8 Intake, IV Amount 803.8 1050 100 Right Distal Port PICC 3.8 0 0 Right PICC 700 800 100 Right PICC y-port 100 250 Oral 120 Tube Feeding 0 0 10 Other 60 40 Output: Urine 540 445 Urethral ([place]) 540 445 Emesis 0 0 0 Other: # Bowel Movements 0 0 0 - Physical Exam Pupils: Positive for: PERRL Extroacular Muscles: Positive for: EOMI Mouth: Positive for: Moist Mucous Membranes Respiratory/Chest: Positive for: Other (intubated, on vent) Cardiovascular: Positive for: Regular Rate and Rhythm, Normal S1, S2 Abdomen: Negative for: Tenderness, Distention Neurological: Positive for: GCS=15, CN II-XII Intact, Other (off sedation) - Medications Active Medications: Active Medications Generic Name Dose Route Start Last Admin Trade Name Freq PRN Reason Stop Dose Admin Acetaminophen 650 mg 08/17/18 17:37 08/29/18 21:39 Tylenol 650 Mg Supp NC 650 mg Q4 PRN Administration temperature>100.4 and pain Albuterol/Ipratropium 3 ml 09/08/18 08:00 09/09/18 07:59 Duoneb 3 Mg/0.5 Mg (3 Ml) Ud INH 3 ml RQ6 ZHENG Administration Aspirin 81 mg 08/24/18 10:00 09/08/18 10:33 Aspirin Chewable NG 81 mg DAILY ZHENG Administration Clopidogrel Bisulfate 75 mg 08/24/18 10:00 09/08/18 10:33 Plavix NG 75 mg DAILY ZHENG Administration Folic Acid 1 mg 09/08/18 10:00 09/08/18 10:34 Folic Acid GT 1 mg DAILY ZHENG Administration Meropenem 1 gm/ Sodium 100 mls @ 100 mls/hr 09/03/18 22:00 09/08/18 21:46 Chloride IVPB 100 mls/hr Q12H ZHENG Administration Protocol Norepinephrine Bitartrate 4 mg 254 mls @ 15.24 mls/hr 09/08/18 07:34 09/08/18 15:30 / Sodium Chloride IV 0 mcg/min .[id number] PRN 0 mls/hr TITRATE PER MD ORDER Titration Protocol 4 MCG/MIN Sodium Chloride 1,000 mls @ 100 mls/hr 09/08/18 10:15 09/09/18 07:11 Sodium Chloride 0.9% IV 09/13/18 10:16 Not Given .Q10H ZHENG Levetiracetam 500 mg/ Sodium 105 mls @ 420 mls/hr 09/09/18 10:00 Chloride IVPB Q12H ZHENG Multivitamins/Vitamin C 5 ml 09/08/18 10:00 09/08/18 10:30 Multi-Delyn Liquid GT 5 ml DAILY ZHENG Administration Rosuvastatin Calcium 10 mg 09/08/18 22:00 09/08/18 21:46 Crestor NG 10 mg HS ZHENG Administration Senna/Docusate Sodium 2 tab 08/30/18 10:45 09/08/18 17:30 Senokot S 50 Mg-8.6 Mg PO 2 tab BID ZHENG Administration - Patient Studies Lab Studies: Microbiology Studies 09/08/18 09:45 Gram Stain - Final Trachasp Lab Studies 09/09/18 09/09/18 09/09/18 Range/Units 05:37 05:37 05:15 WBC 6.5 (4.8-10.8) K/uL RBC 2.64 L (4.40-5.90) Mil/uL Hgb 8.3 L (12.0-18.0) g/dL Hct 24.7 L (35.0-51.0) % MCV 93.6 (80.0-94.0) fL MCH 31.5 H (27.0-31.0) pg MCHC 33.7 (33.0-37.0) g/dL RDW 12.8 (11.5-14.5) % Plt Count 131 (130-400) K/uL MPV 8.5 (7.2-11.7) fL Neut % (Auto) 78.5 H (50.0-75.0) % Lymph % (Auto) 13.4 L (20.0-40.0) % [place] % (Auto) 6.2 (0.0-10.0) % Eos % (Auto) 1.3 (0.0-4.0) % Baso % (Auto) 0.6 (0.0-2.0) % Neut # (Auto) 5.1 (1.8-7.0) K/uL Lymph # (Auto) 0.9 L (1.0-4.3) K/uL [place] # (Auto) 0.4 (0.0-0.8) K/uL Eos # (Auto) 0.1 (0.0-0.7) K/uL Baso # (Auto) 0.0 (0.0-0.2) K/uL Neutrophils % (Manual) (50-75) % Band Neutrophils % (0-2) % Lymphocytes % (Manual) (20-40) % Monocytes % (Manual) (0-10) % Eosinophils % (Manual) (0-4) % Toxic Granulation Platelet Estimate (NORMAL) Large Platelets Anisocytosis (manual) PT (9.7-12.2) SECONDS INR APTT (21-34) SECONDS Puncture Site Rr pCO2 44 (35-45) mm/Hg pO2 132 H (80-100) mm/Hg HCO3 26.7 (21-28) mmol/L ABG pH 7.40 (7.35-7.45) ABG Total CO2 28.7 H (22-28) mmol/L ABG O2 Saturation 98.7 H (95-98) % ABG Base Excess 2.2 (-2.0-3.0) mmol/L ABG Hemoglobin 8.3 L (11.7-17.4) g/dL ABG Carboxyhemoglobin 1.0 (0.5-1.5) % POC ABG HHb (Measured) 1.3 (0.0-5.0) % ABG Methemoglobin 1.2 (0.0-3.0) % Eber Test Pos A-a O2 Difference 241.0 mm/Hg Respiratory Index 1.8 Hgb O2 Saturation 96.5 (95.0-98.0) % Vent Mode Prvc Mechanical Rate 20 FiO2 60.0 % Tidal Volume 450 PEEP 5 Sodium 145 (132-148) mmol/L Potassium 3.4 L (3.6-5.2) mmol/L Chloride 112 H (98-107) mmol/L Carbon Dioxide 28 (22-30) mmol/L Anion Gap 9 L (10-20) BUN 37 H (9-20) mg/dL Creatinine 1.2 (0.8-1.5) mg/dL Est GFR ( Amer) > 60 Est GFR (Non-Af Amer) 60 Random Glucose 79 D (75-110) mg/dL Lactic Acid (0.7-2.1) mmol/L Calcium 7.1 L (8.6-10.4) mg/dl Phosphorus 2.7 (2.5-4.5) mg/dL Magnesium 2.0 (1.6-2.3) mg/dL Total Bilirubin 0.3 (0.2-1.3) mg/dL AST 57 (17-59) U/L ALT 70 (21-72) U/L Alkaline Phosphatase 80 (38-126) U/L Total Protein 4.8 L (6.3-8.3) g/dL Albumin 2.3 L (3.5-5.0) g/dL Globulin 2.5 (2.2-3.9) gm/dL Albumin/Globulin Ratio 0.9 L (1.0-2.1) Urine Color (YELLOW) Urine Clarity (Clear) Urine pH (5.0-8.0) Ur Specific [place] (1.003-1.030) Urine Protein (NEGATIVE) mg/dL Urine Glucose (UA) (Normal) mg/dL Urine Ketones (NEGATIVE) mg/dL Urine Blood (NEGATIVE) Urine Nitrate (NEGATIVE) Urine Bilirubin (NEGATIVE) Urine Urobilinogen (0.2-1.0) mg/dL Ur Leukocyte Esterase (Negative) [place]/uL Urine WBC (Auto) (0-5) /hpf Urine RBC (Auto) (0-3) /hpf Ur Squamous Epith Cells (0-5) /hpf Urine Bacteria (<OCC) 09/08/18 09/08/18 09/08/18 Range/Units 09:45 08:20 08:20 WBC (4.8-10.8) K/uL RBC (4.40-5.90) Mil/uL Hgb (12.0-18.0) g/dL Hct (35.0-51.0) % MCV (80.0-94.0) fL MCH (27.0-31.0) pg MCHC (33.0-37.0) g/dL RDW (11.5-14.5) % Plt Count (130-400) K/uL MPV (7.2-11.7) fL Neut % (Auto) (50.0-75.0) % Lymph % (Auto) (20.0-40.0) % [place] % (Auto) (0.0-10.0) % Eos % (Auto) (0.0-4.0) % Baso % (Auto) (0.0-2.0) % Neut # (Auto) (1.8-7.0) K/uL Lymph # (Auto) (1.0-4.3) K/uL [place] # (Auto) (0.0-0.8) K/uL Eos # (Auto) (0.0-0.7) K/uL Baso # (Auto) (0.0-0.2) K/uL Neutrophils % (Manual) (50-75) % Band Neutrophils % (0-2) % Lymphocytes % (Manual) (20-40) % Monocytes % (Manual) (0-10) % Eosinophils % (Manual) (0-4) % Toxic Granulation Platelet Estimate (NORMAL) Large Platelets Anisocytosis (manual) PT 14.0 H (9.7-12.2) SECONDS INR 1.3 APTT 30.3 (21-34) SECONDS Puncture Site pCO2 (35-45) mm/Hg pO2 (80-100) mm/Hg HCO3 (21-28) mmol/L ABG pH (7.35-7.45) ABG Total CO2 (22-28) mmol/L ABG O2 Saturation (95-98) % ABG Base Excess (-2.0-3.0) mmol/L ABG Hemoglobin (11.7-17.4) g/dL ABG Carboxyhemoglobin (0.5-1.5) % POC ABG HHb (Measured) (0.0-5.0) % ABG Methemoglobin (0.0-3.0) % Eber Test A-a O2 Difference mm/Hg Respiratory Index Hgb O2 Saturation (95.0-98.0) % Vent Mode Mechanical Rate FiO2 % Tidal Volume PEEP Sodium 144 (132-148) mmol/L Potassium 3.5 L (3.6-5.2) mmol/L Chloride 108 H (98-107) mmol/L Carbon Dioxide 31 H (22-30) mmol/L Anion Gap 9 L (10-20) BUN 34 H (9-20) mg/dL Creatinine 1.2 (0.8-1.5) mg/dL Est GFR ( Amer) > 60 Est GFR (Non-Af Amer) 60 Random Glucose 138 H D (75-110) mg/dL Lactic Acid (0.7-2.1) mmol/L Calcium 7.8 L (8.6-10.4) mg/dl Phosphorus 4.6 H (2.5-4.5) mg/dL Magnesium 2.1 (1.6-2.3) mg/dL Total Bilirubin 0.4 (0.2-1.3) mg/dL AST 80 H D (17-59) U/L ALT 94 H (21-72) U/L Alkaline Phosphatase 95 (38-126) U/L Total Protein 5.1 L (6.3-8.3) g/dL Albumin 2.4 L (3.5-5.0) g/dL Globulin 2.7 (2.2-3.9) gm/dL Albumin/Globulin Ratio 0.9 L (1.0-2.1) Urine Color Yellow (YELLOW) Urine Clarity Hazy (Clear) Urine pH 6.0 (5.0-8.0) Ur Specific [place] 1.018 (1.003-1.030) Urine Protein 1+ H (NEGATIVE) mg/dL Urine Glucose (UA) Normal (Normal) mg/dL Urine Ketones Trace (NEGATIVE) mg/dL Urine Blood 1+ H (NEGATIVE) Urine Nitrate Negative (NEGATIVE) Urine Bilirubin Negative (NEGATIVE) Urine Urobilinogen Normal (0.2-1.0) mg/dL Ur Leukocyte Esterase 1+ H (Negative) [place]/uL Urine WBC (Auto) 18 H (0-5) /hpf Urine RBC (Auto) 11 H (0-3) /hpf Ur Squamous Epith Cells < 1 (0-5) /hpf Urine Bacteria Rare (<OCC) 09/08/18 09/08/18 Range/Units 08:20 08:20 WBC 10.3 (4.8-10.8) K/uL RBC 2.97 L (4.40-5.90) Mil/uL Hgb 9.7 L (12.0-18.0) g/dL Hct 27.9 L (35.0-51.0) % MCV 93.8 (80.0-94.0) fL MCH 32.5 H (27.0-31.0) pg MCHC 34.7 (33.0-37.0) g/dL RDW 12.4 (11.5-14.5) % Plt Count 191 (130-400) K/uL MPV 8.5 (7.2-11.7) fL Neut % (Auto) 87.8 H (50.0-75.0) % Lymph % (Auto) 7.1 L (20.0-40.0) % [place] % (Auto) 4.0 (0.0-10.0) % Eos % (Auto) 0.8 (0.0-4.0) % Baso % (Auto) 0.3 (0.0-2.0) % Neut # (Auto) 9.1 H (1.8-7.0) K/uL Lymph # (Auto) 0.7 L (1.0-4.3) K/uL [place] # (Auto) 0.4 (0.0-0.8) K/uL Eos # (Auto) 0.1 (0.0-0.7) K/uL Baso # (Auto) 0.0 (0.0-0.2) K/uL Neutrophils % (Manual) 86 H (50-75) % Band Neutrophils % 3 H (0-2) % Lymphocytes % (Manual) 6 L (20-40) % Monocytes % (Manual) 3 (0-10) % Eosinophils % (Manual) 2 (0-4) % Toxic Granulation Present Platelet Estimate Normal (NORMAL) Large Platelets Present Anisocytosis (manual) Slight PT (9.7-12.2) SECONDS INR APTT (21-34) SECONDS Puncture Site pCO2 (35-45) mm/Hg pO2 (80-100) mm/Hg HCO3 (21-28) mmol/L ABG pH (7.35-7.45) ABG Total CO2 (22-28) mmol/L ABG O2 Saturation (95-98) % ABG Base Excess (-2.0-3.0) mmol/L ABG Hemoglobin (11.7-17.4) g/dL ABG Carboxyhemoglobin (0.5-1.5) % POC ABG HHb (Measured) (0.0-5.0) % ABG Methemoglobin (0.0-3.0) % Eber Test A-a O2 Difference mm/Hg Respiratory Index Hgb O2 Saturation (95.0-98.0) % Vent Mode Mechanical Rate FiO2 % Tidal Volume PEEP Sodium (132-148) mmol/L Potassium (3.6-5.2) mmol/L Chloride (98-107) mmol/L Carbon Dioxide (22-30) mmol/L Anion Gap (10-20) BUN (9-20) mg/dL Creatinine (0.8-1.5) mg/dL Est GFR ( Amer) Est GFR (Non-Af Amer) Random Glucose (75-110) mg/dL Lactic Acid 1.9 (0.7-2.1) mmol/L Calcium (8.6-10.4) mg/dl Phosphorus (2.5-4.5) mg/dL Magnesium (1.6-2.3) mg/dL Total Bilirubin (0.2-1.3) mg/dL AST (17-59) U/L ALT (21-72) U/L Alkaline Phosphatase (38-126) U/L Total Protein (6.3-8.3) g/dL Albumin (3.5-5.0) g/dL Globulin (2.2-3.9) gm/dL Albumin/Globulin Ratio (1.0-2.1) Urine Color (YELLOW) Urine Clarity (Clear) Urine pH (5.0-8.0) Ur Specific [place] (1.003-1.030) Urine Protein (NEGATIVE) mg/dL Urine Glucose (UA) (Normal) mg/dL Urine Ketones (NEGATIVE) mg/dL Urine Blood (NEGATIVE) Urine Nitrate (NEGATIVE) Urine Bilirubin (NEGATIVE) Urine Urobilinogen (0.2-1.0) mg/dL Ur Leukocyte Esterase (Negative) [place]/uL Urine WBC (Auto) (0-5) /hpf Urine RBC (Auto) (0-3) /hpf Ur Squamous Epith Cells (0-5) /hpf Urine Bacteria (<OCC) Laboratory Results - last 24 hr 09/08/18 09/08/18 09/08/18 08:20 08:20 08:20 WBC 10.3 RBC 2.97 L Hgb 9.7 L Hct 27.9 L MCV 93.8 MCH 32.5 H MCHC 34.7 RDW 12.4 Plt Count 191 MPV 8.5 Neut % (Auto) 87.8 H Lymph % (Auto) 7.1 L [place] % (Auto) 4.0 Eos % (Auto) 0.8 Baso % (Auto) 0.3 Neut # (Auto) 9.1 H Lymph # (Auto) 0.7 L [place] # (Auto) 0.4 Eos # (Auto) 0.1 Baso # (Auto) 0.0 Neutrophils % (Manual) 86 H Band Neutrophils % 3 H Lymphocytes % (Manual) 6 L Monocytes % (Manual) 3 Eosinophils % (Manual) 2 Toxic Granulation Present Platelet Estimate Normal Large Platelets Present Anisocytosis (manual) Slight PT 14.0 H INR 1.3 APTT 30.3 Puncture Site pCO2 pO2 HCO3 ABG pH ABG Total CO2 ABG O2 Saturation ABG Base Excess ABG Hemoglobin ABG Carboxyhemoglobin POC ABG HHb (Measured) ABG Methemoglobin Eber Test A-a O2 Difference Respiratory Index Hgb O2 Saturation Vent Mode Mechanical Rate FiO2 Tidal Volume PEEP Sodium Potassium Chloride Carbon Dioxide Anion Gap BUN Creatinine Est GFR ( Amer) Est GFR (Non-Af Amer) Random Glucose Lactic Acid 1.9 Calcium Phosphorus Magnesium Total Bilirubin AST ALT Alkaline Phosphatase Total Protein Albumin Globulin Albumin/Globulin Ratio Urine Color Urine Clarity Urine pH Ur Specific [place] Urine Protein Urine Glucose (UA) Urine Ketones Urine Blood Urine Nitrate Urine Bilirubin Urine Urobilinogen Ur Leukocyte Esterase Urine WBC (Auto) Urine RBC (Auto) Ur Squamous Epith Cells Urine Bacteria 09/08/18 09/08/18 09/09/18 08:20 09:45 05:15 WBC RBC Hgb Hct MCV MCH MCHC RDW Plt Count MPV Neut % (Auto) Lymph % (Auto) [place] % (Auto) Eos % (Auto) Baso % (Auto) Neut # (Auto) Lymph # (Auto) [place] # (Auto) Eos # (Auto) Baso # (Auto) Neutrophils % (Manual) Band Neutrophils % Lymphocytes % (Manual) Monocytes % (Manual) Eosinophils % (Manual) Toxic Granulation Platelet Estimate Large Platelets Anisocytosis (manual) PT INR APTT Puncture Site Rr pCO2 44 pO2 132 H HCO3 26.7 ABG pH 7.40 ABG Total CO2 28.7 H ABG O2 Saturation 98.7 H ABG Base Excess 2.2 ABG Hemoglobin 8.3 L ABG Carboxyhemoglobin 1.0 POC ABG HHb (Measured) 1.3 ABG Methemoglobin 1.2 Eber Test Pos A-a O2 Difference 241.0 Respiratory Index 1.8 Hgb O2 Saturation 96.5 Vent Mode Prvc Mechanical Rate 20 FiO2 60.0 Tidal Volume 450 PEEP 5 Sodium 144 Potassium 3.5 L Chloride 108 H Carbon Dioxide 31 H Anion Gap 9 L BUN 34 H Creatinine 1.2 Est GFR ( Amer) > 60 Est GFR (Non-Af Amer) 60 Random Glucose 138 H D Lactic Acid Calcium 7.8 L Phosphorus 4.6 H Magnesium 2.1 Total Bilirubin 0.4 AST 80 H D ALT 94 H Alkaline Phosphatase 95 Total Protein 5.1 L Albumin 2.4 L Globulin 2.7 Albumin/Globulin Ratio 0.9 L Urine Color Yellow Urine Clarity Hazy Urine pH 6.0 Ur Specific [place] 1.018 Urine Protein 1+ H Urine Glucose (UA) Normal Urine Ketones Trace Urine Blood 1+ H Urine Nitrate Negative Urine Bilirubin Negative Urine Urobilinogen Normal Ur Leukocyte Esterase 1+ H Urine WBC (Auto) 18 H Urine RBC (Auto) 11 H Ur Squamous Epith Cells < 1 Urine Bacteria Rare 09/09/18 09/09/18 05:37 05:37 WBC 6.5 RBC 2.64 L Hgb 8.3 L Hct 24.7 L MCV 93.6 MCH 31.5 H MCHC 33.7 RDW 12.8 Plt Count 131 MPV 8.5 Neut % (Auto) 78.5 H Lymph % (Auto) 13.4 L [place] % (Auto) 6.2 Eos % (Auto) 1.3 Baso % (Auto) 0.6 Neut # (Auto) 5.1 Lymph # (Auto) 0.9 L [place] # (Auto) 0.4 Eos # (Auto) 0.1 Baso # (Auto) 0.0 Neutrophils % (Manual) Band Neutrophils % Lymphocytes % (Manual) Monocytes % (Manual) Eosinophils % (Manual) Toxic Granulation Platelet Estimate Large Platelets Anisocytosis (manual) PT INR APTT Puncture Site pCO2 pO2 HCO3 ABG pH ABG Total CO2 ABG O2 Saturation ABG Base Excess ABG Hemoglobin ABG Carboxyhemoglobin POC ABG HHb (Measured) ABG Methemoglobin Eber Test A-a O2 Difference Respiratory Index Hgb O2 Saturation Vent Mode Mechanical Rate FiO2 Tidal Volume PEEP Sodium 145 Potassium 3.4 L Chloride 112 H Carbon Dioxide 28 Anion Gap 9 L BUN 37 H Creatinine 1.2 Est GFR ( Amer) > 60 Est GFR (Non-Af Amer) 60 Random Glucose 79 D Lactic Acid Calcium 7.1 L Phosphorus 2.7 Magnesium 2.0 Total Bilirubin 0.3 AST 57 ALT 70 Alkaline Phosphatase 80 Total Protein 4.8 L Albumin 2.3 L Globulin 2.5 Albumin/Globulin Ratio 0.9 L Urine Color Urine Clarity Urine pH Ur Specific [place] Urine Protein Urine Glucose (UA) Urine Ketones Urine Blood Urine Nitrate Urine Bilirubin Urine Urobilinogen Ur Leukocyte Esterase Urine WBC (Auto) Urine RBC (Auto) Ur Squamous Epith Cells Urine Bacteria Radiology Impressions: Radiology Impressions Chest X-Ray 09/08/18 06:53 IMPRESSION: Interval removal NGT and placement of a ETT in good position. No change right-sided PICC line. Head CT 09/08/18 07:06 IMPRESSION: Slightly limited motion degraded study. No acute intracranial hemorrhage. Suspect minor chronic periventricular white matter ischemic changes extend peripherally into the deep white matter both cerebral hemispheres. There may be a few tiny lacunar type infarcts scattered about both basal nuclei and possibly within the brainstem... Moderate to fairly significant volume loss somewhat more central evidenced by slight disproportionate enlargement of the ventricles more so than sulci. Subtotal opacification both mastoid air complexes. Fingerstick Blood Sugar Results: 93 Critical Care Progress Note - Nutrition Nutrition: Nutrition Category Date Time Status NPO Diet [DIET] Diets 09/06/18 Dinner Active
[2018-09-09] MEDS: Docusate-Senna 50 mg-8.6 mg Tab PO SCH ×2 (09:19→17:23)
[2018-09-09] MEDS: Multiple Vitamins Oral Solution GT SCH (09:20)
[2018-09-09] MEDS: levETIRAcetam 500 MG in Sodium Chloride 0.9% 100 ML IVPB SCH ×2 (09:20→21:49)
[2018-09-09] MEDS: Meropenem 1 GM in Sodium Chloride 0.9% 100 ML IVPB SCH ×2 (09:21→21:49)
--- NOTE | 2018-09-09 10:09 | RAD ---
Date of service: 09/09/2018 HISTORY: Pt vented COMPARISON: Comparison made with prior study 09/08/2018. TECHNIQUE: 1 view obtained. FINDINGS: In situ ETT, tip of which lies approximately 6.4 cm above radha. No change right sided PICC with tip in the SVC LUNGS: Hazy appearance of the left lung consistent with large layering effusion. Hyperinflation consistent with underlying COPD. Small elliptical shaped nodular density right lateral upper/mid lung field unchanged. PLEURA: As above. No pneumothorax apparent. CARDIOVASCULAR: There appears to be minimal aortic atherosclerotic calcification present. Normal cardiac size. No pulmonary vascular congestion. OSSEOUS STRUCTURES: No significant abnormalities. VISUALIZED UPPER ABDOMEN: Normal. OTHER FINDINGS: None. IMPRESSION: ETT as described. Hazy appearance of the left lung consistent with large layering effusion. Hyperinflation consistent with underlying COPD. Small elliptical shaped nodular density right lateral upper/mid lung field unchanged.
[2018-09-10] MEDS ORDERED: HYDROmorphone 1 mg/ml ISec IVP STA (01:20)
[2018-09-10] MEDS: Albuterol-Ipratrop 3 mg / 0.5 (3 ml) UD INH SCH ×3 (02:37→13:15)
[2018-09-10 05:46] LABS: BASO % 0.5 % (0.0-2.0); EOS # 0.1 K/uL (0.0-0.7); EOS % 1.7 % (0.0-4.0); HEMOGLOBIN 8.3 g/dL (12.0-18.0); LYMPH # 0.7 K/uL (1.0-4.3); MEAN CORPUSCULAR HEMOGLOBIN 31.7 pg (27.0-31.0); MEAN CORPUSCULAR HGB CONC 33.8 g/dL (33.0-37.0); MEAN PLATELET VOLUME 8.7 fL (7.2-11.7); MONO # 0.4 K/uL (0.0-0.8); MONO % 5.8 % (0.0-10.0); NEUT # 4.8 K/uL (1.8-7.0); RBC 2.63 Mil/uL (4.40-5.90); RED CELL DISTRIBUTION WIDTH 12.7 % (11.5-14.5)
[2018-09-10 06:03] LABS: ALB/GLOB RATIO 0.9 (1.0-2.1); ALBUMIN 2.3 g/dL (3.5-5.0); ALT/SGPT 60 U/L (21-72); AST/SGOT 45 U/L (17-59); BLOOD UREA NITROGEN 34 mg/dL (9-20); CALCIUM 7.9 mg/dl (8.6-10.4); GFR NON-AFRICAN AMERICAN > 60
[2018-09-10 06:10] LABS: ABG ALLEN TEST POS; ARTERIAL BLOOD GAS HCO3 29.8 mmol/L (21-28); ARTERIAL BLOOD GAS HEMOGLOBIN 8.7 g/dL (11.7-17.4); ARTERIAL BLOOD GAS O2 SAT 97.1 % (95-98); ARTERIAL BLOOD GAS PCO2 43 mm/Hg (35-45); ARTERIAL BLOOD GAS PH 7.46 (7.35-7.45); ARTERIAL BLOOD GAS PO2 76 mm/Hg (80-100); ARTERIAL BLOOD GAS TCO2 31.9 mmol/L (22-28)
[2018-09-10] MEDS: levETIRAcetam 500 MG in Sodium Chloride 0.9% 100 ML IVPB SCH (09:17)
[2018-09-10] MEDS: Docusate-Senna 50 mg-8.6 mg Tab PO SCH (09:17)
[2018-09-10] MEDS: Meropenem 1 GM in Sodium Chloride 0.9% 100 ML IVPB SCH (09:18)
--- NOTE | 2018-09-10 09:25 | RAD ---
Chest x-ray single frontal view HISTORY: Ventilator. COMPARISON: 09/09/2018 FINDINGS: Lines and tubes in stable position. Hyperinflation suggestive for COPD and or emphysematous changes. Biapical pleural thickening with upper lobe granulomatous changes. Small left pleural effusion with left basilar airspace opacity. Right hilar prominence. Nodular density noted at the left lung base. Heart size within normal limits. Degenerative changes in the spine and shoulders. IVC filter in place. IMPRESSION: Lines and tubes in stable position. Hyperinflation suggestive for COPD and or emphysematous changes. Biapical pleural thickening with upper lobe granulomatous changes. Small left pleural effusion with left basilar airspace opacity. Right hilar prominence. Nodular density noted at the left lung base.
[2018-09-10] MEDS: Multiple Vitamins Oral Solution GT SCH (10:01)
--- NOTE | 2018-09-10 10:21 | CP.CCUPN ---
CCU Subjective - Physician Review Subjective (Free Text): 09/10/18 10:08 PGY-1 Critical Care Progress Note for Dr. Simmons Patient seen and examined at bedside this AM. 68 yo male with pmhx of dementia, HTN, HLD, epilepsy. R ICA stenosis s/p carotid endarterectomy. Admitted initially with dizziness, post-op complicated with recurrent PNA. Status post cardiac arrest, now on ventilator support. Unable to wean off at this time. Comatose, not responding to verbal or tactile commands, even with deep stimuli Weak gag reflex Patient's sister to come in later today to discuss prognosis, will recommend palliative/comfort care Continuing vent support: 450/20/50/5 on pressors, NE gtt keppra started yesterday for seizure-like activity On IV meropenem CCU Objective - Vital Signs / Intake & Output Vital Signs (Last 4 hours): Vital Signs Pulse Resp BP Pulse Ox 09/10/18 08:25 99 H 20 134/78 100 09/10/18 08:00 96 H 20 100 09/10/18 07:25 92 H 20 132/78 100 09/10/18 07:00 91 H 20 100 09/10/18 06:25 90 21 119/77 99 Intake and Output (Last 8hrs): Intake & Output 09/09/18 09/10/18 09/10/18 22:59 06:59 14:59 Intake Total 520 280 80 Output Total 335 365 75 Balance 185 -85 5 Weight 54.295 kg Intake: Intake, IV Amount 200 0 0 Right Distal Port PICC 0 0 0 Right PICC 200 0 0 Right PICC y-port 0 0 0 Tube Feeding 180 240 80 Other 140 40 Output: Urine 335 365 75 Urethral ([place]) 335 365 75 Emesis 0 0 0 Other: # Bowel Movements 0 0 0 - Physical Exam Pupils: Positive for: PERRL Extroacular Muscles: Positive for: EOMI Mouth: Positive for: Moist Mucous Membranes Respiratory/Chest: Positive for: Other (intubated, on vent) Cardiovascular: Positive for: Regular Rate and Rhythm, Normal S1, S2 Abdomen: Negative for: Tenderness, Distention Neurological: Positive for: GCS=15, CN II-XII Intact, Other (off sedation) - Medications Active Medications: Active Medications Generic Name Dose Route Start Last Admin Trade Name Freq PRN Reason Stop Dose Admin Acetaminophen 650 mg 08/17/18 17:37 08/29/18 21:39 Tylenol 650 Mg Supp NV 650 mg Q4 PRN Administration temperature>100.4 and pain Albuterol/Ipratropium 3 ml 09/08/18 08:00 09/10/18 07:29 Duoneb 3 Mg/0.5 Mg (3 Ml) Ud INH 3 ml RQ6 ZHENG Administration Aspirin 81 mg 08/24/18 10:00 09/10/18 09:17 Aspirin Chewable NG 81 mg DAILY ZHENG Administration Clopidogrel Bisulfate 75 mg 08/24/18 10:00 09/10/18 09:17 Plavix NG 75 mg DAILY ZHENG Administration Famotidine 20 mg 09/10/18 10:00 09/10/18 09:55 Pepcid IVP 20 mg DAILY ZHENG Administration Folic Acid 1 mg 09/08/18 10:00 09/10/18 09:16 Folic Acid GT 1 mg DAILY ZHENG Administration Meropenem 1 gm/ Sodium 100 mls @ 100 mls/hr 09/03/18 22:00 09/10/18 09:18 Chloride IVPB 100 mls/hr Q12H ZHENG Administration Protocol Norepinephrine Bitartrate 4 mg 254 mls @ 15.24 mls/hr 09/08/18 07:34 09/08/18 15:30 / Sodium Chloride IV 0 mcg/min .[id number] PRN 0 mls/hr TITRATE PER MD ORDER Titration Protocol 4 MCG/MIN Levetiracetam 500 mg/ Sodium 105 mls @ 420 mls/hr 09/09/18 10:00 09/10/18 09:17 Chloride IVPB 420 mls/hr Q12H ZHENG Administration Potassium Chloride 20 meq in 100 mls @ 50 mls/hr 09/10/18 09:30 09/10/18 09:55 Potassium Chloride 20 Meq/100 Ml IVPB 09/10/18 11:29 50 mls/hr ONCE ONE Administration Multivitamins/Vitamin C 5 ml 09/08/18 10:00 09/10/18 10:01 Multi-Delyn Liquid GT 5 ml DAILY ZHENG Administration Rosuvastatin Calcium 10 mg 09/08/18 22:00 09/09/18 21:48 Crestor NG 10 mg HS ZHENG Administration Senna/Docusate Sodium 2 tab 08/30/18 10:45 09/10/18 09:17 Senokot S 50 Mg-8.6 Mg PO 2 tab BID ZHENG Administration - Patient Studies Lab Studies: Microbiology Studies 09/08/18 08:45 Blood Culture - Preliminary Blood NO GROWTH AFTER 48 HOURS 09/08/18 09:15 Blood Culture - Preliminary Blood NO GROWTH AFTER 48 HOURS 09/08/18 09:45 MRSA Culture (Admit) - Final Nose MRSA NOT DETECTED 09/08/18 09:45 Urine Culture - Final Urine,Catheterized No Growth (<1,000 CFU/ML) Lab Studies 09/10/18 09/10/18 09/10/18 Range/Units 05:36 05:36 05:28 WBC 6.0 (4.8-10.8) K/uL RBC 2.63 L (4.40-5.90) Mil/uL Hgb 8.3 L (12.0-18.0) g/dL Hct 24.7 L (35.0-51.0) % MCV 94.0 (80.0-94.0) fL MCH 31.7 H (27.0-31.0) pg MCHC 33.8 (33.0-37.0) g/dL RDW 12.7 (11.5-14.5) % Plt Count 125 L (130-400) K/uL MPV 8.7 (7.2-11.7) fL Neut % (Auto) 80.0 H (50.0-75.0) % Lymph % (Auto) 12.0 L (20.0-40.0) % [place] % (Auto) 5.8 (0.0-10.0) % Eos % (Auto) 1.7 (0.0-4.0) % Baso % (Auto) 0.5 (0.0-2.0) % Neut # (Auto) 4.8 (1.8-7.0) K/uL Lymph # (Auto) 0.7 L (1.0-4.3) K/uL [place] # (Auto) 0.4 (0.0-0.8) K/uL Eos # (Auto) 0.1 (0.0-0.7) K/uL Baso # (Auto) 0.0 (0.0-0.2) K/uL Puncture Site R rad pCO2 43 (35-45) mm/Hg pO2 76 L (80-100) mm/Hg HCO3 29.8 H (21-28) mmol/L ABG pH 7.46 H (7.35-7.45) ABG Total CO2 31.9 H (22-28) mmol/L ABG O2 Saturation 97.1 (95-98) % ABG Base Excess 6.2 H (-2.0-3.0) mmol/L ABG Hemoglobin 8.7 L (11.7-17.4) g/dL ABG Carboxyhemoglobin 1.0 (0.5-1.5) % POC ABG HHb (Measured) 2.8 (0.0-5.0) % ABG Methemoglobin 1.2 (0.0-3.0) % Eber Test Pos A-a O2 Difference 227.0 mm/Hg Respiratory Index 3.0 Hgb O2 Saturation 95.1 (95.0-98.0) % Vent Mode Prvc Mechanical Rate 20 FiO2 50.0 % Tidal Volume 450 PEEP 5 Sodium 146 (132-148) mmol/L Potassium 3.4 L (3.6-5.2) mmol/L Chloride 112 H (98-107) mmol/L Carbon Dioxide 31 H (22-30) mmol/L Anion Gap 6 L (10-20) BUN 34 H (9-20) mg/dL Creatinine 1.1 (0.8-1.5) mg/dL Est GFR ( Amer) > 60 Est GFR (Non-Af Amer) > 60 Random Glucose 157 H D (75-110) mg/dL Calcium 7.9 L (8.6-10.4) mg/dl Phosphorus 2.5 (2.5-4.5) mg/dL Magnesium 2.1 (1.6-2.3) mg/dL Total Bilirubin 0.3 (0.2-1.3) mg/dL AST 45 (17-59) U/L ALT 60 (21-72) U/L Alkaline Phosphatase 75 (38-126) U/L Total Protein 4.9 L (6.3-8.3) g/dL Albumin 2.3 L (3.5-5.0) g/dL Globulin 2.6 (2.2-3.9) gm/dL Albumin/Globulin Ratio 0.9 L (1.0-2.1) Carcinoembryonic Ag (0-3.0) ng/mL 09/09/18 09/09/18 Range/Units 05:37 05:15 WBC (4.8-10.8) K/uL RBC (4.40-5.90) Mil/uL Hgb (12.0-18.0) g/dL Hct (35.0-51.0) % MCV (80.0-94.0) fL MCH (27.0-31.0) pg MCHC (33.0-37.0) g/dL RDW (11.5-14.5) % Plt Count (130-400) K/uL MPV (7.2-11.7) fL Neut % (Auto) (50.0-75.0) % Lymph % (Auto) (20.0-40.0) % [place] % (Auto) (0.0-10.0) % Eos % (Auto) (0.0-4.0) % Baso % (Auto) (0.0-2.0) % Neut # (Auto) (1.8-7.0) K/uL Lymph # (Auto) (1.0-4.3) K/uL [place] # (Auto) (0.0-0.8) K/uL Eos # (Auto) (0.0-0.7) K/uL Baso # (Auto) (0.0-0.2) K/uL Puncture Site Rr pCO2 44 (35-45) mm/Hg pO2 132 H (80-100) mm/Hg HCO3 26.7 (21-28) mmol/L ABG pH 7.40 (7.35-7.45) ABG Total CO2 28.7 H (22-28) mmol/L ABG O2 Saturation 98.7 H (95-98) % ABG Base Excess 2.2 (-2.0-3.0) mmol/L ABG Hemoglobin 8.3 L (11.7-17.4) g/dL ABG Carboxyhemoglobin 1.0 (0.5-1.5) % POC ABG HHb (Measured) 1.3 (0.0-5.0) % ABG Methemoglobin 1.2 (0.0-3.0) % Eber Test Pos A-a O2 Difference 241.0 mm/Hg Respiratory Index 1.8 Hgb O2 Saturation 96.5 (95.0-98.0) % Vent Mode Prvc Mechanical Rate 20 FiO2 60.0 % Tidal Volume 450 PEEP 5 Sodium 145 (132-148) mmol/L Potassium 3.4 L (3.6-5.2) mmol/L Chloride 112 H (98-107) mmol/L Carbon Dioxide 28 (22-30) mmol/L Anion Gap 9 L (10-20) BUN 37 H (9-20) mg/dL Creatinine 1.2 (0.8-1.5) mg/dL Est GFR ( Amer) > 60 Est GFR (Non-Af Amer) 60 Random Glucose 79 D (75-110) mg/dL Calcium 7.1 L (8.6-10.4) mg/dl Phosphorus 2.7 (2.5-4.5) mg/dL Magnesium 2.0 (1.6-2.3) mg/dL Total Bilirubin 0.3 (0.2-1.3) mg/dL AST 57 (17-59) U/L ALT 70 (21-72) U/L Alkaline Phosphatase 80 (38-126) U/L Total Protein 4.8 L (6.3-8.3) g/dL Albumin 2.3 L (3.5-5.0) g/dL Globulin 2.5 (2.2-3.9) gm/dL Albumin/Globulin Ratio 0.9 L (1.0-2.1) Carcinoembryonic Ag 5.3 H (0-3.0) ng/mL Laboratory Results - last 24 hr 09/09/18 09/09/18 09/10/18 05:15 05:37 05:28 WBC RBC Hgb Hct MCV MCH MCHC RDW Plt Count MPV Neut % (Auto) Lymph % (Auto) [place] % (Auto) Eos % (Auto) Baso % (Auto) Neut # (Auto) Lymph # (Auto) [place] # (Auto) Eos # (Auto) Baso # (Auto) Puncture Site Rr R rad pCO2 44 43 pO2 132 H 76 L HCO3 26.7 29.8 H ABG pH 7.40 7.46 H ABG Total CO2 28.7 H 31.9 H ABG O2 Saturation 98.7 H 97.1 ABG Base Excess 2.2 6.2 H ABG Hemoglobin 8.3 L 8.7 L ABG Carboxyhemoglobin 1.0 1.0 POC ABG HHb (Measured) 1.3 2.8 ABG Methemoglobin 1.2 1.2 Eber Test Pos Pos A-a O2 Difference 241.0 227.0 Respiratory Index 1.8 3.0 Hgb O2 Saturation 96.5 95.1 Vent Mode Prvc Prvc Mechanical Rate 20 20 FiO2 60.0 50.0 Tidal Volume 450 450 PEEP 5 5 Sodium 145 Potassium 3.4 L Chloride 112 H Carbon Dioxide 28 Anion Gap 9 L BUN 37 H Creatinine 1.2 Est GFR ( Amer) > 60 Est GFR (Non-Af Amer) 60 Random Glucose 79 D Calcium 7.1 L Phosphorus 2.7 Magnesium 2.0 Total Bilirubin 0.3 AST 57 ALT 70 Alkaline Phosphatase 80 Total Protein 4.8 L Albumin 2.3 L Globulin 2.5 Albumin/Globulin Ratio 0.9 L Carcinoembryonic Ag 5.3 H 09/10/18 09/10/18 05:36 05:36 WBC 6.0 RBC 2.63 L Hgb 8.3 L Hct 24.7 L MCV 94.0 MCH 31.7 H MCHC 33.8 RDW 12.7 Plt Count 125 L MPV 8.7 Neut % (Auto) 80.0 H Lymph % (Auto) 12.0 L [place] % (Auto) 5.8 Eos % (Auto) 1.7 Baso % (Auto) 0.5 Neut # (Auto) 4.8 Lymph # (Auto) 0.7 L [place] # (Auto) 0.4 Eos # (Auto) 0.1 Baso # (Auto) 0.0 Puncture Site pCO2 pO2 HCO3 ABG pH ABG Total CO2 ABG O2 Saturation ABG Base Excess ABG Hemoglobin ABG Carboxyhemoglobin POC ABG HHb (Measured) ABG Methemoglobin Eber Test A-a O2 Difference Respiratory Index Hgb O2 Saturation Vent Mode Mechanical Rate FiO2 Tidal Volume PEEP Sodium 146 Potassium 3.4 L Chloride 112 H Carbon Dioxide 31 H Anion Gap 6 L BUN 34 H Creatinine 1.1 Est GFR ( Amer) > 60 Est GFR (Non-Af Amer) > 60 Random Glucose 157 H D Calcium 7.9 L Phosphorus 2.5 Magnesium 2.1 Total Bilirubin 0.3 AST 45 ALT 60 Alkaline Phosphatase 75 Total Protein 4.9 L Albumin 2.3 L Globulin 2.6 Albumin/Globulin Ratio 0.9 L Carcinoembryonic Ag Radiology Impressions: Radiology Impressions Chest X-Ray 09/09/18 07:00 IMPRESSION: ETT as described. Hazy appearance of the left lung consistent with large layering effusion. Hyperinflation consistent with underlying COPD. Small elliptical shaped nodular density right lateral upper/mid lung field unchanged. Chest X-Ray 09/10/18 07:00 IMPRESSION: Lines and tubes in stable position. Hyperinflation suggestive for COPD and or emphysematous changes. Biapical pleural thickening with upper lobe granulomatous changes. Small left pleural effusion with left basilar airspace opacity. Right hilar prominence. Nodular density noted at the left lung base. Fingerstick Blood Sugar Results: 185 Review of Systems - Review of Systems Systems not reviewed;Unavailable: Altered Mental Status
--- NOTE | 2018-09-10 11:14 | CP.PCM.PN ---
Subjective - Date & Time of Evaluation Date of Evaluation: 09/10/18 Time of Evaluation: 07:00 - Subjective Subjective: PGY5 GI Follow-up for Dr. Fox Pt seen and examined bedside Events noted on 09/08/18 pt had an episode of respiratory distress and intubated PEG placement was uneventful and vitals monitored throughout , immediate post op course was not complicated, vitals were stable throughout, no active bleeding in post op course Family at bedside ROS: could not be conducted 2/2 intubation Objective - Vital Signs/Intake and Output Vital Signs (last 24 hours): Temp Pulse Resp BP Pulse Ox 98.9 F 102 H 22 111/63 100 09/10/18 08:00 09/10/18 10:00 09/10/18 10:00 09/10/18 09:26 09/10/18 10:00 Intake and Output: 09/10/18 09/10/18 06:59 18:59 Intake Total 640 510 Output Total 570 210 Balance 70 300 - Medications Medications: Current Medications Acetaminophen (Tylenol 650 Mg Supp) 650 mg AK Q4 PRN PRN Reason: temperature>100.4 and pain Last Admin: 08/29/18 21:39 Dose: 650 mg Albuterol/Ipratropium (Duoneb 3 Mg/0.5 Mg (3 Ml) Ud) 3 ml INH RQ6 ZHENG Last Admin: 09/10/18 07:29 Dose: 3 ml Aspirin (Aspirin Chewable) 81 mg NG DAILY ZHENG Last Admin: 09/10/18 09:17 Dose: 81 mg Clopidogrel Bisulfate (Plavix) 75 mg NG DAILY ZHENG Last Admin: 09/10/18 09:17 Dose: 75 mg Famotidine (Pepcid) 20 mg IVP DAILY ZHENG Last Admin: 09/10/18 09:55 Dose: 20 mg Folic Acid (Folic Acid) 1 mg GT DAILY [facility] Last Admin: 09/10/18 09:16 Dose: 1 mg Meropenem 1 gm/ Sodium (Chloride) 100 mls @ 100 mls/hr IVPB Q12H ZHENG; Protocol Last Admin: 09/10/18 09:18 Dose: 100 mls/hr Norepinephrine Bitartrate 4 mg (/ Sodium Chloride) 254 mls @ 15.24 mls/hr IV .[id number] PRN; Protocol PRN Reason: TITRATE PER MD ORDER Last Titration: 09/08/18 15:30 Dose: 0 mcg/min, 0 mls/hr Levetiracetam 500 mg/ Sodium (Chloride) 105 mls @ 420 mls/hr IVPB Q12H [facility] Last Admin: 09/10/18 09:17 Dose: 420 mls/hr Potassium Chloride (Potassium Chloride 20 Meq/100 Ml) 20 meq in 100 mls @ 50 mls/hr IVPB ONCE ONE Stop: 09/10/18 11:29 Last Admin: 09/10/18 09:55 Dose: 50 mls/hr Multivitamins/Vitamin C (Multi-Delyn Liquid) 5 ml GT DAILY [facility] Last Admin: 09/10/18 10:01 Dose: 5 ml Rosuvastatin Calcium (Crestor) 10 mg NG HS [facility] Last Admin: 09/09/18 21:48 Dose: 10 mg Senna/Docusate Sodium (Senokot S 50 Mg-8.6 Mg) 2 tab PO BID ZHENG Last Admin: 09/10/18 09:17 Dose: 2 tab - Labs Labs: 09/10/18 05:36 09/10/18 05:36 PT 14.0 SECONDS (9.7-12.2) H 09/08/18 08:20 INR 1.3 09/08/18 08:20 APTT 30.3 SECONDS (21-34) 09/08/18 08:20 - Constitutional Appears: No Acute Distress, Chronically Ill - Head Exam Head Exam: ATRAUMATIC, NORMOCEPHALIC - Eye Exam Eye Exam: Normal appearance - ENT Exam ENT Exam: Mucous Membranes Moist Additional comments: ET tube in place - Neck Exam Neck Exam: Normal Inspection - Respiratory Exam Respiratory Exam: Decreased Breath Sounds (B/L), Rhonchi. absent: Accessory Muscle Use, Chest Wall Tenderness, Wheezes, Respiratory Distress, Stridor - Cardiovascular Exam Cardiovascular Exam: REGULAR RHYTHM, +S1, +S2 - GI/Abdominal Exam GI & Abdominal Exam: Soft, Hypoactive Bowel Sounds. absent: Distended, Firm, Guarding, Rigid, Tenderness, Hyperactive Bowel Sounds, Organomegaly, Pulsatile Mass, Rebound Additional comments: PEG in tact, no induration or leaking from the site - Extremities Exam Extremities Exam: Pedal Edema - Neurological Exam Additional comments: cannot assess - Psychiatric Exam Additional comments: cannot assess Assessment and Plan - Assessment and Plan (Free Text) Assessment: Assessment S/P PEG placement Respiratory distress s/p reintubation Aspiration Pneumonia Severe malnutrition Failure to thrive Dementia Plan: -PEG placement was uneventful and vitals monitored throughout , immediate post op course was not complicated, vitals were stable throughout, no active bleeding in post op course -family plans to terminally extubate as per RN -PEG is intact and functional -please resconsult if goals of care change and additional assistance is needed D/W Dr. Fox
--- NOTE | 2018-09-10 16:05 | CP.PCM.PN ---
Subjective - Date & Time of Evaluation Date of Evaluation: 09/10/18 Time of Evaluation: 14:00 - Subjective Subjective: PGY-1 Neurology progress note for Dr Parikh Patient was originally seen by neurology for dizziness, patient hx of R ICA stenosis s/p carotid endarterectomy. Patient asked to be seen for possible tremors and shaking on right lower extremity that occurred last night. Patient placed on Keppra loading dose, with keppra 500mg IV BID, Patient had code blue 09/08 and his condition has been worsening with recurrent pneumonia. Patient is currently on ventilator support. Patient does not respond to verbal or tactile stimuli, not awake or alert. Family at bedside. ROS unattainable due to patient status. Objective - Vital Signs/Intake and Output Vital Signs (last 24 hours): Temp Pulse Resp BP Pulse Ox 99.3 F 85 20 106/67 100 09/10/18 12:00 09/10/18 15:25 09/10/18 15:25 09/10/18 15:25 09/10/18 15:25 Intake and Output: 09/10/18 09/10/18 06:59 18:59 Intake Total 640 760 Output Total 570 420 Balance 70 340 - Medications Medications: Current Medications Acetaminophen (Tylenol 650 Mg Supp) 650 mg SD Q4 PRN PRN Reason: temperature>100.4 and pain Last Admin: 08/29/18 21:39 Dose: 650 mg Albuterol/Ipratropium (Duoneb 3 Mg/0.5 Mg (3 Ml) Ud) 3 ml INH RQ6 ZHENG Last Admin: 09/10/18 13:15 Dose: 3 ml Aspirin (Aspirin Chewable) 81 mg NG DAILY ZHENG Last Admin: 09/10/18 09:17 Dose: 81 mg Clopidogrel Bisulfate (Plavix) 75 mg NG DAILY ZHENG Last Admin: 09/10/18 09:17 Dose: 75 mg Famotidine (Pepcid) 20 mg IVP DAILY [facility] Last Admin: 09/10/18 09:55 Dose: 20 mg Folic Acid (Folic Acid) 1 mg GT DAILY [facility] Last Admin: 09/10/18 09:16 Dose: 1 mg Meropenem 1 gm/ Sodium (Chloride) 100 mls @ 100 mls/hr IVPB Q12H ZHENG; Protocol Last Admin: 09/10/18 09:18 Dose: 100 mls/hr Norepinephrine Bitartrate 4 mg (/ Sodium Chloride) 254 mls @ 15.24 mls/hr IV .[id number] PRN; Protocol PRN Reason: TITRATE PER MD ORDER Last Titration: 09/08/18 15:30 Dose: 0 mcg/min, 0 mls/hr Levetiracetam 500 mg/ Sodium (Chloride) 105 mls @ 420 mls/hr IVPB Q12H ZHENG Last Admin: 09/10/18 09:17 Dose: 420 mls/hr Morphine Sulfate 100 mg/ (Sodium Chloride) 100 mls @ 2 mls/hr IV .Q24H PRN; Protocol PRN Reason: PER MD ORDER Last Admin: 09/10/18 15:34 Dose: 2 mls/hr Multivitamins/Vitamin C (Multi-Delyn Liquid) 5 ml GT DAILY [facility] Last Admin: 09/10/18 10:01 Dose: 5 ml Rosuvastatin Calcium (Crestor) 10 mg NG HS [facility] Last Admin: 09/09/18 21:48 Dose: 10 mg Senna/Docusate Sodium (Senokot S 50 Mg-8.6 Mg) 2 tab PO BID ZHENG Last Admin: 09/10/18 09:17 Dose: 2 tab - Labs Labs: 09/10/18 05:36 09/10/18 05:36 PT 14.0 SECONDS (9.7-12.2) H 09/08/18 08:20 INR 1.3 09/08/18 08:20 APTT 30.3 SECONDS (21-34) 09/08/18 08:20 - Constitutional Appears: Chronically Ill - Head Exam Head Exam: ATRAUMATIC, NORMOCEPHALIC - Eye Exam Eye Exam: PERRL - Neurological Exam Neurological Exam: absent: Alert, Awake, Normal Gait, Oriented x3 Additional comments: Not awake or alert, off sedation, does not respond to voice. Pupils reactive to light. -dolls eyes, +corneals, no spontaneous movement in limbs. Assessment and Plan - Assessment and Plan (Free Text) Plan: 68 year old male noticed to have shaking and tremors right lower extremities. On examination, brain stem activity intact, no cortical activity noted, no chance of meaningful recovery. Dr Parikh discussed with Family, agreed to terminally extubated. Case d/w Dr Kati Ott, PGY-1
[2018-09-10] MEDS ORDERED: Morphine 100 MG in Sodium Chloride 0.9% 90 ML IV PRN ×4 (16:29→17:00)
[2018-09-10] MEDS ORDERED: SODIUM CHLORIDE 0.9% IV PRN (17:00)
[2018-09-10] MEDS ORDERED: MORPHINE SULFATE IV PRN (17:00)
[2018-09-10 17:25] VITALS: TEMP 99
[2018-09-10 18:10] VITALS: PULSE 108
[2018-09-10 18:46] VITALS: BP 131/59; RESP 15; O2SAT 61
--- NOTE | 2018-09-10 19:08 | CP.PCM.PRO ---
Pronouncement of Note - Clinical Findings Physical Exam: No Response Verbal/Painful Stimuli, Absent Peripheral Puls es{Carotid & Femoral}, Absent Heart & Breath Sounds, No Pupillary Light Reflex, No Corneal Reflex, Pupils Fixed & Dilated, Absence of Vital Signs - Pronouncement Time Time of Pronouncement of : 18:52 - Notifications Pronouncement Notifications: Family Notified, [place] Notified - [place] [id number]
== END 2018-09-10 18:52 | DRG 37 ==
LOC: C.ER 22:25 → C.9I 08-11 01:41 → C.5S 08-13 09:55 → C.9S 08-15 11:03 → C.9I 08-15 13:51 → C.5S 08-16 13:00 → C.9I 08-26 07:36 → C.5S 09-07 11:01 → C.9I 09-08 07:13
PROVIDERS: ADMIT Internal Medicine Cardiovascular Disease; ATTEND Internal Medicine Cardiovascular Disease
PROC: 03CK0ZZ Extirpation of Matter from Right Internal Carotid Artery, Open Approach (ICD-10-PCS; principal; 2018-08-15 08:30)
PROC: 0CJS8ZZ Inspection of Larynx, Via Natural or Artificial Opening Endoscopic (ICD-10-PCS; 2018-08-24)
PROC: 5A1945Z Respiratory Ventilation, 24-96 Consecutive Hours (ICD-10-PCS; 2018-08-26)
PROC: 0BH18EZ Insertion of Endotracheal Airway into Trachea, Via Natural or Artificial Opening Endoscopic (ICD-10-PCS; 2018-08-26)
PROC: 02HV33Z Insertion of Infusion Device into Superior Vena Cava, Percutaneous Approach (ICD-10-PCS; 2018-08-28)
PROC: 0DJ08ZZ Inspection of Upper Intestinal Tract, Via Natural or Artificial Opening Endoscopic (ICD-10-PCS; 2018-09-07)
PROC: 0DH63UZ Insertion of Feeding Device into Stomach, Percutaneous Approach (ICD-10-PCS; 2018-09-07)
PROC: 5A1945Z Respiratory Ventilation, 24-96 Consecutive Hours (ICD-10-PCS; 2018-09-08)
PROC: 0BH17EZ Insertion of Endotracheal Airway into Trachea, Via Natural or Artificial Opening (ICD-10-PCS; 2018-09-08)
DX: I65.23 Occlusion and stenosis of bilateral carotid arteries (principal); J69.0 Pneumonitis due to inhalation of food and vomit; G93.41 Metabolic encephalopathy; J96.01 Acute respiratory failure with hypoxia; E43 Unspecified severe protein-calorie malnutrition; J96.02 Acute respiratory failure with hypercapnia; J44.1 Chronic obstructive pulmonary disease with (acute) exacerbation; I82.412 Acute embolism and thrombosis of left femoral vein; E87.3 Alkalosis; F01.51 Vascular dementia, unspecified severity, with behavioral disturbance; F02.81 Dementia in other diseases classified elsewhere, unspecified severity, with behavioral disturbance; G93.1 Anoxic brain damage, not elsewhere classified; I82.502 Chronic embolism and thrombosis of unspecified deep veins of left lower extremity; J90 Pleural effusion, not elsewhere classified; J98.11 Atelectasis; N39.0 Urinary tract infection, site not specified; G45.0 Vertebro-basilar artery syndrome; I65.21 Occlusion and stenosis of right carotid artery; I10 Essential (primary) hypertension; E78.5 Hyperlipidemia, unspecified; G30.9 Alzheimer's disease, unspecified; J44.9 Chronic obstructive pulmonary disease, unspecified; I65.02 Occlusion and stenosis of left vertebral artery; R13.10 Dysphagia, unspecified; D50.9 Iron deficiency anemia, unspecified; D63.8 Anemia in other chronic diseases classified elsewhere; E11.51 Type 2 diabetes mellitus with diabetic peripheral angiopathy without gangrene; E11.65 Type 2 diabetes mellitus with hyperglycemia; E77.8 Other disorders of glycoprotein metabolism; E86.0 Dehydration; E87.6 Hypokalemia; F17.210 Nicotine dependence, cigarettes, uncomplicated; F41.9 Anxiety disorder, unspecified; G40.909 Epilepsy, unspecified, not intractable, without status epilepticus; H55.09 Other forms of nystagmus; I25.10 Atherosclerotic heart disease of native coronary artery without angina pectoris; I46.9 Cardiac arrest, cause unspecified; J43.9 Emphysema, unspecified; K21.9 Gastro-esophageal reflux disease without esophagitis; M47.812 Spondylosis without myelopathy or radiculopathy, cervical region; R62.7 Adult failure to thrive; Z79.01 Long term (current) use of anticoagulants; Z79.899 Other long term (current) drug therapy; Z85.038 Personal history of other malignant neoplasm of large intestine; K25.9 Gastric ulcer, unspecified as acute or chronic, without hemorrhage or perforation; K44.9 Diaphragmatic hernia without obstruction or gangrene; K31.9 Disease of stomach and duodenum, unspecified; Z99.81 Dependence on supplemental oxygen